=== PATIENT | female | born 1955 | race Caucasian/White ===

== ENCOUNTER 2020-02-09 21:14 | Inpatient (IN) | payer OTHER, SELFPAY ==
[2020-02-09 21:33] VITALS: BP 92/65; PULSE 94; RESP 20; TEMP 36.7; O2SAT 99
[2020-02-09 21:56] VITALS: BP 83/57; PULSE 82
[2020-02-09 21:59] VITALS: BP 74/60; PULSE 88
[2020-02-09 22:00] VITALS: BP 69/55; PULSE 81
[2020-02-09 22:03] LABS: Basophils Percent Auto 0.5 % (0.2-1.2); Eosinophils Absolute Auto 0.2 K/mm3 (0-0.3); Eosinophils Percent Auto 1.7 % (0-4.4); Hematocrit 46.8 % (37.0-47.0); Hemoglobin 16.4 g/dL (12.0-15.0); Immature Granulocyte Absolute 0.04 K/mm3 (0.00-0.031); Immature Granulocyte Percent A 0.5 % (0-0.5); Lymphocytes Absolute Auto 1.13 K/mm3 (0.9-3.2); Lymphocytes Percent Auto 13.2 % (18.3-44.2); Mean Corpuscular Hemoglobin 30.8 pg (26-34); Mean Platelet Volume 10.5 fl (7.4-10.4); Monocytes Absolute Auto 0.8 K/mm3 (0.1-0.6); Monocytes Percent Auto 9.7 % (2.6-8.5); Neutrophils Absolute Auto 6.4 K/mm3 (1.3-6.7); Neutrophils Percent Auto 74.4 % (45.5-73.1); Platelet Count Result 307 k/mm3 (150-375); Red Blood Count 5.32 M/mm3 (4.2-5.4); Red Cell Distribution Width 14.4 % (11.5-14.5); White Blood Count 8.6 K/mm3 (4.5-10.0)
[2020-02-09 22:16] VITALS: BP 100/58; PULSE 76; RESP 20; O2SAT 97
[2020-02-09 22:16] LABS: Potassium 2.9 mmol/L (3.4-5.0)
[2020-02-09 22:19] LABS: Alanine Aminotransferase 40 U/L (4-35); Albumin Level 4.5 g/dL (3.5-5.1); Alkaline Phosphatase 69 U/L (38-126); Anion Gap 16 mmol/L (8-16); Aspartate Amino Transferase 54 U/L (14-36); Bilirubin,Total 0.6 mg/dL (0.2-1.3); Blood Urea Nitrogen 50 mg/dL (7-17); Calcium 9.6 mg/dL (8.4-10.2); Carbon Dioxide 19 mmol/L (22-30); Chloride 97 mmol/L (98-107); Estimated CRCL calculation 30 ml/min; Estimated Glomerular Filt Rate 21; Glucose 98 mg/dL (65-105); Sodium 132 mmol/L (137-145)
[2020-02-09] MEDS: SODIUM CHLORIDE 0.9% IV 1,000 ML 999 ML IV CONT ×2 (22:31→22:56)
[2020-02-09 22:56] VITALS: BP 105/68; PULSE 66; RESP 18; O2SAT 100
--- NOTE | 2020-02-09 23:36 | ED.NAVMDI ---
HPI - Nausea/Vomiting/Diarrhea General Chief complaint: Nausea/Vomiting/Diarrhea Stated complaint: diarrhea x 2 months Time Seen by Provider: 02/09/20 21:33 History of Present Illness HPI Narrative: Patient is a 65-year-old female who presents ER with diarrhea. Ongoing for 2 months. Began as 4-6 stools a day but is now occurring upwards to 20 times a day. No blood in the stool. No fevers or chills or sweats. No localized abdominal pain. Has not been on antibiotics. Started after she had taken some steroids for sciatica. 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 She has been receiving Keytruda and other therapeutic agents. Today patient began feeling weak and lightheaded with movements and positional change which prompted her to come to the ER. Related Data Home Medications Medication Instructions Recorded Confirmed amlodipine 10 mg PO DAILY 02/09/20 02/09/20 axitinib [Inlyta] 5 mg PO DAILY 02/09/20 02/09/20 clopidogrel 75 mg PO DAILY 02/09/20 02/09/20 hydrochlorothiazide 25 mg PO DAILY 02/09/20 02/09/20 levothyroxine 175 mcg PO DAILY 02/09/20 02/09/20 losartan 100 mg PO DAILY 02/09/20 02/09/20 pembrolizumab [Keytruda] 200 mg IV [id number] 02/09/20 02/09/20 Allergies Allergy/AdvReac Type Severity Reaction Status Date / Time No Known Allergies Allergy Unverified 02/09/20 21:15 Review of Systems Review of Systems: All systems reviewed & are unremarkable except as noted in HPI and below Constitutional: Constitutional: Denies chills, Denies fever(s) and Reports weakness ENT: Denies nasal congestion and Denies sore throat Cardiovascular: Cardiovascular: Denies chest pain and Denies radiating jaw, neck or arm pain Respiratory: Respiratory: Denies cough, Denies dyspnea and Denies wheezing Gastrointestinal: Gastrointestinal: Denies abdominal pain, Denies constipation, Reports diarrhea, Reports nausea and Denies vomiting Musculoskeletal: Musculoskeletal: Denies back pain and Denies muscle cramps Neurologic: Reports dizziness, Denies syncope, Denies focal weakness and Denies numbness PMF Past Medical History Medical History (Updated 02/09/20 @ 23:43 by Aamir Feliciano MD) Hypertension Hypothyroidism Renal cell carcinoma Spine metastasis Surgical History Surgical History (Updated 02/09/20 @ 23:38 by Aamir Feliciano MD) History of nephrectomy Social History Social History (Updated 02/09/20 @ 23:39 by Aamir Feliciano MD) Smoking status: Never smoker Exam Narrative: Exam Narrative: GENERAL: Well-appearing, well-nourished, and in no acute distress. HEAD: Normocephalic, atraumatic. ENT: Mucous membranes moist. CHEST: Clear to auscultation. No respiratory distress. HEART: Regular rate and rhythm. Normal peripheral pulses. ABDOMEN: Soft, nontender, nondistended. EXTREMITIES: Normal range of motion. No edema. SKIN: Warm, dry, no rash. NEURO: Alert and oriented x3. PSYCH: Normal mood and affect. Course Course Emergency Course: Admit to hospital service for IV fluid and potassium replacement. Vital Signs Vital signs: Vital Signs Temperature 98.1 F 02/09/20 21:33 Pulse Rate 94 02/09/20 21:33 Respiratory Rate 20 02/09/20 21:33 Blood Pressure 92/65 L 02/09/20 21:33 Pulse Oximetry 99 02/09/20 21:33 Temperature 98.1 F 02/09/20 21:33 Pulse Rate 66 02/09/20 22:56 Respiratory Rate 18 02/09/20 22:56 Blood Pressure 105/68 02/09/20 22:56 Pulse Oximetry 100 02/09/20 22:56 MDM - Nausea/Vomiting/Diarrhea Lab Data Result diagrams: 02/09/20 21:57 02/09/20 21:57 Labs: Lab Results 02/09/20 02/09/20 Range/Units 21:57 21:57 WBC 8.6 (4.5-10.0) K/mm3 RBC 5.32 (4.2-5.4) M/mm3 Hgb 16.4 H (12.0-15.0) g/dL Hct 46.8 (37.0-47.0) % MCV 88.0 (80-100) fl MCH 30.8 (26-34) pg MCHC 35.0 (32-36) g/dl RDW 14.4 (11.5-14.5) % Plt Count 307 (150-375) k/mm3 MPV 10.5 H
--- NOTE | 2020-02-09 23:46 | PM.IMHP ---
H&P: HPI History of Present Illness Date/Time: 02/09/20 23:46 Chief Complaint: Persistent diarrhea, generalized weakness Narrative: Eli Frazier is a 65 year old female with past medical history of renal cell carcinoma status post resection, hypertension, PAD, and hypothyroidism who presents to ED with complaints of worsening diarrhea and lightheadedness. Patient states she has had diarrhea for last 2 months which has progressed significantly to the point where she cannot keep up with her output. He states is watery diarrhea no blood in her stools. She had no fevers or chills, mucus in her stools, or any other alarm features. She has not been any antibiotics recently. Her oncologist home held her Inlyta for 4 days to see if that would make any difference and it did not. Patient has never had issues with diarrhea like this before. Of note, she recently had sciatica which was treated with steroids with good improvement. There been no changes to her diet. She is having difficulty keeping a liquid diet down as she is getting significant diarrhea with any p.o. intake. Patient had right renal cell carcinoma and nephrectomy of right kidney. She had new lesions found on left kidney, the tail of her pancreas and her spine which were all removed, she has cage in her spine now. She follows oncology at [facility] on in light and Keytruda. He has been on Keytruda for at least last year. She had imaging done earlier this month which she states the scans were good. In the ED: Patient is on be hemoconcentrated with creatinine 2.3 with unknown baseline, hemoglobin 16.4, potassium 2.9. She was hypotensive on initial evaluation and respond to IV fluids. Elevated at 9.5 in she does have a history of hypothyroidism on Synthroid. 2 L normal saline bolus, 40 mEq potassium. Patient may admitted for observation for significant diarrhea, hypovolemia, acute kidney injury. Review of Systems Review of Systems: Narrative: Constitutional: No Fever, No Chills, No Night Sweats. Endorses generalized weakness. ENT/Mouth: No Hearing Changes, No Ear Pain, No Nasal Congestion, No Sinus Pain, No Hoarseness, No sore throat, No Rhinorrhea, No Swallowing Difficulty Eyes: No Eye Pain, No Redness, No Vision Changes Cardiovascular: No Chest Pain, No Palpitations, No Dyspnea on Exertion, No Orthopnea, No Claudication, No Edema Respiratory: No Cough, No Sputum, No Wheezing, No Shortness of Breath Gastrointestinal: No Constipation, No Abdominal Pain, No Heartburn, No Hematochezia, No Melena. Endorses nausea and profuse watery diarrhea, denies hematochezia or melena. Genitourinary: No Dysuria, No Urinary Frequency, No Hematuria, No Urinary Incontinence, No Urgency Musculoskeletal: No Arthralgias, No Myalgias, No Joint Swelling, No Joint Stiffness, No Back Pain Skin: No Skin Lesions, No Pruritis, No Hair Changes. endorses dry skin Neuro: No Numbness, No Paresthesias, No Loss of Consciousness, No Syncope, No Headache. Endorses dizziness and generalized weakness. Right lower extremity sciatica resolved. 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
[2020-02-10] VITALS (13 sets, daily range): BP systolic 91–119; BP diastolic 61–77; PULSE 59–82; RESP 16–21; TEMP 36.1–37.1; O2SAT 95–100; BMI 34.3
--- NOTE | 2020-02-10 00:15 | ADMGEN ---
This patient, Eli Frazier, was admitted to [facility]. Patient/family oriented to hospital policies and general routines including ID bracelet, bed and alarms, visiting hours, pain management, procedures, bathroom and other care routines, personal items, smoking policy, room service/diet, and visiting hours. Information on how to activate the Rapid Response Team has been discussed. Patient/Family are encouraged to report perceived risks to care and to ask questions if they do not understand what they are told or what they should do.
[2020-02-10 00:51] LABS: Free T4 Free Thyroxine 1.23 ng/mL (0.78-2.19)
[2020-02-10] MEDS: SODIUM CHLORIDE 0.9% IV 1,000 ML 125 ML IV CONT ×3 (00:56→19:24)
[2020-02-10 06:06] LABS: Hemoglobin 14.6 g/dL (12.0-15.0); Mean Corpuscular HGB Conc 34.8 g/dl (32-36); Mean Corpuscular Hemoglobin 30.4 pg (26-34); Mean Corpuscular Volume 87.5 fl (80-100); Mean Platelet Volume 10.6 fl (7.4-10.4); Platelet Count Result 241 k/mm3 (150-375); Red Cell Distribution Width 14.5 % (11.5-14.5); White Blood Count 8.1 K/mm3 (4.5-10.0)
[2020-02-10 06:21] LABS: Anion Gap 10 mmol/L (8-16); Blood Urea Nitrogen 43 mg/dL (7-17); Calcium 8.8 mg/dL (8.4-10.2); Carbon Dioxide 17 mmol/L (22-30); Chloride 106 mmol/L (98-107); Estimated CRCL calculation 42 ml/min; Estimated Glomerular Filt Rate 32; Glucose 82 mg/dL (65-105); Potassium 3.1 mmol/L (3.4-5.0); Sodium 133 mmol/L (137-145)
[2020-02-10] MEDS: LEVOTHYROXINE SODIUM 100 MCG TABLET PO (06:29)
[2020-02-10] MEDS: LEVOTHYROXINE SODIUM 75 MCG TABLET PO (06:29)
[2020-02-10] MEDS: POTASSIUM CHLORIDE 20 MEQ TABLET 40 MEQ PO (06:47)
[2020-02-10] MEDS: KCL 20 MEQ/SW 100 ML 100 ML 50 MEQ IVPB (07:03)
[2020-02-10 08:12] LABS: Magnesium 1.7 mg/dL (1.6-2.3)
--- NOTE | 2020-02-10 08:55 | PC.NURSE ---
RECORDS REQUEST FAXED TO MEDICAL RECORDS AT [facility].
--- NOTE | 2020-02-10 09:57 | PC.NURSE ---
CONSULT FOR GI CALLED TO DR. BUSH. STATES WILL SEE PT. TODAY. PT. PLACED ON 'S LIST.
--- NOTE | 2020-02-10 10:49 | PHAR ---
Drug Name: Inlyta Ingredients: Axitinib -- 5 MG Related Documents: DRUGDEX Evaluations - AXITINIB Color: Red Shape: [place] Imprint: Pfizer , 5 XNB Form: Oral Tablet
--- NOTE | 2020-02-10 11:10 | PC.NURSE ---
PT'S HOME MED OF INLYTA VERIFIED W/ PHARMACY AND IS OK'D TO ADMINISTER WHILE HERE IN HOSPITAL.
[2020-02-10] MEDS: CLOPIDOGREL BISULFATE 75 MG TABLET PO (11:25)
[2020-02-10] MEDS: MAGNESIUM SULF 2 GM/WATER 50ML 2 GM/50 ML BAG IVPB (11:28)
--- NOTE | 2020-02-10 14:31 | PM.IMPN ---
Progress Note: A&P Assessment and Plan (1) Enteritis: Code(s): K52.9 - Noninfective gastroenteritis and colitis, unspecified Status: Acute Assessment and Plan: Patient has had extended diarrhea for the last 2 months which is progressively getting worse. Etiology unclear at this time. No other signs of infectious cause, no fevers/chills/leukocytosis, seemed less likely to be infectious given the length of her symptoms. Denies abdominal pain or blood in stool. Denies recent antibiotic use. Immunosuppressed with Inlyta and Keytruda thus stools were sent for culture, WBC, and C diff. She has outpatient colonoscopy for 5-year follow-up scheduled with Dr Eaton in the next 1 or 2 months per patient. Appreciate GI recommendations. Continue supportive care with IV hydration. Recent CT abdomen/pelvis at [place] done 01/04/20 demonstrated improved inflammatory changes surrounding the sigmoid indicative of diverticulitis . If Cr improves more tomorrow we may be able to repeat CT however clinically she is improving so this may not be necessary. (2) Acute hypokalemia: Code(s): E87.6 - Hypokalemia Status: Acute Assessment and Plan: Suspect secondary to GI loss. K 3.1 this AM and replaced orally and parenterally. Magnesium low and replaced. Continue to monitor K and Mg and replace as needed. (3) GILMER (acute kidney injury): Code(s): N17.9 - Acute kidney failure, unspecified Status: Acute Assessment and Plan: Suspect prerenal secondary to hypovolemia. Unsure of baseline renal function. Cr improved to 1.6 today from 2.3 yesterday with IV hydration. Continue IV fluids and monitor renal function. (4) Renal cell carcinoma: Code(s): C64.9 - Malignant neoplasm of unspecified kidney, except renal pelvis Status: Chronic Assessment and Plan: Longstanding disease with history of metastasis, followed by [facility]. Currently on Keytruda and Inlyta, unclear if these medications are playing a role in her diarrhea. Her oncologist held her Inlyta for 4 days and her diarrhea was unchanged so the medication was resumed. (5) Hypertension: Qualifiers: Hypertension type: essential hypertension Qualified Code(s): I10 - Essential (primary) hypertension Code(s): I10 - Essential (primary) hypertension Status: Chronic Assessment and Plan: Her home losartan, hydrochlorothiazide, and amlodipine are held secondary to hypotension. Monitor BP and adjust treatment as needed. (6) Stenosis of popliteal artery: Code(s): I70.209 - Unspecified atherosclerosis of [place] arteries of extremities, unspecified extremity Status: Chronic Assessment and Plan: History of peripheral artery disease status post stent in left popliteal. Continue home Plavix. (7) Hypothyroidism: Qualifiers: Hypothyroidism type: unspecified Qualified Code(s): E03.9 - Hypothyroidism, unspecified Code(s): E03.9 - Hypothyroidism, unspecified Status: Chronic Assessment and Plan: Continue her home levothyroxine. Subjective Date/time seen: 02/10/20 1000 Interval history: Ms. Frazier is a 65yo F admitted for dehydration and electrolyte imbalances with significant diarrhea x 2 months and worsening. She reports feeling improved today and has only had a couple bowel movements so far today. Previously at home was having up to 15 - 20 BMs per day of nonbloody diarrhea. She denies abdominal pain. She reports nausea without vomiting. She denies chest pain, shortness of breath or dizziness. Review of Systems Review of Systems: Narrative: Twelve systems
--- NOTE | 2020-02-10 14:57 | PC.NURSE ---
DR. BUSH HERE TO SEE PT FOR GI CONSULTATION.
--- NOTE | 2020-02-10 15:44 | WPDGIPROGNO ---
Progress Note: A&P Additional Plan Improving. Full consult dictated Lin [phone] #[id number] Subjective Date/time seen: 02/10/20 15:44 Objective Data Vital Signs Vital Signs: Vital Signs - 24 hr 02/09/20 21:33 02/09/20 21:56 02/09/20 21:59 Temperature 36.7 C Pulse Rate 94 82 88 Respiratory Rate 20 Blood Pressure 92/65 L 83/57 L 74/60 L Pulse Oximetry 99 02/09/20 22:00 02/09/20 22:16 02/09/20 22:56 Temperature Pulse Rate 81 76 66 Respiratory Rate 20 18 Blood Pressure 69/55 L 100/58 L 105/68 Pulse Oximetry 97 100 02/10/20 00:03 02/10/20 00:12 02/10/20 00:43 Temperature 36.3 C L Pulse Rate 64 69 67 Respiratory Rate 20 17 Blood Pressure 113/62 119/75 Pulse Oximetry 100 99 02/10/20 01:00 02/10/20 04:00 02/10/20 06:00 Temperature 36.4 C L Pulse Rate 67 81 75 Respiratory Rate 16 21 H Blood Pressure 106/61 Pulse Oximetry 99 95 Intake/Output Intake/Output: Intake & Output 02/07/20 02/08/20 02/09/20 02/10/20 23:59 23:59 23:59 23:59 Intake Total 1000 2650 Balance 1000 2650 Meds/Results Medications: Active Medications Generic Name Dose Route Start Last Admin Trade Name Freq PRN Reason Stop Dose Admin Acetaminophen 650 mg 02/09/20 23:10 Acetaminophen 325 Mg Tablet PO Q4H PRN Mild Pain (1-3) or Fever Hydrocodone Bitart/Acetaminophen 1 tab 02/09/20 23:10 Hydrocodone/Acetaminophen (*Crx) 5-325 Mg Tablet PO Q4H PRN Pain Rated 4-6 Clopidogrel Bisulfate 75 mg 02/10/20 09:00 02/10/20 11:25 Clopidogrel Bisulfate 75 Mg Tablet PO 75 mg DAILY DARIUS Administration Sodium Chloride 1,000 mls @ 125 mls/hr 02/09/20 23:10 02/10/20 11:27 Normal Saline Iv IV CONT 125 mls/hr .Q8H DARIUS Administration Levothyroxine Sodium 100 mcg 02/10/20 06:30 02/10/20 06:29 Levothyroxine Sodium 100 Mcg Tablet PO 100 mcg DAILY@0630 DARIUS Administration Levothyroxine Sodium 75 mcg 02/10/20 06:30 02/10/20 06:29 Levothyroxine Sodium 75 Mcg Tablet PO 75 mcg DAILY@0630 DARIUS Administration Morphine Sulfate 4 mg 02/09/20 23:10 Morphine Sulfate (*Crx) 4 Mg/Ml Inj IV PUSH Q2H PRN Pain Rated 7-10 Ondansetron HCl 4 mg 02/09/20 23:10 Ondansetron Inj 4 Mg/2 Ml Vial IV PUSH Q4H PRN Nausea Labs Labs: Laboratory Results - last 24 hr 02/09/20 02/09/20 02/09/20 21:57 21:57 21:57 WBC 8.6 RBC 5.32 Hgb 16.4 H Hct 46.8 MCV 88.0 MCH 30.8 MCHC 35.0 RDW 14.4 Plt Count 307 MPV 10.5 H Immature Gran % (Auto) 0.5 Neut % (Auto) 74.4 H Lymph % (Auto) 13.2 L [place] % (Auto) 9.7 H Eos % (Auto) 1.7 Baso % (Auto) 0.5 Lymph # (Auto) 1.13 [place] # (Auto) 0.8 H Eos # (Auto) 0.2 Baso # (Auto) 0.0 Abs Immat Gran (auto) 0.04 H Absolute Neuts (auto) 6.4 Absolute Nucleated RBC 0.0 Nucleated RBC % 0.0 Sodium 132 L Potassium 2.9 L Chloride 97 L Carbon Dioxide 19 L Anion Gap 16 BUN 50 H Creatinine 2.30 H Estim Creat Clear Calc 30 Estimated GFR 21 L Glucose 98 Calcium 9.6 Magnesium Total Bilirubin 0.6 Direct Bilirubin 0.0 AST 54 H ALT 40 H Alkaline Phosphatase 69 Total Protein 8.0 Albumin 4.5 TSH 9.540 H Free T4 1.23 02/10/20 02/10/20 02/10/20 05:56 05:56 05:56 WBC 8.1 RBC 4.80 Hgb 14.6 Hct 42.0 MCV 87.5 MCH 30.4 MCHC 34.8 RDW 14.5 Plt Count 241 MPV 10.6 H Immature Gran % (Auto) Neut % (Auto) Lymph % (Auto) [place] % (Auto) Eos % (Auto) Baso % (Auto) Lymph # (Auto) [place] # (Auto) Eos # (Auto) Baso # (Auto) Abs Immat Gran (auto) Absolute Neuts (auto) Absolute Nucleated RBC Nucleated RBC % Sodium 133 L Potassium 3.1 L Chloride 106 Carbon Dioxide 17 L Anion Gap 10 BUN 43 H Creatinine 1.60 H Estim Creat Clear Calc 42 Estimated GFR 32 L Glucose 82
--- NOTE | 2020-02-10 19:51 | CONS_ITS ---
DATE OF CONSULTATION: 02/10/2020 HISTORY OF PRESENT ILLNESS: A 65-year-old female with history of renal cell carcinoma status post resection. She has spinal METS. She has history of hypertension, peripheral artery disease, hypothyroidism, and back surgery, who presented with worsening diarrhea and lightheadedness. I am now asked to provide GI evaluation at the request of the hospitalist service. Primary care provider is Dr. Kevin Kramer. The patient has had at least 2 months of diarrhea that has recently been worsening. She complains of at least 8-10 bowel movements per day that are watery. They are not bloody, melenic, or mucoid. She held her Inlyta for 4 days without change. She has also been on sciatica treatment with steroids, which has improved her sciatica. She has no history of being around others, who were ill, recent antibiotic use, travel, leg swimming, well water, or new medications except for the steroids, which she does not feel is associated with that. She has mild nausea, no vomiting. She has poor appetite and has lost approximately 25 pounds over the past 2 months or so. She otherwise denies abdominal pain, heartburn, trouble swallowing, constipation, fever, jaundice, scleral icterus, dark urine, light stools, itching, hot or cold intolerance, chest pain, shortness of breath at rest, hematuria, dysuria, new cough or visual changes, easy bruising, tingling skin, bone pain, or tremors. No endocarditis risk factors. ALLERGIES: SEE LIST. MEDICATIONS: See list. SOCIAL HISTORY: Smoker, cessation recommended. Occasional alcohol. FAMILY HISTORY: Negative for GI malignancy. Her last colonoscopy was approximately [address] Khalif Eaton. She had 3-4 polyps reportedly planned otherwise. PHYSICAL EXAMINATION: GENERAL: Well-developed, well-nourished female, lying in bed, in no apparent distress. She has no lower extremity edema, jaundice, spider angioma, palmar erythema. HEENT: Skull is normocephalic, atraumatic. Pupils nonicteric. Oropharynx is clear. NECK: Supple without thyromegaly. LUNGS: Clear to auscultation. HEART: Rate and rhythm regular. S1, S2 normal. ABDOMEN: Normoactive bowel sounds. Soft, nontender, nonrigid, nondistended without hepatosplenomegaly or masses. RECTAL: Deferred. NEURO: Conscious and alert x3. LABORATORY DATA: On February 09, hemoglobin 15, hematocrit 42, white count of 8. Creatinine 1.6. Stool calprotectin, lactoferrin, and stool studies were all pending. On 02/08, hematocrit 47, white count 9, MCV 88. T bilirubin is 0.6, alkaline phosphatase 69, AST 54, ALT is 40, creatinine 2.3. TSH 9.5, free T4 is 1.2. ASSESSMENT AND PLAN: Alteration in bowel habits with diarrhea, nausea, anorexia, weight loss, and abnormal transaminases, likely related to whatever is causing her altered bowel habits and diarrhea. May be infectious as the patient is feeling better since admission. Her diarrhea is improved. Her nausea is resolved and her appetite is better. She is currently not on antibiotics. We will await results of stool studies and follow LFTs and consider for colonoscopy when stable. Potentially, this could be done as an outpatient. Thank you again for allowing me to share in the care of this very nice patient. I will continue to follow. MITZI BUSH M.D. CC:? Kevin Kramer M.D. CAN HANDLER CAN HANDLER D I MT: Sammy
[2020-02-11] VITALS: PULSE 55
[2020-02-11] MEDS: SODIUM CHLORIDE 0.9% IV 1,000 ML 125 ML IV CONT ×2 (03:05→17:39)
[2020-02-11 04:05] VITALS: BP 115/73; PULSE 59; PULSE 60; RESP 16; TEMP 36.9; O2SAT 100
[2020-02-11] MEDS: LEVOTHYROXINE SODIUM 75 MCG TABLET PO (06:13)
[2020-02-11] MEDS: LEVOTHYROXINE SODIUM 100 MCG TABLET PO (06:13)
[2020-02-11 06:22] LABS: Basophils Percent Auto 0.5 % (0.2-1.2); Eosinophils Absolute Auto 0.2 K/mm3 (0-0.3); Eosinophils Percent Auto 2.4 % (0-4.4); Hematocrit 40.2 % (37.0-47.0); Hemoglobin 13.8 g/dL (12.0-15.0); Immature Granulocyte Absolute 0.02 K/mm3 (0.00-0.031); Immature Granulocyte Percent A 0.3 % (0-0.5); Lymphocytes Absolute Auto 0.91 K/mm3 (0.9-3.2); Lymphocytes Percent Auto 12.3 % (18.3-44.2); Mean Corpuscular HGB Conc 34.3 g/dl (32-36); Mean Corpuscular Hemoglobin 30.3 pg (26-34); Mean Corpuscular Volume 88.2 fl (80-100); Mean Platelet Volume 10.7 fl (7.4-10.4); Monocytes Absolute Auto 0.7 K/mm3 (0.1-0.6); Monocytes Percent Auto 9.4 % (2.6-8.5); Neutrophils Absolute Auto 5.6 K/mm3 (1.3-6.7); Neutrophils Percent Auto 75.1 % (45.5-73.1); Platelet Count Result 226 k/mm3 (150-375); Red Blood Count 4.56 M/mm3 (4.2-5.4); Red Cell Distribution Width 14.6 % (11.5-14.5); White Blood Count 7.4 K/mm3 (4.5-10.0)
[2020-02-11 06:43] LABS: Alanine Aminotransferase 32 U/L (4-35); Albumin Level 3.5 g/dL (3.5-5.1); Alkaline Phosphatase 62 U/L (38-126); Anion Gap 9 mmol/L (8-16); Aspartate Amino Transferase 46 U/L (14-36); Bilirubin,Total 0.4 mg/dL (0.2-1.3); Blood Urea Nitrogen 27 mg/dL (7-17); Calcium 8.6 mg/dL (8.4-10.2); Carbon Dioxide 15 mmol/L (22-30); Chloride 111 mmol/L (98-107); Estimated CRCL calculation 55 ml/min; Estimated Glomerular Filt Rate 45; Glucose 84 mg/dL (65-105); Magnesium 2.1 mg/dL (1.6-2.3); Phosphorus 2.7 mg/dL (2.5-4.5); Potassium 2.9 mmol/L (3.4-5.0); Sodium 135 mmol/L (137-145)
[2020-02-11 08:00] VITALS: BP 107/70; PULSE 72; PULSE 76; RESP 14; TEMP 36.4; O2SAT 98
[2020-02-11] MEDS: POTASSIUM CHLORIDE 20 MEQ TABLET 40 MEQ PO (08:55)
[2020-02-11] MEDS: CLOPIDOGREL BISULFATE 75 MG TABLET PO (08:56)
--- NOTE | 2020-02-11 11:36 | WPDGIPROGNO ---
Progress Note: A&P Additional Plan GI Lin 11 Feb 2020 Still with frequent diarrhea overnight VSS soft/NT Hct 40. WBC 7. TB 0.4, A/P 62, AST 46, ALT 32. FT4 1.2 ASSESSMENT AND PLAN: Alteration in bowel habits with diarrhea, nausea, anorexia, weight loss and abnormal transaminases: - Abnormal LFT's llikely related to whatever is causing her altered bowel habits-diarrhea - May be infectious as the patient is feeling better since admission - Her diarrhea initially seemed improved but is not - Will begin Levaquin, Flagyl and Imodium ATC - Stool studies still pending - Follow LFTs - Consider for colonoscopy when stable Case reviewed with KEITH Blanton. Thanks, [facility] [phone] Subjective Date/time seen: 02/11/20 11:36 Objective Data Vital Signs Vital Signs: Vital Signs - 24 hr 02/10/20 12:00 02/10/20 14:00 02/10/20 16:00 Temperature 36.6 C Pulse Rate 76 68 59 L Respiratory Rate 16 Blood Pressure 107/73 Pulse Oximetry 98 02/10/20 18:00 02/10/20 20:00 02/10/20 20:50 Temperature 37.1 C 36.9 C Pulse Rate 65 66 71 Respiratory Rate 16 16 Blood Pressure 103/77 106/69 Pulse Oximetry 100 100 02/11/20 00:00 02/11/20 04:05 02/11/20 08:00 Temperature 36.9 C 36.4 C Pulse Rate 55 L 59 L 76 Respiratory Rate 16 14 Blood Pressure 115/73 107/70 Pulse Oximetry 100 98 Intake/Output Intake/Output: Intake & Output 02/08/20 02/09/20 02/10/20 02/11/20 23:59 23:59 23:59 23:59 Intake Total 1000 5290 1900 Balance 1000 5290 1900 Meds/Results Medications: Active Medications Generic Name Dose Route Start Last Admin Trade Name Freq PRN Reason Stop Dose Admin Acetaminophen 650 mg 02/09/20 23:10 Acetaminophen 325 Mg Tablet PO Q4H PRN Mild Pain (1-3) or Fever Hydrocodone Bitart/Acetaminophen 1 tab 02/09/20 23:10 Hydrocodone/Acetaminophen (*Crx) 5-325 Mg Tablet PO Q4H PRN Pain Rated 4-6 Clopidogrel Bisulfate 75 mg 02/10/20 09:00 02/11/20 08:56 Clopidogrel Bisulfate 75 Mg Tablet PO 75 mg DAILY DARIUS Administration Sodium Chloride 1,000 mls @ 100 mls/hr 02/09/20 23:10 02/11/20 03:05 Normal Saline Iv IV CONT 125 mls/hr .Q10H DARIUS Administration Potassium Chloride 500 mls @ 125 mls/hr 02/11/20 08:21 02/11/20 08:55 Kcl 40 Meq/D5w 500 Ml Peripheral IVPB 02/11/20 12:20 125 mls/hr ONCE ONE Administration Levofloxacin/Dextrose 500 mg in 100 mls @ 100 mls/hr 02/11/20 12:00 Levaquin 500 Mg/D5w 100 Ml IVPB NOON DARIUS Metronidazole 500 mg in 100 mls @ 100 mls/hr 02/11/20 11:35 Flagyl 500 Mg/Iso Soln 100 Ml IVPB Q8H [facility] Levothyroxine Sodium 100 mcg 02/10/20 06:30 02/11/20 06:13 Levothyroxine Sodium 100 Mcg Tablet PO 100 mcg DAILY@0630 [facility] Administration Levothyroxine Sodium 75 mcg 02/10/20 06:30 02/11/20 06:13 Levothyroxine Sodium 75 Mcg Tablet PO 75 mcg DAILY@0630 [facility] Administration Loperamide HCl 2 mg 02/11/20 16:30 Loperamide Hcl 2 Mg Capsule PO ACHS [facility] Ondansetron HCl 4 mg 02/09/20 23:10 Ondansetron Inj 4 Mg/2 Ml Vial IV PUSH Q4H PRN Nausea Labs Labs: Laboratory Results - last 24 hr 02/11/20 02/11/20 06:04 06:04 WBC 7.4 RBC 4.56 Hgb 13.8 Hct 40.2 MCV 88.2 MCH 30.3 MCHC 34.3 RDW 14.6 H Plt Count 226 MPV 10.7 H Immature Gran % (Auto) 0.3 Neut % (Auto) 75.1 H Lymph % (Auto) 12.3 L [place] % (Auto) 9.4 H Eos % (Auto) 2.4 Baso % (Auto) 0.5 Lymph # (Auto) 0.91 [place] # (Auto) 0.7 H Eos # (Auto) 0.2 Baso # (Auto) 0.0 Abs Immat Gran (auto) 0.02 Absolute Neuts (auto) 5.6 Absolute Nucleated RBC 0.0 Nucleated RBC % 0.0 Sodium 135 L Potassium 2.9 L Chloride 111 H Carbon Dioxide 15 L Anion Gap 9 BUN 27 H D Creatinine 1.20 H Estim Creat Clear Calc 55 Estimated GFR 45 L Glucose 84 Calcium 8.6 Phosphorus 2.7 Magnesium 2.1 Total Bilirubin 0.4 AST 46 H ALT 32 Alkaline
[2020-02-11 12:00] VITALS: PULSE 75
--- NOTE | 2020-02-11 12:26 | PM.IMPN ---
Progress Note: A&P Assessment and Plan (1) Enteritis: Code(s): K52.9 - Noninfective gastroenteritis and colitis, unspecified Status: Acute Assessment and Plan: Patient has had extended diarrhea for the last 2 months which is progressively getting worse. Etiology unclear at this time. Denies recent antibiotic use. Immunosuppressed with Inlyta and Keytruda thus stools were sent for culture, WBC, and C diff. She has outpatient colonoscopy for 5-year follow-up scheduled with Dr Eaton in the next 1 or 2 months per patient. Appreciate GI recommendations. Continue supportive care with IV hydration. Recent CT abdomen/pelvis at [place] done 01/04/20 for routine monitoring of her pancreatic metastasis demonstrated improved inflammatory changes surrounding the sigmoid indicative of diverticulitis . She tells me she did not take antibiotics for diverticulitis at that time, was told to see her PCP regarding this but she did not follow up she says. Discussed case with Dr Ceballos; added IV levaquin and flagyl, immodium. (2) Acute hypokalemia: Code(s): E87.6 - Hypokalemia Status: Acute Assessment and Plan: Suspect secondary to GI loss. K 2.9 this AM and replaced orally and parenterally. Magnesium 2.1 today. Continue to monitor K and Mg and replace as needed. (3) GILMER (acute kidney injury): Code(s): N17.9 - Acute kidney failure, unspecified Status: Acute Assessment and Plan: Suspect prerenal secondary to hypovolemia. Unsure of baseline renal function. Cr improved to 1.2 today from 2.3 on arrival with IV hydration. Continue IV fluids and monitor renal function. (4) Renal cell carcinoma: Code(s): C64.9 - Malignant neoplasm of unspecified kidney, except renal pelvis Status: Chronic Assessment and Plan: Longstanding disease with history of metastasis, followed by [facility]. Currently on Keytruda and Inlyta, unclear if these medications are playing a role in her diarrhea. Her oncologist held her Inlyta for 4 days and her diarrhea was unchanged so the medication was resumed. (5) Hypertension: Qualifiers: Hypertension type: essential hypertension Qualified Code(s): I10 - Essential (primary) hypertension Code(s): I10 - Essential (primary) hypertension Status: Chronic Assessment and Plan: BPs low but stable, last 107/70. Her home losartan, hydrochlorothiazide, and amlodipine are held secondary to hypotension. Monitor BP and adjust treatment as needed. (6) Stenosis of popliteal artery: Code(s): I70.209 - Unspecified atherosclerosis of [place] arteries of extremities, unspecified extremity Status: Chronic Assessment and Plan: History of peripheral artery disease status post stent in left popliteal. Continue home Plavix. (7) Hypothyroidism: Qualifiers: Hypothyroidism type: unspecified Qualified Code(s): E03.9 - Hypothyroidism, unspecified Code(s): E03.9 - Hypothyroidism, unspecified Status: Chronic Assessment and Plan: Continue her home levothyroxine. Subjective Date/time seen: 02/11/20 1100 Interval history: Ms. Frazier is a 65yo F admitted for dehydration and electrolyte imbalances with significant diarrhea x 2 months and worsening. She is tired. Initially diarrhea seemed improved yesterday however overnight she had several watery bowel movements and so far today she has had 4 or 5 this morning. She reports some mild vague abdominal discomfort but no point tenderness. She denies chest pain, shortness of breath or dizziness. Review of Systems Review of Systems: All systems revie
[2020-02-11] MEDS: levoFLOXacin 500 MG/D5W 100 ML 500 MG/100 ML BAG 100 MG IVPB (12:56)
[2020-02-11] MEDS: LOPERAMIDE HCL 2 MG CAPSULE PO ×2 (13:34→21:18)
[2020-02-11] MEDS: metroNIDAZOLE 500 MG/ISO 100ML 500 MG/100 ML BAG 100 MG IVPB ×2 (13:57→21:18)
[2020-02-11 15:51] VITALS: BP 120/75; PULSE 75; RESP 14; TEMP 36.6; O2SAT 98
[2020-02-11 20:00] VITALS: BP 111/74; PULSE 68; RESP 16; TEMP 36.8; O2SAT 98
[2020-02-12] VITALS (7 sets, daily range): BP systolic 117–131; BP diastolic 76–87; PULSE 57–72; RESP 14–18; TEMP 36.2–36.6; O2SAT 99–100
[2020-02-12] MEDS: SODIUM CHLORIDE 0.9% IV 1,000 ML 100 ML IV CONT ×2 (01:56→13:50)
[2020-02-12] MEDS: metroNIDAZOLE 500 MG/ISO 100ML 500 MG/100 ML BAG 100 MG IVPB ×3 (06:10→21:04)
[2020-02-12] MEDS: LEVOTHYROXINE SODIUM 100 MCG TABLET PO (06:11)
[2020-02-12] MEDS: LOPERAMIDE HCL 2 MG CAPSULE PO ×4 (06:11→21:00)
[2020-02-12] MEDS: LEVOTHYROXINE SODIUM 75 MCG TABLET PO (06:11)
[2020-02-12 08:25] LABS: Alanine Aminotransferase 31 U/L (4-35); Albumin Level 3.8 g/dL (3.5-5.1); Alkaline Phosphatase 60 U/L (38-126); Anion Gap 12 mmol/L (8-16); Aspartate Amino Transferase 46 U/L (14-36); Bilirubin,Total 0.4 mg/dL (0.2-1.3); Blood Urea Nitrogen 16 mg/dL (7-17); Calcium 9.3 mg/dL (8.4-10.2); Carbon Dioxide 13 mmol/L (22-30); Chloride 113 mmol/L (98-107); Estimated CRCL calculation 51 ml/min; Estimated Glomerular Filt Rate 41; Glucose 85 mg/dL (65-105); Magnesium 1.8 mg/dL (1.6-2.3); Phosphorus 2.9 mg/dL (2.5-4.5); Potassium 3.5 mmol/L (3.4-5.0); Sodium 138 mmol/L (137-145)
[2020-02-12] MEDS: CLOPIDOGREL BISULFATE 75 MG TABLET PO (08:45)
[2020-02-12] MEDS: MAGNESIUM SULF 1 GM/D5W 100 ML 1 GM/100 ML BAG IVPB (09:20)
[2020-02-12] MEDS: POTASSIUM CHLORIDE 20 MEQ TABLET PO (09:20)
--- NOTE | 2020-02-12 10:18 | WPDGIPROGNO ---
Progress Note: A&P Additional Plan GI [facility] 12 Feb 2020 Diarrhea much improved; none overnight. No AP, N, V. [place] po VSS soft/NT 02-11-2020 Hct 40. WBC 7. FT4 1.2. TB 0.4->0.4, A/P 62->60, AST 46->46, ALT 32->31. ASSESSMENT AND PLAN: Alteration in bowel habits with diarrhea, nausea, anorexia, weight loss and abnormal transaminases: - Abnormal LFT's likely related to whatever is causing her altered bowel habits-diarrhea - Much improved today on Levaquin, Flagyl and Imodium - If improved tomorrow ok with me for discharge - Patient can do colonoscopy as OP - Stool WBC negative o/w other studies still pending - Follow LFTs CARMEN العلي [phone] Subjective Date/time seen: 02/12/20 10:18 Objective Data Vital Signs Vital Signs: Vital Signs - 24 hr 02/11/20 12:00 02/11/20 15:51 02/11/20 20:00 Temperature 36.6 C 36.8 C Pulse Rate 75 75 68 Respiratory Rate 14 16 Blood Pressure 120/75 111/74 Pulse Oximetry 98 98 02/12/20 00:00 02/12/20 04:00 02/12/20 08:00 Temperature 36.2 C L 36.6 C Pulse Rate 57 L 63 72 Respiratory Rate 16 18 Blood Pressure 131/83 117/76 Pulse Oximetry 99 99 Intake/Output Intake/Output: Intake & Output 02/09/20 02/10/20 02/11/20 02/12/20 23:59 23:59 23:59 23:59 Intake Total 1000 5290 4050 2520 Balance 1000 5290 4050 2520 Meds/Results Medications: Active Medications Generic Name Dose Route Start Last Admin Trade Name Freq PRN Reason Stop Dose Admin Acetaminophen 650 mg 02/09/20 23:10 Acetaminophen 325 Mg Tablet PO Q4H PRN Mild Pain (1-3) or Fever Hydrocodone Bitart/Acetaminophen 1 tab 02/09/20 23:10 Hydrocodone/Acetaminophen (*Crx) 5-325 Mg Tablet PO Q4H PRN Pain Rated 4-6 Clopidogrel Bisulfate 75 mg 02/10/20 09:00 02/12/20 08:45 Clopidogrel Bisulfate 75 Mg Tablet PO 75 mg DAILY DARIUS Administration Sodium Chloride 1,000 mls @ 100 mls/hr 02/09/20 23:10 02/12/20 01:56 Normal Saline Iv IV CONT 100 mls/hr .Q10H DARIUS Administration Levofloxacin/Dextrose 500 mg in 100 mls @ 100 mls/hr 02/11/20 12:00 02/11/20 14:43 Levaquin 500 Mg/D5w 100 Ml IVPB Infused NOON DARIUS Infusion Metronidazole 500 mg in 100 mls @ 100 mls/hr 02/11/20 14:00 02/12/20 07:11 Flagyl 500 Mg/Iso Soln 100 Ml IVPB Infused Q8HR DARIUS Infusion Levothyroxine Sodium 100 mcg 02/10/20 06:30 02/12/20 06:11 Levothyroxine Sodium 100 Mcg Tablet PO 100 mcg DAILY@0630 DARIUS Administration Levothyroxine Sodium 75 mcg 02/10/20 06:30 02/12/20 06:11 Levothyroxine Sodium 75 Mcg Tablet PO 75 mcg DAILY@0630 DARIUS Administration Loperamide HCl 2 mg 02/11/20 16:30 02/12/20 08:05 Loperamide Hcl 2 Mg Capsule PO 2 mg ACHS DARIUS Administration Ondansetron HCl 4 mg 02/09/20 23:10 Ondansetron Inj 4 Mg/2 Ml Vial IV PUSH Q4H PRN Nausea Labs Labs: Laboratory Results - last 24 hr 02/12/20 07:30 Sodium 138 Potassium 3.5 Chloride 113 H Carbon Dioxide 13 L Anion Gap 12 BUN 16 D Creatinine 1.30 H Estim Creat Clear Calc 51 Estimated GFR 41 L Glucose 85 Calcium 9.3 Phosphorus 2.9 Magnesium 1.8 Total Bilirubin 0.4 AST 46 H ALT 31 Alkaline Phosphatase 60 Total Protein 7.0 Albumin 3.8
[2020-02-12] MEDS: levoFLOXacin 500 MG/D5W 100 ML 500 MG/100 ML BAG 100 MG IVPB (11:57)
--- NOTE | 2020-02-12 13:26 | P.PNIM_ITS ---
Progress Note: A&P Assessment and Plan (1) Enteritis: Code(s): K52.9 - Noninfective gastroenteritis and colitis, unspecified Status: Acute Assessment and Plan: * Patient has had extended diarrhea for the last 2 months which is progressively getting worse. Etiology unclear at this time. * Denies recent antibiotic use. Immunosuppressed with Inlyta and Keytruda thus stools were sent for culture, WBC, and C diff. * She has outpatient colonoscopy for 5-year follow-up scheduled with Dr Eaton in the next 1 or 2 months per patient. * Appreciate GI recommendations. Continue supportive care with IV hydration. * Recent CT abdomen/pelvis at [place] done 01/04/20 for routine monitoring of her pancreatic metastasis demonstrated improved inflammatory changes surrounding the sigmoid indicative of diverticulitis . She tells me she did not take antibiotics for diverticulitis at that time, was told to see her PCP regarding this but she did not follow up she says. * Discussed case with Dr Ceballos; continue IV levaquin and flagyl, immodium. Possible dc tomorrow if stable. (2) Acute hypokalemia: Code(s): E87.6 - Hypokalemia Status: Acute Assessment and Plan: * Suspect secondary to GI loss. Improved. Potassium up to 3.5 this AM, replaced. Magnesium 1.8 and replaced. * Continue to monitor K and Mg and replace as needed. (3) GILMER (acute kidney injury): Code(s): N17.9 - Acute kidney failure, unspecified Status: Acute Assessment and Plan: * Suspect prerenal secondary to hypovolemia. Unsure of baseline renal function. Cr improved to 1.3 today from 2.3 on arrival with IV hydration. * Continue IV fluids and monitor renal function. (4) Renal cell carcinoma: Code(s): C64.9 - Malignant neoplasm of unspecified kidney, except renal pelvis Status: Chronic Assessment and Plan: * Longstanding disease with history of metastasis, followed by [facility]. * Currently on Keytruda and Inlyta, unclear if these medications are playing a role in her diarrhea. Her oncologist held her Inlyta for 4 days and her diarrhea was unchanged so the medication was resumed. (5) Hypertension: Qualifiers: Hypertension type: essential hypertension Qualified Code(s): I10 - Essential (primary) hypertension Code(s): I10 - Essential (primary) hypertension Status: Chronic Assessment and Plan: * BPs low but stable, last 117/76. Her home losartan, hydrochlorothiazide, and amlodipine are held secondary to hypotension. Monitor BP and adjust treatment as needed. (6) Stenosis of popliteal artery: Code(s): I70.209 - Unspecified atherosclerosis of [place] arteries of extremities, u nspecified extremity Status: Chronic Assessment and Plan: * History of peripheral artery disease status post stent in left popliteal. Continue home Plavix. (7) Hypothyroidism: Qualifiers: Hypothyroidism type: unspecified Qualified Code(s): E03.9 - Hypothyroidism, unspecified Code(s): E03.9 - Hypothyroidism, unspecified Status: Chronic Assessment and Plan: * Continue her home levothyroxine. Subjective Date/time seen: 02/12/20 1200 Interval history: Ms. Frazier is a 65yo F admitted for dehydration and rylie
--- NOTE | 2020-02-12 13:26 | PM.IMPN ---
Progress Note: A&P Assessment and Plan (1) Enteritis: Code(s): K52.9 - Noninfective gastroenteritis and colitis, unspecified Status: Acute Assessment and Plan: Patient has had extended diarrhea for the last 2 months which is progressively getting worse. Etiology unclear at this time. Denies recent antibiotic use. Immunosuppressed with Inlyta and Keytruda thus stools were sent for culture, WBC, and C diff. She has outpatient colonoscopy for 5-year follow-up scheduled with Dr Eaton in the next 1 or 2 months per patient. Appreciate GI recommendations. Continue supportive care with IV hydration. Recent CT abdomen/pelvis at [place] done 01/04/20 for routine monitoring of her pancreatic metastasis demonstrated improved inflammatory changes surrounding the sigmoid indicative of diverticulitis . She tells me she did not take antibiotics for diverticulitis at that time, was told to see her PCP regarding this but she did not follow up she says. Discussed case with Dr Ceballos; continue IV levaquin and flagyl, immodium. Possible dc tomorrow if stable. (2) Acute hypokalemia: Code(s): E87.6 - Hypokalemia Status: Acute Assessment and Plan: Suspect secondary to GI loss. Improved. Potassium up to 3.5 this AM, replaced. Magnesium 1.8 and replaced. Continue to monitor K and Mg and replace as needed. (3) GILMER (acute kidney injury): Code(s): N17.9 - Acute kidney failure, unspecified Status: Acute Assessment and Plan: Suspect prerenal secondary to hypovolemia. Unsure of baseline renal function. Cr improved to 1.3 today from 2.3 on arrival with IV hydration. Continue IV fluids and monitor renal function. (4) Renal cell carcinoma: Code(s): C64.9 - Malignant neoplasm of unspecified kidney, except renal pelvis Status: Chronic Assessment and Plan: Longstanding disease with history of metastasis, followed by [facility]. Currently on Keytruda and Inlyta, unclear if these medications are playing a role in her diarrhea. Her oncologist held her Inlyta for 4 days and her diarrhea was unchanged so the medication was resumed. (5) Hypertension: Qualifiers: Hypertension type: essential hypertension Qualified Code(s): I10 - Essential (primary) hypertension Code(s): I10 - Essential (primary) hypertension Status: Chronic Assessment and Plan: BPs low but stable, last 117/76. Her home losartan, hydrochlorothiazide, and amlodipine are held secondary to hypotension. Monitor BP and adjust treatment as needed. (6) Stenosis of popliteal artery: Code(s): I70.209 - Unspecified atherosclerosis of [place] arteries of extremities, unspecified extremity Status: Chronic Assessment and Plan: History of peripheral artery disease status post stent in left popliteal. Continue home Plavix. (7) Hypothyroidism: Qualifiers: Hypothyroidism type: unspecified Qualified Code(s): E03.9 - Hypothyroidism, unspecified Code(s): E03.9 - Hypothyroidism, unspecified Status: Chronic Assessment and Plan: Continue her home levothyroxine. Subjective Date/time seen: 02/12/20 1200 Interval history: Ms. Frazier is a 65yo F admitted for dehydration and electrolyte imbalances with significant diarrhea x 2 months and worsening. She has had at least 5 bowel movements so far today, but she notes they are small amounts. She has some mild vague discomfort but no point tenderness. She denies chest pain, shortness of breath or dizziness. Review of Systems Review of Systems: All systems reviewed & are unremarkable except as noted in HPI a
[2020-02-13] VITALS (8 sets, daily range): BP systolic 111–126; BP diastolic 80–93; PULSE 62–72; RESP 16–18; TEMP 36.3–36.7; O2SAT 98–100
[2020-02-13] MEDS: ONDANSETRON INJ 4 MG/2 ML VIAL IV PUSH ×2 (01:10→22:55)
[2020-02-13] MEDS: SODIUM CHLORIDE 0.9% IV 1,000 ML 100 ML IV CONT ×2 (01:50→15:30)
[2020-02-13] MEDS: metroNIDAZOLE 500 MG/ISO 100ML 500 MG/100 ML BAG 100 MG IVPB ×3 (05:57→22:10)
[2020-02-13] MEDS: LEVOTHYROXINE SODIUM 75 MCG TABLET PO (06:01)
[2020-02-13] MEDS: LOPERAMIDE HCL 2 MG CAPSULE PO (06:01)
[2020-02-13] MEDS: LEVOTHYROXINE SODIUM 100 MCG TABLET PO (06:01)
[2020-02-13 06:10] LABS: Basophils Percent Auto 0.7 % (0.2-1.2); Eosinophils Absolute Auto 0.2 K/mm3 (0-0.3); Eosinophils Percent Auto 2.7 % (0-4.4); Hematocrit 47.3 % (37.0-47.0); Hemoglobin 15.3 g/dL (12.0-15.0); Immature Granulocyte Absolute 0.03 K/mm3 (0.00-0.031); Immature Granulocyte Percent A 0.5 % (0-0.5); Lymphocytes Absolute Auto 1.11 K/mm3 (0.9-3.2); Lymphocytes Percent Auto 18.5 % (18.3-44.2); Mean Corpuscular HGB Conc 32.3 g/dl (32-36); Mean Corpuscular Hemoglobin 30.4 pg (26-34); Mean Platelet Volume 10.8 fl (7.4-10.4); Monocytes Absolute Auto 0.5 K/mm3 (0.1-0.6); Neutrophils Absolute Auto 4.1 K/mm3 (1.3-6.7); Neutrophils Percent Auto 68.6 % (45.5-73.1); Platelet Count Result 223 k/mm3 (150-375); Red Blood Count 5.03 M/mm3 (4.2-5.4); Red Cell Distribution Width 15.4 % (11.5-14.5)
[2020-02-13 06:21] LABS: Alanine Aminotransferase 29 U/L (4-35); Albumin Level 3.7 g/dL (3.5-5.1); Alkaline Phosphatase 56 U/L (38-126); Anion Gap 10 mmol/L (8-16); Aspartate Amino Transferase 42 U/L (14-36); Bilirubin,Total 0.3 mg/dL (0.2-1.3); Blood Urea Nitrogen 11 mg/dL (7-17); Calcium 9.4 mg/dL (8.4-10.2); Carbon Dioxide 11 mmol/L (22-30); Chloride 116 mmol/L (98-107); Estimated CRCL calculation 47 ml/min; Estimated Glomerular Filt Rate 38; Glucose 83 mg/dL (65-105); Magnesium 1.9 mg/dL (1.6-2.3); Potassium 3.9 mmol/L (3.4-5.0); Sodium 137 mmol/L (137-145)
[2020-02-13] MEDS: CLOPIDOGREL BISULFATE 75 MG TABLET PO (08:55)
--- NOTE | 2020-02-13 09:17 | WPDGIPROGNO ---
Progress Note: A&P Additional Plan GI [facility] 13 Feb 2020 Diarrhea improved. Had emesis last pm, better today. No AP, N, V. [place] po VSS soft/NT 02-13-2020: Hct 47, WBC 6. TBili 0.3, A/P 56, AST 42, ALT 29 02-11-2020: Hct 40. WBC 7. FT4 1.2. TB 0.4->0.4, A/P 62->60, AST 46->46, ALT 32->31. ASSESSMENT AND PLAN: Alteration in bowel habits with diarrhea, nausea, anorexia, weight loss and abnormal transaminases: - Abnormal LFT's likely related to whatever is causing her altered bowel habits-diarrhea - Improving on Levaquin, Flagyl and Imodium; continue - Patient wishes to do colonoscopy with possible random colon biopsies tomorrow - Negative stool WBC, C+S negative o/w other studies still pending - Follow LFTs The procedure of colonoscopy, its indications, alternatives of barium studies and risks including perforation, bleeding, infection, reaction to medication as well as the possible need for blood or surgery were discussed with the patient. The patient voices understanding, agrees to proceed and provides informed consent. Further recommendations to follow per others. Thanks, [facility] [phone] Subjective Date/time seen: 02/13/20 09:17 Objective Data Vital Signs Vital Signs: Vital Signs - 24 hr 02/12/20 12:00 02/12/20 16:00 02/12/20 20:00 Temperature 36.6 C Pulse Rate 60 64 65 Respiratory Rate 14 Blood Pressure 119/87 Pulse Oximetry 100 02/12/20 20:55 02/13/20 00:00 02/13/20 04:00 Temperature 36.3 C L Pulse Rate 65 67 67 Respiratory Rate 16 Blood Pressure 124/76 Pulse Oximetry 100 02/13/20 06:00 Temperature 36.3 C L Pulse Rate 62 Respiratory Rate 16 Blood Pressure 111/80 Pulse Oximetry 99 Intake/Output Intake/Output: Intake & Output 02/10/20 02/11/20 02/12/20 02/13/20 23:59 23:59 23:59 23:59 Intake Total 5290 4050 5120 1840 Balance 5290 4050 5120 1840 Meds/Results Medications: Active Medications Generic Name Dose Route Start Last Admin Trade Name Freq PRN Reason Stop Dose Admin Acetaminophen 650 mg 02/09/20 23:10 Acetaminophen 325 Mg Tablet PO Q4H PRN Mild Pain (1-3) or Fever Hydrocodone Bitart/Acetaminophen 1 tab 02/09/20 23:10 Hydrocodone/Acetaminophen (*Crx) 5-325 Mg Tablet PO Q4H PRN Pain Rated 4-6 Bisacodyl 10 mg 02/13/20 12:00 Bisacodyl 5 Mg Tablet Ec PO 02/13/20 21:01 1200,1500,2100 DARIUS Clopidogrel Bisulfate 75 mg 02/10/20 09:00 02/12/20 08:45 Clopidogrel Bisulfate 75 Mg Tablet PO 75 mg DAILY DARIUS Administration Sodium Chloride 1,000 mls @ 100 mls/hr 02/09/20 23:10 02/13/20 01:50 Normal Saline Iv IV CONT 100 mls/hr .Q10H DARIUS Administration Levofloxacin/Dextrose 500 mg in 100 mls @ 100 mls/hr 02/11/20 12:00 02/12/20 13:42 Levaquin 500 Mg/D5w 100 Ml IVPB Infused NOON DARIUS Infusion Metronidazole 500 mg in 100 mls @ 100 mls/hr 02/11/20 14:00 02/13/20 07:00 Flagyl 500 Mg/Iso Soln 100 Ml IVPB Infused Q8HR DARIUS Infusion Levothyroxine Sodium 100 mcg 02/10/20 06:30 02/13/20 06:01 Levothyroxine Sodium 100 Mcg Tablet PO 100 mcg DAILY@0630 DARIUS Administration Levothyroxine Sodium 75 mcg 02/10/20 06:30 02/13/20 06:01 Levothyroxine Sodium 75 Mcg Tablet PO 75 mcg DAILY@0630 DARIUS Administration Loperamide HCl 2 mg 02/11/20 16:30 02/13/20 06:01 Loperamide Hcl 2 Mg Capsule PO 2 mg ACHS DARIUS Administration Magnesium Citrate 300 ml 02/13/20 15:00 Magnesium Citrate 300 Ml Btl PO 02/13/20 15:01 ONCE ONE Ondansetron HCl 4 mg 02/09/20 23:10 02/13/20 01:10 Ondansetron Inj 4 Mg/2 Ml Vial IV PUSH 4 mg Q4H PRN Administration Nausea Polyethylene Glycol 238 gm 02/13/20 12:00 Polyethylene Glycol 3350 238 Gm Bottle PO 02/13/20 12:01 ONCE ONE Simethicone 160 mg 02/13/20 12:00 Simethicone 80 Mg Tab.Chew PO 02/13/20 21:01 1200,1500,2100 [facility] Labs Labs: Laboratory Results - last 24 hr 02/13/20 02/13/20 05:41 05:4
[2020-02-13] MEDS: BISACODYL 5 MG TABLET EC 10 MG PO ×3 (12:07→20:42)
[2020-02-13] MEDS: SIMETHICONE 80 MG TAB.CHEW 160 MG PO ×3 (12:08→20:41)
[2020-02-13] MEDS: levoFLOXacin 500 MG/D5W 100 ML 500 MG/100 ML BAG 100 MG IVPB (12:09)
[2020-02-13] MEDS: polyethylene glycoL 3350 238 GM BOTTLE PO (13:30)
[2020-02-13] MEDS: MAGNESIUM CITRATE 300 ML BTL PO (14:54)
--- NOTE | 2020-02-13 21:18 | PM.IMPN ---
Progress Note: A&P Assessment and Plan (1) Enteritis: Code(s): K52.9 - Noninfective gastroenteritis and colitis, unspecified Status: Acute Assessment and Plan: Patient has had extended diarrhea for the last 2 months which was progressively getting worse. Etiology unclear at this time. Denies recent antibiotic use. Immunosuppressed with Inlyta and Keytruda thus stools were sent for culture, WBC, and C diff. She has outpatient colonoscopy for 5-year follow-up scheduled with Dr Eaton in the next 1 or 2 months per patient. Appreciate GI recommendations. Continue supportive care with IV hydration. Recent CT abdomen/pelvis at [place] done 01/04/20 for routine monitoring of her pancreatic metastasis demonstrated improved inflammatory changes surrounding the sigmoid indicative of diverticulitis . She tells me she did not take antibiotics for diverticulitis at that time, was told to see her PCP regarding this but she did not follow up she says. Discussed case with Dr Ceballos; continue IV levaquin and flagyl, immodium. Noted his plan for colonoscopy tomorrow. Hopeful for discharge after scope. (2) Acute hypokalemia: Code(s): E87.6 - Hypokalemia Status: Acute Assessment and Plan: Suspect secondary to GI loss. Improved. Continue to monitor K and Mg and replace as needed. (3) GILMER (acute kidney injury): Code(s): N17.9 - Acute kidney failure, unspecified Status: Acute Assessment and Plan: Suspect prerenal secondary to hypovolemia. Unsure of baseline renal function. Cr improved slightly with IV hydration. Continue IV fluids and monitor renal function. (4) Renal cell carcinoma: Code(s): C64.9 - Malignant neoplasm of unspecified kidney, except renal pelvis Status: Chronic Assessment and Plan: Longstanding disease with history of metastasis, followed by [facility]. Currently on Keytruda and Inlyta, unclear if these medications are playing a role in her diarrhea. Her oncologist held her Inlyta for 4 days and her diarrhea was unchanged so the medication was resumed. (5) Hypertension: Qualifiers: Hypertension type: essential hypertension Qualified Code(s): I10 - Essential (primary) hypertension Code(s): I10 - Essential (primary) hypertension Status: Chronic Assessment and Plan: BPs lower end but stable, last 126/80. Her home losartan, hydrochlorothiazide, and amlodipine are held secondary to hypotension. Monitor BP and adjust treatment as needed. (6) Stenosis of popliteal artery: Code(s): I70.209 - Unspecified atherosclerosis of [place] arteries of extremities, unspecified extremity Status: Chronic Assessment and Plan: History of peripheral artery disease status post stent in left popliteal. Continue home Plavix. (7) Hypothyroidism: Qualifiers: Hypothyroidism type: unspecified Qualified Code(s): E03.9 - Hypothyroidism, unspecified Code(s): E03.9 - Hypothyroidism, unspecified Status: Chronic Assessment and Plan: Continue her home levothyroxine. Subjective Date/time seen: 02/13/20 1500 Interval history: Ms. Frazier is a 65yo F admitted for dehydration and electrolyte imbalances with significant diarrhea x 2 months and worsening. Diarrhea is improved today. She reports only 3 bowel movements today and it is mid afternoon, much less than days prior. She feels better after taking a shower today. Denies chest pain or shortness of breath. Some left lower quadrant cramping today is new. No nausea or vomiting. No blood in stool. Review of Systems Review of Systems: All systems r
[2020-02-14] VITALS (11 sets, daily range): BP systolic 81–127; BP diastolic 46–75; PULSE 65–82; RESP 13–19; TEMP 36.1–36.3; O2SAT 97–99
[2020-02-14] MEDS: SODIUM CHLORIDE 0.9% IV 1,000 ML 100 ML IV CONT (03:00)
[2020-02-14] MEDS: ONDANSETRON INJ 4 MG/2 ML VIAL IV PUSH (05:40)
[2020-02-14] MEDS: LEVOTHYROXINE SODIUM 100 MCG TABLET PO (06:10)
[2020-02-14] MEDS: LEVOTHYROXINE SODIUM 75 MCG TABLET PO (06:10)
[2020-02-14] MEDS: metroNIDAZOLE 500 MG/ISO 100ML 500 MG/100 ML BAG 100 MG IVPB (06:10)
--- NOTE | 2020-02-14 07:51 | PC.NURSE ---
0748-pt taken to GI lab
--- NOTE | 2020-02-14 08:01 | WPDANESEPPF ---
Anes - Initial Pre Proc Eval Procedure: Operation Date: 02/14/20 08:00 Proposed Procedures p Colonoscopy - Aldo Meyer MD Date/Time: 02/14/20 08:01 Surgeon: Gabriel Hayden DO Pre Op Diagnosis: antonio, enteritis, hypokalemia Patient Data Age: 65 Gender: F Height: 1.75 m Weight: 105.6 kg Last Vital Signs Temp 36.1 C L 02/14/20 07:56 Pulse 82 02/14/20 07:56 Resp 16 02/14/20 07:56 BP 127/70 02/14/20 07:56 Pulse Ox 98 02/14/20 07:56 Allergies Allergy/AdvReac Type Severity Reaction Status Date / Time No Known Allergies Allergy Unverified 02/10/20 10:23 Home Medications Medication Instructions Recorded Confirmed Type amlodipine 10 mg PO DAILY 02/09/20 02/09/20 History axitinib [Inlyta] 5 mg PO Q12H 02/09/20 02/10/20 History clopidogrel 75 mg PO DAILY 02/09/20 02/09/20 History hydrochlorothiazide 25 mg PO DAILY 02/09/20 02/09/20 History levothyroxine 175 mcg PO DAILY 02/09/20 02/09/20 History losartan 100 mg PO DAILY 02/09/20 02/09/20 History pembrolizumab [Keytruda] 25 mg IV [id number] 02/09/20 02/10/20 History Patient hx anesthesia problems: none Family hx anesthesia problems: none PMFSH Past Medical History Medical History (Updated 02/10/20 @ 17:03 by Franny Ornelas PA-C) Hypertension Hypothyroidism Peripheral artery disease Renal cell carcinoma Spine metastasis Stenosis of popliteal artery Surgical History Surgical History (Updated 02/09/20 @ 23:47 by Raquel Hayden DO) H/O Spinal surgery History of nephrectomy Right kidney History of partial pancreatectomy Lesion on distal pancreas Family History Family History (Updated 02/10/20 @ 07:23 by Raina Pretty RN) Mother FHx: brain aneurysm Social History Social History (Updated 02/10/20 @ 00:45 by Raquel Hayden DO) Smoking packs per day: 0.5 Smoking cigarettes per day: 10.0 Years smoked: 40 Smoking pack-years: 20.00 Smoking status: Former smoker Tobacco type: cigarettes Alcohol intake: current Alcohol use details: Social Substance use: never Living arrangements: with family Gender identity (if verbalized by the patient): Female Spiritual care concerns: No Anes - Eval Final PreProcedure Day of Procedure 02/14/20 08:01 Patient weight: obese Heart: regular rate and rhythm Lungs: clear to auscultation and normal air movement Airway: Mallampati scale class II Neurological: alert and oriented Last oral intake: >/= 8 hours ASA classification: III Emergent: no Anesthetic plan: proceed Anesthesia type and monitoring: general GIVS and standard monitoring Informed Consent: The patient's anesthetic plan and its attendant risks and benefits were discussed with the patient/family/POA. Questions were solicited and answers provided to the satisfaction of the patient/family/POA.
[2020-02-14] MEDS: LACTATED RINGERS 1,000 ML 150 ML IV CONT (08:06)
[2020-02-14] MEDS: calcium polycarbophiL 625 MG TABLET PO (10:00)
--- NOTE | 2020-02-14 10:12 | PC.NURSE ---
0948-pt has returned from Lab
[2020-02-14 10:35] LABS: Basophils Percent Auto 0.4 % (0.2-1.2); Eosinophils Absolute Auto 0.1 K/mm3 (0-0.3); Eosinophils Percent Auto 0.7 % (0-4.4); Hematocrit 48.2 % (37.0-47.0); Hemoglobin 15.7 g/dL (12.0-15.0); Immature Granulocyte Absolute 0.06 K/mm3 (0.00-0.031); Immature Granulocyte Percent A 0.7 % (0-0.5); Lymphocytes Absolute Auto 0.68 K/mm3 (0.9-3.2); Lymphocytes Percent Auto 7.6 % (18.3-44.2); Mean Corpuscular HGB Conc 32.6 g/dl (32-36); Mean Corpuscular Hemoglobin 30.5 pg (26-34); Mean Corpuscular Volume 93.6 fl (80-100); Mean Platelet Volume 10.3 fl (7.4-10.4); Monocytes Absolute Auto 0.6 K/mm3 (0.1-0.6); Monocytes Percent Auto 6.5 % (2.6-8.5); Neutrophils Absolute Auto 7.5 K/mm3 (1.3-6.7); Neutrophils Percent Auto 84.1 % (45.5-73.1); Platelet Count Result 224 k/mm3 (150-375); Red Blood Count 5.15 M/mm3 (4.2-5.4); Red Cell Distribution Width 15.8 % (11.5-14.5); White Blood Count 8.9 K/mm3 (4.5-10.0)
[2020-02-14 10:49] LABS: Alanine Aminotransferase 28 U/L (4-35); Albumin Level 3.8 g/dL (3.5-5.1); Alkaline Phosphatase 64 U/L (38-126); Anion Gap 10 mmol/L (8-16); Aspartate Amino Transferase 40 U/L (14-36); Bilirubin,Total 0.3 mg/dL (0.2-1.3); Blood Urea Nitrogen 9 mg/dL (7-17); Calcium 9.7 mg/dL (8.4-10.2); Carbon Dioxide 11 mmol/L (22-30); Chloride 119 mmol/L (98-107); Estimated CRCL calculation 35 ml/min; Estimated Glomerular Filt Rate 27; Glucose 93 mg/dL (65-105); Magnesium 1.8 mg/dL (1.6-2.3); Phosphorus 4.2 mg/dL (2.5-4.5); Potassium 3.3 mmol/L (3.4-5.0); Sodium 140 mmol/L (137-145)
[2020-02-14] MEDS: LOPERAMIDE HCL 2 MG CAPSULE PO (12:23)
[2020-02-14] MEDS: levoFLOXacin 500 MG/D5W 100 ML 500 MG/100 ML BAG 100 MG IVPB (12:23)
[2020-02-14] MEDS: POTASSIUM CHLORIDE 20 MEQ TABLET 60 MEQ PO (12:24)
--- NOTE | 2020-02-14 13:05 | PM.DS ---
DS: Admitting Diagnosis Admitting Diagnosis Admitting Diagnosis: Diarrhea, hypokalemia DS: Discharge Diagnosis Discharge Diagnosis (1) Enteritis: Code(s): K52.9 - Noninfective gastroenteritis and colitis, unspecified Status: Acute Assessment and Plan: Date of Admission 02/09/20 Date of Discharge/DOS 02/14/20 Ms. 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 She was evaluated by GI, Dr Ceballos and Dr Meyer. She underwent colonoscopy by Dr Meyer 02/14/20 which demonstrated colitis. She was treated with IV levaquin and flagyl and immodium, detailed below. Her symptoms improved and diarrhea was becoming less frequent. Stool cultures all negative. She was discharged with oral levaquin and flagyl to complete a total 14-day course. She was hemodynamically stable for discharge 02/14/20 with instructions to follow up with PCP and GI. She had low potassium which was replaced parenterally and orally, see below. Her home losartan, hydrochlorothiazide, and amlodipine are held secondary to hypotension. BP is stable day of discharge. Follow up with PCP. Patient has had extended diarrhea for the last 2 months which was progressively getting worse. Suspect due to colitis. Immunosuppressed with Inlyta and Keytruda. Stool culture and c diff negative. Recent CT abdomen/pelvis at [place] done 01/04/20 for routine monitoring of her pancreatic metastasis demonstrated improved inflammatory changes surrounding the sigmoid indicative of diverticulitis . She tells me she did not take antibiotics for diverticulitis at that time, was told to see her PCP regarding this but she did not follow up she says. Followed by GI. Treated with IV levaquin and flagyl, immodium. Colonoscopy 02/14/[address] Meyer demonstrated colitis and biopsies were obtained. (2) Acute hypokalemia: Code(s): E87.6 - Hypokalemia Status: Acute Assessment and Plan: Suspect secondary to GI loss. Replaced and improved. (3) GILMER (acute kidney injury): Code(s): N17.9 - Acute kidney failure, unspecified Status: Acute Assessment and Plan: Suspect prerenal secondary to hypovolemia. Unsure of baseline renal function. Cr improved slightly with IV hydration. (4) Renal cell carcinoma: Code(s): C64.9 - Malignant neoplasm of unspecified kidney, except renal pelvis Status: Chronic Assessment and Plan: Longstanding disease with history of metastasis, followed by [facility] [place]. Currently on Keytruda and Inlyta. (5) Hypertension: Qualifiers: Hypertension type: essential hypertension Qualified Code(s): I10 - Essential (primary) hypertension Code(s): I10 - Essential (primary) hypertension Status: Chronic Assessment and Plan: BPs lower end but stable. Her home losartan, hydrochlorothiazide, and amlodipine are held secondary to hypotension. (6) Stenosis of popliteal artery: Code(s): I70.209 - Unspecified atherosclerosis of [place] arteries of extremities, unspecified extremity Status: Chronic Assessment and Plan: History of peripheral artery disease status post stent in left popliteal. Continue home Plavix. (7) Hypothyroidism: Qualifiers: Hypothyroidism type: unspecified Qualified Code(s): E03.9 - Hypothyroidism, unspecified Code(s): E03.9 - Hypothyroidism, unspecified Status: Chronic Assessment and Plan: Continue her home levothyroxine.
--- NOTE | 2020-02-14 14:45 | PC.NURSE ---
1440-pt given D/C orders and instructions. Questions answered and verbalized understanding. PIV removed intact. Pt taken via wheelchair to waiting vehicle. No distress noted or verbalized at time of departure.
[2020-02-14 23:08] LABS: Lactoferrin, Stool Negative (Negative)
[2020-02-18 00:26] LABS: Calprotectin, Stool 30 mcg/g
[2020-02-18 06:26] LABS: Triiodothyronine T3 Free 1.9 pg/mL (2.3-4.2)
== END 2020-02-14 14:40 | disposition home or self-care (01) | DRG 249 ==
LOC: ANHED 23:43 → ANHCPC 23:45
PROVIDERS: Internal Medicine Gastroenterology; Physician Assistant; Admitting Provider Student in an Organized Health Care Education/Training Program; Emergency Provider Emergency Medicine; PCP Emergency Medicine; Visit Provider Family Medicine
PROC: 0DJD8ZZ Inspection of Lower Intestinal Tract, Via Natural or Artificial Opening Endoscopic (ICD-10-PCS; CPT 45378; principal; 2020-02-14 08:00)
DX: K52.9 Noninfective gastroenteritis and colitis, unspecified (principal); N17.9 Acute kidney failure, unspecified; C79.51 Secondary malignant neoplasm of bone; C64.1 Malignant neoplasm of right kidney, except renal pelvis; C78.89 Secondary malignant neoplasm of other digestive organs; K57.30 Diverticulosis of large intestine without perforation or abscess without bleeding; E87.6 Hypokalemia; E86.0 Dehydration; E03.9 Hypothyroidism, unspecified; R74.01 Elevation of levels of liver transaminase levels; I10 Essential (primary) hypertension; I70.202 Unspecified atherosclerosis of native arteries of extremities, left leg; Z79.899 Other long term (current) drug therapy; Z87.891 Personal history of nicotine dependence; Z90.5 Acquired absence of kidney; Z95.828 Presence of other vascular implants and grafts
CPT/HCPCS: 36415; 80048; 80053; 82248; 83630; 83735; 83993; 84100; 84439; 84443; 84481; 85025; 85027; 87015; 87045; 87046; 87269; 87272; 87324; 87427; 88305; 89055; 96361; 96365; 96366; 96367; 96368; 99285; A9270; G0378; G0379; J1956; J2405; J2704; J3475; J3480; J7030; J7120

== ENCOUNTER 2020-02-19 12:05 | Outpatient (CLI) | payer OTHER, SELFPAY ==
[2020-02-19 12:49] LABS: Alanine Aminotransferase 16 U/L (4-35); Albumin Level 3.8 g/dL (3.5-5.1); Alkaline Phosphatase 69 U/L (38-126); Anion Gap 16 mmol/L (8-16); Aspartate Amino Transferase 33 U/L (14-36); Bilirubin,Total 0.6 mg/dL (0.2-1.3); Blood Urea Nitrogen 43 mg/dL (7-17); Calcium 9.7 mg/dL (8.4-10.2); Carbon Dioxide 10 mmol/L (22-30); Chloride 108 mmol/L (98-107); Estimated Glomerular Filt Rate 10; Glucose 92 mg/dL (65-105); Potassium 2.9 mmol/L (3.4-5.0); Sodium 134 mmol/L (137-145)
== END 2020-02-19 12:06 | disposition home or self-care (01) ==
PROVIDERS: PCP Emergency Medicine; Visit Provider Physician Assistant
DX: E87.6 Hypokalemia (principal)
CPT/HCPCS: 36415; 80053

== ENCOUNTER 2020-02-20 21:00 | Inpatient (IN) | payer OTHER, SELFPAY ==
[2020-02-20] VITALS (20 sets, daily range): BP systolic 92–110; BP diastolic 49–65; PULSE 78–93; RESP 13–20; TEMP 36.3; O2SAT 97–100
--- NOTE | ~2020-02-20 | CT_ITS ---
EXAMINATION: CT abdomen pelvis wo con DATE: 02/20/2020 22:07 INDICATION: Left lower quadrant pain TECHNIQUE: Computed tomography (CT) of the abdomen and pelvis was performed without intravenous contr ast. The dose-length product (DLP) was 1216.80 mGy-cm. Automated exposure control and iterative recon struction technique were employed. COMPARISON: 03/03/2013 FINDINGS: Minimal dependent atelectasis is present in the lung bases. The heart size is normal. The l iver is diffusely low in attenuation when compared with the spleen, consistent with hepatic steatosis . Stones are present in the nondistended gallbladder. The spleen and right adrenal gland are unremark able. There are unchanged low density masses of the left adrenal gland, consistent with adenomas. The re are changes of interval right nephrectomy and partial left nephrectomy. There is a questionable 1. 5 cm mass of the pancreatic tail. No pathologically enlarged abdominal or pelvic lymph nodes are iden tified. There is no free intraperitoneal gas or evidence of bowel obstruction. There is an approximat karina 6 cm segment of wall thickening of the proximal transverse colon. Colonic diverticula are noted i n this region. There is a small amount of pericolic fluid in this region. No associated gas is identi fied. There is a fat-containing hernia of the right lower abdominal wall. Liquid stool is present thr oughout the colon to the level of the rectum. There has been interval posterior fusion involving the visualized thoracic spine through L1, spanning a previously described pathologic fracture of T11. IMPRESSION: 1. Wall thickening of the sigmoid colon which may reflect colitis or diverticulitis. Recommend correl ation with colonoscopy history as malignancy could have a similar appearance. 2. Liquid stool throughout the colon to the level of the rectum, consistent with diarrhea. 3. Possible small mass of the pancreatic tail. Recommend correlation with pancreas protocol MRI or CT . 4. Changes of interval right nephrectomy. 5. Cholelithiasis without evidence of cholecystitis. Reviewed, dictated and finalized at location A. STIC FREIGHT FORWARDER IMPRESSION: 1. Wall thickening of the sigmoid colon which may reflect colitis or diverticul itis. Recommend correlation with colonoscopy history as malignancy could have a similar appearance. 2. Liquid stool throughout the colon to the level of the rectum, consistent wit h diarrhea. 3. Possible small mass of the pancreatic tail. Recommend correlation with pancr eas protocol MRI or CT. 4. Changes of interval right nephrectomy. 5. Cholelithiasis without evidence of cholecystitis.
--- NOTE | ~2020-02-20 | US_ITS ---
EXAMINATION: US venous doppler [facility] DATE: 02/21/2020 15:21 INDICATION: Bilateral calf pain. TECHNIQUE: Grayscale ultrasound images without and with compression and Doppler ultrasound images of the bilateral lower extremity veins were obtained. COMPARISON: Ultrasound 11/03/2018 FINDINGS: The visualized portions of right common femoral vein, profunda (deep) femoral vein, femoral vein, pop liteal vein, peroneal veins, posterior tibial veins, and greater saphenous vein outflow are patent. The visualized portions of left common femoral vein, profunda femoral vein, femoral vein, popliteal v ein, peroneal veins, posterior tibial veins, and greater saphenous vein outflow are patent. IMPRESSION: 1. No deep venous thrombosis. Reviewed, dictated and finalized at location A. E DOZER OPERATOR
[2020-02-20] MEDS: ONDANSETRON INJ 4 MG/2 ML VIAL IV PUSH (21:28)
[2020-02-20] MEDS: LACTATED RINGERS 1,000 ML 999 ML IV CONT (21:28)
--- NOTE | 2020-02-20 21:29 | ED.NAVMDI ---
HPI - Nausea/Vomiting/Diarrhea General Chief complaint: Nausea/Vomiting/Diarrhea Stated complaint: N/V FOR WEEKS Time Seen by Provider: 02/20/20 21:15 Source: patient Mode of arrival: ambulatory Limitations: no limitations History of Present Illness HPI Narrative: Patient is a 65-year-old female with complaint of nausea, vomiting, diarrhea accompanied by left lower quadrant pain that started approximately 3 weeks ago. Patient describes her vomitus as nonbilious nonbloody approximately 2-3 episodes per day. She describes her diarrhea as loose watery approximately 2-3 times per day. Patient was recently discharged, February 11 for the same complaints, was diagnosed with colitis by her flight engineer performance qualified. Patient had a colonoscopy done when she was admitted 2 weeks ago. Patient states she was prescribed Levaquin and metronidazole currently on it but unable to take it orally due to her nausea and vomiting. Patient denies any fever. Related Data Home Medications Medication Instructions Recorded Confirmed Inlyta 5 mg PO Q12H 02/09/20 02/10/20 Keytruda 25 mg IV [id number] 02/09/20 02/10/20 amlodipine 10 mg PO DAILY 02/09/20 02/09/20 clopidogrel 75 mg PO DAILY 02/09/20 02/09/20 hydrochlorothiazide 25 mg PO DAILY 02/09/20 02/09/20 levothyroxine 175 mcg PO DAILY 02/09/20 02/09/20 losartan 100 mg PO DAILY 02/09/20 02/09/20 Allergies Allergy/AdvReac Type Severity Reaction Status Date / Time No Known Allergies Allergy Verified 02/20/20 21:18 Review of Systems Review of Systems: All systems reviewed & are unremarkable except as noted in HPI and below Constitutional: Constitutional: Denies body ache(s), Denies chills, Denies excessive sweating, Denies fatigue, Denies fever(s), Denies headache(s), Denies lethargy, Denies malaise, Reports weakness (Generalized) and Denies weight loss Eyes: Eyes: Denies blurry vision, Denies change in vision and Denies loss of vision ENT: Denies dizziness, Denies ear discharge, Denies headache(s), Denies lip swelling, Denies epistaxis, Denies nasal congestion, Denies neck pain, Denies throat swelling and Denies tongue swelling Cardiovascular: Cardiovascular: Denies chest pain, Denies chest pain at rest, Denies chest pain with activity, Denies diaphoresis, Denies rapid heart rate, Denies edema, Denies irregular heart rhythm, Denies lightheadedness, Denies palpitations, Denies dyspnea and Denies dyspnea on exertion Respiratory: Respiratory: Denies chest congestion, Denies cough, Denies hemoptysis, Denies dyspnea and Denies dyspnea on exertion Gastrointestinal: Gastrointestinal: Denies abdominal pain, Denies melena, Denies hematochezia and Denies hematemesis Musculoskeletal: Musculoskeletal: Denies abnormal gait, Denies deformity, Denies joint swelling, Denies limited range of motion, Denies neck pain and Denies numbness Neurologic: Denies Abnormal speech present, Denies abnormal gait, Denies confusion, Denies dizziness, Denies headache(s), Denies focal weakness, Denies loss of vision, Denies numbness, Denies Other visual disturbances, Denies Sensory deficit (Neuro) and Denies weakness Psychiatric: Psychiatric: Denies confusion, Denies depression, Denies auditory hallucinations, Denies homicidal ideation and Denies suicidal ideation Endocrine: Endocrine: Denies cold intolerance, Denies excessive sweating, Denies fatigue, Denies heat intolerance and Denies palpitations Hematologic/Lymphatic: Hematologic/Lymphatic: Denies easy bleeding and Denies easy bruising Allergic/Immunologic: Allergic/Immunologic: Denies lip swelling, Denies throat swelling and Denies tongue swelling PMFSH Past Medical History Medical History (Updated 02/20/20 @ 23:03 by Michael Yu MD) Hypertension Hypothyroidism Peripheral artery disease Renal cell carcinoma Spine metastasis Stenosis of popliteal artery Surgical History Surgical History (Updated 02/09/20 @ 23:47 by Raquel Hayden DO) H/O Spinal surgery History of n
[2020-02-20 21:39] LABS: Basophils Percent Auto 0.3 % (0.2-1.2); Eosinophils Absolute Auto 0.1 K/mm3 (0-0.3); Eosinophils Percent Auto 0.8 % (0-4.4); Hematocrit 45.7 % (37.0-47.0); Hemoglobin 15.8 g/dL (12.0-15.0); Immature Granulocyte Absolute 0.03 K/mm3 (0.00-0.031); Immature Granulocyte Percent A 0.3 % (0-0.5); Lymphocytes Absolute Auto 0.92 K/mm3 (0.9-3.2); Lymphocytes Percent Auto 9.1 % (18.3-44.2); Mean Corpuscular HGB Conc 34.6 g/dl (32-36); Mean Corpuscular Hemoglobin 30.4 pg (26-34); Mean Corpuscular Volume 87.9 fl (80-100); Mean Platelet Volume 10.1 fl (7.4-10.4); Monocytes Absolute Auto 0.6 K/mm3 (0.1-0.6); Monocytes Percent Auto 6.3 % (2.6-8.5); Neutrophils Absolute Auto 8.4 K/mm3 (1.3-6.7); Neutrophils Percent Auto 83.2 % (45.5-73.1); Platelet Count Result 269 k/mm3 (150-375); Red Cell Distribution Width 15.6 % (11.5-14.5); White Blood Count 10.1 K/mm3 (4.5-10.0)
[2020-02-20 21:52] LABS: Lipase 984 U/L (23-300)
[2020-02-20 21:55] LABS: Alanine Aminotransferase 17 U/L (4-35); Albumin Level 3.9 g/dL (3.5-5.1); Alkaline Phosphatase 69 U/L (38-126); Anion Gap 15 mmol/L (8-16); Aspartate Amino Transferase 42 U/L (14-36); Bilirubin,Total 0.6 mg/dL (0.2-1.3); Blood Urea Nitrogen 51 mg/dL (7-17); Calcium 9.6 mg/dL (8.4-10.2); Carbon Dioxide 12 mmol/L (22-30); Chloride 107 mmol/L (98-107); Estimated Glomerular Filt Rate 12; Glucose 76 mg/dL (65-105); Potassium 2.8 mmol/L (3.4-5.0); Sodium 134 mmol/L (137-145)
[2020-02-20] MEDS: POTASSIUM CHLORIDE 20 MEQ PACKET (FOR LIQUID) PO (23:06)
[2020-02-20 23:34] LABS: Magnesium 2.1 mg/dL (1.6-2.3)
[2020-02-20] MEDS: levoFLOXacin 500 MG/D5W 100 ML 500 MG/100 ML BAG 100 MG IVPB (23:59)
[2020-02-21] VITALS (13 sets, daily range): BP systolic 102–137; BP diastolic 50–70; PULSE 72–88; RESP 14–20; TEMP 36–36.7; O2SAT 97–99; BMI 36.2
[2020-02-21] MEDS: metroNIDAZOLE 500 MG/ISO 100ML 500 MG/100 ML BAG 100 MG IVPB ×4 (01:05→20:50)
--- NOTE | 2020-02-21 01:54 | ADMGEN ---
This patient, Eli Frazier, was admitted to 2 Medical Room 257-01. Patient/family oriented to hospital policies and general routines including ID bracelet, bed and alarms, visiting hours, pain management, procedures, bathroom and other care routines, personal items, smoking policy, room service/diet, and visiting hours. Information on how to activate the Rapid Response Team has been discussed. Patient/Family are encouraged to report perceived risks to care and to ask questions if they do not understand what they are told or what they should do.
[2020-02-21] MEDS: KCL 20 MEQ/D5/0.45% SOD CHL 1,000 ML 125 ML IV CONT (01:56)
--- NOTE | 2020-02-21 05:05 | PCRCNOTE ---
Pt states she has a CPAP at home she wears when she wants or thinks she needs it. She does not want to wear ours.
--- NOTE | 2020-02-21 08:01 | PM.IMHP ---
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 At that time she was admitted for infectious colitis and given IV Levaquin and Flagyl, as well as Imodium. Her stool cultures were negative, GI performed a colonoscopy which showed colitis and biopsies were taken. The patient's symptoms improved and she was discharged home to continue oral antibiotics. The patient states immediately after leaving the hospital her symptoms return. She developed nausea, vomiting and had continued watery diarrhea. She was unable to keep most of her medications down and only took a few doses of her antibiotics. She does have epigastric pain but is unsure if this is from being hungry versus nausea verses her pancreatic cancer. At this time she does wish for some water, but denies much appetite. She also reports some calf pain bilaterally. She denies any fevers, chills, chest pain, shortness of breath, cough, lightheadedness, dizziness, near-syncope, leg swelling, dysuria, headache, vision changes, or any other symptoms at this time. Initial vitals showed patient was afebrile, heart rate 90, respiratory rate 18, blood pressure 104/62, oxygen saturation 98% on room air. Initial Labs show slight leukocytosis at 10,100, with a left shift, hyponatremia at 134, hypokalemia at 2.9 from dehydration/diarrhea, serum bicarb is low at 12 which is showing signs of metabolic acidosis secondary to acute vomiting and diarrhea. Patient has GILMER with creatinine of 4.4 on arrival due to dehydration. Lipase elevated at 984 most likely due to vomiting verses pancreatic metastasis. CT abdomen pelvis showed Wall thickening of the sigmoid colon which may reflect colitis or diverticulitis. Recommend correlation with colonoscopy history as malignancy could have a similar appearance. Liquid stool throughout the colon to the level of the rectum, consistent with diarrhea. Possible small mass of the pancreatic tail. The patient was admitted into the hospital with IV fluid hydration for dehydration, GILMER, nausea/vomiting/diarrhea with consult to GI. 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 She denies any alcohol use or drug use. Her medical power of workers compensation defense attorney is her daughter, Ivanna Frazier. She wishes to be a full code. Smoking packs per day: 0.5 Smoking cigarettes per day: 10.0 Years smoked: 40 Smoking pack-years: 20.00 Smoking status: Current every day smoker Tobacco type: cigarettes Alcohol intake: current Drinks per week: 2 Substance use: never Substance u
[2020-02-21] MEDS: LACTATED RINGERS 1,000 ML 125 ML IV CONT ×2 (08:43→23:51)
--- NOTE | 2020-02-21 09:14 | WPDGICN ---
Assessment and Plan Assessment and plan (1) Nausea vomiting and diarrhea: Code(s): R11.2 - Nausea with vomiting, unspecified; R19.7 - Diarrhea, unspecified Status: Acute Assessment and Plan: Patient with ongoing nausea vomiting and diarrhea. Presumed to be related to colitis identified at time of last admission. Endoscopy 1 week ago revealed localized colitis. This presumed to be infectious however stool cultures were negative. Patient has been an able to complete her course of antibiotics because of her nausea vomiting. Plan to restart Flagyl and Levaquin intravenously. Repeat stool cultures if diarrhea persists. (2) Renal cell carcinoma: Code(s): C64.9 - Malignant neoplasm of unspecified kidney, except renal pelvis Status: Chronic Assessment and Plan: Patient known to have widely metastatic renal cell carcinoma. Likely also contributes to her symptoms of nausea vomiting diarrhea. She is currently followed by Oncology service at [facility] and receives chemotherapy on a schedule. (3) Acute renal failure superimposed on chronic kidney disease: Qualifiers: Acute renal failure type: unspecified Chronic kidney disease stage: unspecified stage Qualified Code(s): N17.9 - Acute kidney failure, unspecified; N18.9 - Chronic kidney disease, unspecified Code(s): N17.9 - Acute kidney failure, unspecified; N18.9 - Chronic kidney disease, unspecified Status: Acute Assessment and Plan: Patient appears to be dehydrated with acute renal insufficiency noted by labs. This may contribute to ongoing nausea vomiting. Patient be rehydration with correction of electrolytes. Hypokalemia quite noticeable on presentation. (4) Colitis: Code(s): K52.9 - Noninfective gastroenteritis and colitis, unspecified Status: Acute Assessment and Plan: Pain patient with inflow [place] in the colon colitis S identified by endoscopy 1 week ago. Reason to be infectious. History allergy failed to confirm the exact etiology. However infectious see etiology appears most likely. Will resume antibiotics repeat stool culture pending (5) Elevated lipase: Code(s): R74.8 - Abnormal levels of other serum enzymes Status: Acute Assessment and Plan: Elevated lipase noted on presentation. May suggest underlying pancreatitis. Patient known to have metastatic cancer from the renal cell carcinoma to the pancreas. Likely accounting for this abnormality. Additionally elevated lipase may be related to her renal insufficiency. Supportive care and IV fluid rehydration a dissipated initially. Advance diet slowly when tolerated. GI Consult Note Consult date/time: 02/21/20 09:14 HPI: Eli Frazier is a 65 year old female I am asked to see because of nausea vomiting and diarrhea. Patient with a known history of metastatic renal cell carcinoma. This apparently widely metastatic. Including to the pancreas. She is followed by the oncology service at [facility]. During her recent hospital stay 1 week ago a colonoscopy was performed this revealed evidence for colitis in the right colon. Histology was consistent with colitis with broad differential period was presumed most likely to be infectious in etiology. She was discharged home and anticipated to take Flagyl and Cipro. However because of nausea and vomiting patient was unable to take these medications. Because of ongoing nausea vomiting she presented the emergency room. She was found to be hypokalemic with significant azotemia suggesting acute renal insufficiency probably dehydration. Patient denies any significant abdominal pain. Although may admit to some occasional discomfort in the left abdomen. She denies any bleeding. She denies any fever. She is somewhat withdrawn and does not open her eyes during our conversation. Family history is noncontributory. She does report 1 diarrhea stool a day. That is either softer liquidy with no blood noted.
[2020-02-21] MEDS: LEVOTHYROXINE SODIUM 100 MCG, LEVOTHYROXINE SODIUM 75 MCG 175 MCG PO (14:00)
[2020-02-21] MEDS: CLOPIDOGREL BISULFATE 75 MG TABLET PO (14:00)
[2020-02-21 15:17] LABS: Anion Gap 10 mmol/L (8-16); Blood Urea Nitrogen 49 mg/dL (7-17); Calcium 8.7 mg/dL (8.4-10.2); Carbon Dioxide 8 mmol/L (22-30); Chloride 114 mmol/L (98-107); Estimated CRCL calculation 21 ml/min; Estimated Glomerular Filt Rate 15; Glucose 86 mg/dL (65-105); Potassium 3.8 mmol/L (3.4-5.0); Sodium 132 mmol/L (137-145)
[2020-02-21] MEDS: PANTOPRAZOLE SODIUM IV 40 MG VIAL IV PUSH ×2 (16:04→20:50)
[2020-02-22] VITALS (9 sets, daily range): BP systolic 101–103; BP diastolic 56–60; PULSE 69–87; RESP 16–20; TEMP 36.1–36.6; O2SAT 97–99
[2020-02-22 05:54] LABS: Basophils Percent Auto 0.5 % (0.2-1.2); Eosinophils Absolute Auto 0.1 K/mm3 (0-0.3); Eosinophils Percent Auto 1.7 % (0-4.4); Hematocrit 38.1 % (37.0-47.0); Hemoglobin 13.1 g/dL (12.0-15.0); Immature Granulocyte Absolute 0.04 K/mm3 (0.00-0.031); Immature Granulocyte Percent A 0.5 % (0-0.5); Lymphocytes Absolute Auto 0.88 K/mm3 (0.9-3.2); Lymphocytes Percent Auto 11.4 % (18.3-44.2); Mean Corpuscular HGB Conc 34.4 g/dl (32-36); Mean Corpuscular Volume 87.2 fl (80-100); Mean Platelet Volume 10.5 fl (7.4-10.4); Monocytes Absolute Auto 0.9 K/mm3 (0.1-0.6); Monocytes Percent Auto 11.8 % (2.6-8.5); Neutrophils Absolute Auto 5.7 K/mm3 (1.3-6.7); Neutrophils Percent Auto 74.1 % (45.5-73.1); Platelet Count Result 226 k/mm3 (150-375); Red Blood Count 4.37 M/mm3 (4.2-5.4); Red Cell Distribution Width 15.7 % (11.5-14.5); White Blood Count 7.7 K/mm3 (4.5-10.0)
[2020-02-22 06:03] LABS: Alanine Aminotransferase 13 U/L (4-35); Albumin Level 2.7 g/dL (3.5-5.1); Alkaline Phosphatase 45 U/L (38-126); Anion Gap 8 mmol/L (8-16); Aspartate Amino Transferase 37 U/L (14-36); Bilirubin,Total 0.5 mg/dL (0.2-1.3); Blood Urea Nitrogen 43 mg/dL (7-17); Calcium 8.4 mg/dL (8.4-10.2); Carbon Dioxide 13 mmol/L (22-30); Chloride 113 mmol/L (98-107); Estimated CRCL calculation 22 ml/min; Estimated Glomerular Filt Rate 16; Glucose 77 mg/dL (65-105); Lipase 1115 U/L (23-300); Magnesium 1.9 mg/dL (1.6-2.3); Potassium 2.8 mmol/L (3.4-5.0); Sodium 134 mmol/L (137-145)
[2020-02-22] MEDS: metroNIDAZOLE 500 MG/ISO 100ML 500 MG/100 ML BAG 100 MG IVPB ×3 (06:22→21:27)
[2020-02-22] MEDS: LEVOTHYROXINE SODIUM 100 MCG, LEVOTHYROXINE SODIUM 75 MCG 175 MCG PO (06:23)
--- NOTE | 2020-02-22 07:49 | WPDGIPROGNO ---
Progress Note: A&P Assessment and Plan (1) Nausea vomiting and diarrhea: Code(s): R11.2 - Nausea with vomiting, unspecified; R19.7 - Diarrhea, unspecified Status: Acute Assessment and Plan: Symptoms are gradually subsiding. She recently was found to have colitis. The etiology unclear but infectious etiology suspected. Now with hypokalemia which may per prolonged her symptoms. Plan is for IV rehydration. Will complete a course of antibiotics empirically at this stage. (2) Acute hypokalemia: Code(s): E87.6 - Hypokalemia Status: Acute Assessment and Plan: Hypokalemia and electrolyte imbalance likely on the basis of her nausea vomiting. Correcting this may help alleviate some of her symptoms. We will continue to monitor. (3) Renal cell carcinoma: Code(s): C64.9 - Malignant neoplasm of unspecified kidney, except renal pelvis Status: Chronic Assessment and Plan: Widely metastatic renal cell carcinoma. Includes metastases to the pancreas. This may account for her elevated lipase. Potentially this is also contributing to her nausea vomiting. (4) Acute renal failure superimposed on chronic kidney disease: Qualifiers: Acute renal failure type: unspecified Chronic kidney disease stage: unspecified stage Qualified Code(s): N17.9 - Acute kidney failure, unspecified; N18.9 - Chronic kidney disease, unspecified Code(s): N17.9 - Acute kidney failure, unspecified; N18.9 - Chronic kidney disease, unspecified Status: Acute Assessment and Plan: Patient with underlying renal disease now with dehydration and significant azotemia. IV fluid rehydration in progress. Will continue monitor renal. (5) Elevated lipase: Code(s): R74.8 - Abnormal levels of other serum enzymes Status: Acute Assessment and Plan: Lipase remains elevated over 1100. Pancreatitis certainly could contribute to her symptoms. This is potential with metastatic disease to the pancreas. At the present time continue supportive care. IV rehydration gradually reintroduce liquid diet. (6) Colitis: Code(s): K52.9 - Noninfective gastroenteritis and colitis, unspecified Status: Acute Assessment and Plan: Patient with significant colon inflammation on colonoscopy performed several weeks ago. Histology was benign. Infectious etiology suspected but other etiology such as ischemia cannot be excluded. Continue supportive care for she will complete a course of antibiotics. Subjective Date/time seen: 02/22/20 07:49 Patient continues to feel some nausea today. No more vomiting. Reports only mild left-sided abdominal discomfort. Anxious to try some liquid intake. Review of Systems Review of Systems: All systems reviewed & are unremarkable except as noted in HPI and below Exam Narrative: Exam Narrative: Physical exam reveals her to be alert. HEENT exam is anicteric. Lungs are clear. Heart without murmur. Abdomen is obese. Bowel sounds are present soft no organomegaly evident. No localized tenderness. She reports some discomfort in the left mid abdomen. Objective Data Vital Signs Vital Signs: Vital Signs - 24 hr 02/21/20 08:00 02/21/20 12:00 02/21/20 14:00 Temperature 97.6 F Pulse Rate 84 80 79 Respiratory Rate 14 Blood Pressure 137/70 Pulse Oximetry 99 02/21/20 16:00 02/21/20 20:00 02/21/20 22:00 Temperature 97.1 F L Pulse Rate 80 72 75 Respiratory Rate 14 20 Blood Pressure 109/53 L Pulse Oximetry 99 99 02/22/20 00:00 02/22/20 04:00 02/22/20 06:00 Temperature 97.0 F L Pulse Rate 69 77 71 Respiratory Rate 20 Blood Pressure 103/60 Pulse Oximetry 98 Intake/Output Intake/Output: Intake & Output 02/19/20 02/20/20 02/21/20 02/22/20 23:59 23:59 23:59 23:59 Intake Total 1000 2760 Output Total 700 800 Balance 1000 2060 -800 Meds/Results Medications: Active Medications Generic Name Dose
[2020-02-22] MEDS: PANTOPRAZOLE SODIUM IV 40 MG VIAL IV PUSH ×2 (08:27→20:26)
[2020-02-22] MEDS: CLOPIDOGREL BISULFATE 75 MG TABLET PO (08:27)
[2020-02-22] MEDS: LACTATED RINGERS 1,000 ML 100 ML IV CONT (08:33)
[2020-02-22 13:19] LABS: Anion Gap 9 mmol/L (8-16); Blood Urea Nitrogen 40 mg/dL (7-17); Calcium 8.4 mg/dL (8.4-10.2); Carbon Dioxide 12 mmol/L (22-30); Chloride 114 mmol/L (98-107); Estimated CRCL calculation 24 ml/min; Estimated Glomerular Filt Rate 17; Glucose 87 mg/dL (65-105); Magnesium 1.9 mg/dL (1.6-2.3); Potassium 2.9 mmol/L (3.4-5.0); Sodium 135 mmol/L (137-145)
--- NOTE | 2020-02-22 13:45 | PC.NURSE ---
Spoke with Pat from Dr. Novak office regarding patient's current treatment plan at [facility]. Per Dr. Novak, patient colitis may be related to her current immune therapy. Immune mediated colitis could be an issue due to her treatment. The following information was called to KEITH Richardson along with Dr. Meyer. Per Dr. Meyer will continue on the current treatment plan for now.
--- NOTE | 2020-02-22 14:08 | PM.IMPN ---
Progress Note: A&P Assessment and Plan (1) Acute renal failure superimposed on chronic kidney disease: Qualifiers: Acute renal failure type: unspecified Chronic kidney disease stage: unspecified stage Qualified Code(s): N17.9 - Acute kidney failure, unspecified; N18.9 - Chronic kidney disease, unspecified Code(s): N17.9 - Acute kidney failure, unspecified; N18.9 - Chronic kidney disease, unspecified Status: Acute Assessment and Plan: The patient has CKD but now with GILMER and creatinine of 4.4 on admission. Cr improved to 2.80 this afternoon with IV fluids. Likely Prerenal from poor PO intake/dehydration Will continue IV fluids for acute dehydration. Monitor renal function (2) Nausea vomiting and diarrhea: Code(s): R11.2 - Nausea with vomiting, unspecified; R19.7 - Diarrhea, unspecified Status: Acute Assessment and Plan: Patient with nausea, vomiting, diarrhea intermittently for the last month. Patient was hospitalized 1 week ago and had a colonoscopy which showed colitis and biopsies were taken which showed colitis consistent with lymphocytic colitis. Differential included early Crohn's disease, [place] Diarrhea, viral colitis, adverse drug reaction, and early ulcer colitis cannot be excluded per pathology. Pathology recommended immunohistochemistry for CMV testing which was ordered. Immune mediated colitis possibility as well. Symptoms also possibly 2/2 to Keytruda, Inlyta medications GI consulted and is following; appreciate recommendations CLD per GI; patient vomited this afternoon. Will defer diet to GI Continue with IV antibiotics of Levaquin and Flagyl for treatment of suspected infectious colitis Continue monitoring. PRN antiemetics IV fluids (3) Colitis: Code(s): K52.9 - Noninfective gastroenteritis and colitis, unspecified Status: Acute Assessment and Plan: Patient recently was diagnosed with colitis and unable to finish antibiotic treatment as outpatient due to above symptoms. She has been started on IV antibiotics. GI was consulted and following. Per GI, felt to be likely infectious in nature thus will continue antibiotics for now. Other etiologies considered including ischemic vs immune-mediated vs viral vs other Will continue treatment with IV antibiotics for now Await further rec from GI Monitor (4) Metabolic acidosis: Code(s): E87.2 - Acidosis Status: Acute Assessment and Plan: Patient has low serum bicarb most likely secondary to metabolic acidosis caused by diarrhea and vomiting. Otherwise the patient appears compensated at this time. CO2 12. Continue working on decreasing diarrhea and vomiting Continue monitoring her respiratory status and serum bicarb during admission. (5) Acute hypokalemia: Code(s): E87.6 - Hypokalemia Status: Acute Assessment and Plan: Secondary to diarrhea and dehydration. K 2.9 this afternoon Replace with 40 Kcl IV again this afternoon; monitor tonight Pharmacy to start 20 mEq KCl/liter of fluids after 40 mEq KCl Mag 1.9 Monitor renal function tonight and tomorrow (6) Renal cell carcinoma: Code(s): C64.9 - Malignant neoplasm of unspecified kidney, except renal pelvis Status: Chronic Assessment and Plan: Follows oncologist at [place] for her renal cell carcinoma with mets to pancreas and spine. She is treated with Keytruda and Inlyta. Will need to follow-up with oncologist after discharge (7) Hypertension: Qualifiers: Hypertension type: essential hypertension Qualified Code(s): I10 - Essential (primary) hypertension Code(s): I10 - Essential (primary) hypertension
[2020-02-22 19:22] LABS: Anion Gap 6 mmol/L (8-16); Blood Urea Nitrogen 37 mg/dL (7-17); Calcium 8.7 mg/dL (8.4-10.2); Carbon Dioxide 14 mmol/L (22-30); Chloride 113 mmol/L (98-107); Estimated CRCL calculation 25 ml/min; Estimated Glomerular Filt Rate 18; Glucose 90 mg/dL (65-105); Sodium 133 mmol/L (137-145)
[2020-02-22] MEDS: levoFLOXacin 250 MG/D5W 50 ML 250 MG/50 ML BAG 50 MG IVPB (20:26)
[2020-02-22] MEDS: POTASSIUM CHLORIDE INJ 20 MEQ in LACTATED RINGERS 1,000 ML 100 MEQ IV CONT (21:28)
[2020-02-23] VITALS (9 sets, daily range): BP systolic 108–127; BP diastolic 55–80; PULSE 72–90; RESP 14–20; TEMP 36.4–36.6; O2SAT 95–99
[2020-02-23] MEDS: metroNIDAZOLE 500 MG/ISO 100ML 500 MG/100 ML BAG 100 MG IVPB ×3 (05:37→22:53)
[2020-02-23] MEDS: LEVOTHYROXINE SODIUM 100 MCG, LEVOTHYROXINE SODIUM 75 MCG 175 MCG PO (05:38)
[2020-02-23 05:51] LABS: Basophils Percent Auto 0.4 % (0.2-1.2); Eosinophils Absolute Auto 0.1 K/mm3 (0-0.3); Eosinophils Percent Auto 1.7 % (0-4.4); Hematocrit 38.5 % (37.0-47.0); Hemoglobin 13.1 g/dL (12.0-15.0); Immature Granulocyte Absolute 0.04 K/mm3 (0.00-0.031); Immature Granulocyte Percent A 0.6 % (0-0.5); Lymphocytes Absolute Auto 0.88 K/mm3 (0.9-3.2); Lymphocytes Percent Auto 12.2 % (18.3-44.2); Mean Corpuscular Hemoglobin 30.2 pg (26-34); Mean Corpuscular Volume 88.7 fl (80-100); Mean Platelet Volume 10.3 fl (7.4-10.4); Monocytes Absolute Auto 0.9 K/mm3 (0.1-0.6); Monocytes Percent Auto 11.9 % (2.6-8.5); Neutrophils Absolute Auto 5.3 K/mm3 (1.3-6.7); Neutrophils Percent Auto 73.2 % (45.5-73.1); Platelet Count Result 206 k/mm3 (150-375); Red Blood Count 4.34 M/mm3 (4.2-5.4); White Blood Count 7.2 K/mm3 (4.5-10.0)
[2020-02-23 06:11] LABS: Alanine Aminotransferase 12 U/L (4-35); Albumin Level 2.7 g/dL (3.5-5.1); Alkaline Phosphatase 46 U/L (38-126); Anion Gap 10 mmol/L (8-16); Aspartate Amino Transferase 39 U/L (14-36); Bilirubin,Total 0.4 mg/dL (0.2-1.3); Blood Urea Nitrogen 33 mg/dL (7-17); Calcium 8.5 mg/dL (8.4-10.2); Carbon Dioxide 12 mmol/L (22-30); Chloride 114 mmol/L (98-107); Estimated CRCL calculation 27 ml/min; Estimated Glomerular Filt Rate 19; Glucose 80 mg/dL (65-105); Magnesium 1.8 mg/dL (1.6-2.3); Phosphorus 2.2 mg/dL (2.5-4.5); Sodium 136 mmol/L (137-145)
[2020-02-23] MEDS: PANTOPRAZOLE SODIUM IV 40 MG VIAL IV PUSH ×2 (08:04→21:11)
[2020-02-23] MEDS: CLOPIDOGREL BISULFATE 75 MG TABLET PO (08:04)
--- NOTE | 2020-02-23 08:07 | WPDGIPROGNO ---
Progress Note: A&P Assessment and Plan (1) Colitis: Code(s): K52.9 - Noninfective gastroenteritis and colitis, unspecified Status: Acute Assessment and Plan: Colitis identified by recent endoscopy. Histology failed to narrow the differential diagnosis. Presumed to be infectious because of recent immunosuppression from chemotherapy. Stool cultures were negative on 02/09. Repeat cultures are pending. Patient currently on a trial of antibiotics. We have been in contact with the Oncology service at [facility] who raised the question of immune mediated colitis secondary to her chemotherapy. If so steroids may be of some benefit. Will give a steroid trial if repeat stool cultures are negative. (2) Nausea vomiting and diarrhea: Code(s): R11.2 - Nausea with vomiting, unspecified; R19.7 - Diarrhea, unspecified Status: Acute Assessment and Plan: Patient's symptoms are improving but not gone she still complains of some nausea. Plan is to continue IV rehydration slowly reintroduce. (3) Renal cell carcinoma: Code(s): C64.9 - Malignant neoplasm of unspecified kidney, except renal pelvis Status: Chronic Assessment and Plan: Patient with metastatic renal cell carcinoma. This includes to the spine and pancreas. Pancreatic metastases likely accounts for elevated lipase. (4) Acute renal failure superimposed on chronic kidney disease: Qualifiers: Acute renal failure type: unspecified Chronic kidney disease stage: unspecified stage Qualified Code(s): N17.9 - Acute kidney failure, unspecified; N18.9 - Chronic kidney disease, unspecified Code(s): N17.9 - Acute kidney failure, unspecified; N18.9 - Chronic kidney disease, unspecified Status: Acute Assessment and Plan: Patient with underlying renal insufficiency. This also reflects dehydration because of nausea vomiting diarrhea. Azotemia is improving to some degree with rehydration. Correcting electrolytes. (5) Acute hypokalemia: Code(s): E87.6 - Hypokalemia Status: Acute (6) Elevated lipase: Code(s): R74.8 - Abnormal levels of other serum enzymes Status: Acute Assessment and Plan: Elevated lipase likely secondary to metastases from renal cell cancer. Cannot exclude some component of underlying pancreatitis. This may contribute to her ongoing abdominal discomfort nausea. Subjective Date/time seen: 02/23/20 08:07 Patient reports less frequent diarrhea stools. Had emesis x1 yesterday. Some nausea late last evening. Otherwise tolerating liquid diet. She notes mild left-sided discomfort. Review of Systems Review of Systems: All systems reviewed & are unremarkable except as noted in HPI and below Exam Narrative: Exam Narrative: Physical exam reveals patient to be alert. Vital signs are stable. HEENT exam unremarkable. Lungs are clear to auscultation and percussion. Heart is without murmur or extra sounds. Abdominal exam is somewhat obese bowel sounds are present my life said tenderness no obvious organomegaly or masses. Objective Data Vital Signs Vital Signs: Vital Signs - 24 hr 02/22/20 12:00 02/22/20 14:00 02/22/20 16:00 Temperature 97.5 F L Pulse Rate 87 78 82 Respiratory Rate 16 Blood Pressure 102/59 L Pulse Oximetry 97 02/22/20 20:00 02/22/20 22:00 02/23/20 00:20 Temperature 97.8 F Pulse Rate 69 78 75 Respiratory Rate 20 Blood Pressure 101/56 L Pulse Oximetry 99 02/23/20 04:35 02/23/20 06:00 Temperature 97.5 F L Pulse Rate 90 81 Respiratory Rate 20 Blood Pressure 108/55 L Pulse Oximetry 99 Intake/Output Intake/Output: Intake & Output 02/20/20 02/21/20 02/22/20 02/23/20 23:59 23:59 23:59 23:59 Intake Total 1000 2760 3916 650 Output Total 700 2150 800 Balance 1000 2060 1766 -150 Meds/Results Medications: Active Medications Generic Name Dose Route Start Last Admin Trade Name Freq PRN Reason Stop Dose Admin
[2020-02-23] MEDS: POTASSIUM CHLORIDE INJ 20 MEQ in LACTATED RINGERS 1,000 ML 100 MEQ IV CONT (08:12)
[2020-02-23 09:04] LABS: Cytomegalovirus DNA Source Urine
--- NOTE | 2020-02-23 11:00 | PM.IMPN ---
Progress Note: A&P Assessment and Plan (1) Acute renal failure superimposed on chronic kidney disease: Qualifiers: Acute renal failure type: unspecified Chronic kidney disease stage: unspecified stage Qualified Code(s): N17.9 - Acute kidney failure, unspecified; N18.9 - Chronic kidney disease, unspecified Code(s): N17.9 - Acute kidney failure, unspecified; N18.9 - Chronic kidney disease, unspecified Status: Acute Assessment and Plan: The patient has CKD but now with GILMER and creatinine of 4.4 on admission. Cr improved to 2.50 this morning with IV fluids. Likely prerenal from poor PO intake/dehydration Will continue IV fluids for acute dehydration and persistent n/v Monitor renal function (2) Nausea vomiting and diarrhea: Code(s): R11.2 - Nausea with vomiting, unspecified; R19.7 - Diarrhea, unspecified Status: Acute Assessment and Plan: Patient with nausea, vomiting, diarrhea intermittently for the last month. Patient was hospitalized 1 week ago and had a colonoscopy which showed colitis and biopsies were taken which showed colitis consistent with lymphocytic colitis. Differential included early Crohn's disease, [place] Diarrhea, viral colitis, adverse drug reaction, and early ulcer colitis cannot be excluded per pathology. Pathology recommended immunohistochemistry for CMV testing which was ordered. Immune mediated colitis possibility as well. Symptoms also possibly 2/2 to Keytruda, Inlyta medications. GI consulted and is following; appreciate recommendations CLD per GI. Persistent n/v. Will defer diet to GI Continue with IV antibiotics of Levaquin and Flagyl for treatment of suspected infectious colitis. Appears plans are to continue treatment as such and await cultures to return; if these are negative, then possible plans for steroids. Continue monitoring. PRN antiemetics IV fluids (3) Colitis: Code(s): K52.9 - Noninfective gastroenteritis and colitis, unspecified Status: Acute Assessment and Plan: Patient recently was diagnosed with colitis and unable to finish antibiotic treatment as outpatient due to above symptoms. She has been started on IV antibiotics. GI was consulted and following. Per GI, felt to be likely infectious in nature thus will continue antibiotics for now. Other etiologies considered including ischemic vs immune-mediated vs viral vs other Will continue treatment with IV antibiotics for now. Please see above Await further rec from GI Monitor (4) Metabolic acidosis: Code(s): E87.2 - Acidosis Status: Acute Assessment and Plan: Patient has low serum bicarb most likely secondary to metabolic acidosis caused by diarrhea and vomiting. Otherwise the patient appears compensated at this time. CO2 12. Continue working on decreasing diarrhea and vomiting with treatments detailed above Continue monitoring her respiratory status and serum bicarb during admission. (5) Acute hypokalemia: Code(s): E87.6 - Hypokalemia Status: Acute Assessment and Plan: Secondary to diarrhea and dehydration. K 3.0 this morning; replaced with 40 KCl IV. Mag 1.8 Repeat BMP this afternoon Continue IV Fluids with 20 mEq KCl/liter of fluids Monitor renal function tomorrow; replace as needed (6) Renal cell carcinoma: Code(s): C64.9 - Malignant neoplasm of unspecified kidney, except renal pelvis Status: Chronic Assessment and Plan: Follows oncologist at [place] for her renal cell carcinoma with mets to pancreas and spine. She is treated with Keytruda and Inlyta. Will need to follow-up with oncologist after discharge (7) Hypertension: Quali
[2020-02-23 14:26] LABS: Anion Gap 7 mmol/L (8-16); Blood Urea Nitrogen 30 mg/dL (7-17); Calcium 8.8 mg/dL (8.4-10.2); Carbon Dioxide 13 mmol/L (22-30); Chloride 115 mmol/L (98-107); Estimated CRCL calculation 27 ml/min; Estimated Glomerular Filt Rate 19; Glucose 90 mg/dL (65-105); Potassium 3.1 mmol/L (3.4-5.0); Sodium 135 mmol/L (137-145)
[2020-02-23] MEDS: methylPREDNISolone SOD SUCC 40 MG VIAL IV PUSH ×2 (17:14→22:53)
[2020-02-24] VITALS (7 sets, daily range): BP systolic 125–133; BP diastolic 71–77; PULSE 61–71; RESP 14–16; TEMP 36.1–36.8; O2SAT 95–97
[2020-02-24] MEDS: POTASSIUM CHLORIDE INJ 20 MEQ in LACTATED RINGERS 1,000 ML 100 MEQ IV CONT ×2 (02:13→13:42)
[2020-02-24 06:01] LABS: Basophils Percent Auto 0.2 % (0.2-1.2); Hematocrit 38.6 % (37.0-47.0); Hemoglobin 13.3 g/dL (12.0-15.0); Immature Granulocyte Absolute 0.03 K/mm3 (0.00-0.031); Immature Granulocyte Percent A 0.6 % (0-0.5); Lymphocytes Absolute Auto 0.53 K/mm3 (0.9-3.2); Mean Corpuscular HGB Conc 34.5 g/dl (32-36); Mean Corpuscular Hemoglobin 30.5 pg (26-34); Mean Corpuscular Volume 88.5 fl (80-100); Mean Platelet Volume 10.5 fl (7.4-10.4); Monocytes Absolute Auto 0.1 K/mm3 (0.1-0.6); Monocytes Percent Auto 1.2 % (2.6-8.5); Neutrophils Absolute Auto 4.2 K/mm3 (1.3-6.7); Platelet Count Result 210 k/mm3 (150-375); Red Blood Count 4.36 M/mm3 (4.2-5.4); Red Cell Distribution Width 16.3 % (11.5-14.5); White Blood Count 4.8 K/mm3 (4.5-10.0)
[2020-02-24] MEDS: methylPREDNISolone SOD SUCC 40 MG VIAL IV PUSH ×3 (06:02→22:00)
[2020-02-24] MEDS: metroNIDAZOLE 500 MG/ISO 100ML 500 MG/100 ML BAG 100 MG IVPB ×3 (06:02→22:00)
[2020-02-24] MEDS: LEVOTHYROXINE SODIUM 100 MCG, LEVOTHYROXINE SODIUM 75 MCG 175 MCG PO (06:03)
[2020-02-24 06:08] LABS: Alanine Aminotransferase 12 U/L (4-35); Albumin Level 2.8 g/dL (3.5-5.1); Alkaline Phosphatase 45 U/L (38-126); Anion Gap 10 mmol/L (8-16); Aspartate Amino Transferase 38 U/L (14-36); Bilirubin,Total 0.3 mg/dL (0.2-1.3); Blood Urea Nitrogen 26 mg/dL (7-17); Calcium 8.6 mg/dL (8.4-10.2); Carbon Dioxide 11 mmol/L (22-30); Chloride 114 mmol/L (98-107); Estimated CRCL calculation 30 ml/min; Estimated Glomerular Filt Rate 22; Glucose 113 mg/dL (65-105); Magnesium 1.7 mg/dL (1.6-2.3); Phosphorus 3.1 mg/dL (2.5-4.5); Potassium 3.9 mmol/L (3.4-5.0); Sodium 135 mmol/L (137-145)
--- NOTE | 2020-02-24 08:16 | WPDGIPROGNO ---
Progress Note: A&P Assessment and Plan (1) Colitis: Code(s): K52.9 - Noninfective gastroenteritis and colitis, unspecified Status: Acute Assessment and Plan: Stool cultures are negative to date. No longer having diarrhea. I have been in touch with [facility] Oncology. Dr. Meyer office, after discussion with Oncology suspect this may indeed be immune mediated colitis secondary to her recent chemotherapy. We have started Solu-Medrol intravenously. And patient has begun to feel better. Plan to advance diet. Discharge home on prednisone 100 mg p.o. daily with rather prompt follow up with Oncology service at [facility] after discharge. (2) Renal cell carcinoma: Code(s): C64.9 - Malignant neoplasm of unspecified kidney, except renal pelvis Status: Chronic (3) Nausea vomiting and diarrhea: Code(s): R11.2 - Nausea with vomiting, unspecified; R19.7 - Diarrhea, unspecified Status: Acute Assessment and Plan: Nausea vomiting diarrhea are clinically improving with rehydration. Likely related to her colitis. Plan to advance diet today. (4) Elevated lipase: Code(s): R74.8 - Abnormal levels of other serum enzymes Status: Acute Assessment and Plan: Elevated lipase appears to be related to metastases from her renal cell carcinoma. I discussed this with Oncology service and lipase is not been checked previously so it is uncertain whether this always run somewhat high. I suspect it may always run a little high. (5) GILMER (acute kidney injury): Code(s): N17.9 - Acute kidney failure, unspecified Status: Acute Assessment and Plan: Patient has chronic kidney disease but elevated BUN creatinine likely related to dehydration at time admission. This appears to be improving with IV rehydration. Subjective Date/time seen: 02/24/20 08:16 Patient states she feels much improved this morning. Much less nausea anxious to try more solid foods. No diarrhea. Abdominal pain has subsided some. Review of Systems Review of Systems: All systems reviewed & are unremarkable except as noted in HPI and below Exam Narrative: Exam Narrative: On physical exam patient is more awake alert sitting upright in bed. HEENT exam reveals no icterus. Lungs are clear. Heart without murmur. Abdomen is somewhat obese bowel sounds present soft nontender. Objective Data Vital Signs Vital Signs: Vital Signs - 24 hr 02/23/20 12:00 02/23/20 14:00 02/23/20 16:00 Temperature 98 F Pulse Rate 76 72 84 Respiratory Rate 14 Blood Pressure 127/80 Pulse Oximetry 99 02/23/20 20:00 02/23/20 21:47 02/24/20 00:00 Temperature 97.5 F L Pulse Rate 76 72 71 Respiratory Rate 16 Blood Pressure 127/77 Pulse Oximetry 95 02/24/20 04:00 02/24/20 05:49 Temperature 97.0 F L Pulse Rate 61 63 Respiratory Rate 16 Blood Pressure 127/72 Pulse Oximetry 97 Intake/Output Intake/Output: Intake & Output 02/21/20 02/22/20 02/23/20 02/24/20 23:59 23:59 23:59 23:59 Intake Total 2760 4140 4230 460 Output Total 700 2150 1500 500 Balance 20590 -40 Meds/Results Medications: Active Medications Generic Name Dose Route Start Last Admin Trade Name Freq PRN Reason Stop Dose Admin Clopidogrel Bisulfate 75 mg 02/21/20 09:00 02/23/20 08:04 Clopidogrel Bisulfate 75 Mg Tablet PO 75 mg DAILY DARIUS Administration Metronidazole 500 mg in 100 mls @ 100 mls/hr 02/21/20 07:00 02/24/20 06:02 Flagyl 500 Mg/Iso Soln 100 Ml IVPB 100 mls/hr Q8HR DARIUS Administration Levofloxacin/Dextrose 250 mg in 50 mls @ 50 mls/hr 02/22/20 21:00 02/22/20 21:33 Levaquin 250 Mg/D5w 50 Ml IVPB Infused Q48H DARIUS Infusion Potassium Chloride 20 meq/ 1,010 mls @ 100 mls/hr 02/22/20 18:30 02/24/20 02:13 Lactated Ringer's IV CONT 100 mls/hr .Q10H6M DARIUS Administration Levothyroxine Sodium 100 mcg/ 175 mcg 02/21/20 06:30 02/24/20 06:03 Levothyroxine Sodium 75 mcg PO 17
[2020-02-24] MEDS: PANTOPRAZOLE SODIUM IV 40 MG VIAL IV PUSH ×2 (08:37→20:43)
[2020-02-24] MEDS: CLOPIDOGREL BISULFATE 75 MG TABLET PO (08:37)
--- NOTE | 2020-02-24 11:25 | PCNFU ---
Nutrition Follow-Up Complete: Inadequate Oral Intake as related to Diarrhea as evidenced by NPO Goal: Adequate Intake of at least 75% of meals. Progressing towards goal. We will continue current goal. Pt current nutrition is Regular, Level 7 . Last recorded weight is 108.2 kg, no new weight. Bowel Motility:+BM reported 02/22 Labs Reviewed:Na 135,Alb 2.8,BUN 26,Cr 2.2 Meds Noted:Solu Medrol, LR, Flagyl, Protonix Additional Notes: Spoke with patient today for nutrition follow up. Tolerating regular diet, he had left jello but did well with tray. RD ordered lunch tray today. Agree with diet orders. Monitoring: weight, labs,meds, oral intake every 5 days.
--- NOTE | 2020-02-24 13:59 | PM.IMPN ---
Progress Note: A&P Assessment and Plan (1) Acute renal failure superimposed on chronic kidney disease: Qualifiers: Acute renal failure type: unspecified Chronic kidney disease stage: unspecified stage Qualified Code(s): N17.9 - Acute kidney failure, unspecified; N18.9 - Chronic kidney disease, unspecified Code(s): N17.9 - Acute kidney failure, unspecified; N18.9 - Chronic kidney disease, unspecified Status: Acute Assessment and Plan: The patient has CKD but now with GILMER and creatinine of 4.4 on admission. Cr improved to 2.20 this morning with IV fluids. Likely prerenal from poor PO intake/dehydration Will continue IV fluids for now; likely d/c tomorrow if tolerating diet Monitor renal function (2) Nausea vomiting and diarrhea: Code(s): R11.2 - Nausea with vomiting, unspecified; R19.7 - Diarrhea, unspecified Status: Acute Assessment and Plan: Patient with nausea, vomiting, diarrhea intermittently for the last month. Patient was hospitalized 1 week ago and had a colonoscopy which showed colitis and biopsies were taken which showed colitis consistent with lymphocytic colitis. Differential included early Crohn's disease, [place] Diarrhea, viral colitis, adverse drug reaction, and early ulcer colitis cannot be excluded per pathology. Pathology recommended immunohistochemistry for CMV testing which was ordered. Immune mediated colitis possibility as well; started on Solumedrol yesterday per GI. Symptoms also possibly 2/2 to Keytruda, Inlyta medications. GI consulted and is following; appreciate recommendations Regular/bland diet per GI. Persistent n/v. Will defer diet to GI Antibiotics and steroids deferred to GI; plans to send patient home on 100 mg prednisone daily as per GI recommendations Continue monitoring. PRN antiemetics IV fluids (3) Colitis: Code(s): K52.9 - Noninfective gastroenteritis and colitis, unspecified Status: Acute Assessment and Plan: Patient recently was diagnosed with colitis and unable to finish antibiotic treatment as outpatient due to above symptoms. GI was consulted and following. She has been started on IV antibiotics and now Solumedrol on 02/22 per GI to treat immune mediated colitis. Other etiologies considered including ischemic vs immune-mediated vs viral vs other Antibiotics and steroids deferred to GI. See above Await further rec from GI Monitor (4) Metabolic acidosis: Code(s): E87.2 - Acidosis Status: Acute Assessment and Plan: Patient has low serum bicarb most likely secondary to metabolic acidosis caused by diarrhea and vomiting. Otherwise the patient appears compensated at this time. Serum CO2 11. Continue working on decreasing diarrhea and vomiting with treatments detailed above Continue monitoring her respiratory status and serum bicarb during admission. (5) Acute hypokalemia: Code(s): E87.6 - Hypokalemia Status: Acute Assessment and Plan: Secondary to diarrhea and dehydration. K 3.9 this morning. Mag 1.7 Continue IV Fluids with 20 mEq KCl/liter of fluids Monitor renal function tomorrow; replace as needed Will d/c telemetery (6) Renal cell carcinoma: Code(s): C64.9 - Malignant neoplasm of unspecified kidney, except renal pelvis Status: Chronic Assessment and Plan: Follows oncologist at [place] for her renal cell carcinoma with mets to pancreas and spine. She is treated with Keytruda and Inlyta. Will need to follow-up with oncologist after discharge (7) Hypertension: Qualifiers: Hypertension type: essential hypertension Qualified Code(s): I10 - Essential (primary) hypertension
[2020-02-24 17:33] LABS: CMV IgG Antibody >10.00 U/mL (<0.60)
[2020-02-24 20:24] LABS: CMV IgM Antibody <30.00 AU/mL (<30.00)
[2020-02-24] MEDS: levoFLOXacin 250 MG/D5W 50 ML 250 MG/50 ML BAG 50 MG IVPB (20:42)
[2020-02-25] MEDS: POTASSIUM CHLORIDE INJ 20 MEQ in LACTATED RINGERS 1,000 ML 100 MEQ IV CONT (00:28)
[2020-02-25 05:45] LABS: Basophils Percent Auto 0.1 % (0.2-1.2); Hematocrit 37.3 % (37.0-47.0); Hemoglobin 12.9 g/dL (12.0-15.0); Immature Granulocyte Percent A 0.8 % (0-0.5); Lymphocytes Absolute Auto 0.59 K/mm3 (0.9-3.2); Mean Corpuscular HGB Conc 34.6 g/dl (32-36); Mean Corpuscular Hemoglobin 30.6 pg (26-34); Mean Corpuscular Volume 88.6 fl (80-100); Monocytes Absolute Auto 0.4 K/mm3 (0.1-0.6); Monocytes Percent Auto 3.7 % (2.6-8.5); Neutrophils Absolute Auto 10.7 K/mm3 (1.3-6.7); Neutrophils Percent Auto 90.4 % (45.5-73.1); Platelet Count Result 222 k/mm3 (150-375); Red Blood Count 4.21 M/mm3 (4.2-5.4); Red Cell Distribution Width 16.2 % (11.5-14.5); White Blood Count 11.8 K/mm3 (4.5-10.0)
[2020-02-25 05:49] LABS: Alanine Aminotransferase 14 U/L (4-35); Albumin Level 2.8 g/dL (3.5-5.1); Alkaline Phosphatase 47 U/L (38-126); Anion Gap 7 mmol/L (8-16); Aspartate Amino Transferase 39 U/L (14-36); Bilirubin,Total 0.5 mg/dL (0.2-1.3); Blood Urea Nitrogen 28 mg/dL (7-17); Calcium 8.3 mg/dL (8.4-10.2); Carbon Dioxide 13 mmol/L (22-30); Chloride 113 mmol/L (98-107); Estimated CRCL calculation 39 ml/min; Estimated Glomerular Filt Rate 30; Glucose 115 mg/dL (65-105); Magnesium 1.5 mg/dL (1.6-2.3); Phosphorus 2.6 mg/dL (2.5-4.5); Potassium 3.8 mmol/L (3.4-5.0); Sodium 133 mmol/L (137-145)
[2020-02-25 06:00] VITALS: BP 123/77; PULSE 59; RESP 16; TEMP 36.7; O2SAT 98
[2020-02-25] MEDS: methylPREDNISolone SOD SUCC 40 MG VIAL IV PUSH (06:27)
[2020-02-25] MEDS: metroNIDAZOLE 500 MG/ISO 100ML 500 MG/100 ML BAG 100 MG IVPB (06:27)
[2020-02-25] MEDS: LEVOTHYROXINE SODIUM 100 MCG, LEVOTHYROXINE SODIUM 75 MCG 175 MCG PO (06:28)
--- NOTE | 2020-02-25 07:16 | WPDGIPROGNO ---
Progress Note: A&P Assessment and Plan (1) Colitis: Code(s): K52.9 - Noninfective gastroenteritis and colitis, unspecified Status: Acute Assessment and Plan: Patient with colitis documented by endoscopy several weeks ago. Cultures have been negative. Most likely this is immune mediated colitis related to her recent chemotherapy. Now on IV Solu-Medrol this will be changed to oral prednisone with discharge. I have discussed this with Dr. Meyer at the Oncology service at [facility]. plan to discharge on prednisone 100 mg p.o. daily, they will taper the doors dose in their service. Prompt follow up in Oncology at [facility] is advised. Patient can follow up my service electively as an outpatient of GI symptoms persist or recur. (2) Renal cell carcinoma: Code(s): C64.9 - Malignant neoplasm of unspecified kidney, except renal pelvis Status: Chronic (3) Nausea vomiting and diarrhea: Code(s): R11.2 - Nausea with vomiting, unspecified; R19.7 - Diarrhea, unspecified Status: Acute Assessment and Plan: Nausea vomiting diarrhea of resolved with IV rehydration. May be related to colitis or and or chemotherapy. (4) Elevated lipase: Code(s): R74.8 - Abnormal levels of other serum enzymes Status: Acute Subjective Date/time seen: 02/25/20 07:16 Patient reports feeling much better today. No abdominal pain. No significant diarrhea overnight. Tolerating diet. Review of Systems Review of Systems: All systems reviewed & are unremarkable except as noted in HPI and below Exam Narrative: Exam Narrative: Physical exam reveals abdomen to be obese. Bowel sounds are present soft no localized tenderness. HEENT without scleral icterus lungs are clear heart without murmur. Objective Data Vital Signs Vital Signs: Vital Signs - 24 hr 02/24/20 08:00 02/24/20 12:00 02/24/20 14:00 Temperature 98.2 F Pulse Rate 70 67 64 Respiratory Rate 14 Blood Pressure 133/77 Pulse Oximetry 96 02/24/20 21:14 02/25/20 06:00 Temperature 97.0 F L 98.0 F Pulse Rate 63 59 L Respiratory Rate 16 16 Blood Pressure 125/71 123/77 Pulse Oximetry 95 98 Intake/Output Intake/Output: Intake & Output 01/12/21 01/13/21 01/14/21 01/15/21 23:59 23:59 23:59 23:59 Intake Total 4140 4230 3630 400 Output Total 2150 1500 1000 800 Balance 1989 4969 2210 -400 Meds/Results Medications: Active Medications Generic Name Dose Route Start Last Admin Trade Name Freq PRN Reason Stop Dose Admin Clopidogrel Bisulfate 75 mg 02/21/20 09:00 02/24/20 08:37 Clopidogrel Bisulfate 75 Mg Tablet PO 75 mg DAILY DARIUS Administration Metronidazole 500 mg in 100 mls @ 100 mls/hr 02/21/20 07:00 02/25/20 06:27 Flagyl 500 Mg/Iso Soln 100 Ml IVPB 100 mls/hr Q8HR DARIUS Administration Levofloxacin/Dextrose 250 mg in 50 mls @ 50 mls/hr 02/22/20 21:00 02/24/20 20:42 Levaquin 250 Mg/D5w 50 Ml IVPB 50 mls/hr Q48H DARIUS Administration Potassium Chloride 20 meq/ 1,010 mls @ 100 mls/hr 02/22/20 18:30 02/25/20 00:28 Lactated Ringer's IV CONT 100 mls/hr .Q10H6M DARIUS Administration Magnesium Sulfate/Dextrose 1 gm in 100 mls @ 100 mls/hr 02/25/20 07:07 Magnesium Sulf 1 Gm/D5w 100 Ml IVPB 02/25/20 08:06 ONCE ONE Levothyroxine Sodium 100 mcg/ 175 mcg 02/21/20 06:30 02/25/20 06:28 Levothyroxine Sodium 75 mcg PO 175 mcg DAILY@0630 DARIUS Administration Methylprednisolone Sodium Succinate 40 mg 02/23/20 15:00 02/25/20 06:27 Methylprednisolone Sod Succ 40 Mg Vial IV PUSH 40 mg Q8HR DARIUS Administration Ondansetron HCl 4 mg 02/21/20 14:26 Ondansetron Inj 4 Mg/2 Ml Vial IV PUSH Q4H PRN Nausea And Vomiting Pantoprazole Sodium 40 mg 02/21/20 14:30 02/24/20 20:43 Pantoprazole Sodium Iv 40 Mg Vial IV PUSH 40 mg Q12HR DARIUS Administration Promethazine HCl 12.5 mg 02/21/20 15:19 Promethazine Hcl 25 Mg/Ml Ampul IV PUSH Q4H PRN Nausea And Vomi
[2020-02-25] MEDS: MAGNESIUM SULF 1 GM/D5W 100 ML 1 GM/100 ML BAG IVPB (08:31)
[2020-02-25] MEDS: CLOPIDOGREL BISULFATE 75 MG TABLET PO (08:31)
[2020-02-25] MEDS: PANTOPRAZOLE SODIUM IV 40 MG VIAL IV PUSH (08:32)
--- NOTE | 2020-02-25 11:43 | PM.DS ---
DS: Admitting Diagnosis Admitting Diagnosis Admitting Diagnosis: Acute renal failure on CKD, Colitis, Electrolyte abnormalities DS: Discharge Diagnosis Discharge Diagnosis (1) Acute renal failure superimposed on chronic kidney disease: Qualifiers: Acute renal failure type: unspecified Chronic kidney disease stage: unspecified stage Qualified Code(s): N17.9 - Acute kidney failure, unspecified; N18.9 - Chronic kidney disease, unspecified Code(s): N17.9 - Acute kidney failure, unspecified; N18.9 - Chronic kidney disease, unspecified Status: Acute Assessment and Plan: The patient has CKD but now with GILMER and creatinine of 4.4 on admission. Cr improved to 1.70 this morning with IV fluids. Likely prerenal from poor PO intake/dehydration. She now is tolerating her diet Will do BMP next week Encourage PO intake F/u with PCP (2) Nausea vomiting and diarrhea: Code(s): R11.2 - Nausea with vomiting, unspecified; R19.7 - Diarrhea, unspecified Status: Acute Assessment and Plan: Patient with nausea, vomiting, diarrhea intermittently for the last month. Patient was hospitalized 1 week ago and had a colonoscopy which showed colitis and biopsies were taken which showed colitis consistent with lymphocytic colitis. Differential included early Crohn's disease, [place] Diarrhea, viral colitis, adverse drug reaction, and early ulcer colitis cannot be excluded per pathology. Pathology recommended immunohistochemistry for CMV testing; IgG ab positive with negative IgM ab negative with negative CMV DNA PCR - past infection? Immune mediated colitis possibility as well and felt to be most likely at this point after discussions between GI and her Oncologist, Dr. Meyer. Started on Solumedrol 02/22 per GI and per GI and oncology recommendations, Oncology recommends 100 mg prednisone day with plans to taper once she follows up with them. Symptoms likely 2/2 to Keytruda, Inlyta medications. GI consulted and is following; appreciate recommendations Regular/bland diet per GI Will d/c antibiotics Will do prednisone 100 mg daily for 1 week with instructions to call her oncologist today to see when she should start her taper. F/u with PCP and Oncologist (3) Colitis: Code(s): K52.9 - Noninfective gastroenteritis and colitis, unspecified Status: Acute Assessment and Plan: Patient recently was diagnosed with colitis and unable to finish PO antibiotic treatment as outpatient due to above symptoms. GI was consulted and following. IV levaquin and flagyl from 02/19-02/24. Started on Solumedrol on 02/22 per GI to treat immune mediated colitis. Other etiologies considered including ischemic vs immune-mediated vs viral vs other Will do PO prednisone as detailed above F/u with GI as needed (4) Metabolic acidosis: Code(s): E87.2 - Acidosis Status: Acute Assessment and Plan: Patient has low serum bicarb most likely secondary to metabolic acidosis caused by diarrhea and vomiting. Otherwise the patient appears compensated at this time. Serum CO2 13. BMP 02/27 (5) Acute hypokalemia: Code(s): E87.6 - Hypokalemia Status: Acute Assessment and Plan: Secondary to diarrhea and dehydration. K 3.8 this morning. Mag 1.5 replaced K replaced during episodes of n/v/d BMP and mag level 02/27 F/u with PCP (6) Renal cell carcinoma: Code(s): C64.9 - Malignant neoplasm of unspecified kidney, except renal pelvis Status: Chronic Assessment and Plan: Follows oncologist at [facility] for her renal cell carcinoma with mets to pancreas and spine. She is treated with Keytruda and Inlyta. Will need to follow-up with oncologist after discharge. Discussed this
[2020-02-25] MEDS: predniSONE 20 MG TABLET 100 MG PO (12:24)
== END 2020-02-25 13:06 | disposition home or self-care (01) | DRG 469 ==
LOC: ANHED 23:32 → ANH2MED 02-21 02:51
PROVIDERS: Internal Medicine Gastroenterology; Physician Assistant; Admitting Provider Internal Medicine; Emergency Provider Emergency Medicine; PCP Emergency Medicine; Visit Provider Physician Assistant
DX: N17.9 Acute kidney failure, unspecified (principal); N18.9 Chronic kidney disease, unspecified; E87.6 Hypokalemia; K52.9 Noninfective gastroenteritis and colitis, unspecified; I12.9 Hypertensive chronic kidney disease with stage 1 through stage 4 chronic kidney disease, or unspecified chronic kidney disease; I73.9 Peripheral vascular disease, unspecified; E87.2 Acidosis; C64.9 Malignant neoplasm of unspecified kidney, except renal pelvis; C78.89 Secondary malignant neoplasm of other digestive organs; C79.51 Secondary malignant neoplasm of bone
CPT/HCPCS: 36415; 74176; 80048; 80053; 80069; 80076; 83690; 83735; 85025; 86644; 86645; 87015; 87045; 87046; 87177; 87209; 87269; 87272; 87324; 87427; 87496; 89055; 93970; 96361; 96374; 99285; A9270; C9113; J1956; J2405; J2920; J3475; J3480; J7120; J7512

== ENCOUNTER 2020-02-28 11:30 | Outpatient (CLI) | payer OTHER, SELFPAY ==
[2020-02-28 12:06] LABS: Anion Gap 7 mmol/L (8-16); Blood Urea Nitrogen 24 mg/dL (7-17); Calcium 9.2 mg/dL (8.4-10.2); Carbon Dioxide 20 mmol/L (22-30); Chloride 107 mmol/L (98-107); Estimated Glomerular Filt Rate 35; Glucose 101 mg/dL (65-105); Magnesium 1.8 mg/dL (1.6-2.3); Potassium 3.3 mmol/L (3.4-5.0); Sodium 134 mmol/L (137-145)
== END 2020-02-28 11:31 | disposition home or self-care (01) ==
PROVIDERS: PCP Emergency Medicine; Visit Provider Physician Assistant
DX: E87.6 Hypokalemia (principal); E87.2 Acidosis; N17.9 Acute kidney failure, unspecified; N18.9 Chronic kidney disease, unspecified
CPT/HCPCS: 36415; 80048; 83735

== ENCOUNTER 2020-04-28 21:37 | Emergency (ER) | payer OTHER, SELFPAY ==
--- NOTE | ~2020-04-28 | XR_ITS ---
XR chest 1V portable DATE: 04/28/2020 22:22 INDICATION: Hypertension. Leg weakness. Left flank abdominal pain for 3 weeks. History of cancer. TECHNIQUE: Portable AP chest on 04/28/2020 at 2224 hours COMPARISON: None FINDINGS: Pedicle screws and rods are noted in the thoracolumbar area. Heart size appears within normal range. There is mild aortic unfolding. No hilar or mediastinal enlar gement is evident. No pulmonary infiltrate or consolidation, pleural effusion or pulmonary vascular congestion or pneumo thorax. Diffuse osteopenia. IMPRESSION: No active cardiopulmonary disease Reviewed, dictated and finalized at location A.
--- NOTE | ~2020-04-28 | CT_ITS ---
EXAMINATION: CT brain wo con DATE: 04/28/2020 22:55 INDICATION: Dizziness TECHNIQUE: Computed tomography (CT) of the head was performed without intravenous contrast. The mA wa s adjusted according to patient size. Iterative reconstruction technique was employed. Exam dose: 68 1.00 mGy-cm total exam DLP. COMPARISON: None FINDINGS: No intracranial mass lesion or hemorrhage or cerebrovascular accident is detected. There is no midline shift or mass effect effect. There is nonspecific diminished attenuation of the cerebral white matter, likely due to chronic small vessel ischemic changes. No subdural or epidural hematoma is detected. There is opacification of a small minority of right mastoid air cells. The mastoid air cells are norm ally developed and aerated bilaterally otherwise. The paranasal sinuses are normally developed and ae rated. No fracture or bone destruction of the cranial vault. IMPRESSION: No acute intracranial finding Reviewed, dictated and finalized at [facility]. Reviewed, dictated and finalized at location A.
--- NOTE | ~2020-04-28 | CT_ITS ---
EXAMINATION: CT lumbar spine wo con DATE: 04/29/2020 04:24 INDICATION: Back pain. TECHNIQUE: Computed tomography (CT) of the lumbar spine was performed without intravenous contrast. A utomated exposure control and iterative reconstruction technique were employed. The dose-length produ ct was 1196.16 mGy-cm. COMPARISON: CT dated 02/20/2020 and MRI dated 05/07/2013 FINDINGS: 10 degree dextroscoliosis measured between L2 and L5. Incompletely visualized posterior spinal fusion extending cephalad from L1 with the lateral vertical rods and pedicle screws without surrounding isabela ency at T12 and L1. The caudal tip of a fixation pin is seen extending across the superior plate of T 12 and into the T11 vertebral body which is almost entirely beyond the [id number] and which on lani or studies demonstrated a chronic pathologic fracture. Lumbar vertebral body heights are normal. No o ther suspicious lytic or blastic bone lesions identified. Mild to moderate disc height loss at L3-L4. Mild disc height loss at the remaining levels from L1-L2 through L5-S1. Status post right nephrectom y. Postoperative changes along the anterior left pararenal space and with sutures along the posterior margin of the mid to lower left kidney suggesting prior partial nephrectomy. The following disc leve ls are specifically discussed: T12-L1: Disc is bulging with some ossification extending across the posterior longitudinal ligament. Instrumented posterior fusion across the facet joints. There is mild right neural foraminal stenosis. There is mild central canal stenosis. L1-L2: Disc is mildly bulging. There is mild to moderate bilateral facet joint osteoarthritis. There is mild bilateral neural foraminal stenosis. There is mild central canal stenosis. L2-L3: Disc is bulging. There is hypertrophy of the ligamentum flavum. There is mild right and moder ate left facet joint osteoarthritis. There is moderate bilateral neural foraminal stenosis. There is moderate central canal stenosis. L3-L4: Disc is bulging. There is hypertrophy of the ligamentum flavum. There is mild right and mild to moderate left facet joint osteoarthritis. There is mild to moderate right and moderate left neural foraminal stenosis. There is moderate central canal stenosis. L4-L5: Disc is bulging. There is hypertrophy of the ligamentum flavum. There is mild right and mild t o moderate left facet joint osteoarthritis. There is moderate bilateral, left greater than right neur al foraminal stenosis. There is moderate central canal stenosis. L5-S1: Disc is bulging with ossification along the posterior longitudinal ligament. There is moderate bilateral facet joint osteoarthritis. There is moderate right and mild to moderate left neural angelique inal stenosis. There is mild central canal stenosis. IMPRESSION: 1. Moderate lumbar spondylosis. No acute osseous susceptibility. 2. Partially visualized instrumented thoracolumbar posterior spinal fusion spanning the nonvisualized T11 vertebral body where there has been a prior pathologic fracture. Reviewed, dictated and finalized at location A. IMPRESSION: 1. Moderate lumbar spondylosis. No acute osseous susceptibility. 2. Partially visualized instrumented thoracolumbar posterior spinal fusion span tian the nonvisualized T11 vertebral body where there has been a prior patholog ic fracture.
[2020-04-28 21:41] VITALS: BP 168/76; PULSE 89; RESP 20; TEMP 36.1; O2SAT 100
--- NOTE | 2020-04-28 22:03 | ECG_ITS ---
Measurements Intervals [place] Rate: 79 P: 11 DE: 167 QRS: -34 QRSD: 125 T: 16 QT: 429 QTc: 495 Interpretive Statements SINUS RHYTHM LEFT AXIS DEVIATION INCOMPLETE RIGHT BUNDLE BRANCH BLOCK LOW VOLTAGE- PRECORDIAL LEADS BORDERLINE T WAVE ABNORMALITY- ANTERIOR LEADS BASELINE ARTIFACT- I, III, AVL, V3 BORDERLINE ECG Electronically Signed On 04-29-2020 7:33:51 CDT by Harish Shaw D.O.
[2020-04-28 22:18] LABS: Basophils Percent Auto 0.4 % (0.2-1.2); Eosinophils Absolute Auto 0.1 K/mm3 (0-0.3); Eosinophils Percent Auto 0.9 % (0-4.4); Hematocrit 42.6 % (37.0-47.0); Hemoglobin 13.4 g/dL (12.0-15.0); Immature Granulocyte Absolute 0.05 K/mm3 (0.00-0.031); Immature Granulocyte Percent A 0.6 % (0-0.5); Lymphocytes Absolute Auto 1.63 K/mm3 (0.9-3.2); Mean Corpuscular HGB Conc 31.5 g/dl (32-36); Mean Corpuscular Hemoglobin 31.1 pg (26-34); Mean Corpuscular Volume 98.8 fl (80-100); Mean Platelet Volume 10.1 fl (7.4-10.4); Monocytes Absolute Auto 0.7 K/mm3 (0.1-0.6); Monocytes Percent Auto 9.1 % (2.6-8.5); Neutrophils Absolute Auto 5.7 K/mm3 (1.3-6.7); Platelet Count Result 278 k/mm3 (150-375); Red Blood Count 4.31 M/mm3 (4.2-5.4); Red Cell Distribution Width 16.6 % (11.5-14.5); White Blood Count 8.2 K/mm3 (4.5-10.0)
[2020-04-28 22:29] LABS: Prothrombin Time 13.3 Seconds (11.1-14.7)
[2020-04-28 22:30] LABS: Alanine Aminotransferase 20 U/L (4-35); Albumin Level 3.9 g/dL (3.5-5.1); Alkaline Phosphatase 75 U/L (38-126); Anion Gap 4 mmol/L (8-16); Aspartate Amino Transferase 30 U/L (14-36); Bilirubin,Total 0.2 mg/dL (0.2-1.3); Blood Urea Nitrogen 22 mg/dL (7-17); Calcium 9.6 mg/dL (8.4-10.2); Carbon Dioxide 31 mmol/L (22-30); Chloride 107 mmol/L (98-107); Estimated Glomerular Filt Rate 41; Glucose 91 mg/dL (65-105); Partial Thromboplastin Time 28.4 SECONDS (22.3-36.8); Potassium 3.3 mmol/L (3.4-5.0); Sodium 142 mmol/L (137-145)
[2020-04-28 23:29] VITALS: BP 151/75; PULSE 74; RESP 22; O2SAT 98
[2020-04-29 00:18] VITALS: BP 167/88; PULSE 87; RESP 24
[2020-04-29 01:40] LABS: Add Urine Microscopic? YES; Appearance Urine Clear (Clear); Bilirubin Urine Negative (Negative); Blood Urine Negative (Negative); Color Urine Yellow (Yellow); Glucose Urine UA Negative (Negative); Ketones Urine Negative (Negative); Leukocyte Esterase Ur Negative LEU/UL (Negative); Mucus Urine Rare /lpf; Nitrate Urine Negative (Negative); Protein Urine 1+ mg/dL (Negative); RBC Urine 0-2 /hpf (0-2); Squamous Epithelial Cell Urine Occasional /hpf (Few); Urobilinogen Urine Negative mg/dL (<2.0); WBC Urine 0-3 /hpf
[2020-04-29] MEDS: POTASSIUM CHLORIDE 20 MEQ TABLET PO (02:03)
[2020-04-29 02:05] VITALS: BP 229/107; PULSE 79; RESP 18; O2SAT 98
[2020-04-29 02:09] VITALS: BP 175/91; PULSE 74; RESP 22; O2SAT 98
[2020-04-29 04:23] VITALS: BP 169/74; PULSE 79; RESP 18; O2SAT 99
--- NOTE | 2020-04-29 05:25 | ED.WEAKNESS ---
HPI - Weakness General Chief complaint: Weakness Stated complaint: Weakness Time Seen by Provider: 04/28/20 22:06 Source: RN notes reviewed History of Present Illness HPI Narrative: Patient presents emergency department from home for weakness. 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 That she had had increased weakness during her episode of illness at the beginning of the year patient states that she does have a cane and walker at home and she has progressively had a harder time getting around she denies any trauma or injury she denies any fevers or chills chest pain shortness of breath unilateral weakness or any other symptoms Related Data Home Medications Medication Instructions Recorded Confirmed Inlyta 5 mg PO Q12H 02/09/20 03/29/20 Keytruda 25 mg IV [id number] 02/09/20 03/29/20 clopidogrel 75 mg PO DAILY 02/09/20 03/29/20 levothyroxine 175 mcg PO DAILY 02/09/20 03/29/20 Allergies Allergy/AdvReac Type Severity Reaction Status Date / Time No Known Allergies Allergy Verified 02/20/20 21:18 Review of Systems Review of Systems: Narrative: Gen.: Denies fevers or chills ENT: Denies congestion Respiratory: Denies shortness of breath or cough CV: Denies chest pain or palpitations GI: Denies abdominal pain nausea, emesis or diarrhea Musculoskeletal: Denies back pain or muscle pain Neuro: See HPI Skin: Denies rash Except as documented, all other systems reviewed and negative PMFSH Past Medical History Medical History Adult BMI 37.0-37.9 kg/sq m Cramp of extremity Edema Hypertension Hypothyroidism IBS (irritable bowel syndrome) Magnesium deficiency Peripheral artery disease Renal cell carcinoma Spine metastasis Stenosis of popliteal artery Thyroid disease Tobacco abuse Urinary frequency Vitamin D deficiency, unspecified Wound of left foot Wound of right foot Surgical History Surgical History H/O Spinal surgery History of nephrectomy Right kidney 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 She denies any alcohol use or drug use. Her medical power of state's attorney is her daughter, Ivanna Frazier. She wishes to be a full code. Smoking packs per day: 0.5 Smoking cigarettes per day: 10.0 Years smoked: 40 Smoking pack-years: 20.00 Smoking status: Current every day smoker (10-12 cigarettes per day) Tobacco type: cigarettes Alcohol intake: current Drinks per week: 2 Substance use: never Substance use type: does not use Gender identity (if verbalized by the patient): Female Spiritual care concerns: No Exam Narrative: Exam Narrative: APPEARANCE: No acute distress, nontoxic, resting in bed EYES: EOMI, PERRL HEENT: Normocephalic, atraumati
[2020-04-29 05:47] VITALS: BP 167/78; PULSE 79; RESP 18; O2SAT 98
== END 2020-04-29 05:49 | disposition home or self-care (01) ==
PROVIDERS: Emergency Provider Emergency Medicine; PCP Nurse Practitioner Family
DX: R53.1 Weakness (principal); G62.9 Polyneuropathy, unspecified; Z85.528 Personal history of other malignant neoplasm of kidney; C77.9 Secondary and unspecified malignant neoplasm of lymph node, unspecified; I10 Essential (primary) hypertension; E03.9 Hypothyroidism, unspecified; K58.9 Irritable bowel syndrome, unspecified; I73.9 Peripheral vascular disease, unspecified; E07.9 Disorder of thyroid, unspecified; E55.9 Vitamin D deficiency, unspecified; Z90.5 Acquired absence of kidney; Z90.411 Acquired partial absence of pancreas; F17.210 Nicotine dependence, cigarettes, uncomplicated; I45.10 Unspecified right bundle-branch block; R94.31 Abnormal electrocardiogram [ECG] [EKG]; M47.816 Spondylosis without myelopathy or radiculopathy, lumbar region; Z98.1 Arthrodesis status
CPT/HCPCS: 36415; 70450; 71045; 72131; 80053; 81001; 85025; 85610; 85730; 93005; 99284; A9270

== ENCOUNTER 2020-05-03 14:56 | Emergency (ER) | payer OTHER, SELFPAY ==
--- NOTE | ~2020-05-03 | XR_ITS ---
XR chest 2V DATE: 05/03/2020 15:33 INDICATION: Right-sided chest pain radiating to right back TECHNIQUE: AP and lateral views COMPARISON: 04/28/2020 portable AP chest FINDINGS: Again noted is posterior lower thoracic spinal surgical fusion. There is diffuse osteopenia. There is levoscoliosis of the thoracic spine. Borderline heart size. There is aortic unfolding. No hilar or mediastinal enlargement is evident. Mild infiltrate or atelectasis in the lower lung schilling. Otherwise no pulmonary infiltrate or consoli dation, pleural effusion or pulmonary vascular congestion or pneumothorax is detected. IMPRESSION: Borderline heart size Mild infiltrate or atelectasis in the lower lung zones Reviewed, dictated and finalized at location B.
--- NOTE | ~2020-05-03 | CT_ITS ---
EXAMINATION: CT abdomen pelvis w con DATE: 05/03/2020 16:26 INDICATION: Right flank pain. Back pain. TECHNIQUE: Computed tomography (CT) of the abdomen and pelvis was performed with 100 cc Omnipaque 350 intravenous contrast. Automated exposure control and iterative reconstruction technique were employe d. Exam dose: 1232.17 mGy-cm total exam DLP. COMPARISON: 02/20/[address] abdomen pelvis FINDINGS: There is a focal pleural-based posterior right lower lobe 12 x 15 mm opacity consistent wit h round atelectasis, infarct or pulmonary mass lesion (series 3 image 5). There is mild surrounding i nfiltrate or atelectasis. There is discoid atelectasis or scarring at the right lung base, right lowe r lobe. The remaining included lower lung schilling are clear. Mild cardiomegaly. No pericardial effusion. There is slight right pleural effusion. Cholelithiasis. There is mild gallbladder wall thickening and wall calcification. No bile duct or pancreatic duct dilatation. No pancreatic mass lesion or calcification is evident. Normal splenic size. Normal right adrenal gland. There are 2 small left adrenal masses approximately 1.4 cm dimension, likely adrenal adenomas. Status post right nephrectomy. Partial left nephrectomy. There are several peripheral wedge-shaped areas of diminished enhancement of the left kidney which ma y represent focal postoperative change and/or infarcts. No left renal space occupying mass lesion is apparent. No left urinary tract calculus or hydroureteronephrosis. The urinary bladder is unremarkabl e. Uterus and adnexal areas are unremarkable as well. There is calcification of the abdominal aorta and celiac trunk and iliac arteries. No abdominal aorti c aneurysm. No intraperitoneal or retroperitoneal or pelvic mass lesion or adenopathy or ascites is e vident. Diverticulosis of the left colon; no CT evidence of diverticulitis. Normal appendix. No bowel obstruc tion, bowel wall thickening, pneumatosis or intraperitoneal free air. There is a fat-containing right parasagittal lower anterior abdominal wall fat-containing hernia. Small fat-containing umbilical hernia. No suspicious osteolytic or osteoblastic lesions. Posterior spinal fusion of the lower thoracic spine ending to L1. IMPRESSION: 12 x 15 mm pleural-based opacity, right lower lobe with surrounding infiltrates. Differen tial diagnosis includes round atelectasis, focal infarct, focal pneumonia or pulmonary mass lesion; s hort-term follow-up CT imaging is recommended. Status post right nephrectomy and partial left nephrectomy Stable small left adrenal masses Cholelithiasis, gallbladder wall thickening/calcification Diverticulosis of the left colon; no CT evidence of diverticulitis Reviewed, dictated and finalized at [facility]. Reviewed, dictated and finalized at location B. IMPRESSION: 12 x 15 mm pleural-based opacity, right lower lobe with surrounding infiltrates. Differential diagnosis includes round atelectasis, focal infarct, focal pneumonia or pulmonary mass lesion; short-term follow-up CT imaging is r ecommended. Status post right nephrectomy and partial left nephrectomy Stable small left adrenal masses Cholelithiasis, gallbladder wall thickening/calcification Diverticulosis of the left colon; no CT evidence of diverticulitis
--- NOTE | 2020-05-03 15:01 | ECG_ITS ---
Measurements Intervals [place] Rate: 74 P: 7 HI: 165 QRS: -34 QRSD: 99 T: 118 QT: 382 QTc: 425 Interpretive Statements SINUS RHYTHM LEFT AXIS DEVIATION POOR R WAVE PROGRESSION, ANTERIOR LEADS BORDERLINE ST-T WAVE ABNORMALITY- HIGH LATERAL LEADS BORDERLINE ECG Electronically Signed On 05-03-2020 15:13:05 CDT by Harish Shaw D.O.
[2020-05-03 15:03] VITALS: BP 168/111; PULSE 79; RESP 19; TEMP 36.6; O2SAT 100
[2020-05-03 15:08] VITALS: PULSE 78
[2020-05-03 15:19] LABS: Basophils Percent Auto 0.2 % (0.2-1.2); Eosinophils Percent Auto 0.4 % (0-4.4); Hematocrit 42.8 % (37.0-47.0); Hemoglobin 13.6 g/dL (12.0-15.0); Immature Granulocyte Absolute 0.03 K/mm3 (0.00-0.031); Immature Granulocyte Percent A 0.4 % (0-0.5); Lymphocytes Absolute Auto 0.99 K/mm3 (0.9-3.2); Lymphocytes Percent Auto 12.4 % (18.3-44.2); Mean Corpuscular HGB Conc 31.8 g/dl (32-36); Mean Corpuscular Volume 97.5 fl (80-100); Mean Platelet Volume 10.3 fl (7.4-10.4); Monocytes Absolute Auto 0.4 K/mm3 (0.1-0.6); Monocytes Percent Auto 5.4 % (2.6-8.5); Neutrophils Absolute Auto 6.5 K/mm3 (1.3-6.7); Neutrophils Percent Auto 81.2 % (45.5-73.1); Platelet Count Result 263 k/mm3 (150-375); Red Blood Count 4.39 M/mm3 (4.2-5.4); Red Cell Distribution Width 16.3 % (11.5-14.5)
[2020-05-03 15:30] LABS: Anion Gap 7 mmol/L (8-16); Blood Urea Nitrogen 21 mg/dL (7-17); Calcium 9.6 mg/dL (8.4-10.2); Carbon Dioxide 26 mmol/L (22-30); Chloride 107 mmol/L (98-107); Estimated CRCL calculation 56 ml/min; Estimated Glomerular Filt Rate 50; Glucose 133 mg/dL (65-105); Potassium 3.9 mmol/L (3.4-5.0); Sodium 140 mmol/L (137-145)
[2020-05-03 15:33] LABS: INR 0.9; Partial Thromboplastin Time 27.9 SECONDS (22.3-36.8)
--- NOTE | 2020-05-03 15:33 | PC.NURSE ---
Pt back from Radiology. No new s/s.
--- NOTE | 2020-05-03 15:34 | ED.GENADULT ---
HPI - General Adult General Chief complaint: Chest Pain Stated complaint: multiple complaints Time Seen by Provider: 05/03/20 15:16 History of Present Illness HPI narrative: Patient is a 65-year-old female comes into the ED today complaining of right flank pain. The pain has been present since this morning. It is made worse with any movements of trunk and whenever she ambulates. It is relieved with rest. No mechanism of injury. No previous history of similar symptoms. Denies any urinary symptoms. Notes that she does not have a kidney on the right side. She is also mentioning her peripheral neuropathy symptoms which seem to be getting worse which has been present for over a month now since she started steroids, she is currently tapering off of her steroids. Related Data Home Medications Medication Instructions Recorded Confirmed Inlyta 5 mg PO Q12H 02/09/20 03/29/20 Keytruda 25 mg IV [id number] 02/09/20 03/29/20 clopidogrel 75 mg PO DAILY 02/09/20 03/29/20 levothyroxine 175 mcg PO DAILY 02/09/20 03/29/20 Allergies Allergy/AdvReac Type Severity Reaction Status Date / Time No Known Allergies Allergy Verified 02/20/20 21:18 Review of Systems Review of Systems: All systems reviewed & are unremarkable except as noted in HPI and below PMFSH Past Medical History Medical History (Updated 05/03/20 @ 18:08 by Yaw Patton PA-C) Adult BMI 37.0-37.9 kg/sq m Cramp of extremity Edema Hypertension Hypothyroidism IBS (irritable bowel syndrome) Leg paresthesia Lumbago Magnesium deficiency Peripheral artery disease Renal cell carcinoma Spine metastasis Stenosis of popliteal artery Thyroid disease Tobacco abuse Urinary frequency Vitamin D deficiency, unspecified Weakness of both legs Wound of left foot Wound of right foot Surgical History Surgical History H/O Spinal surgery History of nephrectomy Right kidney 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 She denies any alcohol use or drug use. Her medical power of civil litigation attorney is her daughter, Ivanna Frazier. She wishes to be a full code. Smoking packs per day: 0.5 Smoking cigarettes per day: 10.0 Years smoked: 40 Smoking pack-years: 20.00 Smoking status: Current every day smoker Tobacco type: cigarettes Alcohol intake: current Drinks per week: 2 Substance use: never Substance use type: does not use Gender identity (if verbalized by the patient): Female Spiritual care concerns: No Exam Const: General: cooperative, comfortable and no acute distress HENMT: Head: normal to inspection Eyes: General: appearance normal, both eyes and all related structures Neck: Neck: normal visual inspection Chest: Chest palpation & inspection: normal inspection of the chest Resp: Effort & Inspection: normal respiratory effort Auscultation: clear to auscultation bilaterally Cardio: Rate: regular rate Rhythm: regular rhythm GI: Inspection: normal to inspection Other: Tender to palpate over right CVA and mild tenderness over right flank. Back/Spine/Pelvis: Back: CVA tenderness Thoracic/Lumbar Spine: Thoracic/lumbar spine scar(s) Other: Tender to palpate along right lumbar musculature. No midline tenderness. Skin: General skin exam: normal color and no rashes or lesions noted Neuro: General: patient oriented x3 Motor exam (neuro): 5/5 motor stren
[2020-05-03 15:43] LABS: Troponin I < 0.012 ng/mL (0.000-0.034)
[2020-05-03] MEDS: ACETAMINOPHEN 500 MG TABLET 1000 MG PO (16:02)
[2020-05-03 16:38] VITALS: BP 153/77; PULSE 69; RESP 18; O2SAT 97
[2020-05-03 17:34] VITALS: BP 149/75; PULSE 61; RESP 19; O2SAT 100
[2020-05-03 17:49] VITALS: BP 137/71; PULSE 70; RESP 18; O2SAT 98
--- NOTE | 2020-05-03 18:01 | PC.NURSE ---
RN at bedside to start Rocephin IVPB. Pt is reporting that she is not wanting to stay for IV ATB I've already been here too long . Pt informed of time frame for each ATB and is in agreement to receive Rocephin. PA is in room during this interaction and is in agreement. Zithromax IV will not be administered at pt's request.
[2020-05-03 18:35] LABS: Troponin I < 0.012 ng/mL (0.000-0.034)
== END 2020-05-03 18:26 | disposition home or self-care (01) ==
PROVIDERS: Emergency Provider Emergency Medicine; PCP Nurse Practitioner Family
DX: J18.9 Pneumonia, unspecified organism (principal); R91.8 Other nonspecific abnormal finding of lung field; J98.11 Atelectasis; I10 Essential (primary) hypertension; E03.9 Hypothyroidism, unspecified
CPT/HCPCS: 36415; 71046; 74177; 80048; 84484; 85025; 85610; 85730; 93005; 96365; 99284; A9270; J0696; Q9967

== ENCOUNTER 2020-05-29 10:55 | Outpatient (CLI) | payer OTHER, SELFPAY | END 2020-05-29 10:56 | disposition home or self-care (01) | LOC: ANHCOVIDVC 10:55 | PROVIDERS: PCP Nurse Practitioner Family | DX: Z23 Encounter for immunization (principal) | CPT/HCPCS: 0001A; 91300 ==

== ENCOUNTER 2020-06-19 11:03 | Outpatient (CLI) | payer OTHER, SELFPAY | END 2020-06-19 11:04 | disposition home or self-care (01) | LOC: ANHCOVIDVC 11:03 | PROVIDERS: PCP Nurse Practitioner Family | DX: Z23 Encounter for immunization (principal) | CPT/HCPCS: 0002A; 91300 ==

== ENCOUNTER 2021-08-01 10:18 | Inpatient (IN) | payer MEDICARE, MEDICAID, SELFPAY ==
[2021-08-01] VITALS (11 sets, daily range): BP systolic 125–168; BP diastolic 53–97; PULSE 36–48; RESP 14–20; TEMP 35.8–36.7; O2SAT 96–100; BMI 34.0
--- NOTE | ~2021-08-01 | CT_ITS ---
EXAMINATION: CTA chest PE protocol DATE: 08/01/2021 11:36 INDICATION: Chest pain and shortness of breath TECHNIQUE: Computed tomography angiography (CTA) of the chest was performed with 100 mL Omnipaque-350 intravenous contrast timed to evaluate the pulmonary arteries. Coronal maximum intensity projection 3D-reconstructions were created by the technologist. The dose-length product (DLP) was 650.31 mGy-cm. Automated exposure control and iterative reconstruction technique were employed. COMPARISON: None. FINDINGS: The pulmonary arteries are well-opacified. No pulmonary embolism is identified. There is mi ld atelectasis of the mid and lower lung zones. No pleural effusion or pneumothorax. Cardiomegaly is noted. There are no pathologically enlarged thoracic lymph nodes. There is a partially imaged IVC cathryn ter. Stones are present in the gallbladder. There are changes of posterior thoracolumbar fusion. IMPRESSION: 1. No pulmonary embolus identified. 2. Mild atelectasis. Reviewed, dictated and finalized at location A.
--- NOTE | ~2021-08-01 | XR_ITS ---
EXAMINATION: XR chest 1V portable DATE: 08/01/2021 10:50 INDICATION: Chest pain. Shortness of breath. TECHNIQUE: A single frontal view of the chest was obtained. COMPARISON: Chest 2 views 05/03/2020, CT abdomen and pelvis 05/03/2020 FINDINGS: There is mild atelectasis in the lower lung zones. No pleural effusion or pneumothorax. The heart size is normal. There are changes of posterior fusion procedure in thoracic spine. There are e mbolization coils around T11. There is an interbody device at T11. IMPRESSION: 1. Mild atelectasis in the lower lung zones. Reviewed, dictated and finalized at location A.
--- NOTE | 2021-08-01 10:19 | ECG_ITS ---
Measurements Intervals [place] Rate: 49 P: 69 DC: 159 QRS: -19 QRSD: 136 T: 43 QT: 508 QTc: 462 Interpretive Statements SINUS BRADYCARDIA WITH OCCASIONAL VENTRICULAR PREMATURE COMPLEXES NONSPECIFIC INTRAVENTRICULAR CONDUCTION DELAY ST AND T-WAVE ABNORMALITY ANTEROSEPTAL AND LATERAL LEADS, CONSIDER ISCHEMIA ABNORMAL ECG COMPARED TO ECG 05/03/2020 15:07:57 HEART RATE DECREASED AND INTRAVENTRICULAR CONDUCTION DELAY NOW PRESENT Electronically Signed On 08-01-2021 14:52:35 CDT by David Diaz M.D.
--- NOTE | 2021-08-01 10:19 | ED.CHESTPAIN ---
HPI - Chest Pain General Chief Complaint: Chest Pain Stated Complaint: CP Time Seen by Provider: 08/01/21 10:19 History of Present Illness HPI narrative: Patient is a 66-year-old female with a history of renal cell carcinoma, currently on Keytruda, following at [facility], hypertension, chronic anticoagulation, presenting to the emergency department for evaluation of chest pain. Patient states started to experience some mild chest tightness this morning but then exacerbated approximately 1 hour ago. Patient reports sharp chest pain on the left side of her chest with radiation to underneath her left breast. Patient denies any radiation to the neck, jaw, shoulder. Patient reports associated shortness of breath without nausea, vomiting. Patient has been compliant with her anticoagulation and she did take it this morning. She states that she is on this chronically due to a DVT that was provoked by spinal surgery a year ago. Patient denies any current leg swelling or calf pain. No known history of recent COVID or symptomatic respiratory symptoms. Patient denies history of cardiac catheterization or myocardial infarction in the past. She does follow with shrub planter Dr. Ramos at [facility]. She has been compliant with her antihypertensives which include irbesartan and amlodipine. Patient received aspirin, nitroglycerin in route which did help reduce the patient's pain. Related Data Home Medications Medication Instructions Recorded Confirmed axitinib 5 mg tablet (Inlyta) 5 mg PO Q12H 02/09/20 08/01/21 cholecalciferol (vitamin D3) 50 50 mcg PO DAILY 06/09/20 08/01/21 mcg (2,000 unit) capsule multivitamin 1 tablet PO DAILY 06/09/20 08/01/21 apixaban 5 mg tablet (Eliquis) 5 mg PO BID 07/12/20 08/01/21 aspirin 81 mg tablet,delayed 81 mg PO DAILY 07/12/20 08/01/21 release ondansetron HCl 8 mg tablet 8 mg PO Q8H PRN Nausea 07/12/20 08/01/21 sennosides 8.6 mg-docusate sodium 1 tab-cap PO BID 07/12/20 08/01/21 50 mg tablet (Senna with Docusate Sodium) cyanocobalamin (vitamin B-12) 1,000 mcg PO DAILY 10/12/20 08/01/21 1,000 mcg capsule Allergies Allergy/AdvReac Type Severity Reaction Status Date / Time No Known Allergies Allergy Verified 07/11/21 10:32 Review of Systems Review of Systems: CONSTITUTIONAL: Denies fever, chills, or sweats. EYES: Denies visual changes, redness, or discharge. ENT: Denies rhinorrhea, congestion, sore throat, or otalgia. CARDIOVASCULAR: Reporting chest pain without palpitations, denies leg edema RESPIRATORY: Denies cough, reports shortness of breath, GASTROINTESTINAL: Denies abdominal pain, nausea, vomiting, or diarrhea. GENITOURINARY: Denies dysuria or hematuria. SKIN: Denies rash or itching. MUSCULOSKELETAL: Denies back pain, joint pain, or myalgia. NEUROLOGIC: Denies headache, numbness, or weakness. [facility] Past Medical History Medical History (Updated 08/01/21 @ 17:15 by Kaity Peter MD) Adult BMI 37.0-37.9 kg/sq m B12 deficiency BMI 33.0-33.9,adult BMI 34.0-34.9,adult Cramp of extremity Deficiency of folic acid Edema Encounter for hepatitis C screening test for low risk patient Fatigue Hypertension Hypothyroidism IBS (irritable bowel syndrome) Leg paresthesia Lumbago Magnesium deficiency Nausea Peripheral artery disease PVD (peripheral vascular disease) Renal cell carcinoma Screening for breast cancer Sleep apnea with use of continuous positive airway pressure (CPAP) Spine metastasis Stenosis of popliteal artery Thyroid disease Tobacco abuse Urinary frequency Vitamin D deficiency, unspecified Weakness of both legs Wound of left foot Wound of right foot Surgical History Surgical History (Updated 08/01/21 @ 16:46 by Lorenza Sosa, MARTHA) H/O Spinal surgery x2, rods placed History of nephrectomy Right kidney History of partial pancreatectomy Lesion on distal pancreas Family History Family History (Reviewed 08/01/21 @ 16:4
--- NOTE | 2021-08-01 10:42 | ECG_ITS ---
Measurements Intervals [place] Rate: 50 P: 40 [place]: 196 QRS: -27 QRSD: 136 T: 50 QT: 493 QTc: 453 Interpretive Statements SINUS BRADYCARDIA WITH SINUS ARRHYTHMIA POSSIBLE LEFT ATRIAL ENLARGEMENT INTRAVENTRICULAR CONDUCTION DELAY ST AND T-WAVE ABNORMALITY ANTEROSEPTAL AND LATERAL LEADS, CONSIDER ISCHEMIA ABNORMAL ECG COMPARED TO ECG 08/01/2021 10:27:15 NO SIGNIFICANT CHANGE Electronically Signed On 08-01-2021 14:54:45 CDT by David Diaz M.D.
[2021-08-01 10:52] LABS: Basophils Absolute Auto 0.1 K/mm3 (0.0-0.1); Basophils Percent Auto 0.9 % (0.2-1.2); Eosinophils Absolute Auto 0.4 K/mm3 (0-0.3); Eosinophils Percent Auto 6.8 % (0-4.4); Hematocrit 47.3 % (37.0-47.0); Hemoglobin 15.5 g/dL (12.0-15.0); Immature Granulocyte Absolute 0.02 K/mm3 (0.00-0.031); Immature Granulocyte Percent A 0.3 % (0-0.5); Lymphocytes Absolute Auto 1.05 K/mm3 (0.9-3.2); Lymphocytes Percent Auto 16.1 % (18.3-44.2); Mean Corpuscular HGB Conc 32.8 g/dl (32-36); Mean Corpuscular Hemoglobin 30.7 pg (26-34); Mean Corpuscular Volume 93.7 fl (80-100); Mean Platelet Volume 10.3 fl (7.4-10.4); Monocytes Absolute Auto 0.4 K/mm3 (0.1-0.6); Monocytes Percent Auto 6.8 % (2.6-8.5); Neutrophils Absolute Auto 4.5 K/mm3 (1.3-6.7); Neutrophils Percent Auto 69.1 % (45.5-73.1); Platelet Count Result 233 k/mm3 (150-375); Red Blood Count 5.05 M/mm3 (4.2-5.4); Red Cell Distribution Width 16.2 % (11.5-14.5); White Blood Count 6.5 K/mm3 (4.5-10.0)
--- NOTE | 2021-08-01 10:57 | PC.NURSE ---
cardiology here to assess patient at this time
[2021-08-01 11:02] LABS: Partial Thromboplastin Time 34.6 SECONDS (22.3-36.8)
[2021-08-01 11:03] LABS: INR 1.1; Prothrombin Time 14.1 Seconds (11.1-14.7)
[2021-08-01 11:04] LABS: Alanine Aminotransferase 20 U/L (6-35); Albumin Level 4.3 g/dL (3.5-5.1); Alkaline Phosphatase 85 U/L (38-126); Anion Gap 9 mmol/L (8-16); Aspartate Amino Transferase 33 U/L (14-36); Bilirubin,Total 0.4 mg/dL (0.2-1.3); Blood Urea Nitrogen 22 mg/dL (7-17); Calcium 9.6 mg/dL (8.4-10.2); Carbon Dioxide 20 mmol/L (22-30); Chloride 108 mmol/L (98-107); D Dimer 0.93 ug/mL (<0.48); Estimated CRCL calculation 59 ml/min; Estimated Glomerular Filt Rate 50; Glucose 122 mg/dL (65-110); Lipase 110 U/L (23-300); Potassium 3.8 mmol/L (3.4-5.0); Sodium 137 mmol/L (137-145)
[2021-08-01] MEDS: MORPHINE SULFATE (*CRX) 4 MG/ML INJ IV PUSH (11:07)
[2021-08-01] MEDS: ONDANSETRON INJ 4 MG/2 ML VIAL IV PUSH (11:07)
--- NOTE | 2021-08-01 11:21 | PM.CNCAR ---
Assessment and Plan Assessment and plan (1) Chest pain due to myocardial ischemia: Code(s): I25.9 - Chronic ischemic heart disease, unspecified Status: Acute Plan this is a 66-year-old lady who has been having intermittent chest pain for several days. There is very compelling evidence on her ECG to suggest that she has acute coronary syndrome/ unstable angina. under normal circumstances she would be a candidate for taking to the labor and employment paralegal this morning for angiographic assessment and hopefully revascularization. This decision is obviously much more difficult and complex given the fact that she is systemically anticoagulated with apixaban and the fact that her chest pain does seem to be improving with treatment in the emergency department. At this point I would make the decision to admit her to the hospital and we will follow along with you. If she continues to improve clinically I would anticipate performing coronary angiogram about 48 hours from now. If she worsens / destabilize is obviously we can proceed with angiography at any time with the understanding that hemorrhagic risks are substantially higher in this setting. troponin levels are pending at the time of this dictation but I would not be surprised if they are elevated given the fact that she has been having intermittent symptoms like this for several days Franck Arellano MD [facility] History of Present Illness History of Present Illness Consult date/time: 08/01/21 11:21 Consult reason: chest pain Reason For Visit: CP Narrative: This is a 66-year-old woman I am seeing in the emergency department at the request of the ED physician because of chest pain and concern regarding acute coronary syndrome. The patient is not known to have coronary artery disease prior to this but does have risk factors including hypertension and known peripheral vascular disease. She has been having episodes of chest pain for about 3 days off and on at home. She describes episodes of central chest tightness/ bandlike discomfort with some radiation into the left shoulder. She had the 1st episode of this on Friday after she was doing some more significant work in her yd. She had episodes on Friday and Friday that were less severe but occurred with just normal household activities. She had another episode this morning at about 10:00 a.m. while she was just conducting normal activities of the day at home because of this an ambulance was called EMS transported the patient to [facility] for further evaluation. The patient has been given nitroglycerin on route and was just to a short time ago given injection of IV morphine. This she does not appear to be in any significant distress she she reports her chest pain is reduced from about 8 to for on intensity scale in the 1st 30 minutes that she has been in the emergency room. The patient's ECG demonstrates sinus bradycardia with an incomplete right bundle branch block and anterior ST segment depression. She did not have ST segment changes on most recent ECG in this hospital's record dating back to April of last year. Even though she does not have coronary disease she says that she follows up regularly with a supervisor instrument mechanics in [place] because of her hypertension and peripheral vascular disease. A number of years ago she was having ischemic pain in the left leg and received a stent in the left lower extremity for treatment of this. Obviously I have none of those records available to me at [facility]. He did state because of this her supervisor instrument mechanics had her undergo a nuclear stress test a something like 2 or 3 years ago which was by her understanding favorable. Her past medical history as mentioned above is also remarkable for hypertension as well as a history of renal cell carcinoma. Apparently she underwent a nephrectomy in the past in hopes of curing her arm malignancy but she now has metastatic disease in the spine and is being [place] oncologist [place]
[2021-08-01 11:27] LABS: NT Pro B Type Natriuretic Pept 1080 pg/mL (5-100); Troponin I 0.091 ng/mL (0.000-0.034)
[2021-08-01] MEDS: fentaNYL CITRATE INJ (*CRX) 100 MCG/2 ML VIAL 25 MCG IV PUSH (11:57)
--- NOTE | 2021-08-01 13:39 | PM.IMHP ---
H&P: HPI History of Present Illness Date/Time: 08/01/21 13:39 Eli Frazier is a 66 yo female with medical history of metastatic renal cell carcinoma, sleep apnea compliant with CPAP, hypothyroidism, hypertension, PVD s/p LE stent, tobacco dependence, and obesity. She presented to the ED today for evaluation of chest pain. The patient was substernal radiating to her left chest and down her left arm today. The patient started on Friday. She has had intermittent bouts of pain that resolved after several minutes. She reports today the pain was severe, band-like and improved with SL nitroglycerin and IV morphine in the ED. She reports associated diaphoresis, nausea without emesis. The pain on Friday occurred at rest and resolved after 10 minutes. She denies SOB, palpitations, dizziness, abd pain, vomiting, fever, chills, cough, sputum or lower extremity edema. In the ED, she was bradycardic with HR 30-50 bpm, hypertensive BP 168/88, temp 36.4C, RR 14 and spO2 100% room air. EKG showed sinus bradycardia with incomplete right bundle branch block and anterior ST segment depression. Initial troponin was 0.091, pro-BNP 1080, and d-dimer 0.93. CBC, CMP and TSH were otherwise unremarkable. Chest x-ray and CTA chest showed mild atelectasis, but no PE or acute pulmonary disease. She was treated with SL nitroglycerin and IV morphine. Currently, she reports mild chest pain 2/10 and non-radiating. Chief Complaint: Chest pain Review of Systems Review of Systems: All systems reviewed & are unremarkable except as noted in HPI and below ENT: Comments: Sinus congestion Cardiovascular: Comments: Per HPI Gastrointestinal: Comments: Chronic constipation. Hematologic/Lymphatic: Comments: H/O DVT on eliquis [facility] Past Medical History Medical History (Updated 08/01/21 @ 16:55 by Lorenza Sosa, MANAGER JAVA) Adult BMI 37.0-37.9 kg/sq m B12 deficiency BMI 33.0-33.9,adult BMI 34.0-34.9,adult Cramp of extremity Deficiency of folic acid Edema Encounter for hepatitis C screening test for low risk patient Fatigue Hypertension Hypothyroidism IBS (irritable bowel syndrome) Leg paresthesia Lumbago Magnesium deficiency Nausea Peripheral artery disease PVD (peripheral vascular disease) Renal cell carcinoma Screening for breast cancer Sleep apnea with use of continuous positive airway pressure (CPAP) Spine metastasis Stenosis of popliteal artery Thyroid disease Tobacco abuse Urinary frequency Vitamin D deficiency, unspecified Weakness of both legs Wound of left foot Wound of right foot Surgical History Surgical History (Updated 08/01/21 @ 16:46 by Lorenza Sosa APRN) H/O Spinal surgery x2, rods placed History of nephrectomy Right kidney 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 She denies any alcohol use or drug use. Her medical power of habilitation worker is her daughter, Ivanna Frazier. She wishes to be a full code. Smoking packs per day: 0.5 Smoking cigarettes per day: 10.0 Years smoked: 30 Smoking pack-years: 15.00 Smoking status: Current every day smoker Tobacco type: cigarettes Alcohol intake: current Drinks per week: 2 Alcohol use details: Social Substance use: never Substance use type: does not use Gender identity (if verbalized by the patient): Female Spiritual care concerns: No Meds Home Medications and Allergies Home Medications Medication Inst
--- NOTE | 2021-08-01 14:48 | ADMGEN ---
This patient, Eli Frazier, was admitted to IMU Room 209-01 on 08/01/21 at 1415. Patient/family oriented to hospital policies and general routines including ID bracelet, bed and alarms, visiting hours, pain management, procedures, bathroom and other care routines, personal items, smoking policy, room service/diet, and visiting hours. Information on how to activate the Rapid Response Team has been discussed. Patient/Family are encouraged to report perceived risks to care and to ask questions if they do not understand what they are told or what they should do.
[2021-08-01 15:37] LABS: Troponin I 0.146 ng/mL (0.000-0.034)
--- NOTE | 2021-08-01 18:40 | PHAR ---
Home medication Inlyta 5mg tablets identified in pharmacy and returned to IMU nursing unit
[2021-08-01 19:10] LABS: Troponin I 0.516 ng/mL (0.000-0.034)
[2021-08-01] MEDS: SENNA/DOCUSATE SODIUM TABLET 2 TAB PO (20:13)
[2021-08-01] MEDS: HYDROmorphone HCL INJ (*CRX) 1 MG/ML SYR 0.5 MG IV PUSH (20:15)
[2021-08-02] VITALS (15 sets, daily range): BP systolic 130–151; BP diastolic 59–79; PULSE 36–49; RESP 16–24; TEMP 36.3–36.6; O2SAT 94–99
[2021-08-02 05:57] LABS: Hematocrit 45.5 % (37.0-47.0); Mean Corpuscular Hemoglobin 30.9 pg (26-34); Mean Corpuscular Volume 93.6 fl (80-100); Mean Platelet Volume 10.5 fl (7.4-10.4); Platelet Count Result 235 k/mm3 (150-375); Red Blood Count 4.86 M/mm3 (4.2-5.4); White Blood Count 6.2 K/mm3 (4.5-10.0)
[2021-08-02 06:09] LABS: Anion Gap 9 mmol/L (8-16); Blood Urea Nitrogen 22 mg/dL (7-17); Calcium 8.9 mg/dL (8.4-10.2); Carbon Dioxide 22 mmol/L (22-30); Chloride 105 mmol/L (98-107); Cholesterol 166 mg/dL (0-200); Estimated CRCL calculation 58 ml/min; Estimated Glomerular Filt Rate 50; Glucose 100 mg/dL (65-110); HDL Direct 29 mg/dL; Potassium 4.4 mmol/L (3.4-5.0); Sodium 136 mmol/L (137-145); Triglycerides 166 mg/dL (<150)
[2021-08-02] MEDS: LEVOTHYROXINE SODIUM 100 MCG TABLET PO (06:14)
[2021-08-02] MEDS: PHARMACIST COMMUNICATION ORDER 1 EACH XX (06:14)
[2021-08-02] MEDS: LEVOTHYROXINE SODIUM 75 MCG TABLET PO (06:14)
[2021-08-02 06:18] LABS: LDL Cholesterol Direct 100 mg/dL
--- NOTE | 2021-08-02 08:30 | PM.IMPN ---
Progress Note: A&P Assessment and Plan (1) Chest pain due to myocardial ischemia: Code(s): I25.9 - Chronic ischemic heart disease, unspecified Status: Acute Assessment and Plan: C/o chest pain x 3 days at rest, EKG with non-ST elevation, but noted to have ischemic changes. Troponin elevated. BNP mildly elevated. -Cardiology following and appreciate recommendations. -Troponin I 0.91 to 0.146 to 0.516 to 4.090 today. -TSH not elevated. -Aspirin 81 mg daily. -LDL 100, HDL 29, Triglycerides 166. -Hold beta-pieter due to bradycardia. -Irbesartan held due to creatinine 1.1 and possible coronary angiography this admission. -PRN SL nitro for chest pain. -Hold Eliquis for possible cardiac catheterization tomorrow 08/03/21. Last dose 08/01 0830. (2) Bradycardia: Code(s): R00.1 - Bradycardia, unspecified Status: Acute Assessment and Plan: Patient HR 30-50 bpm. Chest pain noted on admission, but denies SOB, dizziness, diaphoresis. -Cardiology following. She is not currently on beta-blockers, calcium channel blockers or other HR lowering agents. -Monitor telemetry. -Avoid medications that will lower heart rate. -Repeat EKG pending -TSH normal (3) PVD (peripheral vascular disease): Code(s): I73.9 - Peripheral vascular disease, unspecified Status: Chronic Assessment and Plan: Holding eliquis for possible cardiac intervention. (4) Hypothyroidism: Qualifiers: Hypothyroidism type: unspecified Qualified Code(s): E03.9 - Hypothyroidism, unspecified Code(s): E03.9 - Hypothyroidism, unspecified Status: Chronic Assessment and Plan: TSH normal. Continue home levothyroixine. (5) Hypertension: Qualifiers: Hypertension type: essential hypertension Qualified Code(s): I10 - Essential (primary) hypertension Code(s): I10 - Essential (primary) hypertension Status: Chronic Assessment and Plan: As above. Continue norvasc. (6) Renal cell carcinoma: Code(s): C64.9 - Malignant neoplasm of unspecified kidney, except renal pelvis Status: Chronic Assessment and Plan: s/p R nephrectomy. Patient reports spinal mets s/p surgery, mets to L kidney, lung and pancreas. -Continue patient's home Inlyta dose. (7) Tobacco abuse: Code(s): Z72.0 - Tobacco use Status: Chronic Assessment and Plan: Counseled to quit. Refusing nicotine patch. Plan Plan for cardiac catheterization tomorrow on 08/03/21. Time Spent With Patient Time with patient: 15 - 25 minutes Subjective Date/time seen: 08/02/21 08:30 Patient is a 66 yo female with medical history of metastatic renal cell carcinoma, hypertension, hyperlipidemia, hypothyroidism, thromboembolism and sleep apnea, who presented to the ED, from home, for evaluation of chest pain with radiation to left arm. Patient is found sitting up in the chair. She reports mild 2/10 chest pressure that is constant. She denies SOB, dizziness, nausea/vomiting or diaphoresis. She has not had a BM for several days and thinks her bowel regimen is off since she is in the hospital. Review of Systems Review of Systems: All systems reviewed & are unremarkable except as noted in HPI and below Exam Narrative: Constitutional:? no acute distress.?Sitting up in the chair. No oxygen. Mental status/psych: Awake, AOx4. Pleasant and cooperative. Neutral mood and affect. HEENT:?Normocephalic. PERRL. Moist mucous membranes.? No scleral icterus.? No lymphadenopathy. Neck:?Supple. No carotid bruits or JVD noted Lungs:? Lung sounds are clear to auscultation bilaterally.? No accessory muscle use.? No rhonchi, rales, or wheezes noted. Cardiovascular:?Normal S1 and S2 slow rate and rhythm.?no S3 or S4 noted.? No murmurs, or rubs noted. SB/SA 45 bpm. Abdomen:? Soft and round.? Obese. mild tenderness LLQ to palpation. No guarding. Normoactiv
[2021-08-02] MEDS: SENNA/DOCUSATE SODIUM TABLET 1 TAB PO (09:44)
[2021-08-02] MEDS: CYANOCOBALAMIN 1,000 MCG TABLET 1000 MCG PO (09:44)
[2021-08-02] MEDS: CHOLECALCIFEROL 1,000 UNITS TABLET 2000 UNITS PO (09:44)
[2021-08-02] MEDS: ASPIRIN 81 MG ENTERIC TABLET PO (09:45)
[2021-08-02] MEDS: amLODIPine BESYLATE 5 MG TABLET PO (09:45)
--- NOTE | 2021-08-02 10:11 | ECG_ITS ---
Measurements Intervals [place] Rate: 48 P: [place]: 0 QRS: -3 QRSD: 154 T: -19 QT: 529 QTc: 477 Interpretive Statements SINUS RHYTHM WITH AV DISSOCIATION RIGHT BUNDLE BRANCH BLOCK [120+ ms QRS DURATION, UPRIGHT V1, 40+ ms S IN I/aVL/V4/V5/V6] COMPARED TO ECG 08/01/2021 10:51:42 AV NODE DYSFUNCTION IS NOW PRESENT Electronically Signed On 08-03-2021 16:20:33 CDT by Franck Arellano M.D.
[2021-08-02] MEDS: BISACODYL 5 MG TABLET EC PO (12:01)
--- NOTE | 2021-08-02 12:28 | PM.PNCARD ---
Progress Note: A&P Assessment and Plan (1) Chest pain due to myocardial ischemia: Code(s): I25.9 - Chronic ischemic heart disease, unspecified Status: Acute (2) Complete heart block: Code(s): I44.2 - Atrioventricular block, complete Status: Acute Plan This is a 66-year-old lady who has been having intermittent chest pain for several days. There is very compelling evidence on her ECG to suggest that she has acute coronary syndrome/ unstable angina. Her troponin level peaked at 4.090. Plan to proceed with coronary angiogram tomorrow morning as she will have been off apixaban for 48 hours at that time. NPO after midnight Further recommendations to follow Also appears to be having intermittent complete heart block on telemetry. She is hemodynamically stable. No significant bradycardia or pauses noted. Avoid AV frantz agents. No further recommendations or interventions at this time. Subjective Date/time seen: 08/02/21 12:28 Cardiology follow up for chest pain, elevated troponin Interval history: Feeling better today, reports chest pain at a 2 whereas yesterday it was a 4-5. She is comfortable at present with no complaints. Has been ambulating about her room without any exertional angina. Review of Systems Constitutional: Constitutional: Reports no additional constitutional complaints Eyes: Eyes: Reports no additional eye complaints ENT: Reports system reviewed and no additional complaints, except as documented Cardiovascular: Cardiovascular: Reports as per HPI Respiratory: Respiratory: Reports no additional respiratory complaints Gastrointestinal: Gastrointestinal: Reports no additional gastrointestinal complaints Musculoskeletal: Musculoskeletal: Reports back pain Integumentary/Breasts: Skin/Breast: Reports system reviewed and no additional complaints, except as docu Neurologic: Reports system reviewed and no additional complaints, except as documented Endocrine: Endocrine: Reports no additional endocrine complaints Hematologic/Lymphatic: Hematologic/Lymphatic: Reports no additional hematologic/lymphatic complaints Allergic/Immunologic: Allergic/Immunologic: Reports no additional allergic/immunologic complaints Exam Const: Other: Obese white female appears to be relatively comfortable still reports as stated above about 4/10 chest pain at the time of this interview. It is improving in the 1st half an hour she has been in the emergency room HENMT: Mouth: Yes moist mucous membranes Eyes: Sclera: sclerae normal Pupils: Equal, round and reactive pupils present Neck: Neck: supple and no JVD Resp: Effort & Inspection: normal respiratory effort Auscultation: clear to auscultation bilaterally Cardio: Rate: bradycardic Rhythm: regular rhythm and abnormal rhythm Other: no murmur no gallop no rub GI: Auscultation: normal bowel sounds Skin: General skin exam: normal color Neuro: Cranial nerves: Yes Equal, round and reactive pupils present Other: normal cognition Extrem: Other: cannot appreciate pulses below the femoral triangles /no edema Objective Data Vital Signs Vital Signs: Vital Signs - 24 hr 08/01/21 13:54 08/01/21 14:15 08/01/21 16:00 Temperature 36.4 C Pulse Rate 46 L 40 L Respiratory Rate 16 18 Blood Pressure 156/84 H 149/97 H Pulse Oximetry 100 100 Oxygen Delivery Room Air 08/01/21 16:00 08/01/21 16:00 08/01/21 14:20 Temperature 35.8 C L Pulse Rate 46 L 41 L 42 L Respiratory Rate 16 Blood Pressure 125/53 L Pulse Oximetry 97 Oxygen Delivery 08/01/21 18:00 08/01/21 20:00 08/01/21 20:00 Temperature 36.3 C L Pulse Rate 45 L 44 L 42 L Respiratory Rate 20 Blood Pressure 127/63 Pulse Oximetry 96 Oxygen Delivery 08/01/21 22:00 08/01/21 20:00 08/01/21 22:51 Temperature Pulse Rate 38 L 38 L 37 L Respiratory Rate 20 Blood Pressure Pulse Oximetry 96 96 Oxygen Delivery Room Air CPAP
--- NOTE | 2021-08-02 13:02 | PCCCNOTE ---
On 08/02/21, the student, [Candy Rodas], provided care and completed [facility] documentation on this patient. I have reviewed the student's documentation and agree with the findings.
[2021-08-02] MEDS: SENNA/DOCUSATE SODIUM TABLET 2 TAB PO (21:20)
[2021-08-03] VITALS (23 sets, daily range): BP systolic 121–165; BP diastolic 58–94; PULSE 44–61; RESP 14–18; TEMP 36.2–36.9; O2SAT 95–100
--- NOTE | 2021-08-03 | ECHO_ITS ---
Patient Info Name: Eli Frazier Age: 66 years : 1955 Gender: Female Ht: 69 in Wt: 230 lbs BSA: 2.29 m2 HR: 49 bpm BP: 121 / 58 mmHg Heart Rhythm: Sinus Rhythm Exam Date: 08/03/2021 8:37 AM Exam Location: [facility] Pulmonary Patient Status: Inpatient Admit Date: 08/01/2021 Staff Ordering Physician: Lorenza Sosa APRN Net Programmer: Moy Gillis, MANUEL, RT Attending Provider: Annabelle Montague MD Referring Physician: Ian BARCENAS; Exam Type: CA echo doppler color flow Study Info Indications R07.9 - Chest pain, unspecified Complete two-dimensional, color flow and Doppler transthoracic echocardiogram is performed. Strain analysis performed. Summary 1. Complete two-dimensional, color flow and Doppler transthoracic echocardiogram is performed. 2. Left ventricular systolic function is normal, estimated at 55-60%. 3. Left ventricular chamber dimension is normal. 4. The base of the posterior wall is akinetic, all other segments contract well. 5. Left atrial chamber dimension is mildly enlarged. 6. No significant valvular dysfunction. Left Ventricle Left ventricular chamber dimension is normal. Left ventricular systolic function is normal, estimated at 55-60%. The left ventricular diastolic function is grade I diastolic dysfunction. The base of the posterior wall is akinetic, all other segments contract well. Right Ventricle Right ventricular chamber dimension is normal. Left Atria Left atrial chamber dimension is mildly enlarged. Right Atria Right atrial chamber dimension is normal. Aortic Valve The aortic valve is normal. Pulmonic Valve The pulmonic valve is not well visualized. Mitral Valve The mitral valve has normal leaflets. There is no mitral valve regurgitation. Tricuspid Valve The tricuspid valve leaflets are normal. Pericardium/Pleural The pericardium appears normal. Aorta The aortic root size at the sinus of Valsalva is normal. Left Ventricular Outflow Tract Name Value Normal LVOT 2D LVOT Diameter 2.1 cm LVOT Doppler LVOT Peak Gradient 2 mmHg LVOT Mean Gradient 1 mmHg LVOT VTI 19 cm LVOT VTI/AV VTI Ratio 0.7 LVOT Stroke Volume 68 ml LVOT CO 2.7 l/min LVOT CI 1.2 l/min/m2 Mitral Valve Name Value Normal MV Doppler MV Decel [place] 182 cm/s2 MV PHT 101 ms MV Area (PHT) 2.2 cm2 4.0-5.0 MV Diastolic Function MV E Peak Velocity 63 cm/s MV A Peak Velocity 85 cm/s
[2021-08-03 04:37] LABS: Hematocrit 47.3 % (37.0-47.0); Hemoglobin 15.8 g/dL (12.0-15.0); Mean Corpuscular HGB Conc 33.4 g/dl (32-36); Mean Corpuscular Hemoglobin 31.1 pg (26-34); Mean Corpuscular Volume 93.1 fl (80-100); Mean Platelet Volume 10.4 fl (7.4-10.4); Platelet Count Result 226 k/mm3 (150-375); Red Blood Count 5.08 M/mm3 (4.2-5.4); Red Cell Distribution Width 15.7 % (11.5-14.5); White Blood Count 8.4 K/mm3 (4.5-10.0)
[2021-08-03 04:59] LABS: Anion Gap 6 mmol/L (8-16); Blood Urea Nitrogen 18 mg/dL (7-17); Calcium 9.3 mg/dL (8.4-10.2); Carbon Dioxide 27 mmol/L (22-30); Chloride 102 mmol/L (98-107); Estimated CRCL calculation 64 ml/min; Estimated Glomerular Filt Rate 56; Glucose 99 mg/dL (65-110); Potassium 4.2 mmol/L (3.4-5.0); Sodium 135 mmol/L (137-145)
[2021-08-03] MEDS: LEVOTHYROXINE SODIUM 100 MCG TABLET PO (06:13)
[2021-08-03] MEDS: LEVOTHYROXINE SODIUM 75 MCG TABLET PO (06:13)
--- NOTE | 2021-08-03 07:35 | PM.IMPN ---
Progress Note: A&P Assessment and Plan (1) Chest pain due to myocardial ischemia: Code(s): I25.9 - Chronic ischemic heart disease, unspecified Status: Acute Assessment and Plan: C/o chest pain x 3 days at rest, EKG with non-ST elevation, but noted to have ischemic changes. Troponin elevated. BNP mildly elevated. -Cardiology following and appreciate recommendations. -Troponin I 0.91 to 0.146 to 0.516 to 4.090 today. -TSH not elevated. -Aspirin 81 mg daily. -LDL 100, HDL 29, Triglycerides 166. -Hold beta-pieter due to bradycardia- patient was noted on most recent EKG and telemetry to have intermittent 2nd and 3rd degree heart block. -Irbesartan held due to creatinine 1.1 and possible coronary angiography this admission. -PRN SL nitro for chest pain. -Holding Eliquis cardiac catheterization (2) Bradycardia: Code(s): R00.1 - Bradycardia, unspecified Status: Acute Assessment and Plan: Patient HR 30-50 bpm. Chest pain noted on admission, but denies SOB, dizziness, diaphoresis. -Cardiology following. She is not currently on beta-blockers, calcium channel blockers or other HR lowering agents. -Monitor telemetry. -Avoid medications that will lower heart rate. -Repeat EKG and telemetry to have intermittent 2nd and 3rd degree heart block. -TSH normal (3) PVD (peripheral vascular disease): Code(s): I73.9 - Peripheral vascular disease, unspecified Status: Chronic Assessment and Plan: Holding eliquis for cardiac intervention, resume when cleared by cardiology. (4) Hypothyroidism: Qualifiers: Hypothyroidism type: unspecified Qualified Code(s): E03.9 - Hypothyroidism, unspecified Code(s): E03.9 - Hypothyroidism, unspecified Status: Chronic Assessment and Plan: TSH normal. Continue home levothyroixine. (5) Hypertension: Qualifiers: Hypertension type: essential hypertension Qualified Code(s): I10 - Essential (primary) hypertension Code(s): I10 - Essential (primary) hypertension Status: Chronic Assessment and Plan: As above. Continue norvasc. (6) Renal cell carcinoma: Code(s): C64.9 - Malignant neoplasm of unspecified kidney, except renal pelvis Status: Chronic Assessment and Plan: s/p R nephrectomy. Patient reports spinal mets s/p surgery, mets to L kidney, lung and pancreas. -Continue patient's home Inlyta dose. (7) Tobacco abuse: Code(s): Z72.0 - Tobacco use Status: Chronic Assessment and Plan: Counseled to quit. Refusing nicotine patch. Plan Discharge pending further cardiac recommendations. Time Spent With Patient Time with patient: 15 - 25 minutes Subjective Date/time seen: 08/03/21 07:35 Patient is a 66 yo female with medical history of metastatic renal cell carcinoma, hypertension, hyperlipidemia, hypothyroidism, thromboembolism and sleep apnea, who presented to the ED, from home, for evaluation of chest pain with radiation to left arm. Patient reports some tightness in her chest, but it is improved from yesterday. No SOB, palpitations, dizziness, diaphoresis or GI upset. She does report having a BM this morning that was normal. Cardiac catheterization planned for this afternoon. Review of Systems Review of Systems: All systems reviewed & are unremarkable except as noted in HPI and below Exam Narrative: Constitutional:? no acute distress.?Sitting up in the chair. No oxygen. Mental status/psych: Awake, AOx4. Pleasant and cooperative. Neutral mood and affect. HEENT:?Normocephalic. PERRL. Moist mucous membranes.? No scleral icterus.? No lymphadenopathy. Neck:?Supple. No carotid bruits or JVD noted Lungs:? Lung sounds are clear to auscultation bilaterally.? No accessory muscle use.? No rhonchi, rales, or wheezes noted. Cardiovascular:?Normal S1 and S2 slow rate and rhythm.?no S3 or S4 noted.? No murmurs,
[2021-08-03] MEDS: amLODIPine BESYLATE 5 MG TABLET PO (09:19)
[2021-08-03] MEDS: ASPIRIN 81 MG ENTERIC TABLET PO (09:19)
--- NOTE | 2021-08-03 11:56 | WPDCARDPROC ---
Cardiac Cath Procedure Note Date of procedure:: 08/03/21 Performing physician:: Franck Arellano MD Indication:: recent non ST-elevation GA Brief clinical history:: this is a 66-year-old woman not previously known to have coronary disease but does have peripheral vascular disease. She also has metastatic renal cell carcinoma to the spine. She presented to this hospital 48 hours ago with some chest pain and ischemic looking ST segment changes. She was treated in the emergency room with improvement in her symptoms. The patient was not brought to the aquatic life laborer urgently as she was systemically anticoagulated with apixaban. He apparently has a history of DVT with her cancer. She is being brought for angiography today. Patient following admission has developed evidence of AV node dysfunction with at times type 2 second-degree AV block at times there have been examples of AV dissociation. She has been asymptomatic of this and has not had any significant pauses on telemetry. Procedure Procedure performed:: Coronary angiography left ventriculography attempted PCI Angio-Seal to right femoral artery Sedation/Medication given:: fentanyl 50 mg Versed 2 mg case start time 11:05 a.m. case end time 11:54 a.m. Access site:: right femoral artery Estimated blood loss:: 50 cc Procedure note:: patient was brought to the cardiac catheterization lab in the postabsorptive state the right femoral triangle was prepared and draped in the usual fashion. Anesthesia was given with 1% lidocaine infiltrated locally. Following this femoral artery was punctured using the modified Seldinger technique and a size 5 [place] vascular sheath was placed. The patient then had left coronary angiography done using a standard 5 [place] FL4 catheter. The right coronary was injected using a 5 [place] JR4 catheter. The cineangiograms were then. Pigtail catheter was used to perform a left ventriculogram in the COOPER projection. Following this the decision was made to attempt PCI of posterolateral branch of the right coronary artery. prior to attempted PCI the 5 Tu[place] sheath was changed over a guidewire for 6 Tu[place] sheath. She was systemically anticoagulated with apixaban and received 600 mg of clopidogrel orally. The details of this are outlined below. Procedure was then terminated and the angiogram was done of the femoral artery through the sheath after which a 6 Tu[place]uan Angio-Seal device deployed with good hemostatic result. Findings:: Hemodynamics: Central aortic pressure is 138/70 left ventricle 138 over 88 end-diastolic 16. No gradient across the aortic valve. Left ventricle: In the COOPER projection the LV is seen to normal size all segments appear to contract appropriately the global ejection fraction is 55-60% by visual estimation the left main coronary artery is nicely patent left anterior descending is a medium caliber vessel extending down to the apex. The LAD has mild atherosclerosis with some luminal irregularities but no angiographically significant disease is identified. Circumflex is a medium caliber artery giving rise to 2 marginal branches. The 1st marginal branch is the larger of the 2 and has about 40-50% stenosis in the midportion. The right coronary artery is a small to medium caliber vessel was dominant to the posterior circulation. Right coronary artery is unusual orientation with a posterior and inferior takeoff as well as very high early bifurcation into the RPDA and RPL branches. Proximal right coronary artery is free of disease the RPDA is free of disease. The RPL branch in its distal segment is 100% occluded. This is obviously the culprit of the patient's clinical event /Presentation. Intervention: The standard JR4 catheter would not satisfactorily engage the origin of the RCA because of its inferior takeoff. I then successfully engage the vessel with MP A1 catheter. The catheter was deeply engaged into the
[2021-08-03] MEDS: SODIUM CHLORIDE 0.9% IV 1,000 ML 125 ML IV CONT (15:15)
[2021-08-03] MEDS: SENNA/DOCUSATE SODIUM TABLET 2 TAB PO (20:47)
[2021-08-03] MEDS: WATER FOR IRRIGATION, STERILE 1,000 ML BOTTLE 1000 ML (21:15)
[2021-08-03 21:34] LABS: SARS-CoV-2 RNA PCR Negative
[2021-08-04] VITALS (15 sets, daily range): BP systolic 108–144; BP diastolic 57–91; PULSE 48–73; RESP 16–18; TEMP 36.5–37.2; O2SAT 94–98
[2021-08-04 05:18] LABS: Hematocrit 43.8 % (37.0-47.0); Hemoglobin 14.4 g/dL (12.0-15.0); Mean Corpuscular HGB Conc 32.9 g/dl (32-36); Mean Corpuscular Hemoglobin 30.4 pg (26-34); Mean Corpuscular Volume 92.4 fl (80-100); Mean Platelet Volume 10.7 fl (7.4-10.4); Platelet Count Result 212 k/mm3 (150-375); Red Blood Count 4.74 M/mm3 (4.2-5.4); Red Cell Distribution Width 15.9 % (11.5-14.5); White Blood Count 8.7 K/mm3 (4.5-10.0)
[2021-08-04 05:39] LABS: Anion Gap 5 mmol/L (8-16); Blood Urea Nitrogen 16 mg/dL (7-17); Calcium 8.4 mg/dL (8.4-10.2); Carbon Dioxide 23 mmol/L (22-30); Chloride 106 mmol/L (98-107); Estimated CRCL calculation 64 ml/min; Estimated Glomerular Filt Rate 56; Glucose 93 mg/dL (65-110); Potassium 3.8 mmol/L (3.4-5.0); Sodium 134 mmol/L (137-145)
[2021-08-04] MEDS: LEVOTHYROXINE SODIUM 100 MCG TABLET PO (06:25)
[2021-08-04] MEDS: LEVOTHYROXINE SODIUM 75 MCG TABLET PO (06:25)
--- NOTE | 2021-08-04 09:19 | PM.PNCARD ---
Progress Note: A&P Assessment and Plan (1) Non-ST elevation AL (NSTEMI): Code(s): I21.4 - Non-ST elevation (NSTEMI) myocardial infarction Status: Acute (2) Bradycardia: Code(s): R00.1 - Bradycardia, unspecified Status: Acute (3) Complete heart block: Code(s): I44.2 - Atrioventricular block, complete Status: Acute Plan 66-year-old lady with: Coronary artery disease presenting with acute AL with occlusion of the posterolateral branch of the RCA. The right coronary has a very early bifurcation and a vertical inferior takeoff making PCI of this occluded vessel very challenging. Since the vessel is totally occluded and the infarct was approximately 48 hours prior to the angiogram I did not make a likely attempt to recanalized this vessel. She fortunately still has a fairly good ejection fraction. She does have AV node dysfunction following this event and therefore cannot be treated with a beta-pieter at this time. She had been on a high dose of year but start hand at home this has not been given since she has been in the hospital and I will resume this today at 150 mg. Discussed all of this with the patient and her daughter and I would anticipate considering discharge tomorrow if all is stable. She will need to coordinate her follow-up with her physicians at [facility] as well who are managing her malignancy. Franck Arellano MD [facility] Subjective Date/time seen: Date of service: 08/04/21 09:19 Interval history: This is a 66-year-old woman with: Acute myocardial infarction presentation on Friday with ischemic ECG changes and ischemic chest pain. She was improved with treatment in the emergency room and so angiography was delayed for 48 hours as she was anticoagulated with apixaban. She went to the laboratory equipment installer yesterday was found to have total occlusion of the posterolateral branch of the RCA. Because of anatomical challenges regarding the ostium of the right coronary artery being in an unusual location PCI of this occluded vessel was attempted unsuccessfully. She feels well this morning does not have any longer having any ischemic chest pain. She has mild LV systolic dysfunction with posterior akinesis. Patient also has AV node dysfunction following this event with intermittent heart block. Asymptomatic with respect to this. Her principal comorbidity is metastatic renal cell carcinoma Exam Const: General: comfortable and no acute distress Other: Obese woman comfortable cooperative no distress HENMT: Mouth: Yes moist mucous membranes Eyes: Sclera: sclerae normal Neck: Neck: supple Other: No obvious venous distension no carotid bruits Resp: Effort & Inspection: normal respiratory effort Auscultation: clear to auscultation bilaterally Cardio: Rate: regular rate Rhythm: regular rhythm Other: No murmur no gallop GI: GI Palp: Yes Soft to palpation Auscultation: normal bowel sounds Skin: General skin exam: normal color Neuro: Other: Normal cognition Extrem: Other: No edema, good distal perfusion Objective Data Vital Signs Vital Signs: Vital Signs - 24 hr 08/03/21 12:19 08/03/21 12:34 08/03/21 12:50 Temperature Pulse Rate 48 L 49 L 50 L Respiratory Rate 16 14 15 Blood Pressure 134/75 151/70 H 165/72 H Pulse Oximetry 97 98 99 Oxygen Delivery Room Air Room Air Room Air 08/03/21 12:55 08/03/21 13:21 08/03/21 13:55 Temperature 36.6 C 36.6 C 36.2 C L Pulse Rate 51 L 51 L 52 L Respiratory Rate 16 16 16 Blood Pressure 149/68 H 149/68 H 147/70 H Pulse Oximetry 99 99 99 Oxygen Delivery 08/03/21 10:00 08/03/21 14:00 08/03/21 14:48 Temperature 36.6 C Pulse Rate 56 L 52 L 56 L Respiratory Rate 16 Blood Pressure 142/68 H Pulse Oximetry 99 Oxygen Delivery 08/03/21 14:58 08/03/21 16:00 08/03/21 17:00 Temperature 36.6 C 36.8 C 36.6 C Pulse Rate 56 L 57 L 57 L Respiratory Rate 16 16 16 Blood Pressure 142/68 H 136/94 H 149/70 H Puls
--- NOTE | 2021-08-04 09:37 | PM.IMPN ---
Progress Note: A&P Assessment and Plan (1) Chest pain due to myocardial ischemia: Code(s): I25.9 - Chronic ischemic heart disease, unspecified Status: Acute Assessment and Plan: C/o chest pain x 3 days at rest, EKG with non-ST elevation, but noted to have ischemic changes. Troponin elevated. BNP mildly elevated. -Cardiology following and appreciate recommendations. -Troponin I 0.91 to 0.146 to 0.516 to 4.090 this hospital stay. -TSH not elevated. -Aspirin 81 mg daily. -LDL 100, HDL 29, Triglycerides 166. -Hold beta-pieter due to bradycardia- patient was noted on most recent EKG and telemetry to have intermittent 2nd and 3rd degree heart block. -Irbesartan resumed following cardiac cath and normal renal function. -PRN SL nitro for chest pain. -posterolateral branch of RCA 100% occlusion that could not be revascularized. Continue current management. (2) Bradycardia: Code(s): R00.1 - Bradycardia, unspecified Status: Acute Assessment and Plan: Patient HR 50-60 bpm. Chest pain noted on admission, but denies SOB, dizziness, diaphoresis. -Cardiology following. She is not currently on beta-blockers or other HR lowering agents. -Monitor telemetry. -Avoid medications that will lower heart rate. -Repeat EKG and telemetry to have intermittent 2nd and 3rd degree heart block. -TSH normal (3) PVD (peripheral vascular disease): Code(s): I73.9 - Peripheral vascular disease, unspecified Status: Chronic Assessment and Plan: Holding eliquis for cardiac intervention, resume when cleared by cardiology. -Resume eliquis 48 hours postprocedure if no s/s complications. (4) Hypothyroidism: Qualifiers: Hypothyroidism type: unspecified Qualified Code(s): E03.9 - Hypothyroidism, unspecified Code(s): E03.9 - Hypothyroidism, unspecified Status: Chronic Assessment and Plan: TSH normal. Continue home levothyroixine. (5) Hypertension: Qualifiers: Hypertension type: essential hypertension Qualified Code(s): I10 - Essential (primary) hypertension Code(s): I10 - Essential (primary) hypertension Status: Chronic Assessment and Plan: As above. Continue norvasc and irbesartan. (6) Renal cell carcinoma: Code(s): C64.9 - Malignant neoplasm of unspecified kidney, except renal pelvis Status: Chronic Assessment and Plan: s/p R nephrectomy. Patient reports spinal mets s/p surgery, mets to L kidney, lung and pancreas. -Continue patient's home Inlyta dose. (7) Tobacco abuse: Code(s): Z72.0 - Tobacco use Status: Chronic Assessment and Plan: Counseled to quit. Refusing nicotine patch. Plan Plan to discharge home tomorrow if stable. Time Spent With Patient Time with patient: 15 - 25 minutes Subjective Date/time seen: 08/04/21 09:37 Patient is a 66 yo female with medical history of metastatic renal cell carcinoma, hypertension, hyperlipidemia, hypothyroidism, thromboembolism and sleep apnea, who presented to the ED, from home, for evaluation of chest pain with radiation to left arm. No new complaints or overnight events. She denies chest pain, SOB, paresthesia, pallor or temperature changes to extremities. Review of Systems Review of Systems: All systems reviewed & are unremarkable except as noted in HPI and below Exam Narrative: Constitutional:? no acute distress.?Sitting up in the chair. No oxygen. Mental status/psych: Awake, AOx4. Pleasant and cooperative. Neutral mood and affect. HEENT:?Normocephalic. PERRL. Moist mucous membranes.? No scleral icterus.? No lymphadenopathy. Neck:?Supple. No carotid bruits or JVD noted Lungs:? Lung sounds are clear to auscultation bilaterally.? No accessory muscle use.? No rhonchi, rales, or wheezes noted. Cardiovascular:?Normal S1 and S2 slow rate and rhythm.?no S3 or S4 noted.? No murmurs, or rubs noted
[2021-08-04] MEDS: amLODIPine BESYLATE 5 MG TABLET PO (09:49)
[2021-08-04] MEDS: SENNA/DOCUSATE SODIUM TABLET 1 TAB PO ×2 (09:50→20:19)
[2021-08-04] MEDS: CYANOCOBALAMIN 1,000 MCG TABLET 1000 MCG PO (09:50)
[2021-08-04] MEDS: ASPIRIN 81 MG ENTERIC TABLET PO (09:50)
[2021-08-04] MEDS: CHOLECALCIFEROL 1,000 UNITS TABLET 2000 UNITS PO (09:50)
[2021-08-04] MEDS: ROSUVASTATIN 10 MG TABLET 20 MG PO (09:50)
[2021-08-04] MEDS: IRBESARTAN 150 MG TABLET PO (09:59)
[2021-08-04] MEDS: SENNA/DOCUSATE SODIUM TABLET 2 TAB PO (20:47)
[2021-08-05] VITALS (8 sets, daily range): BP systolic 120–138; BP diastolic 52–80; PULSE 44–54; RESP 16–18; TEMP 36.1–36.6; O2SAT 95–100
[2021-08-05] MEDS: LEVOTHYROXINE SODIUM 100 MCG TABLET PO (06:41)
[2021-08-05] MEDS: LEVOTHYROXINE SODIUM 75 MCG TABLET PO (06:41)
[2021-08-05] MEDS: CHOLECALCIFEROL 1,000 UNITS TABLET 2000 UNITS PO (08:30)
[2021-08-05] MEDS: ROSUVASTATIN 10 MG TABLET 20 MG PO (08:30)
[2021-08-05] MEDS: CYANOCOBALAMIN 1,000 MCG TABLET 1000 MCG PO (08:30)
[2021-08-05] MEDS: ASPIRIN 81 MG ENTERIC TABLET PO (08:30)
[2021-08-05] MEDS: IRBESARTAN 150 MG TABLET PO (08:30)
[2021-08-05] MEDS: amLODIPine BESYLATE 5 MG TABLET PO (08:31)
--- NOTE | 2021-08-05 09:07 | PM.PNCARD ---
Progress Note: A&P Assessment and Plan (1) Non-ST elevation TX (NSTEMI): Code(s): I21.4 - Non-ST elevation (NSTEMI) myocardial infarction Status: Acute Plan 66-year-old lady with coronary artery disease presenting with acute TX which has been found to be due to occlusion of the posterolateral branch of her RCA. She has no other significant coronary lesions and will be managed medically. LV dysfunction is minimal following this event. She is not on a beta-pieter because she does have AV node dysfunction which fortunately is asymptomatic. In my opinion she can be discharged today. I will arrange follow-up in the office regarding her coronary disease. She has chosen to follow up with our practice rather than her established quoter. She also will continue to follow with her PCP as well as her oncologist at [facility]. In my opinion she can be put back on apixaban at the time of discharge she was anticoagulated with this because of venous thrombotic events and her malignancy Franck Arellano MD [facility] Subjective Date/time seen: Date of service: 08/05/21 09:07 Interval history: Follow-up visit in this 66-year-old lady with: Coronary artery disease admitted with acute myocardial infarction angiographically this was caused by occlusion of the posterolateral branch of her RCA. Because of anatomical reasons detailed in the report PCI of this was attempted but was not successful. As this was a completed infarction did not recommend further/more aggressive attempts to pursue this. She also has developed AV node dysfunction with variable amounts of AV block since the infarction. She is asymptomatic with this has a stable escape rhythm and for now I am not going to pursue pacemaker implantation for these reasons and also because this lady has a serious metastatic malignancy that clearly impacts her prognosis as well. She is comfortable this morning and hopeful of being discharged. Exam Const: General: comfortable and no acute distress Other: Pleasant overweight lady appears her stated age no distress HENMT: Mouth: Yes moist mucous membranes Eyes: Sclera: sclerae normal Pupils: Equal, round and reactive pupils present Neck: Neck: supple and no JVD Other: Carotid pulses are normal bilaterally Resp: Auscultation: clear to auscultation bilaterally and diminished lung sounds Other: No pulmonary rales Cardio: Rate: regular rate and bradycardic Rhythm: regular rhythm GI: GI Palp: Yes Soft to palpation Auscultation: normal bowel sounds Skin: General skin exam: normal color Neuro: Other: Normal cognition Extrem: General: normal to inspection Other: Normal pulses, no edema Objective Data Vital Signs Vital Signs: Vital Signs - 24 hr 08/04/21 10:00 08/04/21 12:00 08/04/21 12:00 Temperature 36.6 C Pulse Rate 69 49 L 50 L Respiratory Rate 16 Blood Pressure 111/57 L Pulse Oximetry 95 Oxygen Delivery 08/04/21 14:00 08/04/21 16:00 08/04/21 16:00 Temperature 36.5 C Pulse Rate 52 L 67 53 L Respiratory Rate 16 Blood Pressure 128/91 H Pulse Oximetry 97 Oxygen Delivery 08/04/21 18:00 08/04/21 20:00 08/04/21 20:00 Temperature 36.6 C Pulse Rate 53 L 55 L 56 L Respiratory Rate 16 Blood Pressure 108/65 Pulse Oximetry 95 Oxygen Delivery 08/04/21 22:00 08/04/21 20:00 08/04/21 23:19 Temperature Pulse Rate 52 L Respiratory Rate Blood Pressure Pulse Oximetry 96 Oxygen Delivery Room Air CPAP 08/05/21 00:00 08/05/21 00:00 08/05/21 00:00 Temperature 36.1 C L Pulse Rate 48 L 48 L Respiratory Rate 18 Blood Pressure 138/80 Pulse Oximetry 98 Oxygen Delivery Room Air 08/05/21 02:00 08/05/21 04:00 08/05/21 04:00 Temperature Pulse Rate 46 L 46 L Respiratory Rate Blood Pressure Pulse Oximetry Oxygen Delivery Room Air 08/05/21 04:00 08/05/21 02:53 08/05/21 06:00 Temperature 36.6 C Pulse Rate 47 L
--- NOTE | 2021-08-05 09:55 | PM.DS ---
DS: Admitting Diagnosis Discharge Date 08/04/2021 1112 Admitting Diagnosis Chest pain Bradycardia Tobacco abuse DS: Discharge Diagnosis Discharge Diagnosis (1) Non-ST elevation MT (NSTEMI): Code(s): I21.4 - Non-ST elevation (NSTEMI) myocardial infarction Status: Acute (2) Complete heart block: Code(s): I44.2 - Atrioventricular block, complete Status: Acute (3) BMI 34.0-34.9,adult: Code(s): Z68.34 - Body mass index [BMI] 34.0-34.9, adult Status: Chronic (4) Hypothyroidism: Qualifiers: Hypothyroidism type: unspecified Qualified Code(s): E03.9 - Hypothyroidism, unspecified Code(s): E03.9 - Hypothyroidism, unspecified Status: Chronic (5) Hypertension: Qualifiers: Hypertension type: essential hypertension Qualified Code(s): I10 - Essential (primary) hypertension Code(s): I10 - Essential (primary) hypertension Status: Chronic DS: Summary Hospital Course Reason for hospitalization: chest pain Hospital Course: Eli Frazier is a 66 yo female with medical history of metastatic renal cell carcinoma, sleep apnea compliant with CPAP, hypothyroidism, hypertension, PVD s/p LE stent, tobacco dependence, and obesity. She presented to the ED for evaluation of chest pain. The patient was substernal radiating to her left chest and down her left arm. The pain started on Friday. She has had intermittent bouts of pain that resolved after several minutes. On the day of admission, the pain was severe, band-like and improved with SL nitroglycerin and IV morphine in the ED. She reports associated diaphoresis, nausea without emesis. The pain on Friday occurred at rest and resolved after 10 minutes. She denies SOB, palpitations, dizziness, abd pain, vomiting, fever, chills, cough, sputum or lower extremity edema. In the ED, she was bradycardic with HR 30-50 bpm, hypertensive BP 168/88, temp 36.4C, RR 14 and spO2 100% room air. EKG showed sinus bradycardia with incomplete right bundle branch block and anterior ST segment depression. Initial troponin was 0.091, pro-BNP 1080, and d-dimer 0.93. CBC, CMP and TSH were otherwise unremarkable. Chest x-ray and CTA chest showed mild atelectasis, but no PE or acute pulmonary disease. She was treated with SL nitroglycerin and IV morphine with mild improvement in symptoms. The patient was admitted to the medical floor and monitored on telemetry. Troponin I was trended and increased from admission to 4.09. Her chest pain remained mild. Cardiac catheterization was deferred for 48 hours as the patient was taking Eliquis 5 mg BID for h/o DVT and active cancer, with known history of postprocedural bleeding complications. Repeat EKG and telemetry monitoring revealed persistent bradycardia 40-50s and EKG was concerning for intermittent AV node dissociation. Given this, beta-pieter therapy could not be initiated. Cardiac catheterization was completed on 08/02 and showed 100% occlusion of posterolateral branch of her RCA. Revascularization was attempted but was unsuccessful. Transthoracic echocardiogram was obtained and showed normal LV systolic function, EF 60%, base of posterior wall was akinetic, but all other segments contracted well and no significant valvular disease was noted. The patient was continued on aspirin 81 mg daily, irbesartan 150 mg daily (lowered dose due to stable BP), norvasc 5 mg daily, and started on crestor 20 mg daily. She will resume Eliquis upon discharge. Right femoral puncture site was clean, dry and intact x48 hours post procedure. No hematoma, ecchymosis or discharge was noted. She remained hemodynamically stable and was discharged home in stable condition. She will have follow up appointment with Cardiology outpatient and is to call tomorrow for appointment. Additionally, she was counseled on low fat diet, weight loss and physical activity. Status at Discharge Cognitive/behavioral status at discharge: AAOx4,
== END 2021-08-05 11:35 | disposition home or self-care (01) | DRG 251 ==
LOC: ANHED 11:41 → ANHIMU 13:56
PROVIDERS: Internal Medicine; Specialist; Admitting Provider Family Medicine; Emergency Provider Emergency Medicine; PCP Nurse Practitioner Family; Visit Provider Nurse Practitioner Family
PROC: 4A023N7 Measurement of Cardiac Sampling and Pressure, Left Heart, Percutaneous Approach (ICD-10-PCS; CPT 93452; principal; 2021-08-03 11:00)
PROC: 02703ZZ Dilation of Coronary Artery, One Artery, Percutaneous Approach (ICD-10-PCS; CPT 92920; 2021-08-03 11:00)
PROC: 4A023N7 Measurement of Cardiac Sampling and Pressure, Left Heart, Percutaneous Approach (ICD-10-PCS; 2021-08-03 11:00)
DX: I21.4 Non-ST elevation (NSTEMI) myocardial infarction (principal); C64.9 Malignant neoplasm of unspecified kidney, except renal pelvis; C79.51 Secondary malignant neoplasm of bone; Z20.822 Contact with and (suspected) exposure to COVID-19; I25.9 Chronic ischemic heart disease, unspecified; R00.1 Bradycardia, unspecified; E03.9 Hypothyroidism, unspecified; I10 Essential (primary) hypertension; I73.9 Peripheral vascular disease, unspecified; G47.30 Sleep apnea, unspecified; E53.8 Deficiency of other specified B group vitamins; E55.9 Vitamin D deficiency, unspecified; E66.9 Obesity, unspecified; Z68.34 Body mass index [BMI] 34.0-34.9, adult; Z82.49 Family history of ischemic heart disease and other diseases of the circulatory system; Z82.1 Family history of blindness and visual loss; Z83.49 Family history of other endocrine, nutritional and metabolic diseases; Z80.9 Family history of malignant neoplasm, unspecified; Z79.899 Other long term (current) drug therapy; Z90.5 Acquired absence of kidney; F17.210 Nicotine dependence, cigarettes, uncomplicated; Z79.82 Long term (current) use of aspirin; Z86.718 Personal history of other venous thrombosis and embolism; I25.10 Atherosclerotic heart disease of native coronary artery without angina pectoris
CPT/HCPCS: 36415; 71045; 71275; 80048; 80053; 80061; 83690; 83880; 84443; 84484; 85025; 85027; 85380; 85610; 85730; 92920; 93005; 93306; 93458; 96374; 96375; 99285; A9270; C1760; C1769; C1887; C1894; C9803; G0269; J0583; J1170; J1644; J2250; J2270; J2405; J3010; J7030; J7040; Q9967; U0003; U0005

== ENCOUNTER 2022-08-15 16:22 | Outpatient (CLI) | payer MEDICARE, MEDICAID, SELFPAY ==
--- NOTE | ~2022-08-15 | MM_ITS ---
EXAMINATION: MM screening [facility] BI w [facility]iffin HISTORY: Screening mammogram TECHNIQUE: Craniocaudal and mediolateral oblique 3-D tomosynthesis images were obtained and synthetic 2-D images were generated. CAD analysis was submitted and interpreted. COMPARISON: 07/20/2012, 06/16/2006 BREAST PARENCHYMAL COMPOSITION: There are scattered areas of fibroglandular density. FINDINGS: No suspicious mass, calcification, or architectural distortion are identified in either tolu ast to suggest malignancy. There has been no suspicious interval change. IMPRESSION: 1. No mammographic evidence of malignancy. 2. Recommend routine screening mammography in one year. BI-RADS Category 1: Negative Reviewed, dictated and finalized at location A.
== END 2022-08-15 16:23 | disposition home or self-care (01) ==
LOC: ANHIMG 16:28
PROVIDERS: PCP Nurse Practitioner Family; Visit Provider Nurse Practitioner Family
DX: Z12.31 Encounter for screening mammogram for malignant neoplasm of breast (principal)
CPT/HCPCS: 77063; 77067

== ENCOUNTER → 2024-07-20 11:38 | Outpatient (CLI) | payer MEDICARE, MEDICAID, SELFPAY ==
--- NOTE | ~2024-07-20 | XR_ITS ---
AP, oblique, and lateral views of the right third toe CLINICAL HISTORY: swelling, mass FINDINGS: No fracture or dislocation seen. Joint spaces are intact. Soft tissues are unremarkable. IMPRESSION: Unremarkable exam. Reviewed, dictated and finalized at location M. IMPRESSION: Unremarkable exam.
--- OUTSIDE RECORDS SUMMARY | 2024-07-20 12:56 | XMS_ITS | Continuity of Care Document ---
Author Organization [facility] Address [address] [place] [address] [place] [address] Phone Care Team Providers Care Mutuel Clerk Name Role Phone Kevin Kramer MD Unavailable Unavailable Allergies, Adverse Reactions, Alerts Substance Reaction Status Criticality No Known Allergies Active No Inform ation Medications Medication Instructions Dosage Effective Dates (start - stop) Status Comments Synthroid 175 mcg tablet take 1 tablet by oral route every day 175 MCG - Active Plavix 75 mg tablet take 1 tablet by ora l route every day 75 MG - Active Procedures Procedure Date OFFICE/OUTPATIENT VISIT, EST OFFICE/OUTPATIENT VISIT, EST PREV VISIT, EST, AGE 40-64 OFFICE/OUTPATIENT VISIT, EST OFFICE/OUTPATIENT VISIT, EST OFFICE/OUTPATIENT VISIT, EST OFFICE/OUTPATIENT VISIT, EST PREV VISIT, EST, AGE 40-64 OFFICE/OUTPATIENT VISIT, EST OFFICE/OUTPATIENT VISIT, EST OFFICE/OUTPATIENT VISIT, EST OFFICE/OUTPATIENT VISIT, EST PREV VISIT, EST, AGE 40-64 OFFICE/OUTPATIENT VISIT, EST OFFICE/OUTPATIENT VISIT, EST OFFICE/OUTPATIENT VISIT, EST OFFICE/OUTPATIENT VISIT, EST OFFICE/OUTPATIENT VISIT, EST OFFICE/OUTPATIENT VISIT, EST PREV VISIT, EST, AGE 40-64 OFFICE/OUTPATIENT VISIT, EST OFFICE/OUTPATIENT VISIT, EST OFFICE/OUTPATIENT VISIT, EST OFFICE/OUTPATIENT VISIT, EST OFFICE/OUTPATIENT VISIT, EST OFFICE/OUTPATIENT VISIT, EST OFFICE/OUTPATIENT VISIT, EST OFFICE/OUTPATIENT VISIT, EST PREV VISIT, NEW, AGE 40-64 Advance Directives Directive Yes / No Effective Date File Name No Information Encounters Encounter Description Practice Location Reason(s) For Visit Diagnoses Date Provider Providers Copied on Encounter [facility], [address], [place], [place], [address], [place] tel:[phone] [facility] No Information 1 Williams Kumar [address], [place], [place], [address] , [place]. tel:[phone] Referring Provider: Vish Fine [address], [place], [place], [address]. tel:[phone] OFFICE/OUTPA TIENT VISIT, [facility], [address], [place], [place], [address], [place] tel:[phone] [facility] renal (chief complaint) HTN (chief complaint) ColitisHypokalemiaC a of kidney, except renal pelvisRenal diseaseEssential (primary) hypertension 1 Williams Kumar [address], [place], [place], [address] , [place]. tel:[phone] Referring Provider: Vish Fine [address], [place], [place], [address]. tel:[phone] OFFICE/OUTPA TIENT VISIT, [facility], [address], [place], [place], [address], [place] tel:[phone] [facility] diarrhea1 (chief complaint) leg pain1 (chief complaint) DiarrheaLoss of appetitePeripheral vascular disease, unspecifiedMalignan t neoplasm of right kidney, except renal pelvis 0 Williams Brown. [address], [place], [place], [address] , [place]. [phone] Referring Provider: Vish Fine [address], [place], [place], [address]. tel:[phone] PREV VISIT, EST, AGE 40-64 [facility], [address], [place], [place], [address], [place] [phone] [facility] physical (chief complaint) Encntr for general adult medical exam w/o abnormal findings 0 Williams Brown. [address], [place], [place], [address] , [place]. [phone] Referring Provider: Vish Fine [address], [place], [place], [address]. tel:[phone] OFFICE/OUTPA TIENT VISIT, [facility], [address], [place], [place], [address], [place] [phone] [facility] HTN (chief complaint) HLP (chief complaint) renal1 (chief complaint) ptosis (chief complaint) D (chief complaint) HyperlipidemiaEssen tial (primary) hypertensionVitamin D deficiency, unspecifiedRenal diseasePtosis of eyelid 0 Williams Kumar [address], [place], [place], [address] , [place]. [phone] Referring Provider: Vish Fine [address], [place], [place], [address]. tel:[phone] OFFICE/OUTPA TIENT VISIT, [facility], [address], [place], [place], [address], [place] [phone] [facility] HTN (chief complaint) thyroid1 (chief complaint) renal (chief complaint) HLP (chief complaint) Essential (primary) hypertensionHypothy roidismMalignant neoplasm of right kidney, except renal pelvisEncounter for oth screening for malignant neoplasm of breastHyperlipidemi a 0 Williams Kumar [address], [place], [place], [address] , [place]. tel:[phone] Referring Provider: Vish Fine [address], [place], [place], [address]. tel:[phone] OFFICE/OUTPA TIENT VISIT, [facility], [address], [place], [place], [address], [place] tel:[phone] [facility] leg pain1 (chief complaint) lung nodule1 (chief complaint) fatty liver1 (chief complaint) HTN (chief complaint) Fatty liverEssential (primary) hypertensionSolitar y lung nodulePain in right lower leg Sep-2 9 Williams Brown. [address], [place], [place], [address] , [place]. tel:[phone] Referring Provider: Vish Fine [address], [place], [place], [address]. tel:[phone] OFFICE/OUTPA TIENT VISIT, [facility], [address], [place], [place], [address], [place] tel:[phone] [facility] thyroid1 (chief complaint) renal CA (chief complaint) renal (chief complaint) smoking1 (chief complaint) sleep apnea1 (chief complaint) PAD (chief complaint) Body mass index (BMI) 38.0-38.9, adultSleep apneaRenal diseaseHashimoto's thyroiditisTobacco usePeripheral vascular disease, unspecifiedMalignan t neoplasm of right kidney, except renal pelvis 9 Williams Brown. [address], [place], [place], [address] , [place]. tel:[phone] Referring Provider: Vish Fine [address], [place], [place], [address]. tel:[phone] PREV VISIT, EST, AGE 40-64 [facility], [address], [place], [place], [address], [place] tel:[phone] [facility] PHysical (chief complaint) Body mass index (BMI) 40.0-44.9, adultEncounter for general adult medical exam w abnormal findingsSleep apneaHashimoto's thyroiditisEssentia l (primary) hypertensionRenal diseaseHyperlipidem ia 9 Williams Kumar [address], [place], [place], [address] , [place]. tel:[phone] Referring Provider: Vish Fine [address], [place], [place], [address]. tel:[phone] OFFICE/OUTPA TIENT VISIT, [facility], [address], [place], [place], [address], [place] tel:[phone] [facility] HTN (chief complaint) renal Ca (chief complaint) bone (chief complaint) mamm (chief complaint) Essential (primary) hypertensionEncount er for screening for osteoporosisEncount er for oth screening for malignant neoplasm of breastSleep apneaPolyp of colon 8 Williams Kumar [address], [place], [place], [address] , [place]. tel:[phone] OFFICE/OUTPA TIENT VISIT, [facility], [address], [place], [place], [address], [place] tel:[phone] [facility] sinus1 (chief complaint) Acute sinusitisAllergic rhinitis 8 Williams Kumar [address], [place], [place], [address] , [place]. tel:[phone] Referring Provider: Vish Fine [address], [place], [place], [address]. tel:[phone] OFFICE/OUTPA TIENT VISIT, [facility], [address], [place], [place], [address], [place] tel:[phone] [facility] HTN (chief complaint) thyroid1 (chief complaint) HLP (chief complaint) renal 1 (chief complaint) Maris's thyroiditisEssentia l (primary) hypertensionHypokal emiaHyperlipidemia 8 Williams Kumar [address], [place], [place], [address] , [place]. tel:[phone] Referring Provider: Vish Fine [address], [place], [place], [address]. tel:[phone] PREV VISIT, EST, AGE 40-64 [facility], [address], [place], [place], [address], [place] tel:[phone] [facility] PHysical (chief complaint) Encounter for general adult medical exam w abnormal findingsHashimoto's thyroiditisHyperten joanne w/ chronic renal disease stage 3Peripheral vascular disease, unspecified 8 Williams Brown. [address], [place], [place], [address] , [place]. [phone] Referring Provider: Vish [address], [place], [place], [address]. tel:[phone] OFFICE/OUTPA TIENT VISIT, EST [facility], [address], [place], [place], [address], [place] tel:[phone] [facility] low K (chief complaint) renal1 (chief complaint) thyroid1 (chief complaint) bone (chief complaint) Encounter for screening for osteoporosisHashimo to's thyroiditisHypokale miaHypertension w/ chronic renal disease stage 3 7 Williams Kumar [address], [place], [place], [address] , [place]. [phone] Referring Provider: Vish [address], [place], [place], [address]. tel:[phone] OFFICE/OUTPA TIENT VISIT, EST [facility], [address], [place], [place], [address], [place] tel:[phone] [facility] glucose (chief complaint) renal function1 (chief complaint) kcl (chief complaint) HypokalemiaHypergly cemiaRenal diseaseBody mass index (BMI) 40.0-44.9, adult 7 Williams Kumar [address], [place], [place], [address] , [place]. [phone] Referring Provider: Kevin Kramer, [address], [place], [place], [address]. tel:[phone] OFFICE/OUTPA TIENT VISIT, [facility], [address] [place] [address] [address], [place], [place], [address], [place] tel:[phone] [facility] PAD (chief complaint) HTN (chief complaint) hypothyroi dism1 (chief complaint) sleep apnea (chief complaint) sleep apnea1 (chief complaint) anxiety1 (chief complaint) HypothyroidismEssen tial (primary) hypertensionPeriphe ral vascular disease, unspecifiedRenal disease 7 Williams Brown. [address], [place], [place], [address] , [place]. [phone] OFFICE/OUTPA TIENT VISIT, [facility], [address] [place] [address] [address], [place], [place], [address], [place] tel:[phone] [facility] toe blue1 (chief complaint) HTN (chief complaint) hypothyroi dism (chief complaint) HypothyroidismRenal diseaseSpasm of arteryEssential (primary) hypertension 7 Williams Brown. [address], [place], [place], [address] , [place]. [phone] Referring Provider: Vish Fine [address], [place], [place], [address]. tel:[phone] OFFICE/OUTPA TIENT VISIT, [facility], [address] [place], [address], [place] tel:[phone] [facility] hypothyroi dism1 (chief complaint) renal (chief complaint) HLP (chief complaint) sleep apnea1 (chief complaint) HypothyroidismRenal diseaseHyperlipidem iaVitamin D deficiency, unspecified 6 Williams Brown. [address], [place], [place], [address] , [place]. tel:[phone] Referring Provider: Vish Fine [address], [place], [place], [address]. tel:[phone] PREV VISIT, EST, AGE 40-64 [facility], [address], [place], [place], [address], [place] tel:[phone] [facility] PHysical (chief complaint) Encounter for general adult medical exam w abnormal findingsEdemaOther sleep apneaEssential (primary) hypertension 4201 6 Williams Brown. [address], [place], [place], [address] , [place]. tel:[phone] Referring Provider: Kevin Kramer, [address], [place], [place], [address]. tel:[phone] OFFICE/OUTPA TIENT VISIT, [facility], [address], [place], [place], [address], [place] tel:[phone] [facility] sleep apnea1 (chief complaint) HTN (chief complaint) tobacco (chief complaint) Sleep apneaTobacco useEssential (primary) hypertension 0 6 Williams Brown. [address], [place], [place], [address] , [place]. tel:[phone] Referring Provider: Vish Fine [address], [place], [place], [address]. tel:[phone] OFFICE/OUTPA TIENT VISIT, [facility], [address], [place], [place], [address], [place] tel:[phone] [facility] HTN (chief complaint) hypothyroi dism1 (chief complaint) sleep apnea1 (chief complaint) tobacco1 (chief complaint) Tobacco useOther specified hypothyroidismOther sleep apneaEssential (primary) hypertension 8 6 Williams Brown. [address], [place], [place], [address] , [place]. tel:[phone] Referring Provider: Kevin Kramer, [address], [place], [place], [address]. tel:[phone] OFFICE/OUTPA TIENT VISIT, [facility], [address], [place], [place], [address], [place] tel:[phone] [facility] HTN (chief complaint) anxiety1 (chief complaint) tobacco (chief complaint) hypothyroi dism1 (chief complaint) Essential (primary) hypertensionGeneral ized anxiety disorderTobacco useOther specified hypothyroidism 8 6 Williams Brown. [address], [place], [place], [address] , [place]. [phone] Referring Provider: Vish Fine [address], [place], [place], [address]. tel:[phone] OFFICE/OUTPA TIENT VISIT, [facility], [address], [place], [place], [address], [place] tel:[phone] [facility] tobacco (chief complaint) anxiety1 (chief complaint) HTN (chief complaint) weight gain (chief complaint) Essential (primary) hypertensionAbnorma l weight gainTobacco useGeneralized anxiety disorder 0 6 Williams Brown. [address], [place], [place], [address] , [place]. [phone] Referring Provider: Vish Fine [address], [place], [place], [address]. tel:[phone] OFFICE/OUTPA TIENT VISIT, [facility], [address], [place], [place], [address], [place] tel:[phone] [facility] Hypothyroi dism1 (chief complaint) HTN1 (chief complaint) tobacco1 (chief complaint) sleep study1 (chief complaint) Essential (primary) hypertensionOther specified hypothyroidismOther sleep apnea 6 6 Williams Brown. [address], [place], [place], [address] , [place]. tel:[phone] Referring Provider: Vish Fine [address], [place], [place], [address]. tel:[phone] OFFICE/OUTPA TIENT VISIT, [facility], [address], [place], [place], [address], [place] tel:[phone] [facility] HTN1 (chief complaint) hypothyroi dism (chief complaint) Tobacco1 (chief complaint) Other specified hypothyroidismEssen tial (primary) hypertensionTobacco useBody mass index (BMI) 38.0-38.9, adult 5 Williams Brown. [address], [place], [place], [address] , [place]. tel:[phone] Referring Provider: Vish Fine [address] [facility] [address], [place], [place], [address]. tel:[phone] OFFICE/OUTPA TIENT VISIT, [facility], [address], [place], [place], [address], [place] tel:[phone] [facility] HTN1 (chief complaint) hypothyroi dism1 (chief complaint) vaginal yesast (chief complaint) Other specified hypothyroidismEssen tial (primary) hypertensionOther fatigueCandidal vulvovaginitis 5 Williams Kumar [address], [place], [place], [address] , [place]. tel:[phone] Referring Provider: Vish Fine [address], [place], [place], [address]. tel:[phone] PREV VISIT, NEW, AGE 40-64 [facility], [address], [place], [place], [address], [place] tel:[phone] [facility] Physical (chief complaint) Dietary surveillance and counselingEncounter for adult health check-up 5 Williams Kumar [address], [place], [place], [address] , [place]. [phone] Referring Provider: Vish Fine [address], [place], [place], [address]. tel:[phone] Family History Family Member Type Diagnosis Age At Onset Mother Problem (finding) Stroke Mother Problem (finding) Father Problem (finding) from overdose on c oumadin Sister Problem (finding) Renal disease Payers Payer name Insurance type Covered democrat ID Authoriza tion(s) No Information Social History Type Description Quantity Date Captured Comments Sex Female Smoking Status No Information Chief Complaint And Reason For Visit No Information Plan Of Treatment Date Type Action Status Goal Tobacco cessation counseling completed Goal Special diet education compl eted Goal Tobacco cessation counseling completed Goal Tobacco cessation counseling completed Goal Special diet education compl eted Goal Special diet education compl eted Goal Tobacco cessation counseling completed Goal Tobacco cessation counseling completed Goal Special diet education compl eted Goal Special diet education compl eted Goal Special diet education compl eted Referral Ordered: Gastroenterology (related to Loss of appetite) ordered Referral Ordered: US EXAM OF ABDOMEN, LIMITED, GALLBLADDER ordered Referral Ordered: Referrals: Gastroenterology. Evaluate and treat ordered Referral Ordered: US EXAM, ABDOM, COMPLETE ordered Referral Ordered: US VENOUS DOPPLER ordered Referral Ordered: Juan Heaton (related to Maris's thyroiditis) ordered Referral Ordered: Hematology (related to Peripheral vascular disease, unspecified) ordered Referral Ordered: Referrals: Hematology. Evaluate and treat ordered Referral Referred To: Juan Heaton [address] [place], [place] [id number] Ordered: Referrals: Juan Heaton. Evaluate and treat ordered Referral Ordered: CT THORAX W/O DYE ordered Referral Ordered: DXA BONE DENSITY, AXIAL ordered Referral Ordered: Freddy Brito (related to Renal disease) ordered Referral Referred To: Freddy Brito [address] [place], [phone] Ordered: Referrals: Freddy Brito. Evaluate and treat ordered Referral Ordered: MARTINA CLARK (related to Sleep apnea) ordered Referral Referred To: MARTINA CLARK [address] [place], [place], [phone] Ordered: Referrals: MARTINA CLARK. Evaluate and treat ordered Referral Ordered: US THYROID ordered Referral Ordered: Pulmonology (related to Other fatigue) ordered Referral Ordered: Referrals: Pulmonology. Evaluate and treat ordered Referral Ordered: MAMMOGRAM, SCREENING ordered Referral Ordered: COLONOSCOPY AND BIOPSY ordered History Of Present Illness Encounter Date Complaint History Of Prese nt Illness renal Pt was admitted to hospital recently due to persistent nausea, vomiting diarrhea for one month. pt had colonoscopy done which showed colitis. It was decided that her symptoms are due to immunotherapy drug for her renal cell carcinoma. Pt is on prednisone currently and she is off all immunotherapy drugs.. her GI symptoms resolved. She did develop acute and chronic renal insufficiency due to dehydration. Pt is off inlyta and keytruda. pt is on 100 mg oral prednisone daily. Pt had BMP done 02/28/20 which showed stable and improving renal function HTN Pt is off losart an and norvasc and her bp has been stable without meds. diarrhea1 Pt c/o frequent non bloody diarrhea for 4 week. Pt states that she feels nauseated whenever she smell food, regardless what type of food. Pt denies any nausea, vomiting PT denies any abdominal pain. PT needs colonoscopy soon. Pt has loss of appetite as well. Pt denies any GERD or early satiety or vomiting leg pain1 Pt c/o tightness feeling pain right calf area for 3-4 weeks. Pt denies any calf edema, neuropathy, cold extremity, toe discoloration, etc, , Pt states that her right calf pain is worse when she walk around or stand up on her feet for prolonged time. Pt denies any back pain or sciatica. PT does have PAD s/p left leg stent. Pt saw her manufacturing management associate recently and she had arterial doppler study both lower extremity which showed diffuse blockage but she does appear to have good circulation of blood down to both legs. Pt denies any chest pain or sob. physical PT needs annual physical pt has HTn Pt takes norvasc and losartan and her bp is stable Pt has low thyroid. Pt takes synthroid .pt need refills Pt has renal disease. Pt has not rescheduled with nephrology Pt has normal UO Pt is being treated with immunotherapy for renal CA with meds. HTN Pt has HTn. 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 Pt will have eyelid lift surgery soon under local anesthesia. Pt denies any vision issue. Pt needs medical clearance D Pt has low vitam in D Pt has not done bone density yet . HTN Pt has HTn. Pt t akes norvasc and losartan/hctz. Her BP is stable. 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 Pt is undergoing immunotherapy now. HLP Pt has HLP Pt is on low fat and low carb diet leg pain1 Pt accidently tr ipped last week and hit medial part of her left leg on the coffee table and her right leg slipped and she thinks that she extended her right knee outward. Pt denies any head injury. Pt states that she does not have any left leg pain but is having sharp pain from posterior right thigh all the way down to right calf area. Pt denies any redness or warmth pt denies any sob or chest pain pt states that walking hurt right leg more but she also has sharp pain when she sleeps at night resting Pt has been taking tylenol but has not helped. Pt denies any numbness or tingling of the leg Pt denies any sciatica or any loss of bladder control lung nodule1 Pt has lung nodu le pt denies any hemoptysis, cough or sob Pt continues to smoke to about 1/5 PPD fatty liver1 Pt has fatty chrissy er. Pt denies any abd pain Pt denies any jaundice HTN Her BP is border line today Pt takes norvasc and losartan/hctz renal CA Pt had recurrent renal CA with mets recently and she underwent lymph node removal, partial renal spots removal and pancreas spot removal. Pt sees oncology and also urology thyroid1 Pt has hypothyro idism. Pt is on 175 mcg synthroid and her TSH is normal now. Pt denies any dysphagia, thyroid nodule or pain renal pt has not seen dilia for a while. Pt has stage III renal disease Pt has normal UO smoking1 Pt has not done LDCT yet. Pt denies any hemoptysis, sob or cough. 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 Pt uses cpap nightly and she feels more energy and better rested. Pt has less snoring also PAD Pt has PAD s/p l eft leg stenting by [facility] and doing ok. Pt denies any edema or claudication. Pt denies any neuropathy symptoms PHysical Pt needs annual physical pt has low D pt has not done bone density or mammo yet. Pt has borderline but stable renal function. Pt has mild high TG Pt has low thyroid but is currently being over replaced Pt has history of right renal carcinoma s/p right nephrectomy Pt just seen oncology several weeks ago and had benign Ct per patient. Pt denies any new complaints HTN Pt has HTN. Pt t akes losartan/hctz and norvasc. Her BP is ok. renal Ca Pt has right tabitha al carcinoma s/p complete right nephrotomy. Pt did radiation. pt is seeing oncology now. Pt has some mets to spine which she underwent surgical removal Pt changed her insurance to [employer] and she is able to see oncology at [facility] again bone Pt has not done bone density yet. pt is noncompliant Pt denies any fx mamm Pt still has not done mammo yet. Pt still has not seen racehorse trainer yet. Pt denies any breast issue sinus1 Pt c/o sinus con gestion, itchy eyes, ear pain, sinus congestion, sore throat, productive coughing for one week Pt has been taking zyrtec without any relieve. Pt denies any fever, headache Pt denies any sick contact Pt denies any recent travel HTN Pt takes losarta n.hcgz and norvasc Her BP is ok. Pt takes KCL. Pt denies any chest pain or headache thyroid1 Pt is on synthro id 200 mcg. Her Tsh is normal HLP Pt has mild high TG. Pt is not on lipid med Pt is on low fat and low carb diet renal 1 Pt has mild delicia l disease. Pt is seeing nephrology. Pt has mid low D PHysical Pt needs annual physical. Pt has HTN. Pt takes norvasc and losartan.hctz. her BP is stable. Pt denies any chest pain or headache. pt has low thyroid Pt has been out of synthroid for two months Pt feels fatigue. Pt has PAD Pt takes plavix. Pt denies any claudication. Pt has severe moles and she wants it checked. Pt denies any other complaints low K P has been takin g KCL supplement daily. Her KCL and mag is normal. Pt denies any chest pain renal1 Pt has mild stag e III renal disease. pt has appointment with Dr. Brito next week pt has normal UO thyroid1 Pt has maris throiditis. Pt is on synthroid. Her thyroid level is low on 175 mcg synthroid. Pt denies any fatigue. bone Pt never had bon e density study. Pt denies any h/o spontaneous fracture glucose Pt has mild high glucose Pt denies any polyuria polydipsia renal function1 Pt has borderlin e renal function Pt is off lasix and hre renal function improved. Pt has normal UO. Pt has right kidney removed due to renal cell CA kcl Pt has low KCL. Pt does not like to eat banana Pt takes hctz. Pt denies any chest pain or headache PAD Pt has PAD. Pt r ecently underwent left leg stent. Pt is on statin now. Pt had negative cardiac work up by [facility]. Pt denies any chest pain. Pt denies any claudication or toe pain, or toe discoloration HTN Pt has HTN Pt ta kes norvasc and also losartan and her BP is stable. hypothyroidism1 Pt has low thyro id. 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 Pt has CPAP. Pt uses it night. Pt denies any fatigue anxiety1 pt no longer has aniety and depression Pt stoppe wellbutrin on her own and doing ok. Pt denies any suicidal or homicidal thought. Pt doing ok currently toe blue1 Pt c/o left toe blue color for two weeks. Pt denies any pain Pt feels mild numbness aroudn toes. Pt denies any calf pain. Pt denies any cold feling. Pt also has chronic right LE edema. Pt denies any worsening swelling. Pt denies any chest pain or headache or SOB HTN Pt has HTN. Pt a kes norvasc adn losartan.hctz Pt denies any chest pain or headache Her BP is ok today hypothyroidism Pt has low thyro id. Pt takes synthroid. Pt denies any chest pain or headache hypothyroidism1 Pt has hypothyro idism. Her TSH is ok .Pt has elevated TPO. Pt denies any fatigue or palpitation renal Pt has mild delicia l disease on lab. Pt has normal UO. Pt denies any UTI symptoms HLP Pt has high TG. 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 Pt is using CPAP now. Pt feels less fatigue an more energy PHysical Pt needs annualk physical. Pt takes losatan.hctz and norvasc and her bp is borerline today. Pt told me she take both pill daily. Pt also takes synthroid. Pt has not done TSH yet. Pt is using CPAP nightly and she feels much more energy and less fatigue in the morning and throughout the day. Pt c/o bilatearl ankle swelling for 3 weeks. Pt denies any SOB or leg pain. Pt denies any chest pain. Pt denies any recent travel or bedrest. 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 Pt just had CPAP done. Pt has snoring and also stop breathing at rustt Pt feesl fatigue HTN Pt takes norvasc and losartan.HCTZ Pt run out one of the BP med and she will picker today. Her BP is high today pt denies any chset pain or headache tobacco Pt smokes tobacc o. Pt smokes about 1/2 PPD. Pt has not even started nicoderm patch yet. Pt is noncompliant HTN Pt takes norvasc and losartan.HCTZ for HTN and her BP is ok today. 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 Pt is going back tomorrow for CPAP tobacco1 Pt wants to try patch again Pt failed patch last time Pt has not used patch for 6 weeks. Pt is also seeing smoking cessation counselor HTN Pt has HTN. Pt t akes losartan.HCTZ and also norvac and her BP is still high. Pt denies any chest pain or headache anxiety1 Pt has chronic a nxiety and depression. Pt takes wellbutirn which is helping Pt denies anysuicidal or homicidal thought tobacco Pt has not been using patch. Pt is seeing smoking cessation speicalist at [facility] now Pt smokes about 1/2 PPD hypothyroidism1 Pt has hypothyro idism. Pt takes synthroid. Pt has not done TSH or ultrasound yet tobacco Pt wants to tqui t smoking Pt smokes about close to one pack per day. Pt went to smoking cessation clinic at [facility] and was recommended chantix. Pt in the past tried zyban but she did not really try it daily. Pt only took for several days and then stopped. Pt denies any SOB anxiety1 Pt has been havi ng anxiety and depression lately due to personal stress. Pt denies any suicidal or homicidal thought Pt does have crying spells. Pt denies any feeling of hopelessness. HTN Pt has HTN. Pt s upposes to take losaran. HTTZ and norvac daily. Pt states that she has not taken her BP med yet today. Pt denies any chest pain or headache weight gain Pertinent negati ves include constipation, dyspnea, fatigue, irregular menses, muscle weakness and vision changes. Additional information: Pt continues to gain weight. Pt still not active. Pt is not dieting either. Pt also has not done sleep study yet. Hypothyroidism1 Pt has low thyro id. Pt is on synthroid Pt has not done ultraosund yet. pt denies any weight gain. Pt has been out for one week. HTN1 Pt takes losarta /HCTZ and norvasc Her BP is borderline today. Pt denies any chest pain or headache tobacco1 Pt states that s he feels weired on zyban so she stopped taking it Pt still smoking about 10 cig per day. Pt denies any SOB sleep study1 Pt states tht sh e snores and also notices stopp breathing at night lately. Home sleep study was not approved by insurance HTN1 Pt has HTN. Pt t akes lisinopril/HCTZ and norvasc. her BP is borderline. Pt deneis any chest pain or headache hypothyroidism Pt has chronic h ypothyroidism. Pt is on 125 mcg of synthroid Tobacco1 Pt smokes about 10 cig per day. pt has renal cell CA s/p radical right nephretcomty. HTN1 Pt takes lisinop ril/HCTZ and norvasc for HTN. Pt has not checked her BP at home. Pt denies any chest pain or headache hypothyroidism1 Pt states that s he was out of synthroid for one week when she had her lab done. Pt feels fatigue. Pt snores at night and she denies difficulty catching her breath at night. Pt has been feeliing fatigue for years. Pt is obese vaginal yesast Pt has vaginal y east infection for 3 weeks. Pt c/o vaginal itching. Pt denies any pelvic pain or any bleeding Physical Pt needs annual physical Pt has HTN and she takes lisinorpil.HCTZ and norvasc and she is out for one week. Pt denies any chest pain or headache. Pt has low thyroid and she takes synthroid. Pt had history of right renal CA s/p radical right nephrectomy with mets to Tspine and she had her T 12 spine removed due to mets last year. Pt sees oncologist at [facility] and she just seen oncologist yesterday and everything is fine per patient. Pt denies any other complaints Instructions Date Instruction Additional Infor elmer Special diet education Related t o Body mass index (BMI) 39.0-39.9, adult Increase activity. Related to Es sential (primary) hypertension Stop smoking. Related to Essen tial (primary) hypertension Follow a low sodium diet. Relate d to Essential (primary) hypertension Special diet education Related t o Body mass index (BMI) 39.0-39.9, adult Special diet education Related t o Body mass index (BMI) 38.0-38.9, adult Increase physical activity Relat ed to Sleep apnea Quit smoking Related to Sleep apnea Weight management Related to Sle ep apnea Special diet education Related t o Body mass index (BMI) 40.0-44.9, adult Increase physical activity Relat ed to Encounter for general adult medical exam w abnormal findings Quit smoking Related to Encou nter for general adult medical exam w abnormal findings Weight management Related to Enc ounter for general adult medical exam w abnormal findings Special diet education Related t o Body mass index (BMI) 40.0-44.9, adult Stop smoking. Related to Essen tial (primary) hypertension Special diet education Related t o Body mass index (BMI) 40.0-44.9, adult Quit smoking Related to Acute sinusitis Prescribed Activity and Exercise Education Related to Dietary Surveillance and Counseling Prescribed Diet Educ ation/Lifestyle Education Regarding Diet Related to Dietary Surveillance and Counseling Quit smoking Related to Dede braulio's thyroiditis Prescribed Activity and Exercise Education Related to Dietary Surveillance and Counseling Prescribed Diet Educ ation/Lifestyle Education Regarding Diet Related to Dietary Surveillance and Counseling Increase physical activity Relat ed to Encounter for general adult medical exam w abnormal findings Quit smoking Related to Encou nter for general adult medical exam w abnormal findings Weight management Related to Enc ounter for general adult medical exam w abnormal findings Weight management Related to Has himoto's thyroiditis Prescribed Activity and Exercise Education Related to Dietary Surveillance and Counseling Prescribed Diet Educ ation/Lifestyle Education Regarding Diet Related to Dietary Surveillance and Counseling Increase physical activity Relat ed to Maris's thyroiditis Prescribed Activity and Exercise Education Related to Dietary Surveillance and Counseling Prescribed Diet Educ ation/Lifestyle Education Regarding Diet Related to Dietary Surveillance and Counseling Prescribed Activity and Exercise Education Related to Dietary Surveillance and Counseling Prescribed Diet Educ ation/Lifestyle Education Regarding Diet Related to Dietary Surveillance and Counseling Prescribed Activity and Exercise Education Related to Dietary Surveillance and Counseling Prescribed Diet Educ ation/Lifestyle Education Regarding Diet Related to Dietary Surveillance and Counseling Prescribed Activity and Exercise Education Related to Dietary Surveillance and Counseling Prescribed Diet Educ ation/Lifestyle Education Regarding Diet Related to Dietary Surveillance and Counseling Prescribed Diet Educ ation/Lifestyle Education Regarding Diet Related to Dietary Surveillance and Counseling Prescribed Activity and Exercise Education Related to Dietary Surveillance and Counseling Prescribed Activity and Exercise Education Related to Dietary Surveillance and Counseling Prescribed Diet Educ ation/Lifestyle Education Regarding Diet Related to Dietary Surveillance and Counseling Prescribed Activity and Exercise Education Related to Dietary Surveillance and Counseling Prescribed Diet Educ ation/Lifestyle Education Regarding Diet Related to Dietary Surveillance and Counseling Prescribed Activity and Exercise Education Related to Dietary Surveillance and Counseling Prescribed Diet Educ ation/Lifestyle Education Regarding Diet Related to Dietary Surveillance and Counseling Prescribed Activity and Exercise Education Related to Dietary Surveillance and Counseling Prescribed Diet Educ ation/Lifestyle Education Regarding Diet Related to Dietary Surveillance and Counseling Prescribed Activity and Exercise Education Related to Dietary Surveillance and Counseling Prescribed Diet Educ ation/Lifestyle Education Regarding Diet Related to Dietary Surveillance and Counseling Prescribed Activity and Exercise Education Related to Dietary Surveillance and Counseling Prescribed Diet Educ ation/Lifestyle Education Regarding Diet Related to Dietary Surveillance and Counseling Prescribed Activity and Exercise Education Related to Dietary Surveillance and Counseling Prescribed Diet Educ ation/Lifestyle Education Regarding Diet Related to Dietary Surveillance and Counseling Assessments Type Assessment Date No Information
--- OUTSIDE RECORDS SUMMARY | 2024-07-20 12:56 | XMS_ITS | Encounter Summary ---
Author Organization [facility]ly [facility] Address [address] [place] [address] Care Team Providers Care Client Finance Analyst Name Role Phone Kevin Kramer MD Primary Care Provider + [phone] Brendan Thornton MD Unavailable [phone] Jorge Novak MD Unavailable Juan Muñoz MD Primary Care Provider [phone] Kevin Kramer MD Primary Care Provider + [phone] Juan Muñoz MD Primary Care Provider [phone] Kevin Kramer MD Primary Care Provider + [phone] Kevin Kramer MD Primary Care Provider + [phone] Elena Graham RN Unavailable [phone] Juan Muñoz MD Primary Care Provider [phone] Lawson Montgomery MD Unavailable No, Physician Primary Care Provider [phone] Juan Muñoz MD Primary Care Provider [phone] Sangeeta Christian MD Unavailable [phone] Joe Basurto MD Primary Care Provid er Juan Muñoz MD Primary Care Provider +[phone] Franck Arellano MD Unavailable [phone] Joe Basurto MD Unavailable [phone] Encounter Details Date Type Department Care Team (Late st Contact Info) Description 03/30/2020 Telephone [facility] [address] [place] [address] Jorge Novak MD [address] [facility] [address] [place], [place] [id number] Social History Tobacco Use Types Packs/Day Years Used Date Smoking Tobacco: Every Day Cigarettes 1 51.4 Started: 1972 Smokeless Tobacco: Never Alcohol Use Standard Drinks/Week Comments Not Currently 0 (1 standard drink = 0.6 oz pur e alcohol) Comments No Sex and Gender Information Value Date Recorded Sex Assigned at Not on file Legal Sex Female 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 Gender Identity Not on file Sexual Orientation Not on file documented as of this encounter Plan of Treatment Not on file documented as of this encounter Visit Diagnoses Not on filedocumented in this encounter Additional Health Concerns Infection Onset Date Last Indicated Resolved Time COVID: Suspected 06/27/2020 06/27/2020 06/27/2020 8:32 PM CDT Ring Surveillance Comment:Percy guerrero [id number] 04/06/2024 04/06/2024 04/13/2024 3:06 AM CASH REGISTER SERVICER documented as of this encounter Care Teams Client Finance Analyst Relationship Specialty Start Date End Date Kevin Kramer MD PCP - General 05/20/17 04/09/20 Juan Muñoz MD [address] [address] PCP - General Family Medicine 04/10/20 04/11/20 Kevin Kramer MD [address] [address] PCP - General 04/12/20 05/08/20 Juan Muñoz MD [address] [id number] PCP - General Family Medicine 05/09/20 05/11/20 Kevin Kramer MD [address] [place] [place] [address] PCP - General 05/14/20 05/24/20 Kevin Kramer MD [address] [place], [place] [id number] PCP - General 05/12/20 05/13/20 Juan Muñoz MD [address] [address] PCP - General 05/25/20 01/21/21 No, Physician PCP - General 07/24/21 09/02/21 Juan Muñoz MD [address] [id number] PCP - General Family Medicine 09/03/21 03/31/23 Joe Basurto MD [address] [address] PCP - General Orthopedic Surgery 04/01/23 05/14/23 Juan Muñoz MD [address] [address] PCP - General Family Medicine 05/15/23 Brendan Thornton MD Referring Physician Transplant 06/01/18 Jorge Novak MD [address] [facility] [address] [place] [address] Medical Oncologist/Hematologis t Medical Oncology 06/01/18 Elena Graham, RN [address] [facility] [address] [place] [address] SHOP Outpatient Switching Operator 05/18/20 05/18/20 Lawson Montgomery MD [address] [facility] [address] [place] [address] Radiation Oncologist Radiation Oncology 06/13/20 Sangeeta Christian MD [address] [facility] [place] [address] Surgeon Oculoplastics Ophthalmology 04/05/22 Franck Arellano MD [address] [facility] [address] [place] [address] Consulting Physician Cardiology 05/15/23 Joe Basurto MD [address] [facility] [address]6B[address] [place] [address] Consulting Physician Orthopedic Surgery 05/15/23 documented as of this encounter
--- OUTSIDE RECORDS SUMMARY | 2024-07-20 12:56 | XMS_ITS | Encounter Summary ---
Author Organization [facility] Healthcare Address [address] [place] [address] Care Team Providers Care Research Instrumentation Technician Name Role Phone Brendan Thornton MD Unavailable [phone] Jorge Novak MD Unavailable Lawson Montgomery MD Unavailable Sangeeta Christian MD Unavailable [phone] Juan Muñoz MD Primary Care Provider [phone] Franck Arellano MD Unavailable [phone] Joe Basurto MD Unavailable [phone] Reason for Visit * Reason Comments Coronary Artery Disease 6 mo f/u Encounter Details Date Type Department Care Team (Late st Contact Info) Description 07/19/2024 11:00 AM CDT Office Visit [facility] Cardiology [address] [facility] [address] [facility] [address] [place] [address] Franck Arellano MD [address] [place] [address] Hypertension, unspecified type (Primary Dx); Coronary artery disease involving [place] coronary artery of [place] heart without angina pectoris; AV node dysfunction Social History Tobacco Use Types Packs/Day Years Used Date Smoking Tobacco: Every Day Cigarettes 0.5 51.4 Started: 1972 Passive Smoke Exposure: Current Smokeless Tobacco: Never Comments:5-10 cigarettes a d ay Last smoked 02/24/23 AM Alcohol Use Standard Drinks/Week Comments Not Currently 0 (1 standard drink = 0.6 oz pur e alcohol) OASIS D0700: Social Isolation Answer Da te Recorded Frequency of experiencing loneliness or isolatio n Never 06/03/2024 OASIS A1250: Transportation Answer Date Recorded Lack of Transportation (Medical) No 06/03/2024 Lack of Transportation (Non-Medical) No 06/03/2024 Patient Unable or Declines to Respond No 06/03/2024 OASIS B1300: Health Literacy Answer Imer e Recorded Frequency of needing help to read materials from doctor or pharmacy Never 06/03/2024 [facility] Utilities Answer Date Recorded In the past 12 months has e Medic Trace, gas, oil, or water Site[employer] threatened to shut off services in your home? No 04/02/2024 Humiliation, Afraid, Rape, and Kick questionnair e Answer Date Recorded Within the last year, have y ou been afraid of your partner or ex-partner? No 04/02/2024 Within the last year, have y ou been humiliated or emotionally abused in other ways by your partner or ex-partner? No Within the last year, have y ou been kicked, hit, slapped, or otherwise physically hurt by your partner or ex-partner? No 04/02/2024 Within the last year, have y ou been raped or forced to have any kind of sexual activity by your partner or ex-partner? No 04/02/2024 Social Connection and Isolat ion Panel [NHANES] Answer Date Recorded In a typical week, how many times do you talk on the phone with family, friends, or neighbors? Never 04/02/2024 How often do you get togethe r with friends or relatives? More than three times a week 04/02/2024 How often do you attend chur ch or mandaen services? More than 4 times per year 04/02/2024 Do you belong to any clubs o r organizations such as jehovah's witness groups, unions, fraternal or athletic groups, or school groups? No 04/02/2024 How often do you attend meet ings of the clubs or organizations you belong to? Never 04/02/2024 Are you , , di vorced, , never , or living with a partner? 04/02/2024 AUDIT-C Answer Date Recorded Q1: How often do you have a drink containing alcohol? Never 04/30/2024 Q2: How many drinks containi ng alcohol do you have on a typical day when you are drinking? Patient does not drink Q3: How often do you have si x or more drinks on one occasion? Never 04/30/2024 Overall Financial Resource Strain (CARDIA) Answe r Date Recorded How hard is it for you to pa y for the very basics like food, housing, medical care, and heating? Not hard at all 04/02/2024 [facility] of Occupat ional Health - Occupational Stress Questionnaire Answer Date Recorded Do you feel stress - tense, restless, nervous, or anxious, or unable to sleep at night because your mind is troubled all the time - these days? Not at all 04/02/2024 Exercise Vital Sign Answer Date Recorde d On average, how many days pe r week do you engage in moderate to strenuous exercise (like a brisk walk)? Patient declined On average, how many minutes do you engage in exercise at this level? 0 min 04/02/2024 Hunger Vital Sign Answer Date Recorded Within the past 12 months, y ou worried that your food would run out before you got the money to buy more. Never true 04/02/19 25 Within the past 12 months, t he food you bought just didn't last and you didn't have money to get more. Never true 04/02/2024 PRAPARE - Transportation Answer Date Re corded In the past 12 months, has l ack of transportation kept you from medical appointments or from getting medications? No 03/14 In the past 12 months, has l ack of transportation kept you from meetings, work, or from getting things needed for daily living? No 04/02/2024 Housing Stability Vital Sign Answer Imer e Recorded In the last 12 months, was t here a time when you were not able to pay the mortgage or rent on time? No 04/02/2024 In the past 12 months, how m any times have you moved where you were living? 0 04/02/2024 At any time in the past 12 m [facility], were you homeless or living in a halfway (including now)? No 04/02/2024 Personal Safety Answer Date Recorded Have you ever been in or are you currently in a harmful physical or emotional relationship or is someone making you feel afraid or unsafe? 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 Gender Identity Not on file Sexual Orientation Not on file documented as of this encounter Last Filed Vital Signs Vital Sign Reading Time Taken Comments Blood Pressure 142/80 07/19/2024 11:07 AM CDT Pulse 73 07/19/2024 11:07 AM CDT Temperature - - Respiratory Rate - - Oxygen Saturation 98% 07/19/2024 11: 07 AM CDT Inhaled Oxygen Concentration - - Weight 97.5 kg (214 lb 14.4 oz) 025 11:07 AM CDT Height 172.7 cm (5' 8) 07/19/2024 11:0 7 AM CDT Body Mass Index 32.68 07/19/2024 11:07 AM CDT documented in this encounter Progress Notes * Franck Arellano MD - 07/19/2024 11:00 AM CDT [facility] FO[facility] 07/19/2024 Eli Frazier is a 69 y.o. female who presents for follow up of coronary artery disease and AV node dysfunction. This is a patient with a previous history of hypertension, peripheral vascular disease, smoking, metastatic renal cell cancer and pulmonary embolism. I saw her in consultation at [facility] in July of 2021 with some chest pain. Catheterization was done which demonstrated total occlusion of the posterolateral branch of her RCA. PCI of this was attempted which was unsuccessful. She had no other significant or flow- limiting coronary disease. She did have some second-degree AV block in the hospital which was asymptomatic for that reason pacemaker implantation was not recommended but also for that reason she is not on a beta-peiter. She presents today for six-month follow-up appointment. The patient continues of course to follow with her oncologist as well regarding her renal cell carcinoma. She has no cardiovascular symptoms orconcerns. She has had significant difficulty with her health the 1st part of this year related to a fracture in a ebony that was in her back. She had a series of back operations over at [facility] because of some poor wound healing. This was contributed to by her maintenance medications for her renal cancer. She was taken off of some of her medication to allow for wound healing. Specifically check point inhibitor therapy was stopped. She has lost about 35 lb since her last visit here. REVIEW OF SYSTEMS General ROS: negative for - chills, fatigue, fever, malaise, night sweats, weight gain or weight loss Psychological ROS: negative for - anxiety, depression, memory difficulties or sleep disturbances Ophthalmic ROS: negative for - blurry vision, decreased vision, loss of vision or scotomata ENT ROS: negative for - epistaxis, headaches, hearing change, nasal congestion, nasal discharge, sore throat, vertigo or visual changes Hematological and Lymphatic ROS: negative for - bleeding problems, blood clots, bruising, fatigue or weight loss Endocrine ROS: negative for - hot flashes, palpitations, polydipsia/polyuria or unexpected weight changes Respiratory ROS: negative for - cough, hemoptysis, orthopnea, shortness of breath, tachypnea or wheezing Cardiovascular ROS: negative for - chest pain, dyspnea on exertion, edema, irregular heartbeat, loss of consciousness, murmur, orthopnea, palpitations, paroxysmal nocturnal dyspnea, rapid heart rate or shortness of breath Gastrointestinal ROS: negative for - abdominal pain, appetite loss, blood in stools, constipation, diarrhea, gas/bloating, heartburn, hematemesis, melena or nausea/vomiting Genito-Urinary ROS: negative for - dysuria, erectile dysfunction or hematuria Musculoskeletal ROS: negative for - joint pain, muscle pain or muscular weakness Dermatological ROS: negative for dry skin, eczema, pruritus and rash HOME MEDICATIONS Current Outpatient Medications: acetaminophen (TYLENOL) 500 mg tablet, Take 2 tablets (1,000 mg total) by mouth every 6 (six) hoursas needed for pain, Disp: , Rfl: amLODIPine (NORVASC) 5 mg tablet, Take 1 tablet (5 mg total) by mouth every morning, Disp: , Rfl: aspirin 81 mg enteric coated tablet, Take 1 tablet (81 mg total) by mouth daily Do not restart until you have completed 30 days of lovenox injections- 04/03/24, Disp: , Rfl: cabozantinib s-malate (CABOMETYX ORAL), Take by mouth, Disp: , Rfl: cholecalciferol (VITAMIN D-3) 2000 unit capsule, Take 1 capsule (2,000 Units total) by mouth every morning, Disp: , Rfl: cyanocobalamin (Vitamin B-12) 2,000 mcg tablet, Take 1 tablet by mouth nightly , Disp: , Rfl: Eliquis 5 mg tablet, TAKE 1 TABLET(5 MG) BY MOUTH DAILY, Disp: 30 tablet, Rfl: 0 famotidine (PEPCID) 20 mg tablet, Take 1 tablet (20 mg total) by mouth daily as needed for heartburn, Disp: , Rfl: fluconazole (DIFLUCAN) 150 mg tablet, , Disp: , Rfl: FOLIC ACID ORAL, Take 1,333 mcg by mouth nightly , Disp: , Rfl: gabapentin (NEURONTIN) 100 mg capsule, Take 100 mg by mouth 2 (two) times a day. Indications: neuropathic pain, Disp: , Rfl: irbesartan (AVAPRO) 150 mg tablet, Take 1 tablet (150 mg total) by mouth every morning, Disp: , Rfl: levothyroxine (SYNTHROID, LEVOTHROID) 175 mcg tablet, Take 1 tablet (175 mcg total) by mouth early childhood coordinator before breakfast, Disp: , Rfl: ondansetron ODT (ZOFRAN-ODT) 4 mg disintegrating tablet, Take 1 tablet (4 mg total) by mouth every 8 (eight) hours as needed for nausea or vomiting, Disp: 20 tablet, Rfl: [address] (PROTONIX) 40 mg EC tablet, Take 1 tablet (40 mg total) by mouth daily, Disp: , Rfl: rosuvastatin (CRESTOR) 20 mg tablet, TAKE 1 TABLET(20 MG) BY MOUTH DAILY, Disp: 90 tablet, Rfl: 0 senna (SENOKOT) 8.6 mg tablet, Take 1 tablet by mouth daily as needed for constipation, Disp: , Rfl: cyclobenzaprine (FLEXERIL) 5 mg tablet, TAKE 1 TABLET(5 MG) BY MOUTH THREE TIMES DAILY NEEDED FOR MUSCLE SPASMS (Patient not taking: Reported on 07/19/2024), Disp: 60 tablet, Rfl: 0 gabapentin (NEURONTIN) 100 mg capsule, Take 1 capsule (100 mg total) by mouth every 8 (eight) hours, Disp: 90 capsule, Rfl: 0 multivitamin with folic acid 400 mcg tablet, Take 1 tablet by mouth daily, Disp: 30 tablet, Rfl: 11 oxyCODONE (ROXICODONE) 5 mg immediate release tablet, Take 1 tablet (5 mg total) by mouth every 6 (six) hours as needed for pain (severe pain 7-10), Disp: 8 tablet, Rfl: 0 oxyCODONE (ROXICODONE) 5 mg immediate release tablet, Take 5 mg by mouth every 6 (six) hours as needed for pain (severe pain 7-10). Indications: pain, Disp: , Rfl: polyethylene glycol (MIRALAX) 17 gram/dose bulk powder, Take 17 g by mouth daily for 7 days, Disp: 119 g, Rfl: 0 LABS AND OTHER DIAGNOSTIC TESTS No results found for: CHOL No results found for: HDL No results found for: LDLCALC Lab Results Component Value Date TRIG 139 05/12/2020 TRIG 88 05/12/2020 TRIG 125 07/03/2018 No results found for: CHOLHDL Lab Results Component Value Date WBC 6.53 05/18/2024 HGB 12.1 05/18/2024 HCT 37.4 05/18/2024 MCV 94.5 05/18/2024 No lab exists for component: LABALBU PHYSICAL EXAM Vitals BP 142/80 (BP Location: Left arm, Patient Position: Sitting) Pulse 73 Ht 172.7 cm (5' 8) Wt 97.5 kg (214 lb 14.4 oz) SpO2 98% BMI 32.68 kg/m?? Physical Examination: General appearance - alert, well appearing, and in no distress, oriented to person, place, and time and acyanotic, in no respiratory distress Mental status - affect appropriate to mood Eyes - extraocular eye movements intact, sclera anicteric, no pallor Ears - external earsappear normal, hearing grossly normal bilaterally Nose - normal and patent, no erythema or discharge Mouth - mucous membranes moist, pharynx appears normal, dental hygiene good and tongue normal Neck - supple, no significant neck masses, carotids upstroke normal bilaterally, no bruits, no JVD Chest - clear to auscultation, no wheezes, rales or rhonchi, symmetric air entry, no tachypnea, retractions or cyanosis Heart - normal rate, regular rhythm, normal S1, S2, no murmurs, rubs, clicks or gallops, no JVD Abdomen - soft, nontender, nondistended, no masses or organomegaly bowel sounds normal Neurological - alert, oriented, normal speech, no focal findings or movement disorder noted Musculoskeletal - no joint tenderness, deformity or swelling, no muscular tenderness noted Extremities - peripheral pulses normal, no pedal edema, no clubbing or cyanosis Skin - normal coloration and turgor, no rashes, no suspicious skin lesions noted ASSESSMENT Eli was seen today for coronary artery disease. Diagnoses and all orders for this visit: Hypertension, unspecified type - POCT lipid panel Coronary artery disease involving [place] coronary artery of [place] heart without angina pectoris AV node dysfunction PLAN/RECOMMENDATIONS Continue current medical regimen and I will see her at 6 month intervals. Very complicated general medical condition with her metastatic renal cell cancer and recent surgerynecessitating withdrawal of some of her maintenance medication. Franck Arellano MD documented in this encounter Plan of Treatment Not on file documented as of this encounter Procedures Procedure Name Priority Date/Time Associated Diagnosis Comments POCT LIPID PANEL Routine 07/19/2024 11:1 3 AM CDT Hypertension, unspecified type documented in this encounter Results * (ABNORMAL) POCT lipid panel (07/19/2024 11:13 AM CDT) Cholesterol, POC 100 <200 MG/DL Comment:GLU = 137 HDL, POC 31(A) >=40 mg/dL Triglycerides, POC 124 <=149 mg/dL LDL Cholesterol POC 44 <=129 mg/dL Cholesterol Total, POC 100 30 - 199 mg/dL Capillary blood 07/19/2024 1 1:13 AM CDT us Franck Arellano MD POINT OF CARE TEST ORDER VANI Final Result documented in this encounter Visit Diagnoses Diagnosis Hypertension, unspecified type- Primary Coronary artery disease involving [place] coronary artery of [place] heart without angina pectoris AV node dysfunction documented in this encounter Discontinued Medications Medication Sig Discontinue Reason Start Date End Da te Cabometyx 20 mg tabletIndications:renal cell carcinoma Take 1 tablet (20 mg total) by mouth daily Take on an empty stomach. Take 1 hour before a meal or 2 hours after. Take with full glass of water. 05/18/2024 07/19/2024 documented as of this encounter Historical Medications * This list may reflect changes made after this encounter. cabozantinib s-malate (CABOMETYX ORAL) Take by mouth added in this encounter Care Teams Research Instrumentation Technician Relationship Specialty Start Date End Date Juan Muñoz MD [address] [address] PCP - General Family Medicine 05/15/23 Brendan Thornton MD Referring Physician Transplant 06/01/18 Jorge Novak MD [address] [facility] [address] [place] [address] Medical Oncologist/Hub [facility] Medical Oncology 06/01/18 Lawson Montgomery MD [address] [place] [address] Radiation Oncologist Radiation Oncology 06/13/20 Sangeeta Christian MD [address] [facility] DEPT [place] [id number] Surgeon Oculoplastics Ophthalmology 04/05/22 Franck Arellano MD [address] [place] [address] Consulting Physician Cardiology 05/15/23 Joe Basurto MD [address] [facility] [address] [place] [address] Consulting Physician Orthopedic Surgery 05/15/23 documented as of this encounter
--- OUTSIDE RECORDS SUMMARY | 2024-07-20 12:56 | XMS_ITS | CONTINUITY OF CARE DOCUMENT ---
Author Name chidi, chidi Address Unknown Organization [facility] Address [address] [place] [address] Phone [phone] Care Team Providers Care Fishing Rod Marker Name Role Phone Richard VALERIO, Cedric Unavailable UYEN MAR MD Unavailable [phone] UYEN MRA MD Unavailable [phone] PROBLEMS Condition Status Date Provider Notes Family History of Hypertension: active ? Scooby Ramos MD Hypertension active Cedric Ramos MD Edema active Cedric Ramos MD Leg pain, bilateral active Cedric Ramos MD Renal cell carcinoma, right kidney active Dorina Ramos MD Tobacco abuse active Cedric Ramos MD FAMILY HISTORY OF HEART DISEASE active Scooby Ramos MD Sleep apnea active Cedric Ramos MD Peripheral Vascular Disease active Cedric corbin MD Cardiovascular screening active Cedric grewal MD ENCOUNTERS Date Type Provider Location Encounter Diag nosis - In-person encounter Office Visit Cedric Ramos MD [facility] - In-person encounter Office Visit Cedric Ramos MD [facility] - In-person encounter Office Visit Cedric Ramos MD [facility] - In-person encounter Office Visit Cedric Ramos MD [facility] - In-person encounter Office Visit Cedric Ramos MD [facility] - In-person encounter Office Visit Cedric Ramos MD [facility] Cardiovascular screening - In-person encounter Office Visit Cedric Ramos MD [facility] - In-person encounter Office Visit Cedric Ramos MD [facility] - In-person encounter Office Visit Cedric Ramos MD [facility] Peripheral Vascular Disease - In-person encounter Office Visit Cedric Ramos MD [facility] Family History of Hypertension:Hypertens ionEdemaLeg pain, bilateralRenal cell carcinoma, right kidneyTobacco abuseFAMILY HISTORY OF HEART DISEASESleep apnea VITAL SIGNS Date Observation Value Provider Body Mass Index (Ratio) 34.57 kg/m2 Scooby Ramos MD blood pressure, diastolic 90 mm[Hg] Stacey nkLogernie blood pressure, systolic 154 mm[Hg] Corine Licea blood pressure, diastolic 90 mm[Hg] Gomez Felder blood pressure, systolic 154 mm[Hg] iDa Felder oxygen saturation, oximetry 96 % Dakota Felder respiratory rate E&M 16 /min Mini Felder pulse rate 76 /min Dakota che weight E&M 227.4 [lb_av] Dakota lo height E&M 68 [in_i] Dakota Sky yane Body Mass Index (Ratio) 33.90 kg/m2 Scooby Ramos MD blood pressure, diastolic 80 mm[Hg] Sh juan carlos Cheema blood pressure, systolic 150 mm[Hg] She hung Cheema oxygen saturation, oximetry 100 % Nelly Cheema pulse rate 80 /min Nelly johnson respiratory rate E&M 18 /min Aly Cheema weight E&M 223 [lb_av] Nelly johnson height E&M 68 [in_i] Nelly johnson Body Mass Index (Ratio) 37.55 kg/m2 Scooby Ramos MD blood pressure, cuff size large Ke rri Gruenenfelder blood pressure, diastolic 66 mm[Hg] Ke rri Jeanuenenfelder blood pressure, systolic 94 mm[Hg] Ker ri [facility] oxygen saturation, oximetry 98 % Bertha Geovanni respiratory rate E&M 18 /min Bertha loza pulse rate 89 /min Bertha Rehannenfe er weight E&M 247 [lb_av] Bertha Gruenenfe er height E&M 68 [in_i] Bertha Jeanuenenfe [facility] Body Mass Index (Ratio) 39.83 kg/m2 Scooby Ramos MD blood pressure, diastolic 76 mm[Hg] Cy ruma Lewis blood pressure, systolic 131 mm[Hg] Tomeka susan Lewis pulse rate 87 /min Jackelyn Phucbel l oxygen saturation, oximetry 98 % Jackelyn Lewis respiratory rate E&M 16 /min Jackelyn Lewis weight E&M 262 [lb_av] Jackelyn Campbel l blood pressure, cuff size regular Cy ntdallin Lewis height E&M 68 [in_i] Jackelyn Campbel l Body Mass Index (Ratio) 41.50 kg/m2 Scooby Ramos MD blood pressure, diastolic 99 mm[Hg] Gomez Felder blood pressure, systolic 171 mm[Hg] Dia Felder oxygen saturation, oximetry 94 % Dakota Felder respiratory rate E&M 18 /min Mini Felder pulse rate 84 /min Dakota che weight E&M 273 [lb_av] Dakota che height E&M 68 [in_i] Dakota che temperature site temporal Arlyn Tank sley temperature E&M 96.8 [degF] Arlyn Tanks abdoulaye Body Mass Index (Ratio) 39.98 kg/m2 Scooby Ramos MD blood pressure, diastolic 64 mm[Hg] Nitesh Lindsay blood pressure, systolic 118 mm[Hg] Jessie an Lindsay blood pressure, resting Yes Dylan Lindsay oxygen saturation, oximetry 98 % Sally Lindsay pulse rate 100 /min Sally Montoya weight E&M 263 [lb_av] Sally Montoya height E&M 68 [in_i] Sally Montoya Body Mass Index (Ratio) 41.66 kg/m2 Scooby Ramos MD blood pressure, cuff size large Ke rri Geovanni blood pressure, diastolic 90 mm[Hg] Ke rri Geovanni blood pressure, systolic 132 mm[Hg] Ángel Galarza oxygen saturation, oximetry 96 % Bertha Galarza respiratory rate E&M 20 /min Bertha loza pulse rate 86 /min Bertha Govea lder weight E&M 274 [lb_av] Bertha Govea lder height E&M 68 [in_i] Bertha Govea chad Body Mass Index (Ratio) 41.96 kg/m2 Scooby Ramos MD blood pressure, cuff size large Lynn Craig blood pressure, diastolic 80 mm[Hg] Lynn Craig blood pressure, systolic 112 mm[Hg] Lexis romeo Craig oxygen saturation, oximetry 96 % Vinita Craig respiratory rate E&M 16 /min Vinita Craig pulse rate 84 /min Vinita Craig weight E&M 276 [lb_av] Vinita Rafa height E&M 68 [in_i] Vinita Craig Body Mass Index (Ratio) 42.84 kg/m2 Scooby Ramos MD blood pressure, diastolic 82 mm[Hg] Gomez Felder blood pressure, systolic 131 mm[Hg] Dia Felder oxygen saturation, oximetry 97 % Dakota Felder respiratory rate E&M 18 /min Mini Felder pulse rate 88 /min Dakota che weight E&M 281.8 [lb_av] Dakota Misael wally height E&M 68 [in_i] Dakota che Body Mass Index (Ratio) 42.72 kg/m2 Scooby Ramos MD blood pressure, diastolic 84 mm[Hg] Da vanna Radha blood pressure, systolic 162 mm[Hg] Dac ia Radha oxygen saturation, oximetry 97 % Megha Radha respiratory rate E&M 20 /min Megha V oss pulse rate 87 /min Megha Radha weight E&M 281 [lb_av] Megha Radha height E&M 68 [in_i] Megha Radha ALLERGIES Allergy Name Onset Date Reaction Criticality Status CT DYE nausea nausea Low Criticality active RESULTS Date Observation Value Provider Reference Range Interpretation Location very low density lipoproteins 43.6 mg/dL [facility] 5.0 - 40.0 High LDL/HDL (low-density lipoprotein/high-d ensity lipoprotein) ratio 2.8 RATIO [facility] - lipoprotein, beta, serum, point, quantitative, calculated 83.4 (?) [facility] 0.0 - 100.0 HDL cholesterol, serum 30.0 mg/dL [facility] 45.0 - 65.0 Low cholesterol, serum 157.0 mg/dL [facility] 0.[facility] - 200.0 triglyceride, serum, fasting 218.0 mg/dL [facility] 0.0 - 150.0 High urea nitrogen/creatinin e ratio, serum 15.0 [facility] - Estimated Glomerular Filtration Rate (calc) 60.1 (?) [facility] 59.0 - chloride, serum 98.6 mmol/L [facility] 98.0 - 107.0 potassium, serum 4.4 mmol/L [facility] 3.5 - 5.1 sodium, serum 141.0 mmol/L [facility] 136.0 - 145.0 creatinine, serum 1.0 mg/dL [facility] 0.5 - 1.0 High carbon dioxide, venous blood 28.0 mmol/L [facility] 23.0 - 31.0 calcium, serum 9.6 mg/dL [facility] 8.6 - 10.2 urea nitrogen, blood 15.0 mg/dL [facility] 8.0 - 23.0 blood glucose, random 89.0 mg/dL [facility] 74.0 - 99.0 red blood cell distribution width, size density 55.8 fL [facility] - immature granulocytes, percentage of total cells, blood 0.2 % [facility] - nucleated red blood cells as percent of blood leukocytes 0.0 % [facility] - 5 red blood cell (erythrocyte) count, per high power field 0.0 10*3/UL [facility] - 5 eosinophils as percent of blood leukocytes 3.5 % [facility] - 5 neutrophils as percent of blood leukocytes 57.8 % [facility] - 5 Absolute Neutrophils 2.8 CELLS/UL [facility] 1.5 - 7.8 5 basophils as percent of blood leukocytes 1.0 % [facility] - 5 Absolute Basophils 0.1 CELLS/UL [facility] 0.0 - 0.2 5 monocytes as percent of blood leukocytes 9.5 % [facility] - 5 Absolute Monocytes 0.5 CELLS/UL [facility] 0.2 - 1.0 5 lymphocytes as percent of blood leukocytes 28.0 % [facility] - 5 Absolute Lymphocytes 1.4 CELLS/UL [facility] 0.9 - 3.9 5 mean platelet volume 11.0 (?) [facility] - 5 platelet count 242.0 THOUSAND/U L [facility] 100.0 - 400.0 5 mean corpuscular hemoglobin concentration, RBC 31.4 G/DL [facility] 31.0 - 38.0 5 mean corpuscular hemoglobin, RBC 31.0 pg [facility] 25.0 - 35.0 mean corpuscular volume, RBC 99.0 fL [facility] 75.0 - 100.0 5 hematocrit, blood 49.1 % [facility] 35.0 - 55.0 5 hemoglobin, blood 15.4 g/dL [facility] 11.5 - 16.5 5 erythrocyte count, whole blood 5.0 MILLION/UL [facility] 3.5 - 5.5 5 prothrombin time (patient) 10.3 s [facility] 9.0 - 11.5 5 international normalized ratio (INR) 0.9 [facility] 0.9 - 1.1 HISTORY OF MEDICATION USE Medication Status Instructions Dates Provider Indications Com ments vitamin U20-exmyb acid 0.5-1 mg tablet active Take 1 tablet by mouth once a day Dakota Felder levothyroxine 75 mcg capsule active Take 1 capsule by mouth once a day Dakota Bradford Senokot 8.6 mg tablet active 1 tablet by mouth once a day Dakota Bradford Vitamin D3 25 mcg (1,000 unit) tablet active Take 1 tablet by mouth once a day Dakota Felder Inlyta active Take 1 tablet by mouth twice a day Dakota Bradford Senokot-S 8.6-50 mg tablet completed - Nelly Cheema Apetex 790 mg/15 mL liquid completed - Nelly Cheema tramadol 50 mg tablet completed - Nelly Cheema Zofran 4 mg tablet completed as needed - Nelly Cheema Eliquis 5 mg tablet active Take 1 twice a day Dakota Felder MEDROL 4 MG ORAL TABLET THERAPY PACK completed Per package instructions - Nelly Cheema KEYTRUDA SOLUTION completed infusion every 6 weeks - Nelly Cheema Inlyta 5 mg tablet completed 1 tablet twic e a - Dakota Felder POTASSIUM CHLORIDE EDVIN ER 20 MEQ ORAL TABLET EXTENDED RELEASE completed ONE TAB. DAILY - Sally Lindsay aspirin 81 mg tablet,delayed release (/EC) active every other day Dakota Felder CLOPIDOGREL 75MG TABLETS completed TAKE 1 TABLET BY MOUTH ONCE DAILY - Nelly Cheema PEPCID 20 MG ORAL TABLET completed one tab night before the procedure and one tab the morning of the procedure - Vinita Craig DIPHENHYDRAMINE HCL 50 MG ORAL CAPSULE completed one tab the morning of procedure - Vinita Craig PREDNISONE 50 MG ORAL TABLET completed one tab the evening before procedure with dinner, one tab at bedtime, one tab the morning of procedure - Vinita Craig LEVO-T 50 MCG ORAL TABLET completed Take 1 tablet once a day - Dakota Felder Hyzaar 100-25 mg tablet completed Take 1 tablet once a day - Megha Garcia amlodipine 10 mg tablet completed Take 1 tablet once a day - Megha Garcia SOCIAL HISTORY Date Observation Value Provider social history E&M Marital Statu s: 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 P atient has been counseled to quit. 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 P atient has been counseled to quit. 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 P atient has been counseled to quit. 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 P atient has been counseled to quit. 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 P atient has been counseled to quit. 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 P atient has been counseled to quit. 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 P atient has been counseled to quit. Cedric Ramos MD social history reviewed E&M revi ewed - no changes required Cedric Ramos MD alcohol use, average drinks per day social Bertha Galarza alcohol use yes Bertha bonilla smoking/tobacco cess ation, patient education and counseling yes Bertha Galarza passive cigarette sm shanika exposure no Bertha Engtobynitesh number of years as a smoker 40 a Bertha Engtobynitesh smoking history, tot al pack/day 1/2 Bertha Engtobynitesh cigarette use yes Bertha magaña smoking status Current every day smoker Gennaro Engtobynitesh social history reviewed E&M revi ewed - no changes required Cedric Ramos MD alcohol use, average drinks per day social Vinita Craig alcohol use yes Vinita Rafa smoking/tobacco cess ation, patient education and counseling yes Vinita Craig passive cigarette sm shanika exposure no Vinita Craig number of years as a smoker 40 a Vinita Craig smoking history, tot al pack/day 1/2 Vinita Craig cigarette use yes Vinita Craig smoking status Current every day smoker L rik Craig social history reviewed E&M revi ewed - no changes required Cedric Ramos MD alcohol use yes Dakota che smoking/tobacco cess ation, patient education and counseling yes Dakota Felder passive cigarette sm shanika exposure no Dakota Felder number of years as a smoker 40 a Dakota Felder smoking history, tot al pack/day 1/2 Dakota Felder cigarette use yes Dakota lo smoking status Current every day smoker Cody Felder alcohol use yes Cedric Tavarez passive cigarette sm shanika exposure no Cedric Ramos MD smoking/tobacco cess ation, patient education and counseling yes Cedric Ramos MD social history E&M Marital Statu s: C hildren: 2 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 Cedric Ramos MD social history reviewed E&M revi ewed - no changes required Cedric Ramos MD number of years as a smoker 40 a Megha Radha smoking history, tot al pack/day 1/2 Meghaetta Garcia cigarette use yes Meghaetta Garcia smoking status Current every day smoker D acetta Garcia FAMILY HISTORY Family Member Condition Full Sister Family History of Co ngestive Heart Failure: Mother Family History of Hy pertension: INSURANCE PROVIDERS Payer name Policy type / Coverage type Dre red alliance party ID [facility] Medicaid 2 [id number] ADVANCE DIRECTIVES Name Date DISCUSSED - NO DECISION MADE TREATMENT PLAN Date Name Performer [id number],T he patient is using CPAP on a regular basis. The patient has been benefiting from therapy and should continue use. Cedric Ramos MD [id number],S, Cedric sanz MD [id number],S, Cedric sanz MD [id number],S, Cedric sanz MD [id number],S, Cedric sanz MD Cardiology:The patie nt is using CPAP on a regular basis. The patient has been benefiting from therapy and should continue use. Cedric Ramos MD Cardiology Cedric Ramos MD Cardiology Cedric Ramos MD Cardiology Cedric Ramos MD Cardiology Cedric Ramos MD Cardiology Cedric Ramos MD Cardiology:The patie nt is using CPAP on a regular basis. The patient has been benefiting from therapy and should continue use. Cedric Ramos MD Cardiology Cedric Ramos MD Cardiology Cedric Ramos MD Cardiology Cedric Ramos MD Cardiology Follow up Cedric grewal MD Cardiology Follow up Cedric grewal MD Cardiology Follow up Cedric grewal MD Cardiology Follow up Cedric grewal MD Cardiology Follow up :[place]. Will give medrol dose mary kate. Cedric Ramos MD Cardiology follow up Cedric grewal MD Cardiology follow up Cedric grewal MD Cardiology follow up Cedric grewal MD Cardiology follow up Cedric grewal MD Cardiology follow up Cedric grewal MD Cardiology Cedric Ramos MD Cardiology Cedric Ramos MD Cardiology:The patie nt is using CPAP on a regular basis. The patient has been benefiting from therapy and should continue use. Cedric Ramos MD Cardiology:Now with cancer on le ft. Cedric Ramos MD Cardiology Cedric Ramos MD Cardiology Cedric Ramos MD Cardiology Cedric Ramos MD Cardiology Cedric Ramos MD Cardiology Cedric Ramos MD Cardiology Cedric Ramos MD Cardiology Cedric Ramos MD Cardiology Follow up Cedric grewal MD Cardiology Follow up Cedric grewal MD Cardiology Follow up Cedric grewal MD Cardiology Follow up Cedric grewal MD Cardiology Follow up Cedric grewal MD Cardiology Follow up Cedric grewal MD Cardiology Hospital Follow up Ra merna Ramos MD Cardiology Hospital Follow up Ra merna Ramos MD Cardiology Hospital Follow up Ra merna Ramos MD [facility] Hospital Follow up Ra merna Ramos MD [facility]iology Hospital Follow up Ra merna Ramos MD Cardiology Cedric Ramos MD Cardiology Cedric Ramos MD Cardiology:Needs AIF. L SFA dise ase by LAURA Cedric Ramos MD Cardiology Cedric Ramos MD Cardiology new patient Cedric wills MD Cardiology new patient Cedric wills MD Cardiology new patient Cedric wills MD Cardiology new patient Cedric wills MD Cardiology new patient Cedric wills MD Date Name Arterial Duplex Bi-L ower EX PROTHROMBIN TIME WIT H INR CBC (INCLUDES DIFF/P LT) LIPID PANEL BASIC METABOLIC PANE L W/EGFR AIF - GC STR - Adenosine Complete Echo Venous Doppler Bilat eral LE Arterial Duplex Bi-L ower EX HISTORY OF PROCEDURES Procedure Date Procedure Name Provider Procedure Notes S tatus EKG Cedric Ramos MD complete d EKG Cedric Ramos MD complete d EKG Cedric Ramos MD complete d EKG Cedric Ramos MD complete d SNOMED-CT: [id number] Current Medications Documented Cedric Ramos MD completed SNOMED-CT: [id number] Current Medications Documented Cedric Ramos MD completed Stress EKG True Cortés MD completed Regadenoson, 4 units Cedric Ramos MD completed Cardiolite, 2 units Cedric Ramos MD completed SPECT Images Gordon Alvarado MD completed EKG Cedric Ramos MD complete d SNOMED-CT: [id number] Current Medications Documented Cedric Ramos MD completed
--- OUTSIDE RECORDS SUMMARY | 2024-07-20 12:56 | XMS_ITS | Encounter Summary ---
Author Organization [facility] Healthcare Address [address] [place] [address] Care Team Providers Care Histotechnician Name Role Phone Brendan Thornton MD Unavailable [phone] Jorge Novak MD Unavailable Kevin Kramer MD Primary Care Provider + [phone] Kevin Kramer MD Primary Care Provider + [phone] Elena Graham RN Unavailable [phone] Juan Muñoz MD Primary Care Provider [phone] Lawson Montgomery MD Unavailable No, Physician Primary Care Provider [phone] Juan Muñoz MD Primary Care Provider [phone] Sangeeta Christian MD Unavailable [phone] Joe Basurto MD Primary Care Provid er Juan Muñoz MD Primary Care Provider [phone] Franck Arellano MD Unavailable [phone] Joe Basurto MD Unavailable + [phone] Encounter Details Date Type Department Care Team (Late st Contact Info) Description 05/12/2020 Documentation [facility] Respiratory [address] [place] [address] 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 More than three times a week 05/15/2020 How often do you get togethe r with friends or relatives? More than three times a week 05/15/2020 Attends [employer] Services Not on file 05/15 Active Member of Clubs or Organizations Not on f ile 05/15/2020 Attends Club or Organization Meetings Not on cathryn e 05/15/2020 Are you , , di vorced, , never , or living with a partner? 05/15/2020 Overall Financial Resource Strain (CARDIA) Answe r Date Recorded How hard is it for you to pa y for the very basics like food, housing, medical care, and heating? Not hard at all 05/15/2020 PRAPARE - Transportation Answer Date Re corded In the past 12 months, has l ack of transportation kept you from medical appointments or from getting medications? No 06/2020 In the past 12 months, has l ack of transportation kept you from meetings, work, or from getting things needed for daily living? No 05/15/2020 Comments No Sex and Gender Information Value Date Recorded Sex Assigned at Not on file Legal Sex Female 6:17 AM [employer] Gender Identity Not on file Sexual Orientation Not on file documented as of this encounter Last Filed Vital Signs Vital Sign Reading Time Taken Comments Blood Pressure - - Pulse 69 05/12/2020 6:25 PM CDT Temperature - - Respiratory Rate - - Oxygen Saturation 100% 05/12/2020 6:25 PM CDT Inhaled Oxygen Concentration - - Weight - - Height - - Body Mass Index - - documented in this encounter Plan of Treatment Not on file documented as of this encounter Visit Diagnoses Not on filedocumented in this encounter Additional Health Concerns Infection Onset Date Last Indicated Resolved Time COVID: Suspected 06/27/2020 06/27/2020 06/27/2020 8:32 PM CDT Ring Surveillance Comment:Percy cesar [id number] 04/06/2024 04/06/2024 04/13/2024 3:06 AM [employer] documented as of this encounter Care Teams Histotechnician Relationship Specialty Start Date End Date Kevin Kramer MD [address] [place] [address] PCP - General 05/14/20 05/24/20 Kevin Kramer MD [address] [facility] [place] [address] PCP - General 05/12/20 05/13/20 Juan Muñoz MD [address] [address] PCP - General 05/25/20 01/21/21 No, Physician PCP - General 07/24/21 09/02/21 Juan Muñoz MD [address] [address] PCP - General Family Medicine 09/03/21 03/31/23 Joe Basurto MD [address] [address] PCP - General Orthopedic Surgery 04/01/23 05/14/23 Juan Muñoz MD [address] [address] PCP - General Family Medicine 05/15/23 Brendan Thornton MD Referring Physician Transplant 06/01/18 Jorge Novak MD [address] [facility] [address] [place] [address] Medical Oncologist/Hematologis t Medical Oncology 06/01/18 Elena Graham, RN [address] [facility] [address] [place] [address] SHOP Outpatient Single Corner Cutter 05/18/20 05/18/20 Lawson Montgomery MD [address] [facility] [address] [place] [address] Radiation Oncologist Radiation Oncology 06/13/20 Sangeeta Christian MD [address] [facility] [place] [id number] Surgeon Oculoplastics Ophthalmology 04/05/22 Franck Arellano MD [address] [facility] [address] [place] [address] Consulting Physician Cardiology 05/15/23 Joe Basurto MD [address] [facility] [address] [place] [address] Consulting Physician Orthopedic Surgery 05/15/23 documented as of this encounter
--- OUTSIDE RECORDS SUMMARY | 2024-07-20 12:56 | XMS_ITS ---
Author Organization [facility] Address [address] [place] [address] Care Team Providers Care Catcher Plug Name Role Phone Brendan Thornton MD Unavailable [phone] Jorge Novak MD Unavailable Lawson Montgomery MD Unavailable Sangeeta Christian MD Unavailable [phone] Juan Muñoz MD Primary Care Provider [phone] Franck Arellano MD Unavailable [phone] Joe Basurto MD Unavailable [phone] Active Problems Problem Noted Date Diagnosed Date Postoperative infection, initial encounter 04/01 Wound dehiscence 04/01/2024 Assessment & Plan (04/05/2024 12:14 PM COAGULANT DIPPER): Eli Frazier is a 69 y.o. female with a PMH of metastatic RCC with spinal metastases s/p R nephrectomy, L partial nephrectomy and radiation (2013) on oral chemo until 02/10/24 and s/p revision PSIF T7-L1, laminectomy for tumor at T8- T10 (05/2020) and bilateral ebony replacement with bone grafting (05/2023) complicated by spinal incision dehiscence since early 01/2024 (~1.5mo). She underwent I&D with Ortho spine on 02/25/24 where no ron purulence or signs of infection were encountered but there was a lot of space and hardware was visible. The tissue and bone were debrided and the exposed hardware was covered by muscle flap. OR cultures positive for MSSA, Trueperella and mixed microorganisms. She was discharged on ceftriaxone and metronidazole with a plan to continue these antibiotics until 04/07/24. She was doing well until Friday (03/30) when she started noticing increased drainage from surgical wound and on 04/01/24 her caregiver noticed wound dehiscence which prompted her to come to [facility] ER. She was seen by Ortho spine and on 04/02 underwent I&D of the wound with wound vac placement. OR findings were notable for very fragile skin and there was no ron purulence. I&D was performed until muscle and no hardware was visible. OR cultures were obtained and so far ngtd. ID was consulted for antibiotic recommendations. Admission ESR was 74 (85 on 03/15) and CRP was 58.9 (90.6 on 03/15). Post-operatively she was started in vancomycin cefepime and metronidazole, changed back to ceftriaxone and metronidazole on 04/03/24. Considering the lack of signs of infection in OR, down trending inflammatory markers and no systemic symptoms, the wound dehiscence is most likely related to poor tissue healing from radiation. She is scheduled for flap on Friday (04/06). Recommending to continue planned 6 week (02/24/14-04/07/24) treatment with IV ceftriaxone and PO metronidazole then start suppression with doxycycline- with plan to suppress for 3-6 months (05/25/24-08/24/24). Prior to stopping suppression would discuss risks/benefits with patient and surgical team (Dr. Basurto). Recommendations: - Continue ceftriaxone 2gm IV q24hr and metronidazole 500mg PO BID through 04/07/24, then start doxycycline 100mg PO BID for suppression - Considering the lack of signs of infection in OR, down trending inflammatory markers and no systemic symptoms, the wound dehiscence is most likely related to poor tissue healing from radiation. She is scheduled for flap on Friday (04/06) - While on IV ceftriaxone, monitor CBC and CMP's - ID is formally signing off but will continue to monitor patient peripherally while inpatient. Please see sign off note from 2/24/25 for complete recommendations. Vertebral osteomyelitis, acute 03/23/2024 Assessment & Plan (04/29/2024 12:46 PM CDT): Now s/p I&D 02/25/24 where no ron purulence or signs of infection were encountered but there was a lot of space and hardware was visible. The tissue and bone were debrided and the exposed hardware was covered by muscle flap. OR cultures grew MSSA, Trueperella and mixed microorganisms. She was discharged on ceftriaxone and metronidazole with a plan to continue these antibiotics until 04/07/24 prior to chronic PO suppression. She developed increased drainage followed by wound dehiscence prompting her to go to [facility] ED, now s/p I&D with incisional wound vac placement. OR findings were notable for very fragile skin and there was no ron purulence. I&D was performed until muscle and no hardware was visible. OR cultures so far ngtd. Admission ESR was 74 (85 on 03/15/24) and CRP was 58.9 (90.6 on 03/15/24). Post-operatively she was started in vancomycin cefepime and metronidazole, changed back to ceftriaxone and metronidazole on 04/03/24. Considering the lack of signs of infection in OR, down trending inflammatory markers and no systemic symptoms, the wound dehiscence is most likely related to poor tissue healing from radiation.Now s/p flap coverage 04/06/24. She is overall clinically doing well with exception of mid/distal portion of delayed wound healing. She completed total 5 week course IV CTX + PO metronidazole (EOT 04/07/24), now on chronic PO suppression with doxycycline, targeting MSSA and Trueperella bernardiae. - per Ortho surgery, will plan on indefinite chronic PO suppression with doxycycline 100 mg PO BID due to high risk revision surgery. - I discussed with the patient my impression, the imaging findings, and treatment plan in detail with a focus on the etiology, natural history, and management of symptoms. - I discussed with the patient the rationale for treatment, culture results, risk of recurrent infection, signs/symptoms of recurrent infection, and to contact ID clinic with any questions or concerns. Assessment & Plan (03/23/2024 11:24 AM COAGULANT DIPPER): She underwent thoracolumbar wound I&D down to bone and muscle, local muscle flap to cover exposed hardware and application of incisional VAC 02/25/24. No ron purulence or signs of infection were encountered but there was a lot of space and hardware was visible. OR cultures positive for MSSA, Trueperella and mixed microorganisms. Planned total 6 week course IV ceftriaxone and PO metronidazole. Trueperella susceptibility performed for cephalosporins, Ceftriaxone susceptible. - continue total 6 week course IV Ceftriaxone 2 g IV Q24 and PO metronidazole 500 mg BID, EOT 04/07/24. - On 04/08/24, transition to Cefpodoxime for chronic PO suppression given retained hardware. - 03/15/24 labs reviewed. - I discussed with the patient my impression, the imaging findings, and treatment plan in detail with a focus on the etiology, natural history, and management of symptoms. - I discussed with the patient the rationale for treatment, culture results, risk of recurrent infection, signs/symptoms of recurrent infection, and to contact ID clinic with any questions or concerns. Post-operative pain 03/17/2024 Moderate protein-calorie malnutrition 02/26/2024 Alteration in skin integrity related to surgical incision 02/25/2024 Wound, open with complication 02/19/2024 Assessment & Plan (03/02/2024 10:59 AM COAGULANT DIPPER): Eli Frazier is a 69 y.o. female with PMHx including metastatic RCC with spinal metastases s/p R nephrectomy, L partial nephrectomy and radiation (2013) on oral chemo until 02/10/24 and s/p revision PSIF T7-L1, laminectomy for tumor at T8- T10 (05/2020) and bilateral ebony replacement with bone grafting (05/2023) who was admitted for drainage from spinal incision dehiscence since early 01/2024 (~1.5mo). She underwent I&D with Ortho Surgery on 02/24 where no ron purulence or signs of infection were encountered but there was a lot of space and hardware was visible. The tissue and bone were debrided and the exposed hardware was covered by muscle flap. OR cultures positive for MSSA, Trueperella and mixed microorganisms. Currently on ceftriaxone and metronidazole. Trueperella susceptibility performed but cephalosporins not tested- microbiology is running additional susceptibility testing which should be back on . Recommending treating thoracic-lumbar spine infection with ceftriaxone and metronidazole for 6 weeks (02/25/24-04/07/24) to be followed with suppression given retained hardware. Suppression to be determined once additional susceptibilities are back. Recommendations: - Continue ceftriaxone 2gm IV q24hr and metronidazole 500mg PO BID - F/up susceptibilities. Anticipate Trueperella will be susceptible to Ceftriaxone - results anticipated on - Monitor for antimicrobial toxicity and for renal/hepatic function that may impact dosing with at least weekly CBC w diff, CMP - ID is formally signing off but will continue to monitor patient peripherally while inpatient. Recommending treating spine infection with ceftriaxone and metronidazole for 6 weeks (02/25/24-04/07/24) to be followed with suppression given retained hardware. Please see sign off note from 03/02 for complete recommendations. Wound drainage 02/19/2024 Encounter for postoperative wound check 01/16/20 24 Fusion of spine of thoracic region 01/16/2024 Muscle relaxation 06/23/2023 History of fusion of lumbar spine 06/02/2023 Prophylactic antibiotic 05/28/2023 [facility] compl of internal fixation device of oth dez lorrie, init 05/18/2023 Coronary artery disease invo lving [place] coronary artery of [place] heart without angina pectoris 09/03/2021 AV node dysfunction 09/03/2021 History of angioplasty 08/07/2021 Dermatochalasis of upper eyelid 04/17/2021 Constipation 12/11/2020 Overview (04/17/2021): Last Assessment & Plan: Condition: stable Follow up in: six months History of right nephrectomy 12/11/2020 Overview (04/17/2021): Last Assessment & Plan: Condition: stable Follow up in: one month with PCP Presence of IVC filter 12/11/2020 Overview (04/17/2021): Last Assessment & Plan: Condition: stable Follow up in: six months Sciatica of right side 12/11/2020 Overview (04/17/2021): Last Assessment & Plan: Condition: stable Follow up in: six months with PCP Sinus pain 12/11/2020 Overview (04/17/2021): Last Assessment & Plan: Condition: stable Follow up in: one month with PCP Stage 3b chronic kidney disease 12/11/2020 Overview (04/17/2021): Last Assessment & Plan: Condition: stable Contains abnormal data eGFR Order: [id number] Component Ref Range & Units 12/07/20 0831 Comments eGFR 90 - 130 mL/min/1.73 m2 39 Low Follow up in: one month Follow-up examination following surgery 11/11/19 21 Fusion of spine of thoracolumbar region 11/11/19 21 Severe malnutrition 06/29/2020 Pulmonary embolism 06/27/2020 Assessment & Plan (06/27/2020 11:12 PM CDT): Ongoing LAYTON for 1 week since stopping post op lovenox ppx. Mild cough with productive white sputum. No KEANU or chest pain. Recently diagnosed with b/l LE DVT on recent admission s/p IVC filter 05/09 due to required operation. Was on prophylactic Lovenox until about [address] C/A/P 06/22 with R subsegmental PE. EKG unremarkable, trop negative -BNP on floor -c/w hep gtt w/o bolus started in ED and approved by Ortho -clarify with ortho AC parameters prior to switch Assessment & Plan (06/27/2020 10:00 PM CDT): Ongoing LAYTON for 1 week since stopping post op lovenox ppx. Mild cough with productive white sputum. No KEANU or chest pain. Post Op CT C/A/P 06/22 with R subsegmental PE. EKG unremarkable, trop negative -BNP on floor -c/w hep gtt w/o bolus started in ED and approved by Ortho -clarify with ortho AC parameters prior to switch Pleural effusion 06/27/2020 Assessment & Plan (06/27/2020 11:12 PM CDT): Ongoing LAYTON for 1 week since stopping post op lovenox ppx. Mild cough with productive white sputum. Large pleural effusion on CT earlier last week but now small on CXR. Likely malignant. -consider thora tomorrow when on floor Assessment & Plan (06/27/2020 10:00 PM CDT): Ongoing LAYTON for 1 week since stopping post op lovenox ppx. Mild cough with productive white sputum. Large pleural effusion on CT earlier last week but now small on CXR. Likely malignant. -consider thora tomorrow when on floor Anemia 06/27/2020 Assessment & Plan (06/27/2020 11:12 PM CDT): Hgb 10.1 on admission. Largely within recent baseline. No prior workup -iron panel, ferritin, b12, folate -CTM Assessment & Plan (06/27/2020 10:04 PM CDT): Hgb 10.1 on admission. Largely within recent baseline. No prior workup -iron panel, ferritin, b12, folate -CTM GILMER (acute kidney injury) 06/27/2020 Assessment & Plan (06/27/2020 11:12 PM CDT): Cr 1.4 up from baseline 1.1. Likely pre-renal due to poor PO intake in last week -IVF 1L over 10 hours -hold losartan, nephrotoxins -trend BMP Assessment & Plan (06/27/2020 10:04 PM CDT): Cr 1.4 up from baseline 1.1. Likely pre-renal due to poor PO intake in last week -IVF 1L over 10 hours -hold losartan, nephrotoxins -trend BMP Diverticulitis 06/27/2020 Assessment & Plan (06/27/2020 11:12 PM CDT): Ongoing nausea, poor PO/dry heaves with diarrhea for the last week, now with reduction of laxatives and constipation. Abd pain on exam without rebound/guarding. CT with diverticulitis w/o abscess. 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 -start cipro/flagyl -diet as tolerated Assessment & Plan (06/27/2020 10:34 PM CDT): Ongoing nausea, poor PO/dry heaves with diarrhea for the last week, now with reduction of laxatives and constipation. Abd pain on exam without rebound/guarding. CT with diverticulitis w/o abscess. 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 -start cipro/flagyl -diet as tolerated Spinal cord compression 05/09/2020 Assessment & Plan (05/09/2020 1:52 AM CDT): - pt with back pain, lower ext numbness, and progressive weakness found to have spinal mets and cord compression - ortho spine consult, tentative plan for operative mgmt with timing to be determined. Will keep npo. F/U further ortho recs as may need IR consult for tumor embolization. - q4 neuro checks - IPAP consult in AM - lower ext dopplers per ortho request - radonc consult. PVD (peripheral vascular disease) 05/09/2020 Assessment & Plan (06/27/2020 11:10 PM CDT): S/p LE stent in 2016 -hold plavix due to hep start -would clarify with ortho if okay to have both Assessment & Plan (06/27/2020 9:58 PM CDT): S/p LE stent in 2016 -hold plavix due to hep start -would clarify with ortho if okay to have both Assessment & Plan (05/09/2020 1:36 AM CDT): -Hx of lower ext stent placed in 2016 per patient. -hold plavix acutely given plan for possible spine surgery HTN (hypertension) 05/09/2020 Assessment & Plan (06/27/2020 11:12 PM CDT): -hold losartan 50 every day in setting of GILMER Assessment & Plan (06/27/2020 10:01 PM CDT): -hold losartan 50 every day in setting of GILMER Assessment & Plan (05/09/2020 1:40 AM CDT): - hold losartan until determining if elevated cr is ckd vs gilmer - start amlodipine. Abnormal weight gain 03/25/2019 Allergic rhinitis 03/25/2019 Fatty liver 03/25/2019 Generalized anxiety disorder 03/25/2019 Overview (04/17/2021): Last Assessment & Plan: Condition: stable Follow up in: six months Farheen's thyroiditis 03/25/2019 Overview (04/17/2021): Images from the original note were not included. Last Assessment & Plan: Condition: stable TSH Order: [id number] Component Ref Range & Units 12/07/20 0831 Thyroid Stimulating Hormone 0.30 - 4.20 mcIUnit/mL 2.01 Follow up in: six months Hyperglycemia 03/25/2019 Hyperlipidemia 03/25/2019 Hypertensive chronic kidney disease with stage 1 through stage 4 chronic kidney disease, or unspecified chronic kidney disease 03/25/2019 Hypokalemia 03/25/2019 Renal disease 03/25/2019 Solitary lung nodule 03/25/2019 Spasm of artery 03/25/2019 Tobacco use 03/25/2019 Vitamin D deficiency 03/25/2019 Overview (04/17/2021): Last Assessment & Plan: Condition: stable Vitamin D 25 hydroxy Order: [id number] Component Ref Range & Units 07/13/20 0803 Vitamin D, 25-hydroxy 30 - 80 ng/mL 36 Follow up in: six months Farheen's thyroiditis 03/25/2019 High myopia 01/06/2019 Ptosis of both eyelids 12/28/2018 Obesity (BMI 35.0-39.9 without comorbidity) 12/11 Agitation requiring sedation protocol 07/03/2018 Acute pain 07/03/2018 Postoperative hypotension 07/03/2018 Acute respiratory failure with hypoxia 9 Hypothyroidism 07/03/2018 Assessment & Plan (06/27/2020 11:12 PM CDT): Last TSH high in 04/2020 but in setting of illness -repeat TSH/T4 -c/w synthroid 175 qd Assessment & Plan (06/27/2020 10:01 PM CDT): Last TSH high in 04/2020 but in setting of illness -repeat TSH/T4 -c/w synthroid 175 qd Assessment & Plan (05/09/2020 1:36 AM CDT): -cont synthroid Elevated serum creatinine 07/03/2018 Assessment & Plan (05/09/2020 1:43 AM CDT): - previously with baseline ~1.2-1.3 but more recently closer to 1. ctm cr trend and will hold losartan acutely. Renal cell carcinoma of left kidney 06/03/2018 Cancer Staging:Clinical stage from 03/23/2013:Stage IV(T2a, N1, M1) - Signed by Tatiana Lott MD on 05/09/2020 Overview (06/03/2018): Added automatically from request for surgery [id number] Assessment & Plan (06/27/2020 11:10 PM CDT): 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 dx 2013. Followed by [facility] -s/p R nephrectomy + T11 metastasectomy 05/2013 and partial L nephrectomy and pancreatic resect 06/2018 -tx with axtinib + pembro -01/2020, held 03/14 severe colitis -recent revision T7-L1 PSF w/ T9-T11 decompression with ortho spine 05/12 -c/w home tramadol 50 qhs -med onc c/s Assessment & Plan (06/27/2020 10:34 PM CDT): 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 dx 2013. Followed by [facility] -s/p R nephrectomy + T11 metastasectomy 05/2013 and partial L nephrectomy and pancreatic resect 06/2018 -tx with axtinib + pembro 1-01/2020, held 2/2 severe colitis -recent revision T7-L1 PSF w/ T9-T11 decompression with ortho spine 05/12 -c/w home tramadol 50 qhs -med onc c/s Assessment & Plan (05/09/2020 1:46 AM CDT): - Hx of RCC with R nephrectomy + T11 metastasectomy + XRT spine. Previously on immunotherapy c/b colitis requiring steroids. Almost finished with steroid taper. - cont prednisone 5mg daily - med onc consult - radonc consult Abnormal CT scan 05/06/2018 Overview (05/06/2018): Added automatically from request for surgery [id number] Edema 04/09/2016 Family history of ischemic h eart disease and other diseases of the circulatory system 04/09/2016 Leg pain, bilateral 04/09/2016 Nicotine dependence, unspecified, uncomplicated 04/09/2016 Metastasis to spinal column 04/15/2013 Encounter for education 03/11/2013 Obstructive sleep apnea on CPAP Assessment & Plan (06/27/2020 11:12 PM CDT): -c/w CPAP qhs Assessment & Plan (06/27/2020 10:00 PM CDT): -c/w CPAP qhs Assessment & Plan (05/09/2020 1:36 AM CDT): -cont cpap Cataracts, bilateral Current Treatment and Therapy Plans cabozantinib (Cabometyx) PO daily 28 day cycles - * Plan Start Date:12/09/2023 Plan Provider:Jorge Novak MD Linked Problems 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)Renal cell carcinoma of left kidney (HCC) Treatment Medications Current Day (Day 1 , Cycle 3 - Planned for 05/18/2024) Next Day (Day 1, Cycle 4 - Planned for 08/31/2024) No medications scheduled. No medications schedul ed. No medications scheduled. Past Treatment and Therapy Plans Line Care Plan Name Start Date Discontinue Date Treatment Medications Discontinue Reason Plan Provider Hydration Therapy Plan 05/25/2019 04/22/2023 No medications scheduled. Automatic discontinuation of dormant plans Jorge Novak MD Oncology Chemotherapy Treatment Plan Name Start Date Discontinue Date Treatment Medications Discontinue Reason Plan Provider Cycles Axitinib PO 28 Day Cycles - 07/13/2020 12/09/2023 aXITinib (INLYTA) Progression Jorge Novak MD 1 of 4 cycles started Pembrolizumab 42 Day Cycles with axitinib 5MG Q 12 HOURS (Modified 07/27/2019) 0 02/28/2020 pembrolizumab (KEYTRUDA)pembr olizumab (KEYTRUDA) IVPB in 100 mL Toxicity/Comp lication Jorge Novak MD 12 of 24 cycles started Radiation Treatments * Course C2 TSP_202006/09/2020 - 06/15/2020 Treatment Period Energy Fraction Dose Fractions Total Dose Plans Planned T9-L1_updated 06/12/2020 - 06/15/2020 425 4 / 1,700 T9-L1 06/09/2020 - 06/09/2020 300 1 / 3,000 Reference Points Delivered TSPINE 06/09/2020 - 06/15/2020 2,000 Lifetime Dose Tracking * Chemical Lifetime Dose Automatic Entry Manual Entr y Fluoro Time 115.338 minutes 115.338 minutes 0 minutes Air kerma at the reference point (Ka,r) 6,416.22 mGy 6 ,416.22 mGy 0 mGy DLP 38,795 mGycm 38,795 mGycm 0 mGycm Resolved Problems Problem Noted Date Diagnosed Date Resolved Date Metastatic 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 06/01/2023 0 05/05/2024 Metastatic renal cell carcinoma 12/11/2020 05/05/2024 Overview (04/17/2021): Last Assessment & Plan: Condition: Active Patient saw Oncology on 12/07/20. Patient has CT scheduled in Jan. Patient receiving chemotherapy. Follow up in: one month Paresthesias 05/08/2020 05/09/2020 Malignant neoplasm of kidney 04/15/2013 09/15/2018
--- OUTSIDE RECORDS SUMMARY | 2024-07-20 12:56 | XMS_ITS | Clinical Summary ---
Author Organization [facility] Address [address] [place] [address] Care Team Providers Care Residential Energy Auditor Name Role Phone Brendan Thornton MD Unavailable [phone] Jorge Novak MD Unavailable Lawson Montgomery MD Unavailable [phone] Sangeeta Christian MD Unavailable [phone] Juan Muñoz MD Primary Care Provider [phone] Franck Arellano MD Unavailable [phone] Joe Basurto MD Unavailable [phone] Allergies Active Allergy Reactions Criticality Noted Date Comments Vancomycin Other (See comments) Low 04/05/2024 Experienced infusion reaction of itching in 03/2024 that resolved with benadryl. Not a true allergy or intolerance. Administer Benadryl prior to Vanco. Medications levothyroxine (SYNTHROID, LEVOTHROID) 175 mcg tabletIndications :hypothyroidism Take 1 tablet (175 mcg total) by mouth brickmason before breakfast 019 Active cholecalciferol (VITAMIN D-3) 2000 unit capsuleIndication s:Vitamin D Deficiency,hypopa rathyroidism Take 1 capsule (2,000 Units total) by mouth every morning Active amLODIPine (NORVASC) 5 mg tabletIndications :hypertension Take 1 tablet (5 mg total) by mouth every morning Active irbesartan (AVAPRO) 150 mg tabletIndications :hypertension Take 1 tablet (150 mg total) by mouth every morning Active FOLIC ACID ORAL Take 1,333 mcg by mouth nightly Active cyanocobalamin (Vitamin B-12) 2,000 mcg tabletIndications :Prevention of Vitamin B12 Deficiency Take 1 tablet by mouth nightly Active acetaminophen (TYLENOL) 500 mg tabletIndications :Pain,mild to moderate pain Take 2 tablets (1,000 mg total) by mouth every 6 (six) hours as needed for pain Active senna (SENOKOT) 8.6 mg tabletIndications :constipation Take 1 tablet by mouth daily as needed for constipation Active aspirin 81 mg enteric coated tabletIndications :Myocardial Reinfarction Prevention Take 1 tablet (81 mg total) by mouth daily Do not restart until you have completed 30 days of lovenox injections- 04/03/24 Active gabapentin (NEURONTIN) 100 mg capsuleIndication s:Pain Take 1 capsule (100 mg total) by mouth every 8 (eight) hours 90 capsule 025 Active multivitamin with folic acid 400 mcg tabletIndications :Vitamin Deficiency Prevention Take 1 tablet by mouth daily 30 tablet 11 025 2025 Active cyclobenzaprine (FLEXERIL) 5 mg tabletIndications :Muscle Spasm TAKE 1 TABLET(5 MG) BY MOUTH THREE TIMES DAILY NEEDED FOR MUSCLE SPASMS 60 tablet Active Additional Information Patient not taking.Reported on 07/19/2024 famotidine (PEPCID) 20 mg tabletIndications :Heartburn Take 1 tablet (20 mg total) by mouth daily as needed for heartburn Active fluconazole (DIFLUCAN) 150 mg tablet Active pantoprazole DR (PROTONIX) 40 mg EC tabletIndications :Stress Ulcer Prophylaxis Take 1 tablet (40 mg total) by mouth daily Active oxyCODONE (ROXICODONE) 5 mg immediate release tabletIndications :Pain,severe pain 7-10 Take 1 tablet (5 mg total) by mouth every 6 (six) hours as needed for pain (severe pain 7-10) 8 tablet 025 Active ondansetron ODT (ZOFRAN-ODT) 4 mg disintegrating tablet Take 1 tablet (4 mg total) by mouth every 8 (eight) hours as needed for nausea or vomiting 20 tablet 025 Active polyethylene glycol (MIRALAX) 17 gram/dose bulk powder Take 17 g by mouth daily for 7 days 119 g 025 Active oxyCODONE (ROXICODONE) 5 mg immediate release tabletIndications :Pain Take 5 mg by mouth every 6 (six) hours as needed for pain (severe pain 7-10). Indications: pain Active gabapentin (NEURONTIN) 100 mg capsuleIndication s:Neuropathic Pain Take 100 mg by mouth 2 (two) times a day. Indications: neuropathic pain Active rosuvastatin (CRESTOR) 20 mg tabletIndications :Coronary artery disease involving iqugmiut coronary artery of iqugmiut heart without angina pectoris TAKE 1 TABLET(20 MG) BY MOUTH DAILY 90 tablet 025 Active Eliquis 5 mg tablet TAKE 1 TABLET(5 MG) BY MOUTH DAILY 30 tablet 025 Active cabozantinib s-malate (CABOMETYX ORAL) Take by mouth Active doxycycline (MONODOX) 100 mg capsuleIndication s:Bone/Joint Infection,Chronic Suppression Take 1 capsule (100 mg total) by mouth 2 (two) times a day 168 capsule 025 2024 Cabometyx 20 mg tabletIndications :renal cell carcinoma Take 1 tablet (20 mg total) by mouth daily Take on an empty stomach. Take 1 hour before a meal or 2 hours after. Take with full glass of water. 30 tablet 11 025 2024 Discontinued Eliquis 5 mg tablet TAKE 1 TABLET(5 MG) BY MOUTH DAILY 30 tablet 025 2024 Discontinued Active Problems Problem Noted Date Diagnosed Date Postoperative infection, initial encounter 04/01 Wound dehiscence 04/01/2024 Assessment & Plan (04/05/2024 12:14 PM STEAMTABLE ATTENDANT RAILROAD): Eli Frazier is a 69 y.o. female with a PMH of metastatic RCC with spinal metastases s/p R nephrectomy, L partial nephrectomy and radiation (2013) on oral chemo until 02/10/24 and s/p revision PSIF T7-L1, laminectomy for tumor at T8- T10 (05/2020) and bilateral junito replacement with bone grafting (05/2023) complicated by [...] dehiscence which prompted her to come to [facility] ER. She was seen by Ortho spine [...] inpatient. Please see sign off note from 04/05/24 for complete recommendations. Vertebral osteomyelitis, acute 03/23/2024 [...] wound dehiscence prompting her to go to [facility] ED, now s/p I&D with incisional wound [...] concerns. Assessment & Plan (03/23/2024 11:24 AM STEAMTABLE ATTENDANT RAILROAD): She underwent thoracolumbar wound I&D down to [...] 02/19/2024 Assessment & Plan (03/02/2024 10:59 AM STEAMTABLE ATTENDANT RAILROAD): Eli Frazier is a 69 y.o. female with PMHx including metastatic RCC with spinal metastases s/p R nephrectomy, L partial nephrectomy and radiation (2013) on oral chemo until 02/10/24 and s/p revision PSIF T7-L1, laminectomy for tumor at T8- T10 (05/2020) and bilateral junito replacement with bone grafting (05/2023) who was [...] of lumbar spine 06/02/2023 Prophylactic antibiotic 05/28/2023 [facility] compl of internal fixation device of oth dez lorrie, init 05/18/2023 Coronary artery disease invo lving iqugmiut coronary artery of iqugmiut heart without angina pectoris 09/03/2021 AV node [...] Condition: stable Contains abnormal data eGFR Order: [id number] Component Ref Range & Units 12/07/20 0831 [...] Assessment & Plan: Condition: stable TSH Order: [id number] Component Ref Range & Units 12/07/20 0831 [...] Condition: stable Vitamin D 25 hydroxy Order: [id number] Component Ref Range & Units 07/13/20 0803 [...] (06/03/2018): Added automatically from request for surgery [id number] Assessment & Plan (06/27/2020 11:10 PM CDT): [...] -tx with axtinib + pembro -01/2020, held 2/2 severe colitis -recent revision T7-L1 [...] (05/06/2018): Added automatically from request for surgery [id number] Edema 04/09/2016 Family history of ischemic h [...] 1:36 AM CDT): -cont cpap Cataracts, bilateral Resolved Problems Problem Noted Date Diagnosed Date Resolved Date Metastatic 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 06/01/2023 0 05/05/2024 Metastatic renal cell carcinoma 12/11/2020 05/05/2024 Overview (04/17/2021): Last Assessment & Plan: Condition: Active Patient saw Oncology on 12/07/20. Patient has CT scheduled in Jan. Patient receiving chemotherapy. Follow up in: one month Paresthesias 05/08/2020 05/09/2020 Malignant neoplasm of kidney 04/15/2013 09/15/2018 Encounters Date Type Department Care Team Description 07/19/2024 11:00 AM CDT Office Visit [facility] Cardiology [address] [place] [phone] Franck Arellano MD Hypertension, unspecified type (Primary Dx); Coronary artery disease involving iqugmiut coronary artery of iqugmiut heart without angina pectoris; AV node dysfunction 07/07/2024 10:45 AM CDT Office Visit [facility] Surgery [address] [facility] 6th Floor [address] [place] [phone] Kimberlee Mckoy NP Wound, open with complication (Primary Dx) 06/03/2024 10:00 AM CDT Home Care Visit [address] [place] [address] Criselda Mcdaniel RN SN OASIS DISCHARGE 06/02/2024 11:45 AM CDT Office Visit [facility] Surgery [address] [facility] 6th [place] [address] [place] [address] Kanu Motta MD Wound, open with complication (Primary Dx) 06/01/2024 12:00 PM CDT Home Care Visit [address] [place] [address] Ester Tompkins, PT PT DISCIPLINE DISCHARGE 05/27/2024 12:00 PM CDT Home Care Visit [address] [place] [address] Ester Tompkins, PT PT HOME VISIT 05/26/2024 10:00 AM CDT Home Care Visit [address] [place] [address] Roseann Shahid LPN SN HOME VISIT 05/24/2024 12:00 PM CDT Home Care Visit [address] [place] [address] Ester Tompkins, PT PT HOME VISIT 05/20/2024 3:00 PM CDT Home Care Visit [address] [place] [address] Ester Tompkins, PT PT HOME VISIT 05/20/2024 Telephone [facility] Oncology [address] [place] [phone] Jorge Novak MD cabozantinib prescription 05/19/2024 12:00 PM CDT Home Care Visit [address] [place] [address] Criselda Mcdaniel RN SN HOME VISIT 05/18/2024 11:45 AM CDT Office Visit [facility] Oncology [address] [place] [address] 5 [place] [phone] Jorge Novak MD 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); Metastatic 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 (HCC) 05/18/2024 11:15 AM CDT Lab [facility] - Lab Collection [address] [place] [address] Floor 5 [place] [address] 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); Metastatic 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 (HCC) 05/18/2024 11:00 AM CDT Lab [facility] Oncology Lab [address] [place] [address] 5 [place] [address] 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); Metastatic 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 (HCC) 05/18/2024 Orders Only [facility] Oncology [address] [place] [address] 5 [place] [address] Jorge Novak MD 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) (Primary Dx); Renal cell carcinoma of left kidney (HCC) 05/17/2024 12:00 PM CDT Home Care Visit [address] [place] [address] Ester Tompkins, PT PT INITIAL EVALUATION 05/14/2024 1:45 PM CDT Office Visit [facility] Surgery [address] [place] [address] for [facility] 6th [place] [address] [place] [address] Kimberlee Mckoy NP Wound, open with complication (Primary Dx) 05/12/2024 3:00 PM CDT Home Care Visit [address] [place] [address] Criselda Mcdaniel RN SN HOME VISIT 05/11/2024 10:54 AM CDT - 05/11/2024 11:59 PM CDT Hospital Encounter [facility] - CT [address] [facility] Floor [address] [place] [address] 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); Metastatic 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 (HCC) Discharge Disposition: Discharge to home or self care 05/04/2024 4:00 PM CDT Home Care Visit [address] [place] [address] Criselda Mcdaniel RN SN HOME VISIT 04/30/2024 1:30 PM CDT - 04/30/2024 3:40 PM CDT Surgery [facility] Operating [facility] [address] [place] [address] Kanu Motta MD EXCISION CYST/LESION/MASS - BACK 04/30/2024 1:03 PM CDT Anesthesia Event [facility] Operating [facility] [address] [place] [address] Eagle Jerome MD 04/30/2024 10:31 AM CDT - 04/30/2024 4:51 PM CDT Hospital Encounter [facility] Operating [facility] [address] [place] [address] Kanu Motta MD Wound, open with complication (Primary Dx) Discharge Disposition: Discharge to home or self care 04/30/2024 Telephone [facility] Surgery [address] [place] [address] 6th [place] [address] France Cat CMA 04/29/2024 12:00 PM CDT Home Care Visit [address] [place] [address] [address] [place] [address] Criselda Mcdaniel RN SN OASIS RECERTIFICATION 04/29/2024 Plan of Care Documentation [address] [place] [address] [address] [place] [address] 04/29/2024 Telephone [facility] Surgery [address] [place] [address] [place] [address] Eliane Padgett RN 04/28/2024 2:30 PM CDT Office Visit [facility] Surgery [address] [place] [address] 6th [place] [address] Kanu Motta MD Wound, open with complication (Primary Dx) 04/28/2024 1:20 PM CDT Office Visit [facility] Infectious Diseases [address] [place] [address] [address] [place] [address] Katie Ojeda NP Vertebral osteomyelitis, acute (HCC) (Primary Dx) 04/27/2024 10:30 AM CDT Office Visit [facility] Orthopaedic Surgery [address] [place] [address] 6th [place] [address] Joe Basurto MD Postoperative infection, initial encounter (Primary Dx) 04/27/2024 9:55 AM CDT - 04/27/2024 11:59 PM CDT Hospital Encounter [facility] Radiology [facility] [address] [place] [address] Postoperative infection, initial encounter Discharge Disposition: Discharge to home or self care 04/23/2024 10:45 AM CDT Office Visit [facility] Department of [facility] [address] [facility] [address] [place] [address] Kimberlee Mckoy NP Wound, open with complication 04/21/2024 10:00 AM CDT Home Care Visit [facility] - [address] [place] [address] Criselda Mcdaniel RN SN HOME VISIT from Last 3 Months Immunizations Immunization Administration Dates Next Due Influenza, Unspecified 12/10/2018 Pfizer SARS-CoV-2 Monovalent Vaccination (12+ Yrs) PURPLE 06/19/2020,05/29/2020,05/27/2020 Surgical History Surgery Date Site/Laterality Comments NEPHRECTOMY 02/10/2013 - 02/09/2014 Right POSTERIOR SPINAL FUSION 02/10/2013 - 02/09/2014 ESOPHAGOGASTRODUODENOSCOPY 05/12/2018 CYST REMOVAL 02/11/1988 - 02/09/1989 cyst/tumor removed from uterus OTHER SURGICAL HISTORY 02/11/2016 - 02/09/2017 Left left leg stent KIDNEY SURGERY INSERT VENA CAVA FILTER 05/10/2020 N/A POSTERIOR SPINAL FUSION 05/12/2020 T7-L1 Medical History Medical History Date Comments Hypertension Morbid obesity (HCC) Renal cell cancer (HCC) s/p righ t nephrectomy 2013 Hypothyroidism PVD (peripheral vascular disease) s/p left left stent 2016 Renal cell carcinoma of left kidney (HCC) Obstructive sleep apnea on CPAP Cataracts, bilateral Malignant neoplasm metastatic to bone (HCC) 07/2013 High myopia 01/06/2019 Myocardial infarct (HCC) Acute respiratory failure with hypoxia (HCC) Family History Medical History Relation Name Comments Ptosis Brother s/p surgical re pair Ptosis Father s/p surgical re pair Aneurysm Mother Arthritis Mother Family history of arthritis - (Added by TW Conv) Hypertension Mother Family history of hypertension - (Added by TW Conv) Ptosis Paternal Grandfather Breast cancer Paternal Grandmother Anesthesia problems Neg Hx Relation Name Status Comments Brother Father Mother of aneurys m age 84 Paternal Grandfather Paternal Grandmother Sister Social History Tobacco Use Types Packs/Day Years Used Date Smoking Tobacco: Every Day Cigarettes 0.5 51.4 Started: 1973 Passive Smoke Exposure: Current Smokeless Tobacco: Never Tobacco Cessation:Ready to Q uit: Not Asked; Counseling Given: Not Answered Comments:5-10 cigarettes a day Last smoked 02/24/23 AM Alcohol Use Standard [...] materials from doctor or pharmacy Never 06/03/2024 [facility] Utilities Answer Date Recorded In the past 12 months has e [employer] gas, oil, or water [employer] threatened to shut off services in your [...] often do you attend chur ch or bahai services? More than 4 times per year 04/02/2024 Do you belong to any clubs o r organizations such as protestant groups, unions, fraternal or athletic groups, or [...] and heating? Not hard at all 04/02/2024 [facility] - Occupational Stress [...] any time in the past 12 m [facility], were you homeless or living in a half-way (including now)? No 04/02/2024 Personal Safety Answer Date Recorded Have you ever been in or are you currently in a harmful physical or emotional relationship or is someone making you feel afraid or unsafe? Denies 04/30/2024 Comments No Sex and Gender Information Value Date Recorded Sex Assigned at Not on file Legal Sex Female 6:17 AM STEAMTABLE ATTENDANT RAILROAD Gender Identity Not on file Sexual Orientation Not on file Obstetrics History Last Filed Vital Signs Vital Sign Reading Time Taken Comments Blood Pressure 142/80 07/19/2024 11:07 AM CDT Pulse 73 07/19/2024 11:07 AM CDT Temperature 36.2 C (97.1 F) 06/03/2024 11:12 AM CDT Respiratory Rate 20 06/03/2024 11:1 2 AM CDT Oxygen Saturation 98% 07/19/2024 11: 07 AM CDT Inhaled Oxygen Concentration - - Weight 97.5 kg (214 lb 14.4 oz) 025 11:07 AM CDT Height 172.7 cm (5' 8) 07/19/2024 11:0 7 AM CDT Body Mass Index 32.68 07/19/2024 11:07 AM CDT Plan of Treatment Health Maintenance Due Date Last Done Comments Breast Cancer Screening-Mammogram 1955 Colon Cancer Screening-Colonoscopy 1955 Depression Screening 1955 Hepatitis C Screening 1955 Osteoporosis Screening-Bone Density Scan 1955 DTaP/Tdap/Td Vaccine (1 - Tdap) 01/19/1967 Hepatitis B Screening 01/19/1974 Pneumococcal vaccine 65+ (1 of 2 - PCV) 01/19/1975 Zoster Vaccine (1 of 2) 01/19/1975 Well Visit 65+ 01/19/2021 Covid-19 Vaccine (5 - 2023-2 5 season) 2023 02/14/2021, 06/19/2020, 05/29/2020, Additional history exists Influenza Vaccine (Season Ended) 2024 12/11/19 19 Fall Risk Assessment 04/30/2025 04/30/2024, 06/25/2023, 05/25/2020 Medical Devices Implanted Type Area School Secretary Device Identifier Shelf Expiration Date Model / Serial / Lot [employer] [id number] Vial 180-300um Particles 1ml Embolization Pva Foam Sterile - [id number] Implanted:Qty: 1 on 05/10/2020 at [facility] [employer] [id number] / / Daig Elbert [id number] Device Closure Angio-Seal Vip Bondek-Plus Polyglyd L70 Cm Od6 Fr Odsec.035 In Vascular - [id number] Implanted:Qty: 1 on 05/10/2020 at [facility] Right: Femoral Terumo Medical Elbert [id number] / / Bard Peripheral Vascular [id number] Krystal Delivery Kit Vena Cava Jugular Filter Embolization Nitinol Latex Free - [id number] Implanted:Qty: 1 on 05/10/2020 at [facility] Vena Cava Bard Peripheral Vascular [id number] / / Abyrx Os-201 Hemasorb Os-Spa Spatula Wax 2gm Bone Sterile - [id number] Implanted:Qty: 1 on 05/12/2020 by Joe Basurto MD at [facility] N/A: Spine Thoracic Abyrx 03/12/2023 OS-201 / / [id number] Allosource [id number] Crushed Chip Frozen Graft 60ml Bone Cancellous - [id number] Implanted:Qty: 1 on 05/12/2020 by Joe Basurto MD at [facility] N/A: Spine Thoracic Allosource 04/06/2025 [id number] / / [id number] Ron Spine [id number] Sharita 3 Spine Reyes Spinal Titanium - [id number] Implanted:Qty: 14 on 05/12/2020 by Joe Basurto MD at [facility] N/A: Spine Lumbar Diamond Spine [id number] / / Diamond Spine [id number] Sharita 3 5mm 45mm Polyaxial Spine Thoracolumbar Screw Bone Titanium - [id number] Implanted:Qty: 2 on 05/12/2020 by Joe Basurto MD at [facility] N/A: Spine Lumbar Ron Spine [id number] / / Ron Spine [id number] Sharita 3 5mm 50mm Polyaxial Spine Thoracolumbar Screw Bone Titanium - [id number] Implanted:Qty: 2 on 05/12/2020 by Joe Basurto MD at [facility] N/A: Spine Lumbar Ron Spine [id number] / / Diamond Spine [id number] Radius 5.5mm 600mm Hexagonal Junito Spinal Titanium Nonsterile - [id number] Implanted:Qty: 1 on 05/12/2020 by Joe Basurto MD at [facility] N/A: Spine Lumbar Diamond Spine [id number] / / [employer] Elbert Particle Embolization Pre Filled Foam Vial 2ml Microsphere Contour 150-250um Polyvinyl Alcohol [id number] - [id number] Implanted:Qty: 1 on 06/01/2023 at [facility] [employer] Elbert 08/05/2025 [id number] / / [id number] Depuy Synthes Spine Substitute Bone Graft Fibergraft Large Bioactive Glass Putty [id number] - [id number] Implanted:Qty: 1 on 06/02/2023 by Joe Basurto MD at [facility] N/A: Spine Thoracic Depuy Synthes Spine 01/03/2024 [id number] / / [id number] Allosource Crushed Chip Frozen Graft 30ml Bone Cancellous [id number] - [id number] Implanted:Qty: 1 on 06/02/2023 by Joe Basurto MD at [facility] N/A: Spine Thoracic Allosource 07/30/2027 [id number] / / [id number] Ron Spine Sharita 3 Spine Reyes Spinal Titanium [id number] - [id number] Implanted:Qty: 12 on 06/02/2023 by Joe Basurto MD at [facility] N/A: Spine Thoracic Ron Spine [id number] / / Ron Spine Junito Spinal Lumbar Straight Long Hexagonal Head Mantis [id number] Titanium [id number] - [id number] Implanted:Qty: 1 on 06/02/2023 by Joe Basurto MD at [facility] N/A: Spine Thoracic Diamond Spine [id number] / / Procedures Procedure Name Priority Date/Time Associated Diagnosis Comments POCT LIPID PANEL Routine 07/19/2024 11:1 3 AM CDT Hypertension, unspecified type EGFR Routine 05/18/2024 11:29 AM CDT 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 (HCC) COMPREHENSIVE METABOLIC PANEL Routine 05/18/2024 11:29 AM CDT 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 (HCC) TSH Routine 05/18/2024 11:29 AM CDT 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 (HCC) LACTATE DEHYDROGENASE Routine 05/18/2024 11:29 AM CDT 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 (HCC) T4, FREE Routine 05/18/2024 11:29 AM CDT 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 (HCC) DIFFERENTIAL AUTO Routine 05/18/2024 11: 24 AM CDT 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 (HCC) CBC WITH AUTO DIFFERENTIAL Routine 05/18/2024 11:24 AM CDT 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 (HCC) CT CHEST ABDOMEN PELVIS W CONTRAST Schedule Routine, Read Routine (OP Routine) 05/11/2024 11:19 AM CDT 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 (HCC) POCT CREATININE - DEVICE Routine 05/11/2024 11:05 AM CDT TISSUE AEROBIC AND ANAEROBIC CULTURE AND GRAM STAIN Routine 04/30/2024 2:31 PM CDT CA AN PROCEDURE PLACEHOLDER Routine 04/30/2024 1:38 PM CDT CA AN ELECTIVE ENDOTRACHEAL AIRWAY Routine 04/30/2024 1:38 PM CDT CLOSURE WOUND 04/30/2024 1:05 PM CDT Wound, open with complication Case Notes 04/28 - MISSING DPC. EMAIL SENT. NB Special Needs PRONE POSITION, Prevena Plus EXCISION CYST/LESION/MASS - BACK 04/30/2024 1:05 PM CDT Wound, open with complication Case Notes 04/28 - MISSING DPC. EMAIL SENT. NB Special Needs PRONE POSITION, Prevena Plus POCT [id number]-[id number],WB - ISTAT Routine 04/30/2024 12:49 PM CDT XR SCOLIOSIS AP LAT Schedule Routine, Read Routine (OP Routine) 04/27/2024 10:09 AM CDT Postoperative infection, initial encounter from Last 3 Months Results * (ABNORMAL) POCT lipid panel (07/19/2024 11:13 AM CDT) Cholesterol, POC 100 <200 MG/DL Comment:GLU = 137 HDL, POC 31(A) >=40 mg/dL Triglycerides, POC 124 <=149 mg/dL LDL Cholesterol POC 44 <=129 mg/dL Cholesterol Total, POC 100 30 - 199 mg/dL Capillary blood 07/19/2024 1 1:13 AM CDT us Franck Arellano MD POINT OF CARE TEST ORDER VANI Final Result * eGFR (05/18/2024 11:29 AM CDT) eGFR 74 >=60 mL/min/1. 73 m2 Comment: Interpretive Data Reference Interval Normal >/= 90 mL/min/1.73m2 Mildly decreased* 60 - 89 mL/min/1.73m2 Mildly to moderately decreased 45 - 59 mL/min/1.73m2 Moderately to severely decreased 30 - 44 mL/min/1.73m2 Severely decreased 15 - 29 mL/min/1.73m2 Kidney Failure < 15 mL/min/1.73m2 *Relative to young adult level Estimated glomerular filtration rate is determined by the 2020 CKD-EPI equation recommended by the National [employer] (A Unifying Approach to GFR Estimation: Recommendations of the NKF-ASK Task Force on Reassessing the Inclusion of Race in Diagnosing Kidney Disease, JASN 2020). The CKD-EPI equation should not be used for patients with unstable renal function and has not been validated in children and those over 70. Current interpretive data was last reviewed 2020. Blood 05/18/2024 11:2 9 AM CDT 05/18/2024 11:30 AM CDT us Jorge Novak MD LAB BLOOD ORDERABLES Final Resul t Performing Organization Address City/[facility] de Phone Number [facility] [place] [address] * TSH (05/18/2024 11:29 AM CDT) Thyroid Stimulating Hormone 0.40 0.30 - 4.20 mcIUnit/mL Blood 05/18/2024 11:2 9 AM CDT 05/18/2024 11:30 AM CDT us Jorge Novak MD LAB BLOOD ORDERABLES Final Resul t Performing Organization Address [facility] de Phone Number [facility] [place] [address] * (ABNORMAL) T4, free (05/18/2024 11:29 AM CDT) Free T4 2.04(H) 0.90 - 1.70 ng/dL Blood 05/18/2024 11:2 9 AM CDT 05/18/2024 11:30 AM CDT us Jorge Novak MD LAB BLOOD ORDERABLES Final Resul t Performing Organization Address City/[facility] Co de Phone Number [facility] [place] [address] * Lactate dehydrogenase (LD) (05/18/2024 11:29 AM CDT) Pathologist [facility] [place] Lactate dehydrogenase (LDH) 224 100 - 250 Units/L Blood 05/18/2024 11:2 9 AM CDT 05/18/2024 11:30 AM CDT us Jorge Novak MD LAB BLOOD ORDERABLES Final Resul t [facility] [place] [address] * Comprehensive metabolic panel (05/18/2024 11:29 AM CDT) Pathologist [facility] [place] Sodium 140 135 - 145 mmol/L Potassium, pl 4.3 3.3 - 4.9 mmol/L [facility] Chloride 105 97 - 110 mmol/L [facility] CO2 22 22 - 32 mmol/L [facility] Anion gap 13 2 - 15 mmol/L [facility] BUN 16 6 - 25 mg/dL [facility] Creatinine 0.86 0.60 - 1.10 mg/dL [facility] Glucose 78 70 - 199 mg/dL [facility] Comment: Interpretive Data Fasting glucose >/= 126 mg/dl is diagnostic for diabetes. Fasting is defined as no caloric intake for at least 8 hours. Fasting glucose between 100 mg/dl to 125 mg/dl is diagnostic of prediabetes. In a patient with classic symptoms of hyperglycemia or hyperglycemic crisis, a random glucose >/= 200 mg/dl is diagnostic for diabetes. In the absence of unequivocal hyperglycemia, results should be confirmed by repeat testing. The classification and Diagnosis of Diabetes Diabetes Care 202; 46: S19-S40. Current interpretive data was last revised 2022. Calcium 10.0 8.5 - 10.3 mg/dL [facility] Bilirubin, total 0.3 0.1 - 1.2 mg/dL [facility] Protein, pl 7.8 6.5 - 8.5 g/dL [facility] Albumin 3.6 3.5 - 5.0 g/dL [facility] Alk phos 109 40 - 130 Units/L [facility] ALT 12 7 - 45 Units/L [facility] AST 35 10 - 45 Units/L [facility] Comment:Hemolyzed; result ma y be falsely elevated Blood 05/18/2024 11:2 9 AM CDT 05/18/2024 11:30 AM CDT us Jorge Novak MD LAB BLOOD ORDERABLES Final Resul t [facility] [place] [address] * Differential, auto (05/18/2024 11:24 AM CDT) Neutrophil abs 4.82 1.50 - 6.50 K/cumm Comment:Testing performed by : [facility], [address] [place] [phone] Lymphocyte abs 0.88 0.80 - 3.30 K/cumm [facility] Comment:Testing performed by : [facility], [address] [place] [phone] Monocyte abs 0.56 0.20 - 0.80 K/cumm [facility] Comment:Testing performed by : [facility], [address] [place] [address] Eosinophil abs 0.20 0.00 - 0.50 K/cumm [facility] Comment:Testing performed by : [facility], [address] [place] [phone] Basophil abs 0.07 0.00 - 0.10 K/cumm [facility] Comment:Testing performed by : [facility], [address] [place] [address] Neutrophil pct 73.8 % [facility] Comment: Interpretive Data Percent cell count reference ranges are not reported, since discordance with absolute values may lead to misinterpretation of CBC data. Current Interpretive Data was last revised on 2017. Testing performed by: [facility], [address] [place] [phone] Lymphocyte pct 13.5 % [facility] Comment: Interpretive Data Percent cell count reference ranges are not reported, since discordance with absolute values may lead to misinterpretation of CBC data. Current Interpretive Data was last revised on 2017. Testing performed by: [facility], [address] [place] [phone] Monocyte pct 8.5 % [facility] Comment: Interpretive Data Percent cell count reference ranges are not reported, since discordance with absolute values may lead to misinterpretation of CBC data. Current Interpretive Data was last revised on 2017. Testing performed by: [facility], [address] [place] [phone] Eosinophil pct 3.1 % [facility] Comment: Interpretive Data Percent cell count reference ranges are not reported, since discordance with absolute values may lead to misinterpretation of CBC data. Current Interpretive Data was last revised on 2017. Testing performed by: [facility], [address] [place] [phone] Basophil pct 1.1 % [facility] Comment: Interpretive Data Percent cell count reference ranges are not reported, since discordance with absolute values may lead to misinterpretation of CBC data. Current Interpretive Data was last revised on 2017. Testing performed by: [facility], [address] [place] [phone] Blood 05/18/2024 11:2 4 AM CDT 05/18/2024 11:30 AM CDT us Jorge Novak MD LAB BLOOD ORDERABLES Final Resul t [facility] [place] [address] * (ABNORMAL) CBC with auto differential (05/18/2024 11:24 AM CDT) WBC 6.53 3.80 - 9.90 K/cumm Comment:Testing performed by : [facility], [address] [place] [address] Hgb 12.1 11.9 - 15.5 g/dL [facility] Comment:Testing performed by : [facility], [address] [place], [place] [phone] Hct 37.4 35.6 - 45.5 % [facility] Comment:Testing performed by : [facility], [address] [place], [place] [phone] Plt 361 150 - 400 K/cumm [facility] Comment:Testing performed by : [facility], [address] [place], [place] [phone] MPV 8.4 6.8 - 10.4 fL [facility] Comment:Testing performed by : [facility], [address] [place], [place] [phone] RBC 3.95 3.90 - 5.20 M/cumm [facility] Comment:Testing performed by : [facility], [address] [place], [place] [phone] MCV 94.5 81.3 - 96.4 fL [facility] Comment:Testing performed by : [facility], [address] [place], [place] [phone] MCH 30.7 27.1 - 33.3 pg [facility] Comment:Testing performed by : [facility], [address] [place] [address] MCHC 32.5 32.3 - 35.7 g/dL [facility] Comment:Testing performed by : [facility], [address] [place], [place] [phone] RDW CV 16.6(H) 11.1 - 14.9 % [facility] Comment:Testing performed by : [facility], [address] [place], [place] [phone] NRBC abs 0.00 0.00 - 0.01 K/cumm [facility] Comment:Testing performed by : [facility], [address] [place] [address] Blood 05/18/2024 11:2 4 AM CDT 05/18/2024 11:30 AM CDT us Jorge Novak MD LAB BLOOD ORDERABLES Final Resul t [facility] [place] [address] * CT Chest Abdomen Pelvis W Contrast (05/11/2024 11:19 AM CDT) Anatomical Region Laterality Modality Body N/A Computed Tomogra phy 05/11/2024 12:0 1 PM CDT Impressions 05/11/2024 12:01 PM CDT 1. Interval worsening of metastatic disease as evidenced by enlarging pulmonary nodules, enlarging left adrenal lesions, enlarging pancreatic tail lesion, an enlarging multifocal lesions in the left kidney. 2. New small right pleural effusion. 3. Contracted gallbladder with multiple stones and a small amount of surrounding fat stranding. This may be due to chronic cholecystitis. Electronically signed by: Franck Maynard M.D. Narrative 05/11/2024 12:01 PM CDT EXAMINATION: CT of the chest, abdomen and pelvis with intravenous contrast HISTORY: Renal cell cancer. TECHNIQUE: Computed tomography of the chest, abdomen and pelvis was performed with intravenous contrast according to standard protocol. COMPARISON: 02/23/2024. FINDINGS: There is no lymphadenopathy in the chest. The heart size is normal. No pericardial effusion. Interval enlargement of a left lower lobe nodule which now measures 6 mm, previously 3 mm (series 4 image 129). There is a new right lower lobe nodule measuring 5 mm (series 4 image 107). There is a new small right pleural effusion.. There is no focal hepatic lesion. The gallbladder is contracted, there are multiple stones there is stranding around the gallbladder. There are several left adrenal nodules which have increased in size, for reference a nodule on series 2 image 154 which now measures 2 cm and appears 1.7 cm. The 2nd left adrenal nodule has also increased in size now measuring 2 cm, previously 1.2 cm (series 2 image 162). The right adrenal gland is unchanged. Spleen is unchanged. There has been interval enlargement of an enhancing lesion in the pancreatic tail, consistent with a pancreatic tail metastasis.. Multiple enhancing lesions in the left kidney are slightly larger on the current study. The right kidney is absent. There is bladder wall thickening along the anterior aspect of the urinary bladder. The uterus and ovaries are unremarkable. There is diverticulosis of the colon. No bowel obstruction. There are changes of spinal fusion in the thoracic spine. No new or enlarging osseous lesion. There is a fat-containing ventral hernia. Procedure Note Franck Maynard MD - 05/11/2024 EXAMINATION: CT of the chest, abdomen and pelvis with intravenous contrast HISTORY: Renal cell cancer. TECHNIQUE: Computed tomography of the chest, abdomen and pelvis was performed with intravenous contrast according to standard protocol. COMPARISON: 02/23/2024. FINDINGS: There is no lymphadenopathy in the chest. The heart size is normal. No pericardial effusion. Interval enlargement of a left lower lobe nodule which now measures 6 mm, previously 3 mm (series 4 image 129). There is a new right lower lobe nodule measuring 5 mm (series 4 image 107). There is a new small right pleural effusion.. There is no focal hepatic lesion. The gallbladder is contracted, there are multiple stones there is stranding around the gallbladder. There are several left adrenal nodules which have increased in size, for reference a nodule on series 2 image 154 which now measures 2 cm and appears 1.7 cm. The 2nd left adrenal nodule has also increased in size now measuring 2 cm, previously 1.2 cm (series 2 image 162). The right adrenal gland is unchanged. Spleen is unchanged. There has been interval enlargement of an enhancing lesion in the pancreatic tail, consistent with a pancreatic tail metastasis.. Multiple enhancing lesions in the left kidney are slightly larger on the current study. The right kidney is absent. There is bladder wall thickening along the anterior aspect of the urinary bladder. The uterus and ovaries are unremarkable. There is diverticulosis of the colon. No bowel obstruction. There are changes of spinal fusion in the thoracic spine. No new or enlarging osseous lesion. There is a fat-containing ventral hernia. IMPRESSION: 1. Interval worsening of metastatic disease as evidenced by enlarging pulmonary nodules, enlarging left adrenal lesions, enlarging pancreatic tail lesion, an enlarging multifocal lesions in the left kidney. 2. New small right pleural effusion. 3. Contracted gallbladder with multiple stones and a small amount of surrounding fat stranding. This may be due to chronic cholecystitis. Electronically signed by: Franck Maynard M.D. Jorge Novak MD IMG CT PROCEDURES Final Result * POCT creatinine (05/11/2024 11:05 AM CDT) Creatinine POC 1.0 0.6 - 1.1 mg/dL Blood 05/11/2024 11:0 5 AM CDT 05/11/2024 11:05 AM CDT us Jorge Novak MD LAB POCT ORDERABLES - DEVICE Fin al Result Performing Organization Address [facility] Co de Phone Number [facility] Department [place] [email or web address] [place] [address] * Tissue aerobic and anaerobic culture and gram stain Bone Back (04/30/2024 2:31 PM CDT) Pathologist [facility] [place] Direct Specimen Exam Stain: No polymorphonuclear leukocytes seen. No organisms seen. Report Final Report: No growth [facility] Bone (Back) 04/30/2024 2:31 PM CDT 04/30/2024 5:22 PM CDT Narrative [facility] - 05/04/2024 8:35 AM CDT Spinous Process bone Testing performed by [facility] ([phone]) Specimens submitted from normally sterile body sites will have all bacterial morphotypes identified. Specimens that contain grossly mixed phillip and/or are from body sites that are not normally sterile will be examined for Staphylococcus aureus, Pseudomonas aeruginosa, beta-hemolytic strep, vancomycin-resistant Enterococcus, Bacteroides, Parabacteroides, Clostridium perfringens and fungus. If any of these are isolated, the organism will be reported. Current interpretive data was last revised on 2019. us Kanu Motta MD LAB MICROBIOLOGY - GENERA L ORDERABLES Final Result Performing Organization Address City/[facility]/ZIP Co de Phone Number [facility] [email or web address] [place] [address] * CA AN ELECTIVE ENDOTRACHEAL AIRWAY, CA AN PROCEDURE PLACEHOLDER (04/30/2024 1:38 PM CDT) Narrative Aldo Israel CRNA - 04/30/2024 1:38 PM CDT Aldo Israel CRNA 04/30/2024 1:44 PM Airway Patient location: OR Urgency: elective Indications for airway management: anesthesia Difficult airway: no Airway prep: Preoxygenated: yes Patient position: sniffing Mask difficulty assessment: 0 - not attempted Spontaneous ventilation during airway: absent Sedation level during airway: GA Final airway details: Final airway type: endotracheal airway Tube type: ETT ETT size: 7.0 mm Cuffed: yes Technique used for successful ETT placement: video laryngoscopy Devices/Methods used in placement: intubating stylet Insertion site: oral Blade type: Natalia Video blade type: Barr Blade size: 3 Cormack-Lehane (video): grade I - full view of glottis Initial cuff pressure: 28 cm H2O Cuff volume: 6 mL Cuff inflated with: air ETT to teeth: 22 cm Placement verified by: auscultation and CO2 detection Airway secured with: prone view tape Number of attempts: 1 Eagle Jerome MD ANESTHESIA ORDERABLES Edited Result - Final * (ABNORMAL) POCT AZ-P-[id number]-[id number]-HCT, WB - ISTAT (04/30/2024 12:49 PM CDT) Na POC 139 135 - 145 mmol/L K POC 4.0 3.3 - 4.9 mmol/L [facility] Comment: Interpretive Data This method is not able to assess for hemolysis, which may falsely increase potassium concentrations. If further testing is needed to evaluate this result, consider in-laboratory plasma potassium. Current Interpretive Data was last revised on 2021. Glucose POC i-STAT 87 70 - 199 mg/dL [facility] Hct, POC 32.0(L) 35.6 - 45.5 % [facility] Blood 04/30/2024 12:4 9 PM CDT 04/30/2024 12:49 PM CDT us Kanu Motta MD LAB POCT ORDERABLES - DEV ICE Final Result [facility] [place] [address] * XR Scoliosis Ap and Lateral (04/27/2024 10:09 AM CDT) Anatomical Region Laterality Modality Spine N/A Computed Radiogr aphy 04/27/2024 10:4 9 AM CDT Impressions 04/27/2024 11:46 AM CDT 1. Postsurgical changes of T7-L1 posterior instrumented fusion with unchanged compression deformity of the T11 vertebral body. Dictated by: Venice Hernandez MD The radiology attending physician has personally reviewed this study, and had reviewed and/or edited this written report and agrees with it. Electronically signed by: Junito Husain D.O. Narrative 04/27/2024 11:46 AM CDT EXAMINATION: XR SCOLIOSIS AP AND LATERAL HISTORY: Spinal fusion FINDINGS: The current study is compared with the prior radiograph dated 04/02/2024. Postsurgical changes of T7-L1 posterior instrumented fusion with unchanged compression fracture of T11 vertebral body. A wire traverses the T10-T12 vertebral bodies with embolization coils projecting over the paraspinal muscles at this level. Inferior vena cava filter present. Unchanged thoracic levocurvature and exaggerated thoracic kyphosis and lumbar lordosis. Multilevel up to moderate degenerative disc disease throughout the unfused spine. Procedure Note Junito Husain, DO - 04/27/2024 EXAMINATION: XR SCOLIOSIS AP AND LATERAL HISTORY: Spinal fusion FINDINGS: The current study is compared with the prior radiograph dated 04/02/2024. Postsurgical changes of T7-L1 posterior instrumented fusion with unchanged compression fracture of T11 vertebral body. A wire traverses the T10-T12 vertebral bodies with embolization coils projecting over the paraspinal muscles at this level. Inferior vena cava filter present. Unchanged thoracic levocurvature and exaggerated thoracic kyphosis and lumbar lordosis. Multilevel up to moderate degenerative disc disease throughout the unfused spine. IMPRESSION: 1. Postsurgical changes of T7-L1 posterior instrumented fusion with unchanged compression deformity of the T11 vertebral body. Dictated by: Venice Hernandez MD The radiology attending physician has personally reviewed this study, and had reviewed and/or edited this written report and agrees with it. Electronically signed by: Junito Husain D.O. Joe Basurto MD IMG XR PROCEDURES Fi nal Result from Last 3 Months Insurance [employer] [facility] MEDICARE ADVANTAGE [facility] MEDICARE ADVANTAGE Advance Directives For more information, please contact: [phone] * Full Code (Latest Code Status on File) Date Activated Date Inactivated Comments 04/02/2024 6:56 AM 04/11/2024 9:29 PM * Full Code Date Activated Date Inactivated Comments 02/25/2024 3:31 PM 03/03/2024 9:37 PM * Full Code Date Activated Date Inactivated Comments 06/01/2023 2:06 AM 06/04/2023 9:07 PM * Full Code Date Activated Date Inactivated Comments 06/27/2020 10:04 PM 06/30/2020 9:34 PM * Full Code Date Activated Date Inactivated Comments 05/09/2020 1:19 AM 05/17/2020 8:45 PM Care Teams Residential Energy Auditor Relationship Specialty Start Date End Date Juan Muñoz MD [address] [address] PCP - General Family Medicine 05/15/23 Brendan Thornton MD Referring Physician Transplant 06/01/18 Jorge Novak MD [address] [place] [address] Medical Oncologist/Drying Machine Tender Medical Oncology 06/01/18 Lawson Montgomery MD [address] [place] [address] Radiation Oncologist Radiation Oncology 06/13/20 Sangeeta Christian MD [address] [facility] [place] [address] Surgeon Oculoplastics Ophthalmology 04/05/22 Franck Arellano MD [address] [address] Consulting Physician Cardiology 05/15/23 Joe Basurto MD [address] [facility] [address] Consulting Physician Orthopedic Surgery 05/15/23
--- OUTSIDE RECORDS SUMMARY | 2024-07-20 12:56 | XMS_ITS | Clinical Summary ---
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 Gender Identity Not on file Sexual Orientation Not on file Plan of Treatment Health Maintenance Due Date Last Done Comments Hepatitis C Virus (HCV) Screening 1955 TdaP Immunization 1955 Cologuard 01/19/2001 Colonoscopy 01/19/2001 Colorectal Cancer Screening 01/19/2001 Immunochemical Fecal Occult Blood 01/19/2001 Pneumococcal Immunization (5 0+ years) (1 of 1 - PCV) 01/19/2006 Zoster Immunization (1 of 2) 01/19/2006 SARS-COV-2 Immunization ( - season) 2023 02/14/2021, 06/19/2020, 05/29/2020 Influenza Immunization (Seas on Ended) 2024 12/10/2018 Respiratory Syncytial Virus (RSV) Immunization (Adult) (1 - 1-dose 75+ series) 01/19/2031 Hepatitis B Immunization Aged Out No longer eligible based on patient's age to complete this topic Human Papillomavirus (HPV) Immunization Aged Out No longer eligible b ased on patient's age to complete this topic Meningococcal Immunization (ACWY) Aged Out No longer eligible b ased on patient's age to complete this topic Rotavirus Immunization Aged Out No lo nger eligible based on patient's age to complete this topic
--- OUTSIDE RECORDS SUMMARY | 2024-07-20 12:57 | XMS_ITS | Clinical Summary ---
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 This disclosure is being madepursuant to the Care Everywhere program and may not contain all information available regarding this patient. Last updated 17.[facility] Allergies Active Allergy Reactions Criticality Noted Date Comments Contrast-Iodinated Agents Fo r Ct/Other Nausea and/or Vomiting Low 05/14/2016 Medications * Be aware that medications may not be up to date on this document. Alwaysverify current medications with the patient. levothyroxine (SYNTHROID) 175 MCG tablet Take 1 (one) tablet by mouth once daily 9 Active amLODIPine (Norvasc) 5 MG tablet Take 1 (one) tablet by mouth once daily 2 Active apixaban (Eliquis) 5 MG tablet TAKE 1 TABLET(5 MG) BY MOUTH TWICE DAILY 2 Active B Complex Vitamins CAPS Take 1 capsule by mouth once daily Active Cholecalciferol 50 MCG (2000 UT) Take 2,000 Units by mouth once daily Active irbesartan (Avapro) 150 MG tablet Take 1 (one) tablet by mouth every morning 2 Active rosuvastatin (Crestor) 20 MG tablet 2 Active Aspirin 81 MG CAPS Take 81 mg by mouth Active axitinib (Inlyta) 5 MG tablet Take 1 (one) tablet by mouth 2 times daily Active fluticasone propionate (Flonase) 50 MCG/ACT nasal spray 3 Active folic acid (Folvite) 1 MG tablet Take 1 (one) tablet by mouth once daily Active senna (Senokot) 8.6 MG tablet Take by mouth 2 times daily Active erythromycin (Romycin) 5 MG/GM ophthalmic ointment Apply thin ribbon to incisions four times a day as well as into both eyes at bedtime. 3.5 g 3 3 Active Active Problems Problem Noted Date Diagnosed Date Obstructive sleep apnea on CPAP 03/25/2019 Abnormal weight gain 03/25/2019 Allergic rhinitis 03/25/2019 Cataracts, bilateral 03/25/2019 Edema 03/25/2019 Encounter for screening for osteoporosis 020 Fatty liver 03/25/2019 Generalized anxiety disorder 03/25/2019 Farheen's thyroiditis 03/25/2019 Hyperglycemia 03/25/2019 Hyperlipidemia 03/25/2019 Hypertensive chronic kidney disease with stage 1 through stage 4 chronic kidney disease, or unspecified chronic kidney disease 03/25/2019 Hypokalemia 03/25/2019 Peripheral vascular disease, unspecified 020 Renal disease 03/25/2019 Spasm of artery 03/25/2019 Solitary lung nodule 03/25/2019 Tobacco use 03/25/2019 Vitamin D deficiency, unspecified 03/25/2019 High myopia 01/06/2019 Ptosis of both eyelids 12/28/2018 Obesity (BMI 35.0-39.9 without comorbidity) 12/11 Renal cell carcinoma of left kidney 06/03/2018 Overview (03/25/2019): Added automatically from request for surgery [id number] Benign hypertension 01/16/2015 Hypothyroidism 12/19/2014 Dermatochalasis of upper eyelid Resolved Problems Problem Noted Date Diagnosed Date Resolved Date Acute sinusitis 03/25/2019 04/22/2019 Immunizations Immunization Administration Dates Next Due INFLUENZA VACCINE 12/10/2018 Social History Tobacco Use Types Packs/Day Years Used Date Smoking Tobacco: Every Day Cigarettes 0.5 51.4 Started: 1972 Smokeless Tobacco: Never Tobacco Cessation:Ready to Q uit: Not Asked; Counseling Given: Not Answered Alcohol Use Standard Drinks/Week Comments Yes 0 (1 standard drink = 0.6 oz pur e alcohol) rarely- social drinker AUDIT-C Answer Date Recorded Q1: How often do you have a drink containing alcohol? Never 05/31/2022 Q2: How many drinks containi ng alcohol do you have on a typical day when you are drinking? Patient does not drink Q3: How often do you have si x or more drinks on one occasion? 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 Gender Identity Not on file Sexual Orientation Not on file Last Filed Vital Signs Vital Sign Reading Time Taken Comments Blood Pressure 168/82 05/31/2022 10:30 AM CDT Pulse 79 05/31/2022 10:30 AM CDT Temperature 36.5 C (97.7 F) 05/31/2022 9:45 AM CDT Respiratory Rate 22 05/31/2022 10:3 0 AM CDT Oxygen Saturation 98% 05/31/2022 10: 30 AM CDT Inhaled Oxygen Concentration - - Weight 112.9 kg (248 lb 14.4 oz) 05/31/2022 6:09 AM CDT Height 172.7 cm (5' 8) 05/31/2022 6:09 AM CDT Body Mass Index 37.85 05/31/2022 6:09 AM CDT Plan of Treatment Health Maintenance Due Date Last Done Comments BONE DENSITY TESTING 1955 COLOGUARD (AGES 45-75) - COLON CA SCREENING 1956 COLON MONITORING 1956 COLONOSCOPY - COLON CA SCREENING 1956 CT COLONOGRAPHY - COLON CA SCREENING 1956 Colorectal Cancer Screening 1956 FIT - COLON CA SCREENING 1956 FLEX SIG - COLON CA SCREENING 1956 MAMMOGRAM 1955 MEDICARE AWV 12 MONTHS 1956 HEPATITIS C SCREENING 01/15/1974 DTAP/TDAP/TD VACCINES (1 - Tdap) 01/19/1975 PNEUMOCOCCAL VACCINE 50+ (1 of 2 - PCV) 01/19/1975 ZOSTER VACCINE (1 of 2) 01/19/2006 Respiratory Syncytial Virus (RSV) Vaccine Pt: or over 60 yrs (1 - Risk 60-74 years 1-dose series) 2016 COVID-19 VACCINE ( - season) 2023 02/14/2021, 06/19/2020, 05/29/2020 DEPRESSION SCREENING 02/11/2024 INFLUENZA VACCINE (Season Ended) 2024 12/10/2018 SCREENING FOR DIABETES 01/05/2027 , 12/09/2023, 06/26/2023, Additional history exists HEPATITIS B VACCINE Aged Out No longe r eligible based on patient's age to complete this topic HIB VACCINE Aged Out No longer eligi ble based on patient's age to complete this topic HPV VACCINE Aged Out No longer eligi ble based on patient's age to complete this topic MENINGOCOCCAL (Group B) VACCINE SHARED DECISION-MAKING Aged Out No longer eligible based on patient's age to complete this topic MENINGOCOCCAL GROUPS A/C/Y/W VACCINE Aged Out No longer eligible based on patient's age to complete this topic Procedures Procedure Name Priority Date/Time Associated Diagnosis Comments BASIC METABOLIC PANEL (CALCIUM TOTAL) Routine 05/17/2022 11:49 AM CDT Pre-op evaluation from Last 3 Months or Most Recently Relevant to Health Maintenance Results * (ABNORMAL) BASIC METABOLIC PANEL (CALCIUM TOTAL) (05/17/2022 11:49 AM CDT) BUN 17 7 - 26 mg/dL 05/17/2022 12:41 PM CDT [facility] Creatinine 1.13(H) 0.56 - 0.96 mg/dL 05/17/2022 12:41 PM CDT [facility] Sodium 143 136 - 145 mmol/L 05/17/2022 12:41 PM T [facility] Potassium 4.1 3.5 - 4.5 mmol/L 05/17/2022 12:41 PM [facility] Chloride 107 98 - 107 mmol/L 05/17/2022 12:41 PM [facility] CO2 25 22 - 29 mmol/L 05/17/2022 12:41 PM [facility] Glucose 92 70 - 115 mg/dL 05/17/2022 12:41 PM [facility] Calcium 9.7 8.4 - 10.2 mg/dL 05/17/2022 12:41 PM [facility] Anion Gap 15 8 - 18 05/17/2022 12:41 PM [facility] BUN/Creatinine Ratio 15 7 - 23 05/17/2022 12:41 PM [facility] Osmolality Calculated 297 270 - 300 mOsm/kg 05/17/2022 12:41 PM [facility] eGFR by CKD-EPI 54(L) >=90 mL/min/1.7 3 m2 05/17/2022 12:41 PM [facility] Blood BLOOD SPECIMEN / Unknown Lab Venipuncture / Unknown 05/17/2022 11:49 AM CDT 05/17/2022 11:58 AM CDT Rose Thorne GRINDER SET UP OPERATOR THREAD-PLATFORM LOADER LAB - CHEMISTRY O RDERABLES Final Result [facility] [address] [place] [address], [facility] [phone] from Last 3 Months or Most Recently Relevant to Health Maintenance Insurance MEDICAID - OUT OF STATE MEDICARE MEDICAID - [facility] out of State MEDICARE MEDICAID - [place] Care Teams Coffee Roaster Helper Relationship Specialty Start Date End Date Juan Muñoz MD [address] [place] [address] PCP - General Family Medicine 02/14/22 Violet Burris MD [address] [place] [address] Physician Neurology 03/25/19 Eagle Solomon MD [address] [facility] [address] [place] [address] Obstetrics and Gynecology 03/25/19 Jorge Novak MD [address] [facility] [address] [facility], [address] [place] [address] Oncology 02/14/22 Franck Arellano MD [address] [place] [address] Internal Medicine 02/14/22
--- OUTSIDE RECORDS SUMMARY | 2024-07-20 12:57 | XMS_ITS | Referral Summary ---
Author Organization [facility] Address [address] [place] [address] Care Team Providers Care Cranberry Bog Supervisor Name Role Phone Brendan Thornton MD Unavailable [phone] Jorge Novak MD Unavailable Lawson Montgomery MD Unavailable Sangeeta Christian MD Unavailable [phone] Juan Muñoz MD Primary Care Provider [phone] Franck Arellano MD Unavailable [phone] Joe Basurto MD Unavailable [phone] Encounters Date Type Department Care Team Description 07/19/2024 11:00 AM CDT Office Visit [facility] Cardiology [address] [facility] [address] [place] [address] Franck Arellano MD Hypertension, unspecified type (Primary Dx); Coronary artery disease involving agua caliente coronary artery of ag[place] heart without angina pectoris; AV node dysfunction 07/07/2024 10:45 AM CDT Office Visit [facility] Surgery [address] [facility] 6th [place] [address] [place] [address] Kimberlee Mckoy NP Wound, open with complication (Primary Dx) 06/03/2024 10:00 AM CDT Home Care Visit [address] [place] [address] Criselda Mcdaniel RN SN OASIS DISCHARGE 06/02/2024 11:45 AM CDT Office Visit [facility] Surgery [address] [facility] 6th [place] [address] [place] [address] Kalia, Kanu Rutledge MD Wound, open with complication (Primary Dx) 06/01/2024 12:00 PM CDT Home Care Visit [address] [place] [address] Ester Tompkins, PT PT DISCIPLINE DISCHARGE 05/27/2024 12:00 PM CDT Home Care Visit [address] [place] [address] Ester Tompkins, PT PT HOME VISIT 05/26/2024 10:00 AM CDT Home Care Visit [address] [place] [address] Roseann Shahid LPN SN HOME VISIT 05/24/2024 12:00 PM CDT Home Care Visit [address] [place] [address] Ester Tompkins, PT PT HOME VISIT 05/20/2024 Telephone [facility] Oncology [facility] Floor 5 [place] [address] Jorge Novak MD cabozantinib prescription 05/20/2024 3:00 PM CDT Home Care Visit [address] [place] [address] Ester Tompkins, PT PT HOME VISIT 05/19/2024 12:00 PM CDT Home Care Visit [address] [place] [address] Criselda Mcdaniel RN SN HOME VISIT 05/18/2024 Orders Only [facility] Oncology [facility] Floor 5 [place] [address] Jorge Novak MD 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) (Primary Dx); Renal cell carcinoma of left kidney (HCC) 05/18/2024 11:15 AM CDT Lab [facility] [place] - Lab Collection [address] [facility] Floor 5 [place] [address] 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); Metastatic 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 (HCC) 05/18/2024 11:00 AM CDT Lab [facility] Oncology Lab [address] [place] [address] Floor 5 [place] [address] 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); Metastatic 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 (HCC) 05/18/2024 11:45 AM CDT Office Visit [facility] Oncology [address] [place] [address] Floor 5 [place] [address] Jorge Novak MD 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); Metastatic 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 (HCC) 05/17/2024 12:00 PM CDT Home Care Visit [address] [place] [address] Ester Tompkins, PT PT INITIAL EVALUATION 05/14/2024 1:45 PM CDT Office Visit [facility] Surgery [address] [facility] 6th [place] [address] [place] [address] Kimberlee Mckoy NP Wound, open with complication (Primary Dx) 05/12/2024 3:00 PM CDT Home Care Visit [address] [address] [place] [address] Criselda Mcdaniel RN SN HOME VISIT 05/11/2024 10:54 AM CDT - 05/11/2024 11:59 PM CDT Hospital Encounter [facility] [place] [address] [place] [address] Floor 8 [place] [address] 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); Metastatic 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 (HCC) Discharge Disposition: Discharge to home or self care 05/04/2024 4:00 PM CDT Home Care Visit [address] [place] [address] Criselda Mcdaniel RN SN HOME VISIT 04/29/2024 Plan of Care Documentation [address] [place] [address] 04/30/2024 Telephone [facility] Surgery [address] [place] [address] Advanced Medicine 6th [place] [address] France Cat CMA 04/30/2024 1:30 PM CDT - 04/30/2024 3:40 PM CDT Surgery [facility] [address] [place] [address] Kanu Motta MD EXCISION CYST/LESION/MASS - BACK 04/30/2024 1:03 PM CDT Anesthesia Event [facility]) [address] [place] [address] Eagle Jerome MD 04/30/2024 10:31 AM CDT - 04/30/2024 4:51 PM CDT Hospital Encounter [facility] Operating [facility] ([facility]) [address] [place] [address] Kanu Motta MD Wound, open with complication (Primary Dx) Discharge Disposition: Discharge to home or self care 04/29/2024 Telephone [facility] Surgery [address] [place] [address] 6th [place] [address] Eliane Padgett RN 04/29/2024 12:00 PM CDT Home Care Visit [address] [address] [place] [address] Criselda Mcdaniel RN SN OASIS RECERTIFICATION 04/28/2024 2:30 PM CDT Office Visit [facility] Surgery [address] [place] [address] Advanced [facility] 6th [place] [address] Kanu Motta MD Wound, open with complication (Primary Dx) 04/28/2024 1:20 PM CDT Office Visit [facility] Infectious Diseases [address] [facility] [address] [place] [address] Katie Ojeda NP Vertebral osteomyelitis, acute (HCC) (Primary Dx) 04/27/2024 9:55 AM CDT - 04/27/2024 11:59 PM CDT Hospital Encounter [facility] Radiology [facility]) [address] [place] [address] Postoperative infection, initial encounter Discharge Disposition: Discharge to home or self care 04/27/2024 10:30 AM CDT Office Visit [facility] Orthopaedic Surgery [address] [facility] Advanced [facility] 6th [place] [address] [place] [address] Joe Basurto MD Postoperative infection, initial encounter (Primary Dx) 04/23/2024 10:45 AM CDT Office Visit [facility] Department of [facility] [address] [facility] [address] [place] [address] Kimberlee Mckoy NP Wound, open with complication 04/21/2024 10:00 AM CDT Home Care Visit [facility] [address] [address] [place] [address] Criselda Mcdaniel RN SN HOME VISIT from Last 3 Months Allergies Active Allergy Reactions Criticality Noted Date Comments Vancomycin Other (See comments) Low 04/05/2024 Experienced infusion reaction of itching in 03/2024 that resolved with benadryl. Not a true allergy or intolerance. Administer Benadryl prior to Vanco. Medications levothyroxine (SYNTHROID, LEVOTHROID) 175 mcg tabletIndications :hypothyroidism Take 1 tablet (175 mcg total) by mouth sports director before breakfast 019 Active cholecalciferol (VITAMIN D-3) [...] mouth every 8 (eight) hours 90 capsule Active multivitamin with folic acid 400 mcg tabletIndications :Vitamin Deficiency Prevention Take 1 tablet by mouth daily 30 tablet 11 2025 Active cyclobenzaprine (FLEXERIL) 5 mg tabletIndications [...] for pain (severe pain 7-10) 8 tablet Active ondansetron ODT (ZOFRAN-ODT) 4 mg disintegrating [...] 20 mg tabletIndications :Coronary artery disease involving agua caliente coronary artery of agua [place] heart without angina pectoris TAKE 1 TABLET(20 [...] 04/01/2024 Assessment & Plan (04/05/2024 12:14 PM [employer]): Eli Frazier is a 69 y.o. female [...] dehiscence which prompted her to come to [facility] ER. She was seen by Ortho spine [...] wound dehiscence prompting her to go to [facility] ED, now s/p I&D with incisional wound [...] concerns. Assessment & Plan (03/23/2024 11:24 AM [employer]): She underwent thoracolumbar wound I&D down to [...] 02/19/2024 Assessment & Plan (03/02/2024 10:59 AM [employer]): Eli Frazier is a 69 y.o. female [...] of lumbar spine 06/02/2023 Prophylactic antibiotic 05/28/2023 [facility] compl of internal fixation device of oth dez lorrie, init 05/18/2023 Coronary artery disease invo lving agua caliente coronary artery of ag[place] heart without angina pectoris 09/03/2021 AV node [...] Condition: stable Contains abnormal data eGFR Order: [id number] Component Ref Range & Units 12/07/20 0831 [...] Assessment & Plan: Condition: stable TSH Order: [id number] Component Ref Range & Units 12/07/20 0831 [...] Condition: stable Vitamin D 25 hydroxy Order: [id number] Component Ref Range & Units 07/13/20 0803 [...] (06/03/2018): Added automatically from request for surgery [id number] Assessment & Plan (06/27/2020 11:10 PM CDT): [...] 5mg daily - med onc consult - radon consult Abnormal CT scan 05/06/2018 Overview (05/06/2018): Added automatically from request for surgery [id number] Edema 04/09/2016 Family history of ischemic h [...] 05/09/2020 Malignant neoplasm of kidney 04/15/2013 09/15/2018 Immunizations Immunization Administration Dates Next Due Influenza, Unspecified 12/10/2018 Pfizer SARS-CoV-2 Monovalent Vaccination (12+ Yrs) PURPLE 06/19/2020,05/29/2020,05/27/2020 Social History Tobacco Use Types Packs/Day Years [...] materials from doctor or pharmacy Never 06/03/2024 [facility] Utilities Answer Date Recorded In the past 12 months has th e [place], oil, or water [employer] threatened to shut off services in your [...] 04/02/2024 How often do you attend chur or alevism services? More than 4 times per year 04/02/2024 Do you belong to any clubs o r organizations such as anglican groups, unions, fraTailored Games or athletic groups, or school groups? No [...] and heating? Not hard at all 04/02/2024 [facility] - Occupational Stress [...] any time in the past 12 m [facility], were you homeless or living in [...] on file Legal Sex Female 6:17 AM [employer] Gender Identity Not on file Sexual Orientation [...] 07/19/2024 11:07 AM CDT Plan of Treatment Not on file Medical Devices Implanted Type Area Crew Person Device Identifier Shelf Expiration Date Model / Serial / Lot [employer] [id number] Vial 180-300um Particles 1ml Embolization Pva Foam Sterile - [id number] Implanted:Qty: 1 on 05/10/[address] [facility] [employer] [id number] / / Daig Elbert [id number] Device Closure Angio-Seal Vip Bondek-Plus Polyglyd L70 Cm Od6 Fr Odsec.035 In Vascular - [id number] Implanted:Qty: 1 on 05/10/[address] [facility] Right: Femoral Terumo Medical Elbert [id number] / / Bard Peripheral Vascular [id number] Krystal Delivery Kit Vena Cava Jugular Filter Embolization Nitinol Latex Free - [id number] Implanted:Qty: 1 on 05/10/[address] [facility] Vena Cava Bard Peripheral Vascular [id number] / / Abyrx Os-201 Hemasorb Os-Spa Spatula Wax 2gm Bone Sterile - [id number] Implanted:Qty: 1 on 05/12/2020 by Joe Basurto MD at [facility] N/A: Spine Thoracic Abyrx 03/12/2023 OS-201 / / [id number] Allosource [id number] Crushed Chip Frozen Graft 60ml Bone Cancellous - [id number] Implanted:Qty: 1 on 05/12/2020 by Joe Basurto MD at [facility] N/A: Spine Thoracic Allosource 04/06/2025 [id number] / / [id number] Ron Spine [id number] Sharita 3 Spine Reyes Spinal Titanium - [id number] Implanted:Qty: 14 on 05/12/2020 by Joe Basurto MD at [facility] N/A: Spine Lumbar Piketon Spine [id number] / / Piketon Spine [id number] Sharita 3 5mm 45mm Polyaxial Spine Thoracolumbar Screw Bone Titanium - [id number] Implanted:Qty: 2 on 05/12/2020 by Joe Basurto MD at [facility] N/A: Spine Lumbar Piketon Spine [id number] / / Piketon Spine [id number] Sharita 3 5mm 50mm Polyaxial Spine Thoracolumbar Screw Bone Titanium - [id number] Implanted:Qty: 2 on 05/12/2020 by Joe Basurto MD at [facility] N/A: Spine Lumbar Ron Spine [id number] / / Ron Spine [id number] Radius 5.5mm 600mm Hexagonal Junito Spinal Titanium Nonsterile - [id number] Implanted:Qty: 1 on 05/12/2020 by Joe Basurto MD at [facility] N/A: Spine Lumbar Ron Spine [id number] / / [employer] Scientific Elbert Particle Embolization Pre Filled Foam Vial 2ml Microsphere Contour 150-250um Polyvinyl Alcohol [id number] - [id number] Implanted:Qty: 1 on 06/01/[address] [facility] [employer] Elbert 08/05/2025 [id number] / / [id number] Depuy Synthes Spine Substitute Bone Graft Fibergraft Large Bioactive Glass Putty [id number] - [id number] Implanted:Qty: 1 on 06/02/2023 by Joe Basurto MD at [facility] N/A: Spine Thoracic Depuy Synthes Spine 01/03/2024 [id number] / / [id number] Allosource Crushed Chip Frozen Graft 30ml Bone Cancellous [id number] - [id number] Implanted:Qty: 1 on 06/02/2023 by Joe Basurto MD at [facility] N/A: Spine Thoracic Allosource 07/30/2027 [id number] / / [id number] Piketon Spine Sharita 3 Spine Reyes Spinal Titanium [id number] - [id number] Implanted:Qty: 12 on 06/02/2023 by Joe Basurto MD at [facility] N/A: Spine Thoracic Piketon Spine [id number] / / Piketon Spine Junito Spinal Lumbar Straight Long Hexagonal Head Mantis [id number] Titanium [id number] - [id number] Implanted:Qty: 1 on 06/02/2023 by Joe Basurto MD at [facility] N/A: Spine Thoracic Piketon Spine [id number] / / Procedures Procedure Name Priority Date/Time [...] GRAM STAIN Routine 04/30/2024 2:31 PM CDT VT AN PROCEDURE PLACEHOLDER Routine 04/30/2024 1:38 PM CDT VT AN ELECTIVE ENDOTRACHEAL AIRWAY Routine 04/30/2024 1:38 PM CDT CLOSURE WOUND 04/30/2024 1:05 PM CDT Wound, open with complication Case Notes 04/28 - MISSING DPC. EMAIL SENT. NB Special Needs PRONE POSITION, Prevena Plus EXCISION CYST/LESION/MASS - BACK 04/30/2024 1:05 PM CDT Wound, open with complication Case Notes 04/28 - MISSING DPC. EMAIL SENT. NB Special Needs PRONE POSITION, Prevena Plus POCT OA-Z-HSR-GLU-HCT,WB - ISTAT Routine 04/30/2024 12:49 PM CDT [...] ORDERABLES Final Resul t Performing Organization Address City/[facility] Co de Phone Number [facility] [address] * TSH (05/18/2024 11:29 AM CDT) Thyroid Stimulating Hormone 0.40 0.30 - 4.20 mcIUnit/mL Blood 05/18/2024 11:2 9 AM CDT 05/18/2024 11:30 AM CDT us Jorge Novak MD LAB BLOOD ORDERABLES Final Resul t Performing Organization Address [facility] Co de Phone Number [facility] [address] * (ABNORMAL) T4, free (05/18/2024 11:29 AM CDT) Free T4 2.04(H) 0.90 - 1.70 ng/dL Blood 05/18/2024 11:2 9 AM CDT 05/18/2024 11:30 AM CDT Result Annabel Novak MD LAB BLOOD ORDERABLES Final Resul t Performing Organization Address [facility] Co de Phone Number [facility] [place] [address] * Lactate dehydrogenase (LD) (05/18/2024 11:29 AM CDT) Lactate dehydrogenase (LDH) 224 100 - 250 Units/L Blood 05/18/2024 11:2 9 AM CDT 05/18/2024 11:30 AM CDT us Jorge Novak MD LAB BLOOD ORDERABLES Final Resul t [facility] [address] [place] [address] * Comprehensive metabolic panel (05/18/2024 11:29 AM CDT) Pathologist [facility] Sodium 140 135 - 145 mmol/L Potassium, pl 4.3 3.3 - 4.9 mmol/L [facility] Chloride 105 97 - 110 mmol/L [facility] CO2 22 22 - 32 mmol/L [facility] Anion gap 13 2 - 15 mmol/L [facility] BUN 16 6 - 25 mg/dL [facility] Creatinine 0.86 0.60 - 1.10 mg/dL [facility] Glucose 78 70 - 199 mg/dL [facility] Comment: Interpretive Data Fasting glucose >/= [...] classification and Diagnosis of Diabetes Diabetes Care 2021; 46: S19-S40. Current interpretive data was last revised 2022. Calcium 10.0 8.5 - 10.3 mg/dL [facility] Bilirubin, total 0.3 0.1 - 1.2 mg/dL [facility] Protein, pl 7.8 6.5 - 8.5 g/dL [facility] Albumin 3.6 3.5 - 5.0 g/dL [facility] Alk phos 109 40 - 130 Units/L [facility] ALT 12 7 - 45 Units/L [facility] AST 35 10 - 45 Units/L [facility] Comment:Hemolyzed; result ma y be falsely elevated Blood 05/18/2024 11:2 9 AM CDT 05/18/2024 11:30 AM CDT us Jorge Novak MD LAB BLOOD ORDERABLES Final Resul t [facility] [address] Department [place] [address] * Differential, auto (05/18/2024 11:24 AM CDT) Neutrophil abs 4.82 1.50 - 6.50 K/cumm Comment:Testing performed by : [facility], [address] [place] [address] Lymphocyte abs 0.88 0.80 - 3.30 K/cumm [facility] Comment:Testing performed by : [facility], [address] [place] [phone] Monocyte abs 0.56 0.20 - 0.80 K/cumm [facility] Comment:Testing performed by : [facility], [address] [place] [address] Eosinophil abs 0.20 0.00 - 0.50 K/cumm [facility] Comment:Testing performed by : [facility], [address] [place] [address] Basophil abs 0.07 0.00 - 0.10 K/cumm [facility] Comment:Testing performed by : [facility], [address] [place] [phone] Neutrophil pct 73.8 % [facility] Comment: Interpretive Data Percent cell count reference ranges are not reported, since discordance with absolute values may lead to misinterpretation of CBC data. Current Interpretive Data was last revised on 2017. Testing performed by: [facility], [address] [place] [address] Lymphocyte pct 13.5 % [place] [facility] Comment: Interpretive Data Percent cell count reference ranges are not reported, since discordance with absolute values may lead to misinterpretation of CBC data. Current Interpretive Data was last revised on 2017. Testing performed by: [facility], [address] [place] [phone] Monocyte pct 8.5 % [place] [facility] Comment: Interpretive Data Percent cell count reference ranges are not reported, since discordance with absolute values may lead to misinterpretation of CBC data. Current Interpretive Data was last revised on 2017. Testing performed by: [facility], [address] [place] [phone] Eosinophil pct 3.1 % [place] [facility] Comment: Interpretive Data Percent cell count reference ranges are not reported, since discordance with absolute values may lead to misinterpretation of CBC data. Current Interpretive Data was last revised on 2017. Testing performed by: [facility], [address] [place] [phone] Basophil pct 1.1 % [place] [facility] Comment: Interpretive Data Percent cell count reference ranges are not reported, since discordance with absolute values may lead to misinterpretation of CBC data. Current Interpretive Data was last revised on 2017. Testing performed by: [facility], [address] [place] [phone] Blood 05/18/2024 11:2 4 AM CDT 05/18/2024 11:30 AM CDT us Jorge Novak MD LAB BLOOD ORDERABLES Final Resul t [facility] [address] Department [place] [address] * (ABNORMAL) CBC with auto differential (05/18/2024 11:24 AM CDT) WBC 6.53 3.80 - 9.90 K/cumm Comment:Testing performed by : [facility], [address] [place] [address] Hgb 12.1 11.9 - 15.5 g/dL [facility] Comment:Testing performed by : [facility], [address] [place] [address] Hct 37.4 35.6 - 45.5 % [facility] Comment:Testing performed by : [facility], [address] [place], [place] [phone] Plt 361 150 - 400 K/cumm [facility] Comment:Testing performed by : [facility], [address] [place] [address] MPV 8.4 6.8 - 10.4 fL [facility] Comment:Testing performed by : [facility], [address] [place], [place] [phone] RBC 3.95 3.90 - 5.20 M/cumm [facility] Comment:Testing performed by : [facility], [address] [place] [address] MCV 94.5 81.3 - 96.4 fL [facility] Comment:Testing performed by : [facility], [address] [place] [address] MCH 30.7 27.1 - 33.3 pg [facility] Comment:Testing performed by : [facility], [address] [place] [address] MCHC 32.5 32.3 - 35.7 g/dL [facility] Comment:Testing performed by : [facility], [address] [place] [address] RDW CV 16.6(H) 11.1 - 14.9 % [facility] Comment:Testing performed by : [facility], [address] [place] [address] NRBC abs 0.00 0.00 - 0.01 K/cumm [facility] Comment:Testing performed by : [facility], [address] [place] [address] Blood 05/18/2024 11:2 4 AM CDT 05/18/2024 11:30 AM CDT us Jorge Novak MD LAB BLOOD ORDERABLES Final Resul t [place] [facility] [place] [address] * CT Chest Abdomen Pelvis W Contrast [...] 5 AM CDT 05/11/2024 11:05 AM CDT Jorge Novak MD LAB POCT ORDERABLES - DEVICE Fin al Result Performing Organization Address [facility]/ZIP Co de Phone Number [facility] [place] [address] * Tissue aerobic and anaerobic culture and gram stain Bone Back (04/30/2024 2:31 PM CDT) Direct Specimen Exam Stain: No polymorphonuclear leukocytes seen. No organisms seen. Report Final Report: No growth [facility] Bone (Back) 04/30/2024 2:31 PM CDT 04/30/2024 5:22 PM CDT Narrative [facility] - 05/04/2024 8:35 AM CDT Spinous Process bone Testing performed by [facility] Microbiology Laboratory ([phone]) Specimens submitted from normally sterile body sites [...] interpretive data was last revised on 2019. Kanu Motta MD LAB MICROBIOLOGY - GENERA L ORDERABLES Final Result Performing Organization Address City/[facility]/ZIP Co de Phone Number [facility] Department [place] [address] * VT AN ELECTIVE ENDOTRACHEAL AIRWAY, VT AN PROCEDURE PLACEHOLDER (04/30/2024 1:38 PM CDT) [...] Edited Result - Final * (ABNORMAL) POCT CW-A-GXL-GLU-HCT, WB - ISTAT (04/30/2024 12:49 PM CDT) Na POC 139 135 - 145 mmol/L K POC 4.0 3.3 - 4.9 mmol/L [facility] Comment: Interpretive Data This method is not able to assess for hemolysis, which may falsely increase potassium concentrations. If further testing is needed to evaluate this result, consider in-laboratory plasma potassium. Current Interpretive Data was last revised on 2021. Glucose POC i-STAT 87 70 - 199 mg/dL [facility] Hct, POC 32.0(L) 35.6 - 45.5 % [facility] Blood 04/30/2024 12:4 9 PM CDT 04/30/2024 12:49 PM CDT Kanu Motta MD LAB POCT ORDERABLES - DEV ICE Final Result [facility] Department [place] [address] * XR Scoliosis Ap and Lateral (04/27/2024 [...] throughout the unfused spine. Procedure Note Junito Husain DO - 04/27/2024 EXAMINATION: XR SCOLIOSIS AP [...] it. Electronically signed by: Junito Husain D.O. us Joe Basurto MD IMG XR PROCEDURES Fi nal Result from Last 3 Months Insurance [facility] MEDICARE ADVANTAGE [facility] MEDIC[facility] ADVANT[facility] Advance Directives For more information, please contact: [phone] * Full Code (Latest Code Status on [...] 1:19 AM 05/17/2020 8:45 PM Care Teams [employer]berry [employer] Supervisor Relationship Specialty Start Date End Date Juan Muñoz MD [address] [address] PCP - General Family Medicine 05/15/23 Brendan Thornton MD Referring Physician Transplant 06/01/18 Jorge Novak MD [address] [place] [address] Medical Oncologist/Handhole Machine Operator Medical Oncology 06/01/18 Lawson Montgomery MD [address] [place] [address] Radiation Oncologist Radiation Oncology 06/13/20 Sangeeta Christian MD [address] [facility] [place] [address] Surgeon Oculoplastics Ophthalmology 04/05/22 Franck Arellano MD [address] [place] [address] [address] [place] [address] Consulting Physician Cardiology 05/15/23 Joe Basurto MD [address] [facility] [address] [place] [address] Consulting Physician Orthopedic Surgery 05/15/23
== END ==
PROVIDERS: PCP Nurse Practitioner Family; Visit Provider Nurse Practitioner Family
DX: R22.41 Localized swelling, mass and lump, right lower limb (principal); M79.674 Pain in right toe(s)
CPT/HCPCS: 73660

== ENCOUNTER 2024-07-28 00:18 | Day surgery (SDC) | payer MEDICARE, MEDICAID, SELFPAY ==
[2024-07-23 15:58] VITALS: BMI 33.6
--- NOTE | 2024-07-23 16:38 | PC.NURSE ---
Spoke with __PATIENT regarding medication _ELIQUIS_. _PATIENT_verbalizes understanding that the last dose is to be taken on 07/25/2024_ and the Endoscopist will instruct them when to restart after the procedure.
--- NOTE | 2024-07-27 11:51 | PC.NURSE ---
Called Dr. Basurto spine surgeon regarding whether patient would need antibiotics prior to procedure here, spoke with RN from his office and they feel she is currently on oral Keflex and that will cover her for this procedure.
--- OUTSIDE RECORDS SUMMARY | 2024-07-28 00:23 | XMS_ITS | CONTINUITY OF CARE DOCUMENT ---
Author Name chidi, chidi Address Unknown Organization [facility] Address [address] [facility] [address] [place] [address] Phone [phone] Care Team Providers Care In Home Sales Representative Name Role Phone Richard VALERIO, Cedric Unavailable UYEN MAR MD Unavailable UYEN MAR MD Unavailable [phone] PROBLEMS Condition Status Date Provider Notes Family [...] In-person encounter Office Visit Cedric Ramos MD [facility] - In-person encounter Office Visit Cedric Ramos MD [facility] - In-person encounter Office Visit Cedric Ramos MD [facility] - In-person encounter Office Visit Cedric Ramos MD [facility] - In-person encounter Office Visit Cedric Ramos MD [facility] - In-person encounter Office Visit Cedric Ramos MD [facility] Cardiovascular screening - In-person encounter Office Visit Cedric Ramos MD [facility] - In-person encounter Office Visit Cedric Ramos MD [facility] - In-person encounter Office Visit Cedric Ramos MD [facility] Peripheral Vascular Disease - In-person encounter Office Visit Cedric Ramos MD [facility] Family History of Hypertension:Hypertens ionEdemaLeg pain, bilateralRenal cell carcinoma, right kidneyTobacco abuseFAMILY HISTORY OF HEART DISEASESleep apnea VITAL SIGNS Date Observation Value Provider Body Mass Index (Ratio) 34.57 kg/m2 Scooby Ramos MD blood pressure, diastolic 90 mm[Hg] Stacey nkLogernie blood pressure, systolic 154 mm[Hg] Corine Licea blood pressure, diastolic 90 mm[Hg] Gomez Felder blood pressure, systolic 154 mm[Hg] Dia Felder oxygen saturation, oximetry 96 % Dakota [...] blood pressure, systolic 94 mm[Hg] Ker ri [facility] oxygen saturation, oximetry 98 % Bertha Geovanni respiratory rate E&M 18 /min Bertha loza pulse rate 89 /min Bertha Rehannenfe er weight E&M 247 [lb_av] Bertha Gruenenfe er height E&M 68 [in_i] Bertha Jeanuenenfe [facility] Body Mass Index (Ratio) 39.83 kg/m2 Scooby [...] blood pressure, systolic 112 mm[Hg] Lexis romeo Criag oxygen saturation, oximetry 96 % Vinita Craig respiratory rate E&M 16 /min Vinita Craig pulse rate 84 /min Vinita Craig weight E&M 276 [lb_av] Vinita Rafa height E&M 68 [in_i] Vinita Craig Body Mass Index (Ratio) 42.84 kg/m2 Scoboy Ramos MD blood pressure, diastolic 82 mm[Hg] [...] Location very low density lipoproteins 43.6 mg/dL [facility] 5.0 - 40.0 High LDL/HDL (low-density lipoprotein/high-d ensity lipoprotein) ratio 2.8 RATIO [facility] - lipoprotein, beta, serum, point, quantitative, calculated 83.4 (?) [facility] 0.0 - 100.0 HDL cholesterol, serum 30.0 mg/dL [facility] 45.0 - 65.0 Low cholesterol, serum 157.0 mg/dL [facility] 0.0 - 200.0 triglyceride, serum, fasting 218.0 mg/dL [facility] 0.0 - 150.0 High urea nitrogen/creatinin e ratio, serum 15.0 [facility] - Estimated Glomerular Filtration Rate (calc) 60.1 (?) [facility] 59.0 - chloride, serum 98.6 mmol/L [facility] 98.0 - 107.0 potassium, serum 4.4 mmol/L [facility] 3.5 - 5.1 sodium, serum 141.0 mmol/L [facility] 136.0 - 145.0 creatinine, serum 1.0 mg/dL [facility] 0.5 - 1.0 High carbon dioxide, venous blood 28.0 mmol/L [facility] 23.0 - 31.0 calcium, serum 9.6 mg/dL [facility] 8.6 - 10.2 urea nitrogen, blood 15.0 mg/dL [facility] 8.0 - 23.0 blood glucose, random 89.0 mg/dL [facility] 74.0 - 99.0 red blood cell distribution width, size density 55.8 fL [facility] - immature granulocytes, percentage of total cells, blood 0.2 % [facility] - nucleated red blood cells as percent of blood leukocytes 0.0 % [facility] - 5 red blood cell (erythrocyte) count, [...] Instructions Dates Provider Indications Com ments vitamin [id number] acid 0.5-1 mg tablet active Take 1 [...] 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 s: 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 Smoking History: P atient currently smokes every [...] 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 P atient has been counseled to quit. 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 The patient has been benefiting from therapy and should continue use. Cedric Ramos MD [id number],S, Cedric sanz MD [id number],S, Cedric sanz MD [id number],S, Cedric sanz MD [id number],S, Cedric sanz MD Cardiology:The patie nt is [...] should continue use. Cedric Ramos MD Cardiology Cerdic Ramos MD Cardiology Cedric Ramos MD Cardiology [...] EKG Cedric Ramos MD complete d SNOMED-CT: [id number] Current Medications Documented Cedric Ramos MD completed SNOMED-CT: [id number] Current Medications Documented Cedric Ramos MD completed Stress EKG True Cortés MD completed Regadenoson, 4 units Cedric Ramos MD completed Cardiolite, 2 units Cedric Ramos MD completed SPECT Images Gordon Alvarado MD completed EKG Cedric Ramos MD complete d SNOMED-CT: [id number] Current Medications Documented Cedric Ramos MD completed
--- OUTSIDE RECORDS SUMMARY | 2024-07-28 00:24 | XMS_ITS | Referral Summary ---
Author Organization [facility] Address [address] [place] [address] Care Team Providers Care Manager Wind Name Role Phone Brendan Thornton MD Unavailable [phone] Jorge Novak MD Unavailable Lawson Montgomery MD Unavailable Sangeeta Christian MD Unavailable [phone] Juan Muñoz MD Primary Care Provider [phone] Franck Arellano MD Unavailable [phone] Joe Basurto MD Unavailable [phone]- [phone] Encounters Date Type Department Care Team Description 07/27/2024 10:45 AM CDT Lab [facility] - Lab Collection [address] [place] [address] [address] [place] [address] 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); Metastatic 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 (HCC) 07/27/2024 10:30 AM CDT Lab [facility] Oncology Lab [address] [place] [address] 5 [place] [address] 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); Metastatic 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 (HCC) 07/27/2024 11:30 AM CDT Office Visit [facility] Oncology [address] [place] [address] 5 [place] [address] Jorge Novak MD 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) (Primary Dx); Metastatic 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 (HCC) 07/22/2024 Orders Only [facility] Oncology [address] [facility] Floor 5 [place] [address] Jorge Novak MD 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) (Primary Dx); Renal cell carcinoma of left kidney (HCC) 07/22/2024 Orders Only [facility] Oncology [address] [facility] Floor 5 [place] [phone] Jorge Novak MD 07/22/2024 Telephone [facility] Oncology [address] [facility] Floor 5 [place] [address] Jorge Novak MD 07/19/2024 11:00 AM CDT Office Visit [facility] Cardiology [address] [facility] [address] [place] [address] Franck Arellano MD Hypertension, unspecified type (Primary Dx); Coronary artery disease involving [place] coronary artery of [place] heart without angina pectoris; AV node dysfunction 07/07/2024 10:45 AM CDT Office Visit [facility] Surgery [address] [facility] Advanced Medicine 6th [address] [place] [address] Kimberlee Mckoy NP Wound, open with complication (Primary Dx) 06/03/2024 10:00 AM CDT Home Care Visit [address] [address] [address] [place] [address] Criselda Mcdaniel RN SN OASIS DISCHARGE 06/02/2024 11:45 AM CDT Office Visit [facility] Surgery [address] [facility] Medicine 6th Floor [address] [place] [address] Kanu Motta MD Wound, open with complication (Primary Dx) 06/01/2024 12:00 PM CDT Home Care Visit [address] [place] [address] Ester Tompkins, PT PT DISCIPLINE DISCHARGE 05/27/2024 12:00 PM CDT Home Care Visit [address] [place] [address] Ester Tompkins, PT PT HOME VISIT 05/26/2024 10:00 AM CDT Home Care Visit [address] [place] [address] Roseann Shahid LPN SN HOME VISIT 05/24/2024 12:00 PM CDT Home Care Visit [address] [place] [address] Ester Tompkins, PT PT HOME VISIT 05/20/2024 Telephone [facility] Oncology [address] [place] [address] 5 [place] [address] Jorge Novak MD cabozantinib prescription 05/20/2024 3:00 PM CDT Home Care Visit [address] [place] [address] Ester Tompkins, PT PT HOME VISIT 05/19/2024 12:00 PM CDT Home Care Visit [address] [place] [address] Criselda Mcdaniel RN SN HOME VISIT 05/18/2024 Orders Only [facility] Oncology [address] [place] [address] 5 [place] [address] Jorge Novak MD 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) (Primary Dx); Renal cell carcinoma of left kidney (HCC) 05/18/2024 11:15 AM CDT Lab [facility] - Lab Collection [facility] Floor 5 [place] [address] 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); Metastatic 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 (HCC) 05/18/2024 11:00 AM CDT Lab [facility] Oncology Lab [address] [place] [address] Floor 5 [place] [address] 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); Metastatic 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 (HCC) 05/18/2024 11:45 AM CDT Office Visit [facility] Oncology [address] [facility] Floor 5 [place] [address] Jorge Novak MD 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); Metastatic 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 (HCC) 05/17/2024 12:00 PM CDT Home Care Visit [address] [address] [address] [place] [address] Ester Tompkins, PT PT INITIAL EVALUATION 05/14/2024 1:45 PM CDT Office Visit [facility] Surgery [address] [place] [address] Advanced Medicine 6th [place] [address] Kimberlee Mckoy NP Wound, open with complication (Primary Dx) 05/12/2024 3:00 PM CDT Home Care Visit [address] [place] [address] [address] [place] [address] Criselda Mcdaniel RN SN HOME VISIT 05/11/2024 10:54 AM CDT - 05/11/2024 11:59 PM CDT Hospital Encounter [facility] [place] [address] [facility] Floor 8 [place] [address] 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); Metastatic 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 (HCC) Discharge Disposition: Discharge to home or self care 05/04/2024 4:00 PM CDT Home Care Visit [address] [address] [address] [place] [address] Criselda Mcdaniel RN SN HOME VISIT 04/29/2024 Plan of Care Documentation [address] [place] [address] 04/30/2024 Telephone [facility] Surgery [address] [place] [address] Advanced Medicine 6th [place] [phone] France Cat CMA 04/30/2024 1:30 PM CDT - 04/30/2024 3:40 PM CDT Surgery [facility] Operating Room [facility] [address] [place] [address] Kanu Motta MD EXCISION CYST/LESION/MASS - BACK 04/30/2024 1:03 PM CDT Anesthesia Event [facility] Operating Room [facility] [address] [place] [address] Eagle Jerome MD 04/30/2024 10:31 AM CDT - 04/30/2024 4:51 PM CDT Hospital Encounter [facility] Operating Room [facility] [address] [place] [address] Kanu Motta MD Wound, open with complication (Primary Dx) Discharge Disposition: Discharge to home or self care 04/29/2024 Telephone [facility] Surgery [address] [place] [address] Advanced Medicine 6th [address] [place] [address] Eliane Padgett RN 04/29/2024 12:00 PM CDT Home Care Visit [address] [place] [address] [address] [place] [address] Criselda Mcdaniel RN SN OASIS RECERTIFICATION 04/28/2024 2:30 PM CDT Office Visit [facility] Surgery [address] [place] [address] Advanced Medicine 6th Floor [address] [place] [address] Kanu Motta MD Wound, open with complication (Primary Dx) 04/28/2024 1:20 PM CDT Office Visit [facility] Infectious Diseases [address] [facility] [address] [place] [phone] Katie Ojeda NP Vertebral osteomyelitis, acute (HCC) (Primary Dx) 04/27/2024 9:55 AM CDT - 04/27/2024 11:59 PM CDT Hospital Encounter [facility] Radiology [facility] ([facility]) [address] [place] [address] Postoperative infection, initial encounter Discharge Disposition: Discharge to home or self care 04/27/2024 10:30 AM CDT Office Visit [facility] Orthopaedic Surgery [address] [place] [address] Advanced Medicine 6th [address] [place] [address] Joe Basurto MD Postoperative infection, initial encounter (Primary Dx) from Last 3 Months Allergies Active Allergy Reactions Criticality Noted Date Comments Vancomycin Other (See comments) Low 04/05/2024 Experienced infusion reaction of itching in 03/2024 that resolved with benadryl. Not a true allergy or intolerance. Administer Benadryl prior to Vanco. Medications levothyroxine (SYNTHROID, LEVOTHROID) 175 mcg tabletIndications :hypothyroidism Take 1 tablet (175 mcg total) by mouth process expert before breakfast 019 Active cholecalciferol (VITAMIN D-3) 2000 unit capsuleIndication s:Vitamin D Deficiency,hypopa rathyroidism Take 1 capsule (2,000 Units total) by mouth every morning Active amLODIPine (NORVASC) 5 mg tabletIndications :hypertension Take 1 tablet (5 mg total) by mouth every morning 022 Active irbesartan (AVAPRO) 150 mg tabletIndications :hypertension Take 1 tablet (150 mg total) by mouth every morning 022 Active FOLIC ACID ORAL Take 1,333 mcg [...] completed 30 days of lovenox injections- 04/03/24 025 Active gabapentin (NEURONTIN) 100 mg capsuleIndication s:Pain [...] Active Additional Information Patient not taking.Reported on 07/27/2024 famotidine (PEPCID) 20 mg tabletIndications :Heartburn Take 1 tablet (20 mg total) by mouth daily as needed for heartburn 025 Active fluconazole (DIFLUCAN) 150 mg tablet Active pantoprazole DR (PROTONIX) 40 mg EC tabletIndications :Stress Ulcer Prophylaxis Take 1 tablet (40 mg total) by mouth daily Active oxyCODONE (ROXICODONE) 5 mg immediate release tabletIndications :Pain,severe pain 7-10 Take 1 tablet (5 mg total) by mouth every 6 (six) hours as needed for pain (severe pain 7-10) 8 tablet 025 Active Additional Information Patient not taking.Reported on 07/27/2024 ondansetron ODT (ZOFRAN-ODT) 4 mg disintegrating tablet Take 1 tablet (4 mg total) by mouth every 8 (eight) hours as needed for nausea or vomiting 20 tablet 025 Active Additional Information Patient not taking.Reported on 07/27/2024 polyethylene glycol (MIRALAX) 17 gram/dose bulk powder [...] 20 mg tabletIndications :Coronary artery disease involving [place] coronary artery of [place] heart without angina pectoris TAKE 1 TABLET(20 MG) BY MOUTH DAILY 90 tablet 025 Active Eliquis 5 mg tablet TAKE 1 TABLET(5 MG) BY MOUTH DAILY 30 tablet 025 Active cabozantinib s-malate (CABOMETYX ORAL) Take by mouth Active Cabometyx 20 mg tabletIndications :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),Renal cell carcinoma of left kidney (HCC) Take 1 tablet (20 mg total) by mouth daily Take on an empty stomach. Take 1 hour before a meal or 2 hours after. Take with full glass of water. 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 female [...] dehiscence which prompted her to come to [facility] ER. She was seen by Ortho spine [...] wound dehiscence prompting her to go to [facility] ED, now s/p I&D with incisional wound [...] concerns. 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 female [...] of lumbar spine 06/02/2023 Prophylactic antibiotic 05/28/2023 [facility] compl of internal fixation device of oth dez lorrie, init 05/18/2023 Coronary artery disease invo lving [place] coronary artery of [place] heart without angina pectoris 09/03/2021 AV node [...] Condition: stable Contains abnormal data eGFR Order: [id number] Component Ref Range & Units 12/07/20 0831 [...] Assessment & Plan: Condition: stable TSH Order: [id number] Component Ref Range & Units 12/07/20 0831 [...] Condition: stable Vitamin D 25 hydroxy Order: [id number] Component Ref Range & Units 07/13/20 0803 [...] (06/03/2018): Added automatically from request for surgery [id number] Assessment & Plan (06/27/2020 11:10 PM CDT): 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 dx 2013. 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 dx 2013. Followed by [facility] -s/p R nephrectomy + T11 metastasectomy 05/2013 and partial L nephrectomy and pancreatic resect 06/2018 -tx with axtinib + pembro , held 2/2 severe colitis -recent revision T7-L1 PSF w/ T9-T11 decompression with ortho spine 4/2 -c/w home tramadol 50 qhs -med onc [...] (05/06/2018): Added automatically from request for surgery [id number] Edema 04/09/2016 Family history of ischemic h [...] Date Smoking Tobacco: Every Day Cigarettes 0.5 51.5 Started: 1973 Passive Smoke Exposure: Current Smokeless [...] materials from doctor or pharmacy Never 06/03/2024 [facility] Utilities Answer Date Recorded In the past 12 months has e [employer], oil, or water [employer] threatened to shut off services in your [...] week 04/02/2024 How often do you attend [facility] or quaker services? More than 4 times per year 04/02/2024 Do you belong to any clubs o r organizations such as orthodoxy groups, unions, fraternal or athletic groups, or [...] and heating? Not hard at all 04/02/2024 [facility] - Occupational [...] any time in the past [address] [facility], were you homeless or living in a mcc (including now)? No 04/02/2024 Personal Safety Answer Date Recorded Have you ever been in or are you currently in a harmful physical or emotional relationship or is someone making you feel afraid or unsafe? 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 Gender Identity Not on file Sexual Orientation Not on file Last Filed Vital Signs Vital Sign Reading Time Taken Comments Blood Pressure 137/84 07/27/2024 11:08 AM CDT Pulse 87 07/27/2024 11:08 AM CDT Temperature 36.5 C (97.7 F) 07/27/2024 11:08 AM CDT Respiratory Rate 18 07/27/2024 11:08 AM CDT Oxygen Saturation 99% 07/27/2024 11:08 AM CDT Inhaled Oxygen Concentration - - Weight 97.1 kg (214 lb) 07/27/2024 11:08 AM CDT Height 172.7 cm (5' 8) 07/19/2024 11:07 AM CDT Body Mass Index 32.54 07/19/2024 11:07 AM CDT Plan of Treatment Not on file Medical Devices Implanted Type Area Brick Chimney Supervisor Device Identifier Shelf Expiration Date Model / Serial / Lot [employer] [id number] Vial 180-300um Particles 1ml Embolization Pva Foam Sterile - [id number] Implanted:Qty: 1 on 05/10/2020 at [facility] [employer] [id number] / / Thucy Elbert [id number] Device Closure Angio-Seal Vip Bondek-Plus Polyglyd L70 Cm Od6 Fr Odsec.035 In Vascular - [id number] Implanted:Qty: 1 on 05/10/2020 at [facility] Right: Femoral Terummotify Medical Elbert [id number] / / Bard Peripheral Vascular [id number] Krystal Delivery Kit Vena Cava Jugular Filter Embolization Nitinol Latex Free - [id number] Implanted:Qty: 1 on 05/10/2020 at [facility] Vena Cava Bard Peripheral Vascular [id number] / / Abyrx Os-201 Hemasorb Os-Spa Spatula Wax 2gm Bone Sterile - [id number] Implanted:Qty: 1 on 05/12/2020 by Joe Basurto MD at [facility] N/A: Spine Thoracic Abyrx 03/12/2023 OS-201 / / [id number] Allosource [id number] Crushed Chip Frozen Graft 60ml Bone Cancellous - [id number] Implanted:Qty: 1 on 05/12/2020 by Joe Basurto MD at [facility] N/A: Spine Thoracic Allosource 04/06/2025 [id number] / / [id number] Ron Spine [id number] Sharita 3 Spine Reyes Spinal Titanium - [id number] Implanted:Qty: 14 on 05/12/2020 by Joe Basurto MD at [facility] N/A: Spine Lumbar Ron Spine [id number] / / Ron Spine [id number] Sharita 3 5mm 45mm Polyaxial Spine Thoracolumbar Screw Bone Titanium - [id number] Implanted:Qty: 2 on 05/12/2020 by Joe Basurto MD at [facility] N/A: Spine Lumbar Vernon Spine [id number] / / Ron Spine [id number] Sharita 3 5mm 50mm Polyaxial Spine Thoracolumbar Screw Bone Titanium - [id number] Implanted:Qty: 2 on 05/12/2020 by Joe Basurto MD at [facility] N/A: Spine Lumbar Vernon Spine [id number] / / Vernon Spine [id number] Radius 5.5mm 600mm Hexagonal Junito Spinal Titanium Nonsterile - [id number] Implanted:Qty: 1 on 05/12/2020 by Joe Basurto MD at [facility] N/A: Spine Lumbar Vernon Spine [id number] / / Hutto [employer] Elbert Particle Embolization Pre Filled Foam Vial 2ml Microsphere Contour 150-250um Polyvinyl Alcohol [id number] - [id number] Implanted:Qty: 1 on 06/01/2023 at [facility] [employer] Elbert 08/05/2025 [id number] / / [id number] Depuy Synthes Spine Substitute Bone Graft Fibergraft Large Bioactive Glass Putty [id number] - [id number] Implanted:Qty: 1 on 06/02/2023 by Joe Basurto MD at [facility] N/A: Spine Thoracic Depuy Synthes Spine 01/03/2024 [id number] / / [id number] Allosource Crushed Chip Frozen Graft 30ml Bone Cancellous [id number] - [id number] Implanted:Qty: 1 on 06/02/2023 by Joe Basurto MD at [facility] N/A: Spine Thoracic Allosource 07/30/2027 [id number] / / [id number] Ron Spine Sharita 3 Spine Reyes Spinal Titanium [id number] - [id number] Implanted:Qty: 12 on 06/02/2023 by Joe Basurto MD at [facility] N/A: Spine Thoracic Vernon Spine [id number] / / Ron Spine Junito Spinal Lumbar Straight Long Hexagonal Head Mantis [id number] Titanium [id number] - [id number] Implanted:Qty: 1 on 06/02/2023 by Joe Basurto MD at [facility] N/A: Spine Thoracic Ron Spine [id number] / / Procedures Procedure Name Priority Date/Time Associated Diagnosis Comments PROTEIN / CREATININE RATIO, URINE, RANDOM Routine 07/27/2024 11:11 AM CDT 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 (HCC) EGFR Routine 07/27/2024 10:51 AM CDT 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 (HCC) DIFFERENTIAL AUTO Routine 07/27/2024 10: 51 AM CDT 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 (HCC) CBC WITH AUTO DIFFERENTIAL Routine 07/27/2024 10:51 AM CDT 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 (HCC) COMPREHENSIVE METABOLIC PANEL Routine 07/27/2024 10:51 AM CDT 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 (HCC) T4, FREE Routine 07/27/2024 10:51 AM CDT 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 (HCC) LACTATE DEHYDROGENASE Routine 07/27/2024 10:51 AM CDT 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 EMAIL SENT. NB Special Needs PRONE POSITION, Prevena Plus EXCISION CYST/LESION/MASS - BACK 04/30/2024 1:05 PM CDT Wound, open with complication Case Notes 04/28 - MISSING DPC. EMAIL SENT. NB Special Needs PRONE POSITION, Prevena Plus POCT [id number],WB - ISTAT Routine 04/30/2024 12:49 PM CDT XR SCOLIOSIS AP LAT Schedule Routine, Read Routine (OP Routine) 04/27/2024 10:09 AM CDT Postoperative infection, initial encounter from Last 3 Months Results * (ABNORMAL) Protein / creatinine ratio, urine, random (07/27/2024 11:11 AM CDT) Protein, ur, quant 38.5 mg/dL Comment: Interpretive Data No reference range established. Current interpretive data was last revised 2018. Creatinine Ur 92.6 mg/dL [facility] Comment: Interpretive Data No reference range established. Current interpretive data was last revised 2018. Protein/creatinin e ratio 415.8(H) 0.0 - 180.0 mg/g CR [facility] Urine 07/27/2024 11:1 1 AM CDT 07/27/2024 11:36 AM CDT us Jorge Novak MD LAB URINE ORDERABLES Final Resul t Performing Organization Address [facility] de Phone Number [facility] [place] [address] * (ABNORMAL) eGFR (07/27/2024 10:51 AM CDT) eGFR 55(L) >=60 mL/min/1. 73 m2 Comment: Interpretive Data [...] interpretive data was last reviewed 2020. Blood 07/27/2024 10:5 1 AM CDT 07/27/2024 10:53 AM CDT us Jogre Novak MD LAB BLOOD ORDERABLES Final Resul t Performing Organization Address [facility] Co de Phone Number [facility] [place] [address] * Differential, auto (07/27/2024 10:51 AM CDT) Neutrophil abs 3.04 1.50 - 6.50 K/cumm Comment:Testing performed by : [facility] Heme Lab, [address] [place], [place] [id number] Lymphocyte abs 0.92 0.80 - 3.30 K/cumm [facility]ER [facility] Comment:Testing performed by : [facility] Heme [facility], [address] [place], [place] [id number] Monocyte abs 0.39 0.20 - 0.80 K/cumm [facility] Comment:Testing performed by : [facility], [address] [place] [address] Eosinophil abs 0.29 0.00 - 0.50 K/cumm [facility] Comment:Testing performed by : [facility], [address] [place] [address] Basophil abs 0.05 0.00 - 0.10 K/cumm [facility] Comment:Testing performed by : [facility] Heme Lab, [address] [place] [address] Neutrophil pct 64.8 % [facility] Comment: Interpretive Data Percent cell count reference ranges are not reported, since discordance with absolute values may lead to misinterpretation of CBC data. Current Interpretive Data was last revised on 2017. Testing performed by: [facility], [address] [place] [address] Lymphocyte pct 19.6 % [facility] Comment: Interpretive Data Percent cell count reference ranges are not reported, since discordance with absolute values may lead to misinterpretation of CBC data. Current Interpretive Data was last revised on 2017. Testing performed by: [facility], [address] [place] [address] Monocyte pct 8.4 % [facility] Comment: Interpretive Data Percent cell count reference ranges are not reported, since discordance with absolute values may lead to misinterpretation of CBC data. Current Interpretive Data was last revised on 2017. Testing performed by: [facility] Heme Lab, [address] [place] [id number] Eosinophil pct 6.2 % [facility] Comment: Interpretive Data Percent cell count reference ranges are not reported, since discordance with absolute values may lead to misinterpretation of CBC data. Current Interpretive Data was last revised on 2017. Testing performed by: [facility]e [facility], [address] [place] [address] Basophil pct 1.0 % [facility] Comment: Interpretive Data Percent cell count reference ranges are not reported, since discordance with absolute values may lead to misinterpretation of CBC data. Current Interpretive Data was last revised on 2017. Testing performed by: [facility], [address] [place] [address] Blood 07/27/2024 10:5 1 AM CDT 07/27/2024 10:53 AM CDT us Jorge Novak MD LAB BLOOD ORDERABLES Final Resul t [facility] Department [place] [address] * (ABNORMAL) CBC with auto differential (07/27/2024 10:51 AM CDT) WBC 4.69 3.80 - 9.90 K/cumm Comment:Testing performed by : [facility], [address] [place] [address] Hgb 14.1 11.9 - 15.5 g/dL [facility] SMITH Comment:Testing performed by : [facility], [address] [place] [address] Hct 41.7 35.6 - 45.5 % [facility] SMITH Comment:Testing performed by : [facility], [address] [place] [address] Plt 162 150 - 400 K/cumm [facility]RI[facility] SMITH Comment:Testing performed by : [facility], [address] [place] [address] MPV 8.2 6.8 - 10.4 fL [facility] SMITH Comment:Testing performed by : [facility], [address] [place], [place] [phone] RBC 4.69 3.90 - 5.20 M/cumm [facility]RI[facility] SMITH Comment:Testing performed by : [facility], [address] [place], [place] [phone] MCV 89.0 81.3 - 96.4 fL [facility] SMITH Comment:Testing performed by : [facility], [address] [place], [place] [phone] MCH 30.2 27.1 - 33.3 pg [facility]RI[facility] SMITH Comment:Testing performed by : [facility], [address] [place], [place] [phone] MCHC 33.9 32.3 - 35.7 g/dL ALXEANDRIA SMITH Comment:Testing performed by : [facility], [address] [place], [place] [phone] RDW CV 19.5(H) 11.1 - 14.9 % [facility] SMITH Comment:Testing performed by : [facility], [address] [place], [place] [phone] NRBC abs 0.00 0.00 - 0.01 K/cumm [facility]RI[facility] SMITH Comment:Testing performed by : [facility], [address] [place], [place] [phone] Blood 07/27/2024 10:5 1 AM CDT 07/27/2024 10:53 AM CDT us Jorge Novak MD LAB BLOOD ORDERABLES Final Resul t [facility] SM[facility] Department [place] [address] * (ABNORMAL) TSH (07/27/2024 10:51 AM CDT) Thyroid Stimulating Hormone 0.11(L) 0.30 - 4.20 mcIUnit/mL Blood 07/27/2024 10:5 1 AM CDT 07/27/2024 10:53 AM CDT us Jorge Novak MD LAB BLOOD ORDERABLES Final Resul t Performing Organization Address [facility] de Phone Number [facility] [place] [address] * (ABNORMAL) T4, free (07/27/2024 10:51 AM CDT) Pathologist [facility] Free T4 2.26(H) 0.90 - 1.70 ng/dL Blood 07/27/2024 10:5 1 AM CDT 07/27/2024 10:53 AM CDT us Jorge Novak MD LAB BLOOD ORDERABLES Final Resul t Performing Organization Address [facility] de Phone Number [facility] [place] [address] * Lactate dehydrogenase (LD) (07/27/2024 10:51 AM CDT) [facility] Lactate dehydrogenase (LDH) 205 100 - 250 Units/L Blood 07/27/2024 10:5 1 AM CDT 07/27/2024 10:53 AM CDT us Jorge Novak MD LAB BLOOD ORDERABLES Final Resul t Performing Organization Address [facility] [place] [address] * (ABNORMAL) Comprehensive metabolic panel (07/27/2024 10:51 AM CDT) [facility] Sodium 141 135 - 145 mmol/L Potassium, pl 4.1 3.3 - 4.9 mmol/L [facility] Chloride 104 97 - 110 mmol/L [facility] CO2 27 22 - 32 mmol/L [facility] Anion gap 10 2 - 15 mmol/L [facility] BUN 18 6 - 25 mg/dL [facility] Creatinine 1.09 0.60 - 1.10 mg/dL [facility] Glucose 92 70 - 199 mg/dL [facility] Comment: Interpretive Data Fasting glucose >/= [...] interpretive data was last revised 2022. Calcium 9.6 8.5 - 10.3 mg/dL [facility] Bilirubin, total 0.3 0.1 - 1.2 mg/dL [facility] Protein, pl 7.0 6.5 - 8.5 g/dL [facility] Albumin 3.7 3.5 - 5.0 g/dL [facility] Alk phos 92 40 - 130 Units/L [facility] ALT 34 7 - 45 Units/L [facility] AST 51(H) 10 - 45 Units/L [facility] Blood 07/27/2024 10:5 1 AM CDT 07/27/2024 10:53 AM CDT us Jorge Novak MD LAB BLOOD ORDERABLES Final Resul t [facility] Department [place] [address] * (ABNORMAL) POCT lipid panel (07/19/2024 11:13 AM CDT) Cholesterol, POC 100 <200 MG/DL Comment:GLU = 137 HDL, POC 31(A) >=40 mg/dL Triglycerides, POC 124 <=149 mg/dL LDL Cholesterol POC 44 <=129 mg/dL Cholesterol Total, POC 100 30 - 199 mg/dL Capillary blood 07/19/2024 1 1:13 AM CDT Franck Arellano MD POINT OF CARE TEST [...] 9 AM CDT 05/18/2024 11:30 AM CDT Jorge Novak MD LAB BLOOD ORDERABLES Final Resul t [facility] Department [place] [address] * TSH (05/18/2024 11:29 AM CDT) Thyroid Stimulating Hormone 0.40 0.30 - 4.20 mcIUnit/mL Blood 05/18/2024 11:2 9 AM CDT 05/18/2024 11:30 AM CDT Jorge Novak MD LAB BLOOD ORDERABLES Final Resul t [facility] [place] [address] * (ABNORMAL) T4, free (05/18/2024 11:29 AM CDT) [facility] Free T4 2.04(H) 0.90 - 1.70 ng/dL Blood 05/18/2024 11:2 9 AM CDT 05/18/2024 11:30 AM CDT us Jorge Novak MD LAB BLOOD ORDERABLES Final Resul t Performing Organization Address City/[facility] [place] [address] * Lactate dehydrogenase (LD) (05/18/2024 11:29 AM CDT) [facility] Lactate dehydrogenase (LDH) 224 100 - 250 Units/L Blood 05/18/2024 11:2 9 AM CDT 05/18/2024 11:30 AM CDT us Jorge Novak MD LAB BLOOD ORDERABLES Final Resul t Performing Organization Address [facility] [place] [address] * Comprehensive metabolic panel (05/18/2024 11:29 AM CDT) [facility] Sodium 140 135 - 145 mmol/L Potassium, pl 4.3 3.3 - 4.9 mmol/L [facility] Chloride 105 97 - 110 mmol/L [facility] CO2 22 22 - 32 mmol/L [facility] Anion gap 13 2 - 15 mmol/L [facility] BUN 16 6 - 25 mg/dL [facility] Creatinine 0.86 0.60 - 1.10 mg/dL [facility] Glucose 78 70 - 199 mg/dL [facility] Comment: Interpretive Data Fasting glucose >/= [...] 2022. Calcium 10.0 8.5 - 10.3 mg/dL [facility] Bilirubin, total 0.3 0.1 - 1.2 mg/dL [facility] Protein, pl 7.8 6.5 - 8.5 g/dL [facility] Albumin 3.6 3.5 - 5.0 g/dL [facility] Alk phos 109 40 - 130 Units/L [facility] ALT 12 7 - 45 Units/L [facility] AST 35 10 - 45 Units/L [facility] Comment:Hemolyzed; result ma y be falsely elevated Blood 05/18/2024 11:2 9 AM CDT 05/18/2024 11:30 AM CDT us Jorge Novak MD LAB BLOOD ORDERABLES Final [facility]ul t [facility] Department [place] [address] * Differential, auto (05/18/2024 11:24 AM CDT) Neutrophil abs 4.82 1.50 - 6.50 K/cumm Comment:Testing performed by : [facility], [address] [place] [phone] Lymphocyte abs 0.88 0.80 - 3.30 K/cumm [facility] SMITH Comment:Testing performed by : [facility], [address] [place] [phone] Monocyte abs 0.56 0.20 - 0.80 K/cumm [facility] SMITH Comment:Testing performed by : [facility], [address] [place] [phone] Eosinophil abs 0.20 0.00 - 0.50 K/cumm CERNER BJ Comment:Testing performed by : [facility], [address] [place] [phone] Basophil abs 0.07 0.00 - 0.10 K/cumm [facility] Comment:Testing performed by : [facility], [address] [place] [phone] Neutrophil pct 73.8 % CERNER BJ Comment: Interpretive Data Percent cell count reference ranges are not reported, since discordance with absolute values may lead to misinterpretation of CBC data. Current Interpretive Data was last revised on 2017. Testing performed by: [facility], [address] [place] [phone] Lymphocyte pct 13.5 % [facility]ERNER BJ Comment: Interpretive Data Percent cell count reference ranges are not reported, since discordance with absolute values may lead to misinterpretation of CBC data. Current Interpretive Data was last revised on 2017. Testing performed by: [facility], [address] [place] [phone] Monocyte pct 8.5 % [facility]ERNER BJ Comment: Interpretive Data Percent cell count reference ranges are not reported, since discordance with absolute values may lead to misinterpretation of CBC data. Current Interpretive Data was last revised on 2017. Testing performed by: [facility], [address] [place] [phone] Eosinophil pct 3.1 % [facility]ER [facility] Comment: Interpretive Data Percent cell count reference ranges are not reported, since discordance with absolute values may lead to misinterpretation of CBC data. Current Interpretive Data was last revised on 2017. Testing performed by: [facility], [address] [place] [phone] Basophil pct 1.1 % [facility]ER [facility] Comment: Interpretive Data Percent cell count reference ranges are not reported, since discordance with absolute values may lead to misinterpretation of CBC data. Current Interpretive Data was last revised on 2017. Testing performed by: [facility], [address] [place] [phone] Blood 05/18/2024 11:2 4 AM CDT 05/18/2024 11:30 AM CDT us Jorge Novak MD LAB BLOOD ORDERABLES Final Resul t [facility] SMITH One [facility] [place] [address] * (ABNORMAL) CBC with auto differential (05/18/2024 11:24 AM CDT) WBC 6.53 3.80 - 9.90 K/cumm Comment:Testing performed by : [facility], [address] [place] [address] Hgb 12.1 11.9 - 15.5 g/dL [facility] SMITH Comment:Testing performed by : [facility], [address] [place] [address] Hct 37.4 35.6 - 45.5 % [facility] SMITH Comment:Testing performed by : [facility], [address] [place] [address] Plt 361 150 - 400 K/cumm [facility] SMITH Comment:Testing performed by : [facility], [address] [place] [address] MPV 8.4 6.8 - 10.4 fL [facility] SMITH Comment:Testing performed by : [facility], [address] [place] [address] RBC 3.95 3.90 - 5.20 M/cumm [facility] SMITH Comment:Testing performed by : [facility], [address] [place] [address] MCV 94.5 81.3 - 96.4 fL [facility] SMITH Comment:Testing performed by : [facility], [address] [place] [address] MCH 30.7 27.1 - 33.3 pg CERJENS SMITH Comment:Testing performed by : [facility], [address] [place] [phone] MCHC 32.5 32.3 - 35.7 g/dL [facility] Comment:Testing performed by : [facility], [address] [place] [phone] RDW CV 16.6(H) 11.1 - 14.9 % [facility] Comment:Testing performed by : [facility], [address] [place] [phone] NRBC abs 0.00 0.00 - 0.01 K/cumm [facility] Comment:Testing performed by : [facility], [address] [place] [phone] Blood 05/18/2024 11:2 4 AM CDT 05/18/2024 11:30 AM CDT us Jorge Novak MD LAB BLOOD ORDERABLES Final Resul t [facility] [place] [address] * CT Chest Abdomen Pelvis W Contrast [...] cholecystitis. Electronically signed by: Franck Maynard M.D. us Jorge Novak MD IMG CT PROCEDURES Final Result * POCT creatinine (05/11/2024 11:05 AM CDT) Pathologist [facility] Creatinine POC 1.0 0.6 - 1.1 mg/dL Blood 05/11/2024 11:0 5 AM CDT 05/11/2024 11:05 AM CDT us Jorge Novak MD LAB POCT ORDERABLES - DEVICE Fin al Result [facility] Department [place] [address] * Tissue aerobic and anaerobic culture and gram stain Bone Back (04/30/2024 2:31 PM CDT) Pathologist [facility] Direct Specimen Exam Stain: No polymorphonuclear leukocytes seen. No organisms seen. Report Final Report: No growth [facility] Bone (Back) 04/30/2024 2:31 PM CDT 04/30/2024 5:22 PM CDT Narrative [facility] - 05/04/2024 8:35 AM CDT Spinous Process bone Testing performed by [id number] Microbiology Laboratory ([phone]) Specimens submitted from normally sterile body sites [...] MICROBIOLOGY - GENERA L ORDERABLES Final Result [facility] [place] [address] * [place] AN ELECTIVE ENDOTRACHEAL AIRWAY, [place] AN PROCEDURE PLACEHOLDER (04/30/2024 1:38 PM CDT) [...] Edited Result - Final * (ABNORMAL) POCT LS-O-TEL-GLU-HCT, WB - ISTAT (04/30/2024 12:49 PM CDT) Na POC 139 135 - 145 mmol/L K POC 4.0 3.3 - 4.9 mmol/L [facility] Comment: Interpretive Data This method is not able to assess for hemolysis, which may falsely increase potassium concentrations. If further testing is needed to evaluate this result, consider in-laboratory plasma potassium. Current Interpretive Data was last revised on 2021. Glucose POC i-STAT 87 70 - 199 mg/dL [facility] Hct, POC 32.0(L) 35.6 - 45.5 % [facility] Blood 04/30/2024 12:4 9 PM CDT 04/30/2024 12:49 PM CDT us Kanu Motta MD LAB POCT ORDERABLES - DEV ICE Final Result [facility] Department [place] [address] * XR Scoliosis Ap and Lateral (04/27/2024 [...] disease throughout the unfused spine. Procedure Note Husain, Junito Hernandez, DO - 04/27/2024 EXAMINATION: XR SCOLIOSIS AP [...] nal Result from Last 3 Months Insurance [facility] MEDICARE ADVANTAGE [facility] MEDICARE ADVANTAGE Advance Directives For more information, please contact: [phone] * Full Code (Latest Code Status on [...] 1:19 AM 05/17/2020 8:45 PM Care Teams Manager Wind Relationship Specialty Start Date End Date Juan Muñoz MD [address] [address] PCP - General Family Medicine 05/15/23 Brendan Thornton MD Referring Physician Transplant 06/01/18 Jorge Novak MD [address] [facility] [address] [place] [address] Medical Oncologist/Drawing Supervisor Medical Oncology 06/01/18 Lawson Montgomery MD [address] [facility] [address] [place] [address] Radiation Oncologist Radiation Oncology 06/13/20 Sangeeta Christian MD [address] [facility] DEPT OF OPHTHAL[place] [id number] Surgeon Oculoplastics Ophthalmology 04/05/22 Franck Arellano MD [address] [place] [address] Consulting Physician Cardiology 05/15/23 Joe Basurto MD [address] [facility] [address] [place] [address] Consulting Physician Orthopedic Surgery 05/15/23
--- OUTSIDE RECORDS SUMMARY | 2024-07-28 00:24 | XMS_ITS | Encounter Summary ---
Author Organization [facility] Healthcare Address [address] [place] [address] Care Team Providers Care Ems Director Name Role Phone Brendan Thornton MD Unavailable [phone] Jorge Novak MD Unavailable Kevin Kramer MD Primary Care Provider + [phone] Kevin Kramer MD Primary Care Provider + [phone] Elena Graham RN Unavailable [phone] Juan Muñoz MD Primary Care Provider [phone] Lawson Montgomery MD Unavailable No, Physician Primary Care Provider [phone] Juan Muñoz MD Primary Care Provider [phone] Sangeeta Christian MD Unavailable [phone] Joe Basurto MD Primary Care Provid er Juan Muñoz MD Primary Care Provider +[phone] Franck Arellano MD Unavailable [phone] oJe Basurto MD Unavailable + [phone] Encounter Details Date Type Department Care Team (Late st Contact Info) Description 05/12/2020 Documentation [facility] Respiratory [address] [place] [address] Colton Fong, [employer]ER Social History Tobacco Use Types Packs/Day Years Used Date Smoking Tobacco: Every Day Cigarettes 0.5 51.5 Started: 1972 Smokeless Tobacco: Never Alcohol Use [...] than three times a week 05/15/2020 Attends [employer] Services Not on file 05/15 Active Member [...] on file Legal Sex Female 6:17 AM INVENTORY TAKER Gender Identity Not on file Sexual Orientation [...] 8:32 PM CDT Ring Surveillance Comment:Percy cesar [id number] 04/06/2024 04/06/2024 04/13/2024 3:06 AM INVENTORY TAKER documented as of this encounter Care Teams Ems Director Relationship Specialty Start Date End Date Kevin Kramer MD [address] [place] [address] PCP - General 05/14/20 05/24/20 Kevin Kramer MD [address] [facility] [place] [address] PCP - General 05/12/20 05/13/20 Juan Muñoz MD [address] [address] PCP - General 05/25/20 01/21/21 No, Physician PCP - General 07/24/21 09/02/21 Juan Muñoz MD [address] [address] PCP - General Family Medicine 09/03/21 03/31/23 Joe Basurto MD [address] [address] PCP - General Orthopedic Surgery 04/01/23 05/14/23 Juan Muñoz MD [address] [address] PCP - General Family Medicine 05/15/23 Brendan Thornton MD Referring Physician Transplant 06/01/18 Jorge Novak MD [address] [facility] [address] [place] [address] Medical Oncologist/Hematologis t Medical Oncology 06/01/18 Elena Graham, RN [address] [facility] [address] [place] [address] SHOP Outpatient Senior Gamemaster 05/18/20 05/18/20 Lawson Montgomery MD [address] [facility] [address] [place] [address] Radiation Oncologist Radiation Oncology 06/13/20 Sangeeta Christian MD [address] [facility] [place] [id number] Surgeon Oculoplastics Ophthalmology 04/05/22 Franck Arellano MD [address] [facility] [address] [place] [address] Consulting Physician Cardiology 05/15/23 Joe Basurto MD [address] [facility] 6A/6B/12A [place] [address] Consulting Physician Orthopedic Surgery 05/15/23 documented as of this encounter
--- OUTSIDE RECORDS SUMMARY | 2024-07-28 00:24 | XMS_ITS | Clinical Summary ---
Author Organization [facility] Address [address] [place] [address] Care Team Providers Care Tour Counselor Name Role Phone Brendan Thornton MD Unavailable [phone] Jorge Novak MD Unavailable Lawson Montgomery MD Unavailable [phone] Sangeeta Christian MD Unavailable [phone] Juan Muñoz MD Primary Care Provider [phone] Franck Arellano MD Unavailable [phone] Joe Basurto MD Unavailable [phone] Allergies Active Allergy Reactions Criticality Noted Date Comments Vancomycin Other (See comments) Low 04/05/2024 Experienced infusion reaction of itching in 03/2024 that resolved with benadryl. Not a true allergy or intolerance. Administer Benadryl prior to Vanco. 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 Indications: pain Active gabapentin (NEURONTIN) 100 mg capsuleIndication s:Neuropathic Pain Take 100 mg by mouth 2 (two) times a day. Indications: neuropathic pain Active rosuvastatin (CRESTOR) 20 mg tabletIndications :Coronary artery disease involving [place] coronary artery of [place] heart without angina pectoris TAKE 1 TABLET(20 MG) BY MOUTH DAILY 90 tablet Active Eliquis 5 mg tablet TAKE 1 TABLET(5 MG) BY MOUTH DAILY 30 tablet Active cabozantinib s-malate (CABOMETYX ORAL) Take by [...] 04/01/2024 Assessment & Plan (04/05/2024 12:14 PM PETROLEUM ENGINEERING PROFESSOR): Eli Frazier is a 69 y.o. female [...] dehiscence which prompted her to come to [facility] ER. She was seen by [...] wound dehiscence prompting her to go to [facility] ED, now s/p I&D with [...] concerns. Assessment & Plan (03/23/2024 11:24 AM PETROLEUM ENGINEERING PROFESSOR): She underwent thoracolumbar wound I&D down to [...] 02/19/2024 Assessment & Plan (03/02/2024 10:59 AM PETROLEUM ENGINEERING PROFESSOR): Eliwanda Frazier is a 69 y.o. female with [...] of lumbar spine 06/02/2023 Prophylactic antibiotic 05/28/2023 [facility] compl of internal fixation device of oth dze lorrie, init 05/18/2023 Coronary artery disease invo lving [place] coronary artery of [place] heart without angina pectoris 09/03/2021 AV node [...] Condition: stable Contains abnormal data eGFR Order: [id number] Component Ref Range & Units 12/07/20 0831 [...] Assessment & Plan: Condition: stable TSH Order: [id number] Component Ref Range & Units 12/07/20 0831 [...] Condition: stable Vitamin D 25 hydroxy Order: [id number] Component Ref Range & Units 07/13/20 0803 [...] (06/03/2018): Added automatically from request for surgery [id number] Assessment & Plan (06/27/2020 11:10 PM CDT): [...] (05/06/2018): Added automatically from request for surgery [id number] Edema 04/09/2016 Family history of ischemic h [...] Date Type Department Care Team Description 07/27/2024 11:30 AM CDT Office Visit [facility] Oncology [address] [place] [address] 5 [place] [address] Jorge Novak MD 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) (Primary Dx); Metastatic 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 (HCC) 07/27/2024 10:45 AM CDT Lab [facility] - Lab Collection [address] [place] [address] Floor 5 [place] [address] 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); Metastatic 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 (HCC) 07/27/2024 10:30 AM CDT Lab [facility] Oncology Lab [address] [place] [address] 5 [place] [address] 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); Metastatic 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 (HCC) 07/22/2024 Orders Only [facility] Oncology [address] [place] [address] 5 [place] [address] Jorge Novak MD 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) (Primary Dx); Renal cell carcinoma of left kidney (HCC) 07/22/2024 Orders Only [facility] Oncology [address] [facility] Floor 5 [place] [phone] Jorge Novak MD 07/22/2024 Telephone [facility] Oncology [address] [facility] Floor 5 [place] [phone] Jorge Novak MD 07/19/2024 11:00 AM CDT Office Visit [facility] Cardiology [address] [place] [phone] Franck Arellano MD Hypertension, unspecified type (Primary Dx); Coronary artery disease involving [place] coronary artery of [place] heart without angina pectoris; AV node dysfunction 07/07/2024 10:45 AM CDT Office Visit [facility] Surgery [address] [facility] 6th [place] [address] [place] [phone] Kimberlee Mckoy NP Wound, open with complication (Primary Dx) 06/03/2024 10:00 AM CDT Home Care Visit [address] [address] [address] [place] [address] Criselda Mcdaniel RN SN OASIS DISCHARGE 06/02/2024 11:45 AM CDT Office Visit [facility] Surgery [address] [facility] 6th [place] [address] [place] [address] Kanu Motta MD Wound, open with complication (Primary Dx) 06/01/2024 12:00 PM CDT Home Care Visit [address] [place] [address] Ester Tompkins, PT PT DISCIPLINE DISCHARGE 05/27/2024 12:00 PM CDT Home Care Visit [address] [place] [address] Ester Tompkins, PT PT HOME VISIT 05/26/2024 10:00 AM CDT Home Care Visit [address] [place] [address] Roseann Shahid LPN SN HOME VISIT 05/24/2024 12:00 PM CDT Home Care Visit [address] [place] [address] Ester Tompkins, PT PT HOME VISIT 05/20/2024 3:00 PM CDT Home Care Visit [address] [place] [address] Ester Tompkins, PT PT HOME VISIT 05/20/2024 Telephone [facility] Oncology [address] [place] [address] 5 [place] [phone] Jorge Novak MD cabozantinib prescription 05/19/2024 12:00 PM CDT Home Care Visit [address] [place] [address] Criselda Mcdaniel RN SN HOME VISIT 05/18/2024 11:45 AM CDT Office Visit [facility] Oncology [address] [place] [address] 5 [place] [address] Jorge Novak MD 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); Metastatic 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 (HCC) 05/18/2024 11:15 AM CDT Lab [facility] - Lab Collection [address] [place] [address] Floor 5 [place] [address] 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); Metastatic 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 (HCC) 05/18/2024 11:00 AM CDT Lab [facility] Oncology Lab [address] [place] [address] 5 [place] [address] 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); Metastatic 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 (HCC) Discharge Disposition: Discharge to home or self care 05/04/2024 4:00 PM CDT Home Care Visit [address] [place] [address] Criselda Mcdaniel RN SN HOME VISIT 04/30/2024 1:30 PM CDT - 04/30/2024 3:40 PM CDT Surgery [facility] Operating [facility] [address] [place] [address] Kanu Motta MD EXCISION CYST/LESION/MASS - BACK 04/30/2024 1:03 PM CDT Anesthesia Event [facility] Operating Room [facility] [address] [place] [address] Eagle Jerome MD 04/30/2024 10:31 AM CDT - 04/30/2024 4:51 PM CDT Hospital Encounter [facility] Operating Room [facility] [address] [place] [address] Kanu Motta MD Wound, open with complication (Primary Dx) Discharge Disposition: Discharge to home or self care 04/30/2024 Telephone [facility] Surgery [address] [facility] 6th Floor [address] [place] [phone] France Cat CMA 04/29/2024 12:00 PM CDT Home Care Visit [address] [place] [address] Criselda Mcdaniel RN SN OASIS RECERTIFICATION 04/29/2024 Plan of Care Documentation [address] [place] [address] 04/29/2024 Telephone [facility] Surgery [address] [facility] Advanced [facility] 6th [place] [address] [place] [phone] Eliane Padgett RN 04/28/2024 2:30 PM CDT Office Visit [facility] Surgery [address] [place] [address] Advanced [facility] 6th [place] [address] [place] [phone] Kanu Motta MD Wound, open with complication (Primary Dx) 04/28/2024 1:20 PM CDT Office Visit [facility] Infectious Diseases [address] [facility] [address] [place] [phone] Katie Ojeda NP Vertebral osteomyelitis, acute (HCC) (Primary Dx) 04/27/2024 10:30 AM CDT Office Visit [facility] Orthopaedic Surgery [address] [place] [address] Advanced [facility] 6th [place] [address] [place] [address] Joe Basurto MD Postoperative infection, initial encounter (Primary Dx) 04/27/2024 9:55 AM CDT - 04/27/2024 11:59 PM CDT Hospital Encounter [facility] Radiology [facility] [address] [place] [address] Postoperative infection, initial encounter Discharge Disposition: Discharge to home or self care from Last 3 Months Immunizations Immunization Administration [...] materials from doctor or pharmacy Never 06/03/2024 [facility] Utilities Answer Date Recorded In the past 12 months has e electric, gas, oil, or water company threatened to shut off services in your [...] How often do you attend chur or adventism services? More than 4 times per year 04/02/2024 Do you belong to any clubs o r organizations such as amish groups, unions, fraternal or athletic groups, or [...] and heating? Not hard at all 04/02/2024 [facility] Occupat [facility] - Occupational Stress [...] any time in the past 12 m [facility], were you homeless or living in a chcf (including now)? No 04/02/2024 Personal Safety Answer Date Recorded Have you ever been in or are you currently in a harmful physical or emotional relationship or is someone making you feel afraid or unsafe? Denies 04/30/2024 Comments No Sex and Gender Information Value Date Recorded Sex Assigned at Not on file Legal Sex Female 6:17 AM PETROLEUM ENGINEERING PROFESSOR Gender Identity Not on file Sexual Orientation [...] 06/25/2023, 05/25/2020 Medical Devices Implanted Type Area Russian Language Instructor Device Identifier Shelf Expiration Date Model / Serial / Lot [employer] [id number] Vial 180-300um Particles 1ml Embolization Pva Foam Sterile - [id number] Implanted:Qty: 1 on 05/10/2020 at [facility] [employer] [id number] / / Right Hemisphere Elbert [id number] Device Closure Angio-Seal Vip Bondek-Plus Polyglyd L70 Cm Od6 Fr Odsec.035 In Vascular - [id number] Implanted:Qty: 1 on 05/10/2020 at [facility] Right: Femoral Terumo Medical Elbert [id number] / / Bard Peripheral Vascular [id number] Krystal Delivery Kit Vena Cava Jugular Filter Embolization Nitinol Latex Free - [id number] Implanted:Qty: 1 on 05/10/2020 at [facility] Vena Cava Bard Peripheral Vascular [id number] / / Abyrx Os-201 Hemasorb Os-Spa Spatula Wax 2gm Bone Sterile - [id number] Implanted:Qty: 1 on 05/12/2020 by Joe Basurto MD at [facility] N/A: Spine Thoracic Abyrx 03/12/2023 OS-201 / / [id number] Allosource [id number] Crushed Chip Frozen Graft 60ml Bone Cancellous - [id number] Implanted:Qty: 1 on 05/12/2020 by Joe Basurto MD at [facility] N/A: Spine Thoracic Allosource 04/06/2025 [id number] / / [id number] Coleman Spine [id number] Sharita 3 Spine Reyes Spinal Titanium - [id number] Implanted:Qty: 14 on 05/12/2020 by Joe Basurto MD at [facility] N/A: Spine Lumbar Coleman Spine [id number] / / Ron Spine [id number] Sharita 3 5mm 45mm Polyaxial Spine Thoracolumbar Screw Bone Titanium - [id number] Implanted:Qty: 2 on 05/12/2020 by Joe Basurto MD at [facility] N/A: Spine Lumbar Ron Spine [id number] / / Coleman Spine [id number] Sharita 3 5mm 50mm Polyaxial Spine Thoracolumbar Screw Bone Titanium - [id number] Implanted:Qty: 2 on 05/12/2020 by Joe Basurto MD at [facility] N/A: Spine Lumbar Ron Spine [id number] / / Coleman Spine [id number] Radius 5.5mm 600mm Hexagonal Junito Spinal Titanium Nonsterile - [id number] Implanted:Qty: 1 on 05/12/2020 by Joe Basurto MD at [facility] N/A: Spine Lumbar Ron Spine [id number] / / Harrison [employer] Elbert Particle Embolization Pre Filled Foam Vial 2ml Microsphere Contour 150-250um Polyvinyl Alcohol [id number] - [id number] Implanted:Qty: 1 on 06/01/2023 at [facility] EndoGastric Solutions Elbert 08/05/2025 [id number] / / [id number] Depuy Synthes Spine Substitute Bone Graft Fibergraft Large Bioactive Glass Putty [id number] - [id number] Implanted:Qty: 1 on 06/02/2023 by Joe Basurto MD at [facility] N/A: Spine Thoracic Depuy Synthes Spine 01/03/2024 [id number] / / [id number] Allosource Crushed Chip Frozen Graft 30ml Bone Cancellous [id number] - [id number] Implanted:Qty: 1 on 06/02/2023 by Joe Basurto MD at [facility] N/A: Spine Thoracic Allosource 07/30/2027 [id number] / / [id number] Ron Spine Sharita 3 Spine Reyes Spinal Titanium [id number] - [id number] Implanted:Qty: 12 on 06/02/2023 by Joe Basurto MD at [facility] N/A: Spine Thoracic Ron Spine [id number] / / Ron Spine Junito Spinal Lumbar Straight Long Hexagonal Head Mantis [id number] Titanium [id number] - [id number] Implanted:Qty: 1 on 06/02/2023 by Joe Basurto MD at [facility] N/A: Spine Thoracic Ron Spine [id number] / / Procedures Procedure Name Priority Date/Time [...] GRAM STAIN Routine 04/30/2024 2:31 PM CDT WI AN PROCEDURE PLACEHOLDER Routine 04/30/2024 1:38 PM CDT WI AN ELECTIVE ENDOTRACHEAL AIRWAY Routine 04/30/2024 1:38 PM CDT CLOSURE WOUND 04/30/2024 1:05 PM CDT Wound, open with complication Case Notes 04/28 - MISSING [facility]. EMAIL SENT. NB Special Needs PRONE POSITION, Prevena Plus EXCISION CYST/LESION/MASS - BACK 04/30/2024 1:05 PM CDT Wound, open with complication Case Notes 04/28 - MISSING [facility]. EMAIL SENT. NB Special Needs PRONE POSITION, Prevena Plus POCT [id number]-VSA-[id number]-[id number],WB - ISTAT Routine 04/30/2024 12:49 PM CDT [...] last revised 2018. Creatinine Ur 92.6 mg/dL [facility] Comment: Interpretive Data No reference range established. Current interpretive data was last revised 2018. Protein/creatinin e ratio 415.8(H) 0.0 - 180.0 mg/g CR [facility] Urine 07/27/2024 11:1 1 AM CDT 07/27/2024 11:36 AM CDT us Jorge Novak MD LAB URINE ORDERABLES Final Resul t Performing Organization Address City/[facility] Co de Phone Number [facility] Department [place] [address] * (ABNORMAL) eGFR (07/27/2024 10:51 AM CDT) [...] ORDERABLES Final Resul t Performing Organization Address City/[facility]/ZIP Co de Phone Number [facility] Department [place] [address] * Differential, auto (07/27/2024 10:51 AM CDT) Neutrophil abs 3.04 1.50 - 6.50 K/cumm Comment:Testing performed by : [facility]e [facility], [address] [place], [place] [id number] Lymphocyte abs 0.92 0.80 - 3.30 K/cumm [facility] Comment:Testing performed by : [facility], [address] [place] [address] Monocyte abs 0.39 0.20 - 0.80 K/cumm [facility] Comment:Testing performed by : [facility], [address] [place], [place] [id number] Eosinophil abs 0.29 0.00 - 0.50 K/cumm [facility] Comment:Testing performed by : [facility], [address] [place], [place] [id number] Basophil abs 0.05 0.00 - 0.10 K/cumm [facility] Comment:Testing performed by : [facility], [address] [place] [address] Neutrophil pct 64.8 % [facility] Comment: Interpretive Data Percent cell count reference ranges are not reported, since discordance with absolute values may lead to misinterpretation of CBC data. Current Interpretive Data was last revised on 2017. Testing performed by: [facility], [address] [place] [address] Lymphocyte pct 19.6 % [facility] Comment: Interpretive Data Percent cell count reference ranges are not reported, since discordance with absolute values may lead to misinterpretation of CBC data. Current Interpretive Data was last revised on 2017. Testing performed by: [facility], [address] [place] [address] Monocyte pct 8.4 % [facility] Comment: Interpretive Data Percent cell count reference ranges are not reported, since discordance with absolute values may lead to misinterpretation of CBC data. Current Interpretive Data was last revised on 2017. Testing performed by: [facility], [address] [place] [phone] Eosinophil pct 6.2 % [facility] Comment: Interpretive Data Percent cell count reference ranges are not reported, since discordance with absolute values may lead to misinterpretation of CBC data. Current Interpretive Data was last revised on 2017. Testing performed by: [facility], [address] [place] [address] Basophil pct 1.0 % [facility] Comment: Interpretive Data Percent cell count reference ranges are not reported, since discordance with absolute values may lead to misinterpretation of CBC data. Current Interpretive Data was last revised on 2017. Testing performed by: [facility], [address] [place] [address] Blood 07/27/2024 10:5 1 AM CDT 07/27/2024 10:53 AM CDT us Jorge Novak MD LAB BLOOD ORDERABLES Final Resul t [facility] Department of Laboratories [place], [place] [id number] * (ABNORMAL) CBC with auto differential (07/27/2024 10:51 AM CDT) WBC 4.69 3.80 - 9.90 K/cumm Comment:Testing performed by : [facility], [address] [place] [address] Hgb 14.1 11.9 - 15.5 g/dL [facility] Comment:Testing performed by : [facility], [address] [place] [address] Hct 41.7 35.6 - 45.5 % [facility] Comment:Testing performed by : [facility], [address] [place] [address] Plt 162 150 - 400 K/cumm [facility] Comment:Testing performed by : [facility], [address] [place] [address] MPV 8.2 6.8 - 10.4 fL [facility] Comment:Testing performed by : [facility], [address] [place] [address] RBC 4.69 3.90 - 5.20 M/cumm [facility] Comment:Testing performed by : [facility], [address] [place], [place] [phone] MCV 89.0 81.3 - 96.4 fL [facility] Comment:Testing performed by : [facility], [address] [place] [address] MCH 30.2 27.1 - 33.3 pg [facility] Comment:Testing performed by : [facility], [address] [place], [place] [phone] MCHC 33.9 32.3 - 35.7 g/dL [facility] Comment:Testing performed by : [facility], [address] [place] [address] RDW CV 19.5(H) 11.1 - 14.9 % [facility] Comment:Testing performed by : [facility], [address] [place] [address] NRBC abs 0.00 0.00 - 0.01 K/cumm [facility] Comment:Testing performed by : [facility], [address] [place] [address] Blood 07/27/2024 10:5 1 AM CDT 07/27/2024 10:53 AM CDT us Jorge Novak MD LAB BLOOD ORDERABLES Final Resul t [facility] Department [place] [address] * (ABNORMAL) TSH (07/27/2024 10:51 AM CDT) Thyroid Stimulating Hormone 0.11(L) 0.30 - 4.20 mcIUnit/mL Blood 07/27/2024 10:5 1 AM CDT 07/27/2024 10:53 AM CDT us Jorge Novak MD LAB BLOOD ORDERABLES Final Resul t Performing Organization Address [facility] de Phone Number [facility] [place] [address] * (ABNORMAL) T4, free (07/27/2024 10:51 AM CDT) Free T4 2.26(H) 0.90 - 1.70 ng/dL Blood 07/27/2024 10:5 1 AM CDT 07/27/2024 10:53 AM CDT us Jorge Novak MD LAB BLOOD ORDERABLES Final Resul t Performing Organization Address [facility] de Phone Number [facility] [place] [address] * Lactate dehydrogenase (LD) (07/27/2024 10:51 AM CDT) Pathologist [facility] Lactate dehydrogenase (LDH) 205 100 - 250 Units/L Blood 07/27/2024 10:5 1 AM CDT 07/27/2024 10:53 AM CDT us Jorge Novak MD LAB BLOOD ORDERABLES Final Resul t Performing Organization Address [facility] de Phone Number [facility] [place] [address] * (ABNORMAL) Comprehensive metabolic panel (07/27/2024 10:51 AM CDT) Pathologist [facility] Sodium 141 135 - 145 mmol/L Potassium, pl 4.1 3.3 - 4.9 mmol/L [facility] Chloride 104 97 - 110 mmol/L [facility] CO2 27 22 - 32 mmol/L [facility] Anion gap 10 2 - 15 mmol/L [facility] BUN 18 6 - 25 mg/dL [facility] Creatinine 1.09 0.60 - 1.10 mg/dL [facility] Glucose 92 70 - 199 mg/dL [facility] Comment: Interpretive Data Fasting glucose >/= 126 [...] 2022. Calcium 9.6 8.5 - 10.3 mg/dL [facility] Bilirubin, total 0.3 0.1 - 1.2 mg/dL [facility] Protein, pl 7.0 6.5 - 8.5 g/dL [facility] Albumin 3.7 3.5 - 5.0 g/dL [facility] Alk phos 92 40 - 130 Units/L [facility] ALT 34 7 - 45 Units/L [facility] AST 51(H) 10 - 45 Units/L [facility] Blood 07/27/2024 10:5 1 AM CDT 07/27/2024 10:53 AM CDT us Jorge Novak MD LAB BLOOD ORDERABLES Final Resul t [facility] Department [place] [address] * (ABNORMAL) POCT lipid panel (07/19/2024 11:13 [...] MD LAB BLOOD ORDERABLES Final Resul t [facility] [place] [address] * TSH (05/18/2024 11:29 AM CDT) Thyroid Stimulating Hormone 0.40 0.30 - 4.20 mcIUnit/mL Blood 05/18/2024 11:2 9 AM CDT 05/18/2024 11:30 AM CDT us Jorge Novak MD LAB BLOOD ORDERABLES Final Resul t Performing Organization Address [facility] de Phone Number [facility] [place] [address] * (ABNORMAL) T4, free (05/18/2024 11:29 AM CDT) Pathologist [facility] Free T4 2.04(H) 0.90 - 1.70 ng/dL Blood 05/18/2024 11:2 9 AM CDT 05/18/2024 11:30 AM CDT us Jorge Novak MD LAB BLOOD ORDERABLES Final Resul t Performing Organization Address [facility] de Phone Number [facility] [place] [address] * Lactate dehydrogenase (LD) (05/18/2024 11:29 AM CDT) [facility] Lactate dehydrogenase (LDH) 224 100 - 250 Units/L Blood 05/18/2024 11:2 9 AM CDT 05/18/2024 11:30 AM CDT us Jorge Novak MD LAB BLOOD ORDERABLES Final Resul t Performing Organization Address [facility] de Phone Number [facility] [place] [address] * Comprehensive metabolic panel (05/18/2024 11:29 AM CDT) Pathologist [facility] Sodium 140 135 - 145 mmol/L Potassium, pl 4.3 3.3 - 4.9 mmol/L [facility] Chloride 105 97 - 110 mmol/L [facility] CO2 22 22 - 32 mmol/L [facility] Anion gap 13 2 - 15 mmol/L [facility] BUN 16 6 - 25 mg/dL [facility] Creatinine 0.86 0.60 - 1.10 mg/dL [facility] Glucose 78 70 - 199 mg/dL [facility] Comment: Interpretive Data Fasting glucose >/= 126 [...] 2022. Calcium 10.0 8.5 - 10.3 mg/dL [facility] Bilirubin, total 0.3 0.1 - 1.2 mg/dL [facility] Protein, pl 7.8 6.5 - 8.5 g/dL [facility] Albumin 3.6 3.5 - 5.0 g/dL [facility] Alk phos 109 40 - 130 Units/L [facility] ALT 12 7 - 45 Units/L [facility] AST 35 10 - 45 Units/L [facility] Comment:Hemolyzed; result ma y be falsely elevated Blood 05/18/2024 11:2 9 AM CDT 05/18/2024 11:30 AM CDT us Jorge Novak MD LAB BLOOD ORDERABLES Final Resul t [facility] [place] [address] * Differential, auto (05/18/2024 11:24 AM CDT) Neutrophil abs 4.82 1.50 - 6.50 K/cumm Comment:Testing performed by : [facility], [address] [place] [phone] Lymphocyte abs 0.88 0.80 - 3.30 K/cumm [facility] Comment:Testing performed by : [facility], [address] [place] [phone] Monocyte abs 0.56 0.20 - 0.80 K/cumm [facility] Comment:Testing performed by : [facility], [address] [place] [phone] Eosinophil abs 0.20 0.00 - 0.50 K/cumm [facility] Comment:Testing performed by : [facility], [address] [place] [phone] Basophil abs 0.07 0.00 - 0.10 K/cumm [facility] Comment:Testing performed by : [facility], [address] [place] [address] Neutrophil pct 73.8 % [facility] Comment: Interpretive Data Percent cell count reference ranges are not reported, since discordance with absolute values may lead to misinterpretation of CBC data. Current Interpretive Data was last revised on 2017. Testing performed by: [facility], [address] [place] [address] Lymphocyte pct 13.5 % [facility] Comment: Interpretive Data Percent cell count reference ranges are not reported, since discordance with absolute values may lead to misinterpretation of CBC data. Current Interpretive Data was last revised on 2017. Testing performed by: [facility], [address] [place] [phone] Monocyte pct 8.5 % [facility] Comment: Interpretive Data Percent cell count reference ranges are not reported, since discordance with absolute values may lead to misinterpretation of CBC data. Current Interpretive Data was last revised on 2017. Testing performed by: [facility], [address] [place] [phone] Eosinophil pct 3.1 % [facility] Comment: Interpretive Data Percent cell count reference ranges are not reported, since discordance with absolute values may lead to misinterpretation of CBC data. Current Interpretive Data was last revised on 2017. Testing performed by: [facility], [address] [place] [phone] Basophil pct 1.1 % [facility] Comment: Interpretive Data Percent cell count reference ranges are not reported, since discordance with absolute values may lead to misinterpretation of CBC data. Current Interpretive Data was last revised on 2017. Testing performed by: [facility], [address] [place] [address] Blood 05/18/2024 11:2 4 AM CDT 05/18/2024 11:30 AM CDT us Jorge Novak MD LAB BLOOD ORDERABLES Final Resul t [facility] [place] [address] * (ABNORMAL) CBC with auto differential (05/18/2024 11:24 AM CDT) WBC 6.53 3.80 - 9.90 K/cumm Comment:Testing performed by : [facility], [address] [place] [address] Hgb 12.1 11.9 - 15.5 g/dL [facility] Comment:Testing performed by : [facility], [address] [place] [address] Hct 37.4 35.6 - 45.5 % [facility] Comment:Testing performed by : [facility], [address] [place] [address] Plt 361 150 - 400 K/cumm [facility] Comment:Testing performed by : [facility], [address] [place] [address] MPV 8.4 6.8 - 10.4 fL [facility] Comment:Testing performed by : [facility], [address] [place] [address] RBC 3.95 3.90 - 5.20 M/cumm [facility] Comment:Testing performed by : [facility], [address] [place] [address] MCV 94.5 81.3 - 96.4 fL [facility] Comment:Testing performed by : [facility], [address] [place] [address] MCH 30.7 27.1 - 33.3 pg [facility] Comment:Testing performed by : [facility], [address] [place] [phone] MCHC 32.5 32.3 - 35.7 g/dL [facility] Comment:Testing performed by : [facility], [address] [place] [phone] RDW CV 16.6(H) 11.1 - 14.9 % [facility] Comment:Testing performed by : [facility], [address] [place] [phone] NRBC abs 0.00 0.00 - 0.01 K/cumm [facility] Comment:Testing performed by : [facility], [address] [place] [phone] Blood 05/18/2024 11:2 4 AM CDT 05/18/2024 11:30 AM CDT us Jorge Novak MD LAB BLOOD ORDERABLES Final Resul t [facility] [place] [address] * CT Chest Abdomen Pelvis W Contrast [...] POCT creatinine (05/11/2024 11:05 AM CDT) Pathologist [facility] Creatinine POC 1.0 0.6 - 1.1 mg/dL Blood 05/11/2024 11:0 5 AM CDT 05/11/2024 11:05 AM CDT us Jorge Novak MD LAB POCT ORDERABLES - DEVICE Fin al Result Performing Organization Address City/State/[facility] Co de Phone Number [facility] [place] [address] * Tissue aerobic and anaerobic culture and gram stain Bone Back (04/30/2024 2:31 PM CDT) Pathologist [facility] Direct Specimen Exam Stain: No polymorphonuclear leukocytes seen. No organisms seen. Report Final Report: No growth [facility] Bone (Back) 04/30/2024 2:31 PM CDT 04/30/2024 5:22 PM CDT Narrative [facility] - 05/04/2024 8:35 AM CDT Spinous Process bone Testing performed by [facility] Microbiology Laboratory ([phone]) Specimens submitted from normally sterile body sites will have all bacterial morphotypes identified. Specimens that contain grossly mixed hpillip and/or are from body sites that are not normally sterile will be examined for Staphylococcus aureus, Pseudomonas aeruginosa, beta-hemolytic strep, vancomycin-resistant Enterococcus, Bacteroides, Parabacteroides, Clostridium perfringens and fungus. If any of these are isolated, the organism will be reported. Current interpretive data was last revised on 2019. us Kanu Motta MD LAB MICROBIOLOGY - GENERA L ORDERABLES Final Result [facility] [place] [address] * WI AN ELECTIVE ENDOTRACHEAL AIRWAY, WI AN PROCEDURE PLACEHOLDER (04/30/2024 1:38 PM CDT) [...] prone view tape Number of attempts: 1 us Eagle Jerome MD ANESTHESIA ORDERABLES Edited Result - Final * (ABNORMAL) POCT [id number], WB - ISTAT (04/30/2024 12:49 PM CDT) Na POC 139 135 - 145 mmol/L K POC 4.0 3.3 - 4.9 mmol/L [facility] Comment: Interpretive Data This method is not able to assess for hemolysis, which may falsely increase potassium concentrations. If further testing is needed to evaluate this result, consider in-laboratory plasma potassium. Current Interpretive Data was last revised on 2021. Glucose POC i-STAT 87 70 - 199 mg/dL [facility] Hct, POC 32.0(L) 35.6 - 45.5 % [facility] Blood 04/30/2024 12:4 9 PM CDT 04/30/2024 12:49 PM CDT us Kanu Motta MD LAB POCT ORDERABLES - DEV ICE Final Result [facility] [place] [address] * XR Scoliosis Ap and Lateral (04/27/2024 [...] nal Result from Last 3 Months Insurance IDNC [facility] Address: [address] [address] [place] [address] [facility] MED[facility] [employer] Address: [address] [address] [place] [address] Advance Directives For more information, please contact: [phone] * Full Code (Latest Code Status on [...] 1:19 AM 05/17/2020 8:45 PM Care Teams Tour Counselor Relationship Specialty Start Date End Date Juan Muñoz MD [address] [address] PCP - General Family Medicine 05/15/23 Brendan Thornton MD Referring Physician Transplant 06/01/18 Jorge Novak MD [address] [facility] [address] [place] [address] Medical Oncologist/Drop Board Worker Medical Oncology 06/01/18 Lawson Montgomery MD [address] [facility] [address] [place] [address] Radiation Oncologist Radiation Oncology 06/13/20 Sangeeta Christian MD [address] [facility] [place] [id number] Surgeon Oculoplastics Ophthalmology 04/05/22 Franck Arellano MD [address] [place], [place] [id number] Consulting Physician Cardiology 05/15/23 Joe Basurto MD [address] [employer] [facility] [address] [place] [address] Consulting Physician Orthopedic Surgery 05/15/23
--- OUTSIDE RECORDS SUMMARY | 2024-07-28 00:24 | XMS_ITS | Clinical Summary ---
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
--- OUTSIDE RECORDS SUMMARY | 2024-07-28 00:24 | XMS_ITS ---
Author Organization [facility] Address [address] [place] [address] Care Team Providers Care Metal Handler Name Role Phone Brendan Thornton MD Unavailable [phone] Jorge Novak MD Unavailable Lawson Montgomery MD Unavailable Sangeeta Christian MD Unavailable [phone] Juan Muñoz MD Primary Care Provider [phone] Franck Arellano MD Unavailable [phone] Joe Basurto MD Unavailable [phone] Active Problems Problem Noted Date Diagnosed Date Postoperative infection, initial encounter 04/01 Wound dehiscence 04/01/2024 Assessment & Plan (04/05/2024 12:14 PM FORESTER AIDE): Eli Frazier is a 69 y.o. female [...] dehiscence which prompted her to come to [facility] ER. She was seen by Ortho spine [...] wound dehiscence prompting her to go to [facility] ED, now s/p I&D with incisional wound [...] concerns. Assessment & Plan (03/23/2024 11:24 AM FORESTER AIDE): She underwent thoracolumbar wound I&D down to [...] 02/19/2024 Assessment & Plan (03/02/2024 10:59 AM FORESTER AIDE): Eli Frazier is a 69 y.o. female [...] of lumbar spine 06/02/2023 Prophylactic antibiotic 05/28/2023 [facility] compl of internal fixation device of oth dez lorrie, init 05/18/2023 Coronary artery disease invo lving [place] coronary artery of [place] heart without angina pectoris 09/03/2021 AV node [...] Condition: stable Contains abnormal data eGFR Order: [id number] Component Ref Range & Units 12/07/20 0831 [...] Assessment & Plan: Condition: stable TSH Order: [id number] Component Ref Range & Units 12/07/20 0831 [...] Condition: stable Vitamin D 25 hydroxy Order: [id number] Component Ref Range & Units 07/13/20 0803 [...] (06/03/2018): Added automatically from request for surgery [id number] Assessment & Plan (06/27/2020 11:10 PM CDT): [...] (05/06/2018): Added automatically from request for surgery [id number] Edema 04/09/2016 Family history of ischemic h [...] Medications Current Day (Day 1 , Cycle 4 - Planned for 07/22/2024) Next Day (Day 1, Cycle 5 - Planned for 08/19/2024) No medications scheduled. No medications schedul ed. [...]
--- OUTSIDE RECORDS SUMMARY | 2024-07-28 00:24 | XMS_ITS | Encounter Summary ---
Author Organization [facility] Address [address] [place] [address] Care Team Providers Care Sucker Machine Operator Name Role Phone Kevin Kramer MD Primary Care Provider + [phone] Brendan Thornton MD Unavailable [phone] Jorge Novak MD Unavailable Juan Muñoz MD Primary Care Provider [phone] Kevin Kramer MD Primary Care Provider [phone] Juan Muñoz MD Primary Care Provider [phone] Kevin Kramer MD Primary Care Provider + [phone] Kevin Kramer MD Primary Care Provider + [phone] Elena Graham RN Unavailable [phone] Juan Muñoz MD Primary Care Provider [phone] Lawson Montgomery MD Unavailable No, Physician Primary Care Provider [phone] Juan Muñoz MD Primary Care Provider [phone] Sangeeta Christian MD Unavailable [phone] Joe Basurto MD Primary Care Provid er Juan Muñoz MD Primary Care Provider [phone] Franck Arellano MD Unavailable [phone] Joe Basurto MD Unavailable [phone] Encounter Details Date Type Department Care Team (Late st Contact Info) Description 03/30/2020 Telephone [facility] [address] [place] [address] Jorge Novak MD [address] [facility] [address] [place], [place] [id number] Social History Tobacco Use Types Packs/Day Years Used Date Smoking Tobacco: Every Day Cigarettes 1 51.5 Started: 1972 Smokeless Tobacco: Never Alcohol Use Standard Drinks/Week Comments Not Currently 0 (1 standard drink = 0.6 oz pur e alcohol) Comments No Sex and Gender Information Value Date Recorded Sex Assigned at Not on file Legal Sex Female 6:17 AM SIDE PULLER Gender Identity Not on file Sexual Orientation Not on file documented as of this encounter Plan of Treatment Not on file documented as of this encounter Visit Diagnoses Not on filedocumented in this encounter Additional Health Concerns Infection Onset Date Last Indicated Resolved Time COVID: Suspected 06/27/2020 06/27/2020 06/27/2020 8:32 PM CDT [facility] [employer] Comment:Percy guerrero [id number] 04/06/2024 04/06/2024 04/13/2024 3:06 AM SIDE PULLER documented as of this encounter Care Teams Sucker Machine Operator Relationship Specialty Start Date End Date Kevin Kramer MD PCP - General 05/20/17 04/09/20 Juan Muñoz MD [address] [address] PCP - General Family Medicine 04/10/20 04/11/20 Kevin Kramer MD [address] [place] [address] PCP - General 04/12/20 05/08/20 Juan Muñzo MD [address] [id number] PCP - General Family Medicine 05/09/20 05/11/20 Kevin Kramer MD [address] [place] [place] [address] PCP - General 05/14/20 05/24/20 Kevin Kramer MD [address] [place], [place] [id number] PCP - General 05/12/20 05/13/20 Juan Muñoz MD [address] [address] PCP - General 05/25/20 01/21/21 No, Physician PCP - General 07/24/21 09/02/21 Juan Muñoz MD [address] [address] PCP - General Family Medicine 09/03/21 03/31/23 Joe Basurto MD [address] [address] PCP - General Orthopedic Surgery 04/01/23 05/14/23 Juan Muñoz MD [address] [address] PCP - General Family Medicine 05/15/23 Brendan Thornton MD Referring Physician Transplant 06/01/18 Jorge Novak MD [address] [facility] [address] [place] [address] Medical Oncologist/Hematologis t Medical Oncology 06/01/18 Elena Graham, RN [address] [facility] [address] [place] [address] SHOP Outpatient Stonecutter 05/18/20 05/18/20 Lawson Montgomery MD [address] [facility] [address] [place] [address] Radiation Oncologist Radiation Oncology 06/13/20 Sangeeta Christian MD [address] [facility] DE[place] [address] Surgeon Oculoplastics Ophthalmology 04/05/22 Franck Arellano MD [address] [facility] [address] [place] [address] Consulting Physician Cardiology 05/15/23 Joe Basurto MD [address] [facility] [address] [place] [address] Consulting Physician Orthopedic Surgery 05/15/23 documented as of this encounter
--- OUTSIDE RECORDS SUMMARY | 2024-07-28 00:25 | XMS_ITS | Encounter Summary ---
Author Organization [facility] Healthcare Address [address] [place] [address] Care Team Providers Care Electric Sign Assembler Name Role Phone Brendan Thornton MD Unavailable Jorge Novak MD Unavailable Lawson Montgomery MD Unavailable Sangeeta Christian MD Unavailable [phone] Juan Muñoz MD Primary Care Provider [phone] Franck Arellano MD Unavailable [phone] Joe Basurto MD Unavailable [phone] Encounter Details Date Type Department Care Team (Late st Contact Info) Description 07/27/2024 10:45 AM CDT Lab [facility] - Lab Collection [address] [facility] [address] [place] [address] 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 More than 4 times per year 04/02/2024 Do you belong to any clubs o r organizations such as religious groups, unions, fraternal or athletic groups, or [...] and heating? Not hard at all 04/02/2024 [facility] - Occupational Stress Questionnaire Answer Date Recorded [...] any time in the past 12 m [facility], were you homeless or living in a fpc (including now)? No 04/02/2024 Personal Safety Answer Date Recorded Have you ever been in or are you currently in a harmful physical or emotional relationship or is someone making you feel afraid or unsafe? 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 Current interpretive data was last revised 2018. Creatinine Ur 92.6 mg/dL [facility] Comment: Interpretive Data No reference range established. Current interpretive data was last revised 2018. Protein/creatinin e ratio 415.8(H) 0.0 - 180.0 mg/g CR [facility] Urine 07/27/2024 11:1 1 AM CDT 07/27/2024 11:36 AM CDT us Jorge Novak MD LAB URINE ORDERABLES Final Resul t [facility] [place] [address] * (ABNORMAL) eGFR (07/27/2024 10:51 AM CDT) [...] of Race in Diagnosing Kidney Disease, JASN 2021). The CKD-EPI equation should not be used for patients with unstable renal function and has not been validated in children and those over 70. Current interpretive data was last reviewed 2020. Blood 07/27/2024 10:5 1 AM CDT 07/27/2024 10:53 AM CDT us Jorge Novak MD LAB BLOOD ORDERABLES Final Resul t [facility] [place] [address] * Differential, auto (07/27/2024 10:51 AM CDT) Neutrophil abs 3.04 1.50 - 6.50 [facility] Comment:Testing performed by : [facility] [place][Note 2] Heme Lab, [address] [place] [phone] Lymphocyte abs 0.92 0.80 - 3.30 K/cumm [facility] Comment:Testing performed by : [facility] [place][Note 2] Heme Lab, [address] [place] [phone] Monocyte abs 0.39 0.20 - 0.80 K/cumm [facility] Comment:Testing performed by : [facility] [place][Note 2] Heme Lab, [address] [place] [phone] Eosinophil abs 0.29 0.00 - 0.50 K/cumm [facility] Comment:Testing performed by : [facility] [place][Note 2] Heme Lab, [address] [place] [phone] Basophil abs 0.05 0.00 - 0.10 K/cumm [facility] Comment:Testing performed by : [facility] [place][Note 2] Heme Lab, [address] [place] [phone] Neutrophil pct 64.8 % [facility] Comment: Interpretive Data Percent cell count reference ranges are not reported, since discordance with absolute values may lead to misinterpretation of CBC data. Current Interpretive Data was last revised on 2017. Testing performed by: [facility] [place][Note 2] Heme Lab, [address] [place] [phone] Lymphocyte pct 19.6 % [facility] Comment: Interpretive Data Percent cell count reference ranges are not reported, since discordance with absolute values may lead to misinterpretation of CBC data. Current Interpretive Data was last revised on 2017. Testing performed by: [facility] [place][Note 2] Heme Lab, [address] [place] [phone] Monocyte pct 8.4 % [facility] Comment: Interpretive Data Percent cell count reference ranges are not reported, since discordance with absolute values may lead to misinterpretation of CBC data. Current Interpretive Data was last revised on 2017. Testing performed by: [facility] [place][Note 2] Heme Lab, [address] [place] [phone] Eosinophil pct 6.2 % [facility] Comment: Interpretive Data Percent cell count reference ranges are not reported, since discordance with absolute values may lead to misinterpretation of CBC data. Current Interpretive Data was last revised on 2017. Testing performed by: [facility] [place][Note 2] Heme Lab, [address] [place] [address] Basophil pct 1.0 % [facility] Comment: Interpretive Data Percent cell count reference ranges are not reported, since discordance with absolute values may lead to misinterpretation of CBC data. Current Interpretive Data was last revised on 2017. Testing performed by: [facility], [address] [place] [address] Blood 07/27/2024 10:5 1 AM CDT 07/27/2024 10:53 AM CDT us Jorge Novak MD LAB BLOOD ORDERABLES Final Resul t [facility] [place] [address] * (ABNORMAL) CBC with auto differential (07/27/2024 10:51 AM CDT) WBC 4.69 3.80 - 9.90 [facility] Comment:Testing performed by : [facility] [place][Note 2] Heme Lab, [address] [place] [address] Hgb 14.1 11.9 - 15.5 g/dL [facility] Comment:Testing performed by : [facility] [place][Note 2] Heme Lab, [address] [place] [address] Hct 41.7 35.6 - 45.5 % [facility] Comment:Testing performed by : [facility] [place][Note 2] Heme Lab, [address] [place] [address] Plt 162 150 - 400 K/cumm [facility] Comment:Testing performed by : [facility] [place][Note 2] Heme Lab, [address] [place] [address] MPV 8.2 6.8 - 10.4 fL [facility] Comment:Testing performed by : [facility] [place][Note 2] Heme Lab, [address] [place] [address] RBC 4.69 3.90 - 5.20 M/cumm [facility] Comment:Testing performed by : [facility] [place][Note 2] Heme Lab, [address] [place], [place] [phone] MCV 89.0 81.3 - 96.4 fL [facility] Comment:Testing performed by : [facility] [place][Note 2] Heme Lab, [address] [place], [place] [phone] MCH 30.2 27.1 - 33.3 pg [facility] Comment:Testing performed by : [facility] [place][Note 2] Heme Lab, [address] [place] [address] MCHC 33.9 32.3 - 35.7 g/dL [facility] Comment:Testing performed by : [facility] [place][Note 2] Heme Lab, [address] [place] [address] RDW CV 19.5(H) 11.1 - 14.9 % [facility] Comment:Testing performed by : [facility] [place][Note 2] Heme Lab, [address] [place] [address] NRBC abs 0.00 0.00 - 0.01 K/cumm [facility] Comment:Testing performed by : [facility] [place][Note 2] Heme Lab, [address] [place] [address] Blood 07/27/2024 10:5 1 AM CDT 07/27/2024 10:53 AM CDT us Jorge Novak MD LAB BLOOD ORDERABLES Final Resul t [facility] [place] [address] * (ABNORMAL) Comprehensive metabolic panel (07/27/2024 10:51 AM CDT) Sodium 141 135 - 145 mmol/L Potassium, pl 4.1 3.3 - 4.9 mmol/L [facility] Chloride 104 97 - 110 mmol/L [facility] CO2 27 22 - 32 mmol/L [facility] Anion gap 10 2 - 15 mmol/L [facility] BUN 18 6 - 25 mg/dL [facility] Creatinine 1.09 0.60 - 1.10 mg/dL [facility] Glucose 92 70 - 199 mg/dL [facility] Comment: Interpretive Data Fasting glucose >/= 126 [...] 2022. Calcium 9.6 8.5 - 10.3 mg/dL [facility] Bilirubin, total 0.3 0.1 - 1.2 mg/dL [facility] Protein, pl 7.0 6.5 - 8.5 g/dL [facility] Albumin 3.7 3.5 - 5.0 g/dL [facility] Alk phos 92 40 - 130 Units/L [facility] ALT 34 7 - 45 Units/L [facility] AST 51(H) 10 - 45 Units/L [facility] Blood 07/27/2024 10:5 1 AM CDT 07/27/2024 10:53 AM CDT us Jorge Novak MD LAB BLOOD ORDERABLES Final Resul t [facility] [place] [address] * (ABNORMAL) T4, free (07/27/2024 10:51 AM CDT) Free T4 2.26(H) 0.90 - 1.70 ng/dL Blood 07/27/2024 10:5 1 AM CDT 07/27/2024 10:53 AM CDT us Jorge Novak MD LAB BLOOD ORDERABLES Final Resul t Performing Organization Address [facility] Co de Phone Number [facility] [place] [address] * Lactate dehydrogenase (LD) (07/27/2024 10:51 AM CDT) Lactate dehydrogenase (LDH) 205 100 - 250 Units/L Blood 07/27/2024 10:5 1 AM CDT 07/27/2024 10:53 AM CDT us Jorge Novak MD LAB BLOOD ORDERABLES Final Resul t Performing Organization Address [facility] de Phone Number [facility] [place] [address] * (ABNORMAL) TSH (07/27/2024 10:51 AM CDT) Thyroid Stimulating Hormone 0.11(L) 0.30 - 4.20 mcIUnit/mL Blood 07/27/2024 10:5 1 AM CDT 07/27/2024 10:53 AM CDT us Jorge Novak MD LAB BLOOD ORDERABLES Final Resul t Performing Organization Address [facility] de Phone Number [facility] [place] [address] documented in this encounter Visit Diagnoses Diagnosis 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 (HCC) Secondary malignant neoplasm of bone and bone marrow documented in this encounter Care Teams Electric Sign Assembler Relationship Specialty Start Date End Date Juan Muñoz MD [address] [address] PCP - General Family Medicine 05/15/23 Brendan Thornton MD Referring Physician Transplant 06/01/18 Jorge Novak MD [address] [place] [address] Medical Oncologist/Monkey Breeder Medical Oncology 06/01/18 Lawson Montgomery MD [address] [place] [address] Radiation Oncologist Radiation Oncology 06/13/20 Sangeeta Christian MD [address] [facility] [place] [phone] Surgeon Oculoplastics Ophthalmology 04/05/22 Franck Arellano MD [address] [place] [address] Consulting Physician Cardiology 05/15/23 Joe Basurto MD [address] [facility] [address] [place] [address] Consulting Physician Orthopedic Surgery 05/15/23 documented as of this encounter
--- OUTSIDE RECORDS SUMMARY | 2024-07-28 00:25 | XMS_ITS | Encounter Summary ---
Author Organization [facility] Address [address] [place] [address] Phone Care Team Providers Care Kettle Girl Name Role Phone Brendan Thornton MD Unavailable [phone] Jorge Nvoak MD Unavailable Lawson Montgomery MD Unavailable Sangeeta Christian MD Unavailable [phone] Juan Muñoz MD Primary Care Provider [phone] Franck Arellano MD Unavailable [phone] Joe Basurto MD Unavailable [phone] Reason for Referral * MRI/CAT/PET Scan (Routine) - Pending Review Specialty Diagnoses / Procedures Referred By Contac t Referred To Contact Radiology Diagnoses 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 (HCC) Procedures CT Chest Abdomen Pelvis W Contrast Jorge Novak MD [address] [facility] [address] [place] [address] Phone: tel: fax: [address] [address] Referral ID Status Reason Start Date Expiration Date V isits Requested Visits Authorized [id number] Pending Review 07/26/2024 08/25/2025 1 1 Reason for Visit * Consultation (Routine) - Authorized Specialty Diagnoses / Procedures Referred By Contac t Referred To Contact Oncology Diagnoses 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 (HCC) Jorge Novak MD [address] [address] Phone: tel: fax: Jorge Novak MD [address] [place] [address] Phone: tel: fax: Referral ID Status Reason Start Date Expiration Date Visits Requested Visits Authorized [id number] Authorized Specialty Services Required 07/22/2024 08/21/2025 99 99 Encounter Details Date Type Department Care Team (Late st Contact Info) Description 07/27/2024 11:30 AM CDT Office Visit [facility] Floor 5 [place] [address] Jorge Novak MD [id number] [place] [address] 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 More than 4 times per year 04/02/2024 Do you belong to any clubs o r organizations such as oriental orthodox groups, unions, fraternal or athletic groups, or [...] and heating? Not hard at all 04/02/2024 [place] [facility] Occup[facility] - Occupational Stress [...] any time in the past 12 m [facility], were you homeless or living in a retirement (including now)? No 04/02/2024 Personal Safety Answer Date Recorded Have you ever been in or are you currently in a harmful physical or emotional relationship or is someone making you feel afraid or unsafe? Denies 04/30/2024 Comments No Sex and Gender Information Value Date Recorded Sex Assigned at Not on file Legal Sex Female 6:17 AM TRIPOLER Gender Identity Not on file Sexual Orientation [...] (214 lb) 07/27/2024 11:08 AM CDT Height - - Body Mass Index 32.54 07/19/2024 11:07 AM CDT documented in this encounter Progress Notes * Margi Tolentino NP - 07/27/2024 11:30 AM CDT PATIENT NAME: TARI MESSER : 1955 AYANNA: 07/27/2024 Ms. Messer is a 69 y.o. with metastatic kidney cancer. She was noted to have a right kidney massin 2013. Further workup showed a metastatic deposit at T11. She underwent a right nephrectomy and surgical removal of a T11 lesion in May 2013. Both pathologies were consistent with clear cell carcinoma. She received adjuvant radiation therapy to her back, but continues to have chronic back pain. We met the patient in 2013, and presented her with an adjuvant trial, that she declined. In April 2018, disease was noted in her left kidney, which may have been disease or recurrence of her previousdisease, along with metastatic lesions noted in pancreatic tail and retroperitoneal adenopathy. Sheunderwent a partial left nephrectomy, retroperitoneal lymph node dissection, and resection of her pancreatic tail lesion, performed by Dr. Thornton and Dr. Craig, in June 2018. By October 2018, she developed recurrent disease in her pancreas, regrowth in her retroperitoneal lymph nodes, and a new lesion in her adrenal gland. After some discussion, she began axitinib and pembrolizumab in February 2019. Initially, she did well, but by January 2020, she developed severe diarrhea, requiring hospitalization and steroids. Therapy was stopped. By May 2020, there was evidence of disease progression inher spine, undergoing another resection, followed by adjuvant radiation therapy. At this time, a pulmonary embolism was noted, and an IVC filter was placed; she remains on Eliquis and aspirin. Axitini b was restarted in early July 2020. She had a reoperation to her spine due to failure of her ebony inApril 2023, and a small deposit of tumor was noted, although this was not clear progression. She remains with back pain. By November 2023, there were multiple areas of soft tissue progression. Accordingly, she was switched from axitinib to cabozantinib 20 mg. She did well with this dose, so it was increased to 40 mg. Therapy was held for 3 months in early 2024 d/t wound healing issues in her back.Cabo was restarted in May at 20 mg. She has a h/o myocardial infarction in July 2021. INTERNAL HISTORY: Tari Messer returns for further follow up of metastatic kidney cancer, unaccompanied. She remains on cabozantinib, 20 mg, and tolerating it fairly well. She reports mild taste alterations and appetite changes; she has lost 5 pounds since our last office visit. She still has a small open area on her back that isn't draining but is very slow to heal. She will be seeing the plastic surgeon next week for further f/u. She has an appointment with ID that day too. She has resumed her normal activity level. She continues to smoke 1/2-1/3 ppd. 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 All other systems are negative. PHYSICAL EXAMINATION: BP 137/84 (BP Location: Right arm) Pulse 87 Temp 36.5 ??C (97.7 ??F) (Oral) Resp 18 Wt 97.1kg (214 lb) SpO2 99% BMI 32.54 kg/m?? KPS: 90% Nodes: No palpable cervical or supraclavicular adenopathy. Cardiac: Shows an S1, S2. No S3 or murmurs. Lungs: Clear to auscultation bilaterally. Abdomen: Soft, nontender, nondistended. No hepatosplenomegaly or palpable masses noted. Bowel sounds are active. Musculoskeletal: WNL. Denies any CVA, spinous, or hip tenderness to percussion. She is in a WC. Extremities: Lower extremities show no edema. Neurologic: Nonfocal. Wound: small opening with a Band-Aid over it. No drainage. LABORATORY/RADIOGRAPHIC DATA: CBC: Lab Results Component Value Date WBC 4.69 07/27/2024 HGB 14.1 07/27/2024 HCT 41.7 07/27/2024 LABPLAT 162 07/27/2024 NEUTROABS 3.04 07/27/2024 CMP: Lab Results Component Value Date SODIUM 141 07/27/2024 POTASSIUM 4.1 07/27/2024 BUNSER 18 07/27/2024 CREATININE 1.09 07/27/2024 GLUCOSE 92 07/27/2024 CALCIUM 9.6 07/27/2024 BILITOT 0.3 07/27/2024 ALKPHOS 92 07/27/2024 AST 51 (H) 07/27/2024 ALT 34 07/27/2024 25HYDROVITD 51 05/28/2023 TUMOR MARKERS: Lab Results Component Value Date LDH 205 07/27/2024 RADIOLOGY: None to review at this time. ASSESSMENT AND PLAN: Metastatic clear cell cancer of the kidney, currently on axitinib, with stable disease. Ms. Maddox cancer dates back to 2013, at which time a metastatic lesion was noted at T11. She was treated with surgical resection of both her kidney and her metastatic deposit. Disease recurrence was noted in 2018, receiving additional surgery and adjuvant radiation therapy, but recurrent disease was noted later that year. Systemic therapy was started in early 2019, with axitinib and pembrolizumab, stopping in late 2019, when she was hospitalized for colitis, requiring steroids. Axitinib was restartedin July 2020, but stopped in November 2023 d/t disease progression. She has been on cabozantinib since then. She was off therapy for about 3 months earlier this year d/t to poorly healing back wound. Restaging scans in May showed some growth in multiple areas. Accordingly, cabozantinib was restarted in May. Her current dose is 20 mg. Coronary artery disease, status post myocardial infarction and angioplasty. History of pulmonary embolism, with a permanent IVC filter in place, continuing on Eliquis and aspirin. Back wound. Small open area still present. RTC: 2 months for further follow up, with another CT scan prior to office visit. She is comfortablewith this plan and will call the office with any issues in between office visits. 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 (HCC) Expected: 09/28/2024 (Approximate), Expires: 07/26/2025 Comprehensive metabolic panel Lab Routine 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 (HCC) Expected: 09/28/2024 (Approximate), Expires: 07/26/2025 Lactate dehydrogenase (LD) Lab Routine 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 (HCC) Expected: 09/28/2024 (Approximate), Expires: 07/26/2025 T4, free Lab Routine 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 Current interpretive data was last revised 2018. Creatinine Ur 92.6 mg/dL [facility] Comment: Interpretive Data No reference range established. Current interpretive data was last revised 2018. 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 cephalexin (KEFLEX) 500 mg capsule TAKE 1 CAPSULE BY MOUTH EVERY 6 HOURS FOR 7 DAYS 07/20/2024 added in this encounter Orders Outpatient Referral Count Last Ordered Date Fir st Ordered Date AMB REFERRAL TO ONCOLOGY 1 07/27/2024 Appointment Requests Count Last Ordered Date Fi rst Ordered Date ONCBCN CLINIC APPOINTMENT REQUEST 2 025 07/26/2024 ONCBCN LAB APPOINTMENT 1 07/26/2024 documented in this encounter Care Teams Kettle Girl Relationship Specialty Start Date End Date Juan Muñoz MD [address] [address] PCP - General Family Medicine 05/15/23 Brendan Thornton MD Referring Physician Transplant 06/01/18 Jorge Novak MD [address] [facility] [address] [place] [address] Medical Oncologist/Roads And Parking Lots Sweeper Operator Medical Oncology 06/01/18 Lawson Montgomery MD [address] [facility] [address] [place] [address] Radiation Oncologist Radiation Oncology 06/13/20 Sangeeta Christian MD [facility] [place] [address] Surgeon Oculoplastics Ophthalmology 04/05/22 Franck Arellano MD [address] [place] [address] Consulting Physician Cardiology 05/15/23 Joe Basurto MD [address] [facility] 6A/6B/12A [place] [address] Consulting Physician Orthopedic Surgery 05/15/23 documented as of this encounter
--- OUTSIDE RECORDS SUMMARY | 2024-07-28 00:25 | XMS_ITS | Encounter Summary ---
Author Organization [facility] Address [address] [place] [address] Phone Care Team Providers Care Scraper Burrer Name Role Phone Brendan Thornton MD Unavailable [phone] Jorge Novak MD Unavailable Lawson Montgomery MD Unavailable Sangeeta Christian MD Unavailable Juan Muñoz MD Primary Care Provider [phone] Franck Arellano MD Unavailable [phone] Joe Basurto MD Unavailable [phone] Encounter Details Date Type Department Care Team (Late st Contact Info) Description 07/27/2024 10:30 AM CDT Lab [facility] Oncology Lab [address] [facility] Floor 5 [place] [address] 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 [...] materials from doctor or pharmacy Never 06/03/2024 [facility] Utilities Answer Date Recorded In the past 12 months has e [employer] or water [employer] threatened to shut off services in your [...] How often do you attend chur or zoroastrian services? More than 4 times per year 04/02/2024 Do you belong to any clubs o r organizations such as evangelical groups, unions, fraternal or athletic groups, or [...] and heating? Not hard at all 04/02/2024 [facility] of Occupat ional [facility] - Occupational Stress Questionnaire Answer Date [...] in the past 12 m [facility], were you homeless or living in a care home (including now)? No 04/02/2024 Personal Safety Answer Date Recorded Have you ever been in or are you currently in a harmful physical or emotional relationship or is someone making you feel afraid or unsafe? 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 documented in this encounter Orders Appointment Requests Count Last Ordered Date Fi rst Ordered Date ONCBCN LAB APPOINTMENT 1 07/27/2024 documented in this encounter Care Teams Scraper Burrer Relationship Specialty Start Date End Date Juan Muñoz MD [address] [address] PCP - General Family Medicine 05/15/23 Brendan Thornton MD Referring Physician Transplant 06/01/18 Jorge Novak MD [address] [place] [address] Medical Oncologist/Staffing Account Manager Medical Oncology 06/01/18 Lawson Montgomery MD [address] [place] [address] Radiation Oncologist Radiation Oncology 06/13/20 Sangeeta Christian MD [address] [facility] [place] [address] Surgeon Oculoplastics Ophthalmology 04/05/22 Franck Arellano MD [address] [address] Consulting Physician Cardiology 05/15/23 Joe Basurto MD [address] [facility] 6A/6B[address]12[address] [place] [address] Consulting Physician Orthopedic Surgery 05/15/23 documented as of this encounter
--- OUTSIDE RECORDS SUMMARY | 2024-07-28 00:25 | XMS_ITS | Clinical Summary ---
Author Organization [facility] Address [address] [facility] [place] [address] Care Team Providers Care Ordained Minister Name Role Phone Violet Burris MD Unavailable [phone] Eagle Solomon MD Unavailable Juan Muñoz MD Primary Care Provider [phone] Jorge Novak MD Unavailable Franck Arellano MD Unavailable Source Comments [facility],non-owned Affiliates and Associated Physician Practices is amultiple site organization consisting of ambulatory clinics and hospital sitesin [place], [place], [place] and [place]. This disclosure is being madepursuant to the Care Everywhere program and may not contain all information available regarding this patient. Last updated 17.[facility] Allergies Active Allergy Reactions Criticality Noted Date [...] (03/25/2019): Added automatically from request for surgery [id number] Benign hypertension 01/16/2015 Hypothyroidism 12/19/2014 Dermatochalasis of upper eyelid Resolved Problems Problem Noted Date Diagnosed Date Resolved Date Acute sinusitis 03/25/2019 04/22/2019 Immunizations Immunization Administration Dates Next Due INFLUENZA VACCINE 12/10/2018 Social History Tobacco Use Types Packs/Day Years Used Date Smoking Tobacco: Every Day Cigarettes 0.5 51.5 Started: 1972 Smokeless Tobacco: Never Tobacco Cessation:Ready [...] on file Legal Sex Female 1:47 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 Chloride 107 98 - 107 mmol/L 05/17/2022 12:41 PM [facility] CO2 25 22 - 29 mmol/L 05/17/2022 12:41 PM [facility] Glucose 92 70 - 115 mg/dL 05/17/2022 12:41 PM [facility] Calcium 9.7 8.4 - 10.2 mg/dL 05/17/2022 12:41 PM [facility] Anion Gap 15 8 - 18 05/17/2022 12:41 PM [facility] BUN/Creatinine Ratio 15 7 - 23 05/17/2022 12:41 PM [facility] Osmolality Calculated 297 270 - 300 mOsm/kg 05/17/2022 12:41 PM [facility] eGFR by CKD-EPI 54(L) >=90 mL/min/1.7 3 m2 05/17/2022 12:41 PM [facility] Blood BLOOD SPECIMEN / Unknown Lab Venipuncture / Unknown 05/17/2022 11:49 AM CDT 05/17/2022 11:58 AM CDT Rose Thorne PACKING TRACTOR MACHINE OPERATOR-ELECTRIC TRAIN DRIVER LAB - CHEMISTRY O RDERABLES Final Result [facility] [address] [place] [address], [facility] [phone] from Last 3 Months or Most Recently Relevant to Health Maintenance Insurance MEDICAID - OUT OF STATE MEDICARE MEDICAID - [facility] out of State MEDICARE MEDICAID - [place] Care Teams Ordained Minister Relationship Specialty Start Date End Date Juan Muñoz MD [address] [place] [address] PCP - General Family Medicine 02/14/22 Violet Burris MD [address] [place] [address] Physician Neurology 03/25/19 Eagle Solomon MD [address] [facility] [address] [place] [address] Obstetrics and Gynecology 03/25/19 Jorge Novak MD [address] [facility] [address] DIV IM MEDICAL ONCOLOGY, [address] [place] [address] Oncology 02/14/22 Franck Arellano MD [address] [place] [address] Internal Medicine 02/14/22
--- OUTSIDE RECORDS SUMMARY | 2024-07-28 00:25 | XMS_ITS | Continuity of Care Document ---
Author Organization [facility] Address [address] [place] [address] [place] [address] Phone Care Team Providers Care Lining Stuffer Name Role Phone Kevin Kramer MD Unavailable [...] Diagnoses Date Provider Providers Copied on Encounter [facility], [place], [address], [place], [place], [address], [place] tel:[phone] [facility] [place] No Information 1 Williams Kumar [address], [place], [place], [address] , [place]. tel:[phone] Referring Provider: Vish Fine [address], [place], [place], [address]. tel:[phone] OFFICE/OUTPA TIENT VISIT, [facility], [address], [place], [place], [address], [place] tel:[phone] [facility] [place] renal (chief complaint) HTN (chief complaint) ColitisHypokalemiaC a of kidney, except renal pelvisRenal diseaseEssential (primary) hypertension 1 Williams Kumar [address], [place], [place], [address] , [place]. tel:[phone] Referring Provider: Vish Fine [address], [place], [place], [address]. tel:[phone] OFFICE/OUTPA TIENT VISIT, [facility], [address], [place], [place], [address], [place] tel:[phone] [facility] [place] diarrhea1 (chief complaint) leg pain1 (chief complaint) DiarrheaLoss of appetitePeripheral vascular disease, unspecifiedMalignan t neoplasm of right kidney, except renal pelvis 0 Williams Brown. [address], [place], [place], [address] , [place]. [phone] Referring Provider: Vish Fine [address], [place], [place], [address]. tel:[phone] PREV VISIT, EST, AGE 40-64 [facility], [place], [address], [place], [place], [address], [place] [phone] [facility] [place] physical (chief complaint) Encntr for general adult medical exam w/o abnormal findings 0 Williams Brown. [address], [place], [place], [address] , [place]. tel:[phone] Referring Provider: Vish Fine [address], [place], [place], [address]. tel:[phone] OFFICE/OUTPA TIENT VISIT, [facility], [address], [place], [place], [address], [place] [phone] [facility] [place] HTN (chief complaint) HLP (chief complaint) renal1 (chief complaint) ptosis (chief complaint) D (chief complaint) HyperlipidemiaEssen tial (primary) hypertensionVitamin D deficiency, unspecifiedRenal diseasePtosis of eyelid 0 Williams Kumar [address], [place], [place], [address] , [place]. [phone] Referring Provider: Vihs Fine [address], [place], [place], [address]. tel:[phone] OFFICE/OUTPA TIENT VISIT, [facility], [address], [place], [place], [address], [place] [phone] [facility] [place] HTN (chief complaint) thyroid1 (chief complaint) renal (chief complaint) HLP (chief complaint) Essential (primary) hypertensionHypothy roidismMalignant neoplasm of right kidney, except renal pelvisEncounter for oth screening for malignant neoplasm of breastHyperlipidemi a 0 Williams Kumar [address], [place], [place], [address] , [place]. tel:[phone] Referring Provider: Vish Fine [address], [place], [place], [address]. tel:[phone] OFFICE/OUTPA TIENT VISIT, [facility], [address], [place], [place], [address], [place] tel:[phone] [facility] [place] leg pain1 (chief complaint) lung nodule1 (chief complaint) fatty liver1 (chief complaint) HTN (chief complaint) Fatty liverEssential (primary) hypertensionSolitar y lung nodulePain in right lower leg Sep-2 9 Williams Brown. [address], [place], [place], [address] , [place]. tel:[phone] Referring Provider: Vish Fine [address], [place], [place], [address]. tel:[phone] OFFICE/OUTPA TIENT VISIT, [facility], [address], [place], [place], [address], [place] tel:[phone] [facility] [place] thyroid1 (chief complaint) renal CA (chief complaint) renal (chief complaint) smoking1 (chief complaint) sleep apnea1 (chief complaint) PAD (chief complaint) Body mass index (BMI) 38.0-38.9, adultSleep apneaRenal diseaseHashimoto's thyroiditisTobacco usePeripheral vascular disease, unspecifiedMalignan t neoplasm of right kidney, except renal pelvis 9 Williams Brown. [address], [place], [place], [address] , [place]. tel:[phone] Referring Provider: Vish Fine [address], [place], [place], [address]. tel:[phone] PREV VISIT, EST, AGE 40-64 [facility], [place], [address], [place], [place], [address], [place] tel:[phone] [facility] [place] PHysical (chief complaint) Body mass index (BMI) 40.0-44.9, adultEncounter for general adult medical exam w abnormal findingsSleep apneaHashimoto's thyroiditisEssentia l (primary) hypertensionRenal diseaseHyperlipidem ia 9 Wililams Kumar [address], [place], [place], [address] , [place]. tel:[phone] Referring Provider: Vish Fine [address], [place], [place], [address]. tel:[phone] OFFICE/OUTPA TIENT VISIT, [facility], [address], [place], [place], [address], [place] tel:[phone] [facility] [place] HTN (chief complaint) renal Ca (chief complaint) bone (chief complaint) mamm (chief complaint) Essential (primary) hypertensionEncount er for screening for osteoporosisEncount er for oth screening for malignant neoplasm of breastSleep apneaPolyp of colon 8 Williams Kumar [address], [place], [place], [address] , [place]. tel:[phone] OFFICE/OUTPA TIENT VISIT, [facility], [address], [place], [place], [address], [place] tel:[phone] [facility] [place] sinus1 (chief complaint) Acute sinusitisAllergic rhinitis 8 Williams Kumar [address], [place], [place], [address] , [place]. tel:[phone] Referring Provider: Vish Fine [address], [place], [place], [address]. tel:[phone] OFFICE/OUTPA TIENT VISIT, [facility], [address], [place], [place], [address], [place] tel:[phone] [facility] [place] HTN (chief complaint) thyroid1 (chief complaint) HLP (chief complaint) renal 1 (chief complaint) Maris's thyroiditisEssentia l (primary) hypertensionHypokal emiaHyperlipidemia 8 Williams Kumar [address], [place], [place], [address] , [place]. tel:[phone] Referring Provider: Vish Fine [address], [place], [place], [address]. tel:[phone] PREV VISIT, EST, AGE 40-64 [facility] [place], [address], [place], [place], [address], [place] tel:[phone] [facility] [place] PHysical (chief complaint) Encounter for general adult medical exam w abnormal findingsHashimoto's thyroiditisHyperten joanne w/ chronic renal disease stage 3Peripheral vascular disease, unspecified 8 Williams Brown. [address], [place], [place], [address] , [place]. [phone] Referring Provider: Vish Fine [address], [place], [place], [address]. tel:[phone] OFFICE/OUTPA TIENT VISIT, EST [facility] [place], [address], [place], [place], [address], [place] tel:[phone] [facility] [place] low K (chief complaint) renal1 (chief complaint) thyroid1 (chief complaint) bone (chief complaint) Encounter for screening for osteoporosisHashimo to's thyroiditisHypokale miaHypertension w/ chronic renal disease stage 3 7 Williams Kumar [address], [place], [place], [address] , [place]. [phone] Referring Provider: Vish Fine [address], [place], [place], [address]. tel:[phone] OFFICE/OUTPA TIENT VISIT, EST [facility] [place], [address], [place], [place], [address], [place] tel:[phone] [facility] [place] glucose (chief complaint) renal function1 (chief complaint) kcl (chief complaint) HypokalemiaHypergly cemiaRenal diseaseBody mass index (BMI) 40.0-44.9, adult 7 Williams Kumar [address], [place], [place], [address] , [place]. [phone] Referring Provider: Kevin Kramer, [address], [place], [place], [address]. tel:[phone] OFFICE/OUTPA TIENT VISIT, [facility], [address] [place] [address] [address], [place], [place], [address], [place] tel:[phone] [facility] [place] PAD (chief complaint) HTN (chief complaint) hypothyroi dism1 (chief complaint) sleep apnea (chief complaint) sleep apnea1 (chief complaint) anxiety1 (chief complaint) HypothyroidismEssen tial (primary) hypertensionPeriphe ral vascular disease, unspecifiedRenal disease 7 Williams Brown. [address], [place], [place], [address] , [place]. [phone] OFFICE/OUTPA TIENT VISIT, [facility], [address] [place] [address] [address], [place], [place], [address], [place] tel:[phone] [facility] [place] toe blue1 (chief complaint) HTN (chief complaint) hypothyroi dism (chief complaint) HypothyroidismRenal diseaseSpasm of arteryEssential (primary) hypertension 7 Williams Brown. [address], [place], [place], [address] , [place]. [phone] Referring Provider: Vish Fine [address], [place], [place], [address]. tel:[phone] OFFICE/OUTPA TIENT VISIT, [facility], [address], [address], [place] tel:[phone] [facility] [place] hypothyroi dism1 (chief complaint) renal (chief complaint) HLP (chief complaint) sleep apnea1 (chief complaint) HypothyroidismRenal diseaseHyperlipidem iaVitamin D deficiency, unspecified 6 Williams Brown. [address], [place], [place], [address] , [place]. tel:[phone] Referring Provider: Vish Fine [address], [place], [place], [address]. tel:[phone] PREV VISIT, EST, AGE 40-64 [facility] [place], [address], [place], [place], [address], [place] tel:[phone] [facility] PHysical (chief complaint) Encounter for general adult medical exam w abnormal findingsEdemaOther sleep apneaEssential (primary) hypertension 4201 6 Williams Brown. [address], [place], [place], [address] , [place]. tel:[phone] Referring Provider: Kevin Kramer, [address], [place], [place], [address]. tel:[phone] OFFICE/OUTPA TIENT VISIT, [facility], [address], [place], [place], [address], [place] tel:[phone] [facility] [place] sleep apnea1 (chief complaint) HTN (chief complaint) tobacco (chief complaint) Sleep apneaTobacco useEssential (primary) hypertension 0 6 Williams Brown. [address], [place], [place], [address] , [place]. tel:[phone] Referring Provider: Vish Fine [address], [place], [place], [address]. tel:[phone] OFFICE/OUTPA TIENT VISIT, [facility], [address], [place], [place], [address], [place] tel:[phone] [facility] HTN (chief complaint) hypothyroi dism1 (chief complaint) sleep apnea1 (chief complaint) tobacco1 (chief complaint) Tobacco useOther specified hypothyroidismOther sleep apneaEssential (primary) hypertension 8 6 Williams Brown. [address], [place], [place], [address] , [place]. tel:[phone] Referring Provider: Kevin Kramer, [address], [place], [place], [address]. tel:[phone] OFFICE/OUTPA TIENT VISIT, [facility], [address], [place], [place], [address], [place] tel:[phone] [facility] [place] HTN (chief complaint) anxiety1 (chief complaint) tobacco (chief complaint) hypothyroi dism1 (chief complaint) Essential (primary) hypertensionGeneral ized anxiety disorderTobacco useOther specified hypothyroidism 8 6 Williams rBown. [address], [place], [place], [address] , [place]. [phone] Referring Provider: Vish Fine [address], [place], [place], [address]. tel:[phone] OFFICE/OUTPA TIENT VISIT, [facility], [address], [place], [place], [address], [place] tel:[phone] [facility] [place] tobacco (chief complaint) anxiety1 (chief complaint) HTN (chief complaint) weight gain (chief complaint) Essential (primary) hypertensionAbnorma l weight gainTobacco useGeneralized anxiety disorder 0 6 Williams Brown. [address], [place], [place], [address] , [place]. [phone] Referring Provider: Vish Fine [address], [place], [place], [address]. tel:[phone] OFFICE/OUTPA TIENT VISIT, [facility], [address], [place], [place], [address], [place] tel:[phone] [facility] Hypothyroi dism1 (chief complaint) HTN1 (chief complaint) tobacco1 (chief complaint) sleep study1 (chief complaint) Essential (primary) hypertensionOther specified hypothyroidismOther sleep apnea 6 6 Williams Brown. [address], [place], [place], [address] , [place]. tel:[phone] Referring Provider: Vish Fine [address], [place], [place], [address]. tel:[phone] OFFICE/OUTPA TIENT VISIT, [facility], [address], [place], [place], [address], [place] tel:[phone] [facility] HTN1 (chief complaint) hypothyroi dism (chief complaint) Tobacco1 (chief complaint) Other specified hypothyroidismEssen tial (primary) hypertensionTobacco useBody mass index (BMI) 38.0-38.9, adult 5 Williams Brown. [address], [place], [place], [address] , [place]. tel:[phone] Referring Provider: Vish Fine [address] [facility] [address], [place], [place], [address]. tel:[phone] OFFICE/OUTPA TIENT VISIT, [facility], [address], [place], [place], [address], [place] tel:[phone] [facility] [place] HTN1 (chief complaint) hypothyroi dism1 (chief complaint) vaginal yesast (chief complaint) Other specified hypothyroidismEssen tial (primary) hypertensionOther fatigueCandidal vulvovaginitis 5 Williams Kumar [address], [place], [place], [address] , [place]. tel:[phone] Referring Provider: Vish Fine [address], [place], [place], [address]. tel:[phone] PREV VISIT, NEW, AGE 40-64 [facility] [place], [address], [place], [place], [address], [place] tel:[phone] [facility] [place] Physical (chief complaint) Dietary surveillance and counselingEncounter for adult health check-up 5 Williams Kumar [address], [place], [place], [address] , [place]. [phone] Referring Provider: Vish Fine [address], [place], [place], [address]. tel:[phone] Family History Family Member Type Diagnosis Age At Onset Mother Problem (finding) Stroke Mother Problem (finding) Father Problem (finding) from overdose on c oumadin Sister Problem (finding) Renal disease Payers Payer name Insurance type Covered alliance party ID Authoriza tion(s) No Information Social History [...] treat ordered Referral Referred To: Juan Heaton [address] [place], [place] [id number] Ordered: Referrals: Juan Heaton. Evaluate and treat ordered Referral Ordered: CT THORAX W/O DYE ordered Referral Ordered: DXA BONE DENSITY, AXIAL ordered Referral Ordered: Freddy Brito (related to Renal disease) ordered Referral Referred To: Freddy Brito [address] [place], [phone] Ordered: Referrals: Freddy Brito. Evaluate and treat ordered Referral Ordered: MARTINA CLARK (related to Sleep apnea) ordered Referral Referred To: MARTINA CLARK [address] [place], [place], [phone] Ordered: Referrals: MARTINA CLARK. Evaluate and treat [...] s/p left leg stent. Pt saw her online merchandising specialist recently and she had arterial doppler study [...] still smoking sleep apnea1 Pt has sleep meat team lead ea. Pt uses cpap nightly and she feels more energy and better rested. Pt has less snoring also PAD Pt has PAD s/p l eft leg stenting by [facility] and doing ok. Pt denies any [...] surgical removal Pt changed her insurance to [employer] and she is able to see oncology at [facility] again bone Pt has not done bone density yet. pt is noncompliant Pt denies any fx mamm Pt still has not done mammo yet. Pt still has not seen metal engraver yet. Pt denies any breast issue sinus1 [...] it checked. Pt denies any other complaints renal1 Pt has mild stag e III renal disease. pt has appointment with Dr. Brito next week pt has normal UO thyroid1 Pt has maris throiditis. Pt is on synthroid. Her thyroid level is low on 175 mcg synthroid. Pt denies any fatigue. bone Pt never had bon e density study. Pt denies any h/o spontaneous fracture low K P has been takin g KCL supplement daily. Her KCL and mag is normal. Pt denies any chest pain kcl Pt has low KCL. Pt does not like to eat banana Pt takes hctz. Pt denies any chest pain or headache renal function1 Pt has borderlin e renal function Pt is off lasix and hre renal function improved. Pt has normal UO. Pt has right kidney removed due to renal cell CA glucose Pt has mild high glucose Pt denies any polyuria polydipsia PAD Pt has PAD. Pt r ecently underwent left leg stent. Pt is on statin now. Pt had negative cardiac work up by [facility]. Pt denies any chest pain. Pt denies any claudication or toe pain, or toe discoloration HTN Pt has HTN Pt ta kes norvasc and also losartan and her BP is stable. hypothyroidism1 Pt has low thyro id. Pt is on synthroid Pt neeeds refill sleep apnea sleep apnea1 Pt has sleep meat team lead ea. Pt has CPAP. Pt uses it [...] Pt denies any chest pain or headache sleep apnea1 Pt has sleep meat team lead ea. Pt is using CPAP now. Pt feels less fatigue an more energy HLP Pt has high TG. Pt drinks soda and eat a lot of pasta and starchy food renal Pt has mild delicia l disease on lab. Pt has normal UO. Pt denies any UTI symptoms hypothyroidism1 Pt has hypothyro idism. Her TSH is ok .Pt has elevated TPO. Pt denies any fatigue or palpitation PHysical Pt needs annualk physical. Pt takes [...] calf pain sleep apnea1 Pt has sleep meat team lead ea. Pt just had CPAP done. 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 Her BP is high today pt denies any chset pain or headache tobacco Pt smokes tobacc o. Pt smokes about 1/2 PPD. Pt has not even started nicoderm patch yet. Pt is noncompliant tobacco1 Pt wants to try patch again Pt failed patch last time Pt has not used patch for 6 weeks. Pt is also seeing smoking cessation counselor sleep apnea1 Pt has sleep meat team lead ea. Pt is going back tomorrow for CPAP hypothyroidism1 Pt has mild low thyroid and she is on 137 mcg daily Pt has benign thyroid nodule Pt denies any worsening fatigue HTN Pt takes norvasc and losartan.HCTZ for HTN and her BP is ok today. Pt denies any chset pain or headache hypothyroidism1 Pt has hypothyro idism. Pt takes synthroid. Pt has not done TSH or ultrasound yet tobacco Pt has not been using patch. Pt is seeing smoking cessation speicalist at [facility] now Pt smokes about 1/2 PPD anxiety1 Pt has chronic a nxiety and depression. Pt takes wellbutirn which is helping Pt denies anysuicidal or homicidal thought HTN Pt has HTN. Pt t akes losartan.HCTZ and also norvac and her BP is still high. Pt denies any chest pain or headache HTN Pt has HTN. Pt s upposes to take losaran. HTTZ and norvac daily. Pt states that she has not taken her BP med yet today. Pt denies any chest pain or headache anxiety1 Pt has been havi ng anxiety and depression lately due to personal stress. Pt denies any suicidal or homicidal thought Pt does have crying spells. Pt denies any feeling of hopelessness. tobacco Pt wants to tqui t smoking Pt smokes about close to one pack per day. Pt went to smoking cessation clinic at [facility] and was recommended chantix. Pt in the past tried zyban but she did not really try it daily. Pt only took for several days and then stopped. Pt denies any SOB weight gain Pertinent negati ves include constipation, dyspnea, fatigue, irregular menses, muscle weakness and vision changes. Additional information: Pt continues to gain weight. Pt still not active. Pt is not dieting either. Pt also has not done sleep study yet. sleep study1 Pt states tht sh e snores and also notices stopp breathing at night lately. Home sleep study was not approved by insurance tobacco1 Pt states that s he feels weired on zyban so she stopped taking it Pt still smoking about 10 cig per day. Pt denies any SOB HTN1 Pt takes losarta /HCTZ and norvasc Her BP is borderline today. Pt denies any chest pain or headache Hypothyroidism1 Pt has low thyro id. Pt is on synthroid Pt has not done ultraosund yet. pt denies any weight gain. Pt has been out for one week. HTN Pt has HTN. Pt t akes lisinopril/HCTZ [...] mets last year. Pt sees oncologist at [facility] and she just seen oncologist yesterday and everything is fine per patient. Pt denies any other complaints Instructions Date Instruction Additional Infor mation Increase activity. Related to Es sential (primary) hypertension Stop smoking. Related to Essen tial (primary) hypertension Follow a low sodium diet. Relate d to Essential (primary) hypertension Special diet education Related t o Body mass index (BMI) 39.0-39.9, adult Special diet education Related t o Body mass index (BMI) 39.0-39.9, adult Weight management Related to Sle ep apnea Quit smoking Related to Sleep apnea Increase physical activity Relat ed to Sleep apnea Special diet education Related t o Body mass index (BMI) 38.0-38.9, adult Special diet education Related t o [...] adult Quit smoking Related to Acute sinusitis Quit smoking Related to Dede braulio's thyroiditis Prescribed Diet Educ ation/Lifestyle Education Regarding Diet Related to Dietary Surveillance and Counseling Prescribed Activity and Exercise Education Related to Dietary Surveillance and Counseling Quit smoking Related to Encou nter for general adult medical exam w abnormal findings Weight management Related to Enc ounter for general adult medical exam w abnormal findings Prescribed Activity and Exercise Education Related to [...]
[2024-07-28 08:15] VITALS: BP 145/79; PULSE 89; RESP 16; TEMP 35.9; O2SAT 98; BMI 33.0
[2024-07-28] MEDS: LACTATED RINGERS 1,000 ML 150 ML IV CONT (08:43)
--- NOTE | 2024-07-28 08:54 | P.PNAN_ITS ---
Anes - Initial Pre Proc Eval Procedure: Operation Date: 07/28/24 09:30 Proposed Procedures p Screening Colonoscopy - Wojciech Bray MD Date/Time: 07/28/24 08:54 Surgeon: Wojciech Bray MD Pre Op Diagnosis: Screening Patient Data Age: 69 Gender: F Height: 1.7 m Weight: 95.8 kg Last Vital Signs Temp 96.7 F L 07/28/24 08:15 Pulse 89 07/28/24 08:15 Resp 16 07/28/24 08:15 BP 145/79 H 07/28/24 08:15 Pulse Ox 98 07/28/24 08:15 O2 Del Method Room Air 07/28/24 08:15 Allergies Allergy/AdvReac Type Severity Reaction Status Date / Time diphenhydramine (From AdvReac Itching Verified 07/28/24 08:23 Benadryl) Contrast dye Allergy Mild Nausea Uncoded 04/19/24 11:06 Home Medications ?Medication ?Instructions ?Recorded ?Confirmed ?Type cholecalciferol (vitamin D3) 50 50 mcg PO DAILY 06/09/20 07/28/24 History mcg (2,000 unit) capsule apixaban 5 mg tablet (Eliquis) 5 mg PO BID 07/12/20 07/28/24 History aspirin 81 mg tablet,delayed 81 mg PO DAILY 07/12/20 07/28/24 History release cyanocobalamin (vitamin B-12) 1,000 mcg PO DAILY 10/12/20 07/28/24 History 1,000 mcg capsule rosuvastatin 20 mg tablet 20 mg PO DAILY 30 days #30 tabs 08/05/21 07/28/24 Rx cabozantinib 40 mg tablet 40 mg PO DAILY 01/22/24 07/28/24 History (Cabometyx) famotidine 20 mg tablet 20 mg PO DAILY #30 tabs 03/24/24 07/23/24 Rx ondansetron 4 mg disintegrating 4 mg PO Q8H PRN nausea and 03/24/24 07/23/24 Rx tablet vomiting #30 tabs irbesartan 150 mg tablet 150 mg PO QAM 30 days #90 tabs 04/01/24 07/28/24 Rx pantoprazole 20 mg tablet,delayed 20 mg PO QAM 04/19/24 07/23/24 History release gabapentin 100 mg capsule 100 mg PO Q8H #90 caps 05/03/24 07/28/24 Rx levothyroxine 175 mcg tablet 175 mcg PO DAILY #90 tabs 05/03/24 07/28/24 Rx amlodipine 5 mg tablet 5 mg PO DAILY #30 tabs 06/17/24 07/28/24 Rx acetaminophen 500 mg capsule 500 mg PO Q6H PRN pain 07/23/24 07/23/24 History cabozantinib 20 mg tablet 20 mg PO DAILY 07/23/24 07/28/24 History (Cabometyx) fluticasone propionate 50 1 spray intranasal BID PRN allergy 07/23/24 07/23/24 History mcg/actuation nasal symptoms spray,suspension (Flonase Allergy Relief) Patient hx anesthesia problems: none Family hx anesthesia problems: none Results Review: All pre-operative results and documents have been reviewed as part of the pre- operative evaluation. [facility] Past Medical History Medical History (Updated 07/20/24 @ 12:03 by Celeste Ballard NP) Non-healing wound Pain in toe of right foot Localized swelling of toe of right foot Dysuria Decrease in appetite Wound, open with complication Carcinoma Metastatic renal cell carcinoma to bone BMI 36.0-36.9,adult Cramping of feet AV node dysfunction Screening for colon cancer BMI 38.0-38.9,adult BMI 37.0-37.9, adult Chronic kidney disease Hyperlipidemia CAD (coronary artery disease) History of pulmonary embolus (PE) Complete heart block Non-ST elevation [place] (NSTEMI) Chest pain due to myocardial ischemia Encounter for hepatitis C screening test for low risk patient Screening for breast cancer PVD (peripheral vascular disease) BMI 34.0-34.9,adult Sleep apnea with use of continuous positive airway pressure (CPAP) Fatigue Deficiency of folic acid B12 deficiency BMI 33.0-33.9,adult Nausea Leg paresthesia Lumbago Weakness of both legs Urinary frequency Tobacco abuse Wound of right foot Wound of left foot Edema Adult BMI 37.0-37.9 kg/sq m Cramp of extremity Magnesium deficiency Vitamin D deficiency, unspecified Thyroid disease IBS (irritable bowel syndrome) Peripheral artery disease Stenosis of popliteal artery Enteritis Hypertension Hypothyroidism Spine metastasis Renal cell carcinoma Surgical History Surgical History H/O Spinal surgery May - broken ebony replaced 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 She denies any alcohol use or drug use. Her medical power of trade mark attorney is her daughter, Ivanna Frazier. She wishes to be a full code. Smoking packs per day: 0.5 Smoking cigarettes per day: 10.0 Years smoked: 30 Smoking pack-years: 15.00 Smoking status: Current every day smoker Tobacco type: cigarettes Alcohol intake: current Alcohol use details: Social Substance use: never Substance use type: does not use Lack of Transportation: No Lack of Food: Never True Current Housing: I Have Housing Concerned About Future Housing: No Difficulty Paying Gas/Electric Bills: No Difficulty Paying for Meds: No Currently Unemployed: No Education: Trade/Vocational Certificate Difficulty w/ Childcare or Family Care: No Living arrangements: with family Occupation/Education: occupation Gender identity (if verbalized by the patient): Female Spiritual care concerns: No Anes - Eval Final PreProcedure Day of Procedure 07/28/24 08:54 Patient weight: obese Heart: regular rate and rhythm Lungs: clear to auscultation Airway: Mallampati scale class II Neurological: alert and oriented Last oral intake: >/= 8 hours ASA classification: III Emergent: no Anesthetic plan: proceed Anesthesia type and monitoring: general GIVS and standard monitoring Results Review: All pre-operative results and documents have been reviewed as part of the pre- operative evaluation. Informed Consent: The patient's anesthetic plan and its attendant risks and benefits were discussed with the patient/family/POA. Questions were solicited and answers provided to the satisfaction of the patient/family/POA.
--- NOTE | 2024-07-28 09:10 | PM.HPGS ---
History of Present Illness History of Present Illness Consent: Risks, benefits, and alternatives have been discussed and questions answered. Patient agrees to proceed with procedure. Chief complaint: Screening Narrative: Eli Frazier is a 69 year old female here for screening colonoscopy, last one 2020 Review of Systems Review of Systems: All systems reviewed & are unremarkable except as noted in HPI and below PMFSH Past Medical History Medical History (Updated 07/20/24 @ 12:03 by Celeste Ballard NP) Non-healing wound Pain in toe of right foot Localized swelling of toe of right foot Dysuria Decrease in appetite Wound, open with complication Carcinoma Metastatic renal cell carcinoma to bone BMI 36.0-36.9,adult Cramping of feet AV node dysfunction Screening for colon cancer BMI 38.0-38.9,adult BMI 37.0-37.9, adult Chronic kidney disease Hyperlipidemia CAD (coronary artery disease) History of pulmonary embolus (PE) Complete heart block Non-ST elevation [place] (NSTEMI) Chest pain due to myocardial ischemia Encounter for hepatitis C screening test for low risk patient Screening for breast cancer PVD (peripheral vascular disease) BMI 34.0-34.9,adult Sleep apnea with use of continuous positive airway pressure (CPAP) Fatigue Deficiency of folic acid B12 deficiency BMI 33.0-33.9,adult Nausea Leg paresthesia Lumbago Weakness of both legs Urinary frequency Tobacco abuse Wound of right foot Wound of left foot Edema Adult BMI 37.0-37.9 kg/sq m Cramp of extremity Magnesium deficiency Vitamin D deficiency, unspecified Thyroid disease IBS (irritable bowel syndrome) Peripheral artery disease Stenosis of popliteal artery Enteritis Hypertension Hypothyroidism Spine metastasis Renal cell carcinoma Surgical History Surgical History H/O Spinal surgery May - broken ebony replaced 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 She denies any alcohol use or drug use. Her medical power of commonwealth attorney is her daughter, Ivanna Frazier. She wishes to be a full code. Smoking packs per day: 0.5 Smoking cigarettes per day: 10.0 Years smoked: 30 Smoking pack-years: 15.00 Smoking status: Current every day smoker Tobacco type: cigarettes Alcohol intake: current Alcohol use details: Social Substance use: never Substance use type: does not use Lack of Transportation: No Lack of Food: Never True Current Housing: I Have Housing Concerned About Future Housing: No Difficulty Paying Gas/Electric Bills: No Difficulty Paying for Meds: No Currently Unemployed: No Education: Trade/Vocational Certificate Difficulty w/ Childcare or Family Care: No Living arrangements: with family Occupation/Education: occupation Gender identity (if verbalized by the patient): Female Spiritual care concerns: No Meds Home Medications and Allergies Home Medications ?Medication ?Instructions ?Recorded ?Confirmed ?Type cholecalciferol (vitamin D3) 50 50 mcg PO DAILY 06/09/20 07/28/24 History mcg (2,000 unit) capsule apixaban 5 mg tablet (Eliquis) 5 mg PO BID 07/12/20 07/28/24 History aspirin 81 mg tablet,delayed 81 mg PO DAILY 07/12/20 07/28/24 History release cyanocobalamin (vitamin B-12) 1,000 mcg PO DAILY 10/12/20 07/28/24 History 1,000 mcg capsule rosuvastatin 20 mg tablet 20 mg PO DAILY 30 days #30 tabs 08/05/21 07/28/24 Rx cabozantinib 40 mg tablet 40 mg PO DAILY 01/22/24 07/28/24 History (Cabometyx) famotidine 20 mg tablet 20 mg PO DAILY #30 tabs 03/24/24 07/23/24 Rx ondansetron 4 mg disintegrating 4 mg PO Q8H PRN nausea and 03/24/24 07/23/24 Rx tablet vomiting #30 tabs irbesartan 150 mg tablet 150 mg PO QAM 30 days #90 tabs 04/01/24 07/28/24 Rx pantoprazole 20 mg tablet,delayed 20 mg PO QAM 04/19/24 07/23/24 History release gabapentin 100 mg capsule 100 mg PO Q8H #90 caps 05/03/24 07/28/24 Rx levothyroxine 175 mcg tablet 175 mcg PO DAILY #90 tabs 05/03/24 07/28/24 Rx amlodipine 5 mg tablet 5 mg PO DAILY #30 tabs 06/17/24 07/28/24 Rx acetaminophen 500 mg capsule 500 mg PO Q6H PRN pain 07/23/24 07/23/24 History cabozantinib 20 mg tablet 20 mg PO DAILY 07/23/24 07/28/24 History (Cabometyx) fluticasone propionate 50 1 spray intranasal BID PRN allergy 07/23/24 07/23/24 History mcg/actuation nasal symptoms spray,suspension (Flonase Allergy Relief) Allergies Allergy/AdvReac Type Severity Reaction Status Date / Time diphenhydramine (From AdvReac Itching Verified 07/28/24 08:23 Benadryl) Contrast dye Allergy Mild Nausea Uncoded 04/19/24 11:06 Vital Signs Vital Signs - 24 hr 07/28/24 08:15 Temperature 96.7 F L Pulse Rate 89 Respiratory Rate 16 Blood Pressure 145/79 H Pulse Oximetry 98 Oxygen Delivery Room Air Exam Const: General: comfortable and no acute distress HENMT: Face/Nose/Sinus: Normal nares present Eyes: General: appearance normal, both eyes and all related structures Neck: Neck: no JVD Resp: Auscultation: clear to auscultation bilaterally Cardio: Rate: regular rate Rhythm: regular rhythm GI: Inspection: non-distended GI Palp: Yes Soft to palpation Skin: General skin exam: normal color Neuro: General: gait normal Speech: normal speech Extrem: General: normal to inspection Psych: Mental Status: mental status grossly normal Assessment and Plan Assessment and plan (1) Screening for colon cancer: Code(s): Z12.11 - Encounter for screening for malignant neoplasm of colon Status: Acute Assessment and Plan: colonoscopy
[2024-07-28 09:30] VITALS: BP 125/69; PULSE 62; RESP 21; O2SAT 94
[2024-07-28 09:40] VITALS: BP 130/73; PULSE 61; RESP 15; O2SAT 94
[2024-07-28 09:50] VITALS: BP 148/85; PULSE 60; RESP 18; O2SAT 100
[2024-07-28 10:00] VITALS: BP 137/77; PULSE 60; RESP 21; O2SAT 100
== END 2024-07-28 10:11 | disposition home or self-care (01) ==
PROVIDERS: PCP Nurse Practitioner Family; Referring Provider Nurse Practitioner Family; Visit Provider Internal Medicine Gastroenterology
PROC: 0DJD8ZZ Inspection of Lower Intestinal Tract, Via Natural or Artificial Opening Endoscopic (ICD-10-PCS; CPT 45378; principal; 2024-07-28 09:30)
DX: Z12.11 Encounter for screening for malignant neoplasm of colon (principal); K57.30 Diverticulosis of large intestine without perforation or abscess without bleeding; I12.9 Hypertensive chronic kidney disease with stage 1 through stage 4 chronic kidney disease, or unspecified chronic kidney disease; N18.9 Chronic kidney disease, unspecified; E78.5 Hyperlipidemia, unspecified; I25.10 Atherosclerotic heart disease of native coronary artery without angina pectoris; G47.30 Sleep apnea, unspecified; I73.9 Peripheral vascular disease, unspecified; E53.8 Deficiency of other specified B group vitamins; R35.0 Frequency of micturition; E61.2 Magnesium deficiency; E55.9 Vitamin D deficiency, unspecified; E07.9 Disorder of thyroid, unspecified; K58.9 Irritable bowel syndrome, unspecified; E03.9 Hypothyroidism, unspecified; F17.210 Nicotine dependence, cigarettes, uncomplicated; E66.9 Obesity, unspecified; Z68.33 Body mass index [BMI] 33.0-33.9, adult; Z79.01 Long term (current) use of anticoagulants; Z79.82 Long term (current) use of aspirin; Z99.89 Dependence on other enabling machines and devices; Z98.1 Arthrodesis status; Z86.711 Personal history of pulmonary embolism; Z85.528 Personal history of other malignant neoplasm of kidney; Z85.830 Personal history of malignant neoplasm of bone; Z86.79 Personal history of other diseases of the circulatory system; Z85.848 Personal history of malignant neoplasm of other parts of nervous tissue; Z80.9 Family history of malignant neoplasm, unspecified; Z82.49 Family history of ischemic heart disease and other diseases of the circulatory system
CPT/HCPCS: G0105; J2003; J2704; J7120